=== PATIENT | female | born 1975 | race Caucasian/White ===

== ENCOUNTER 2016-03-27 08:20 | Inpatient (IN) | payer OTHER ==
[2016-03-27] VITALS (27 sets, daily range): BP systolic 125–240; BP diastolic 85–148; PULSE 84–136; TEMP 37.6–39; O2SAT 89–99; BMI 29.8
[~2016-03-27] VITALS: Ht 157.5 cm; Wt 75.1 kg
[~2016-03-27 08:20] MED LIST: AMLO-110 PO; LISI-725 PO; OXYC1TAB3 PO
[2016-03-27] MEDS ORDERED: SODIUM CHLORIDE 0.9% 1000ML 1,000 ML IV STA ×2 (08:40→09:48)
[2016-03-27] MEDS ORDERED: ONDANSETRON INJ 2 MG/ML 2 ML VIAL IV STA (08:40)
[2016-03-27] MEDS ORDERED: PANTOprazole INJ 40 MG in SYRINGE 0 ML IV ONE (08:45)
[2016-03-27] MEDS ORDERED: DEXAMETHASONE SOD INJ 10 MG/ML VIAL IV ONE (08:45)
--- NOTE | 2016-03-27 08:46 | EMERGENCY ROOM VISIT NOTE ---
History Report prepared by Adam: Scott Tay Under the Supervision of: Dr. Wiliam Mendez D.O. First contact with patient: 08:29 Chief Complaint: RESPIRATORY PROBLEMS Stated Complaint: CANT BREATH VOMITING Nursing Triage Summary: Difficulty breathing and throat pain. Denies CP. States awoke with the symptoms. History of Present Illness The patient is a 40 year old female who presents to the Emergency Room with complaints of persistent respiratory problems that started upon waking this morning. She reports a sore throat and shortness of breath. Per the patient's , the patient is vomiting blood. She is also nauseous. The patient has had abdominal pain for months. The patient says she has not had anything like this before. She has surgery scheduled today for a hernia. She is allergic to penicillin and IV dye. Source of History: patient, spouse/significant other Onset: Upon waking this morning Position: other (global - respiratory problems) Timing: other (persistent) Associated Symptoms: + SOB, + abdominal pain (for months), + nausea, + sorethroat, + vomiting (blood) Note: No other associated symptoms. Review of Systems See HPI for pertinent positives & negatives. A total of 10 systems reviewed and were otherwise negative. Past Medical & Surgical Medical Problems: (1) Acute respiratory failure (2) DKA (diabetic ketoacidoses) (3) GERD (gastroesophageal reflux disease) (4) Hyperglycemia (5) Right lower quadrant abdominal abscess (6) RUQ pain Surgical Problems: (1) H/O tubal ligation (2) History of cholecystectomy (3) Hx of cholecystectomy (4) Tubal ligation status Family History Hypertension Social History Smoking Status: Current Every Day Smoker Alcohol Use: none Drug Use: none Marital Status: Housing Status: lives with family Occupation Status: employed Current/Historical Medications Scheduled Amlodipine (Norvasc), 5 MG PO QAM Dicyclomine Hcl (Dicyclomine Hcl), 10 MG PO TID Insulin Glargine (Lantus), 18 UNITS SC QPM Insulin Glulisine (Apidra), 0-20 UNITS SQ BID Lisinopril (Zestril), 20 MG PO QAM Scheduled PRN Acetaminophen (Tylenol), 650 MG PO Q4 PRN for Pain Fluticasone Propionate (Flovent Hfa), 1 PUFFS INH BID PRN for Shortness of Breath Omeprazole (Prilosec), 20 MG PO DAILY PRN for ACID REFLUX Oxycodone Ir (Roxicodone Ir), 5 MG PO Q6H PRN for Pain Allergies Coded Allergies: Iodinated Diagnostic Agents (Verified Adverse Reaction, Mild, VOMITING, 03/25/16) Morphine (Verified Adverse Reaction, Unknown, does not want it, 03/25/16) Penicillins (Verified Adverse Reaction, Unknown, "does not work", 03/25/16) Physical Exam Vital Signs Date Time Temp Pulse Resp B/P Pulse Ox O2 Delivery O2 Flow Rate FiO2 03/27/16 11:13 160/96 03/27/16 11:08 151/94 03/27/16 11:03 144/84 03/27/16 10:58 139/87 03/27/16 10:53 140/87 03/27/16 10:50 111 16 100 03/27/16 10:48 134/86 03/27/16 10:44 119 158/102 100 Mechanical Ventilator 03/27/16 10:43 158/102 03/27/16 10:42 157/103 03/27/16 10:38 167/104 03/27/16 10:36 100 03/27/16 10:35 103 24 94 Room Air 03/27/16 10:33 161/108 03/27/16 10:31 116 139/88 99 Mechanical Ventilator 03/27/16 10:28 139/88 03/27/16 10:25 119 126/80 99 Mechanical Ventilator 03/27/16 10:23 126/80 03/27/16 10:22 139/79 03/27/16 10:20 135 34 100 03/27/16 10:14 128 141/103 100 Mechanical Ventilator 03/27/16 10:13 141/103 03/27/16 10:08 157/106 03/27/16 10:05 136 145/97 100 Mechanical Ventilator 03/27/16 10:04 145/97 03/27/16 10:00 183/134 03/27/16 09:57 139 164/91 99 Mechanical Ventilator 03/27/16 09:54 164/91 03/27/16 09:51 185/124 03/27/16 09:50 140 98 03/27/16 09:46 99 03/27/16 09:43 172/130 03/27/16 09:31 111 20 166/101 97 Room Air 03/27/16 09:29 166/101 03/27/16 08:59 164/97 03/27/16 08:55 109 20 164/97 97 Room Air 03/27/16 08:50 109 24 97 03/27/16 08:38 113 03/27/16 08:38 99 Room Air 03/27/16 08:35 180/114 03/27/16 08:22 37.3 112 24 179/107 95 Room Air Physical Exam GENERAL: Patient is awake, alert, somewhat anxious appearing and uncomfortable. EYES: The conjunctivae are clear. The pupils are round and reactive. EARS, NOSE, MOUTH AND THROAT: The nose is without any evidence of any deformity. Mucous membranes are moist tongue is midline NECK: There is anterior tenderness to palpation but no masses noted. No stridor appreciated. RESPIRATORY: Normal respiratory effort is noted there is no evidence of wheezing rhonchi or rales CARDIOVASCULAR: Heart sounds were tachycardic but regular. No definite murmur appreciated. GASTROINTESTINAL: The abdomen is mildly distended but diffusely tender. No specific guarding or rigidity appreciated. MUSCULOSKELETAL/EXTREMITIES: There is no evidence of gross deformity full range of motion is noted in the hips and shoulders SKIN: There is no obvious evidence of any rash. There are no petechiae, pallor or cyanosis noted. NEUROLOGIC: Patient is awake alert and oriented x3. Medical Decision & Procedures ER Provider Diagnostic Interpretation: X ray results and stated below per my interpretation and radiology interpretation. Other radiology results per my review and radiologist interpretation: SOFT TISSUE NECK CT WITHOUT CONTRAST HISTORY: Difficulty breathing. sore throat TECHNIQUE: Multiaxial CT images of the neck were performed without the use of intravenous contrast. COMPARISON STUDY: None. FINDINGS: The visualized brain parenchyma and orbits are unremarkable. The parotid and submandibular glands are symmetric. There is a bilobed 8 x 5 mm nodule within the right upper lobe on image 409. Left lung is clear. The trachea is midline and is patent. Small retention cysts within the right maxillary sinus. The mastoid air cells are clear. No fractures within the visualized osseous structures. Questionable hypodense area within the right thyroid lobe is likely artifactual. Shotty cervical and submandibular lymph nodes. Evaluation for a neck mass or abscess is limited due to the lack of intravenous contrast. Prevertebral soft tissues and the epiglottis are normal in thickness. Soft tissue thickening/edema within the supraglottic soft tissues and pyriform sinuses. This results in severe narrowing of the supraglottic airway. IMPRESSION: 1. Thickening/edema within the supraglottic soft tissues and pyriform sinuses resulting in severe narrowing of the supraglottic airway. This could be due to an infectious process or possibly angioedema. 2. Evaluation for neck mass or abscess is limited due to lack of intravenous contrast. However, no definite neck mass or abscess identified. 3. Shotty cervical/submandibular lymphadenopathy which may be reactive. 4. An 8 x 5 mm bilobed nodule within the right upper lobe. This could represent a bronchial lymph node. However, [address] follow up is recommended to ensure stability. 5. These findings were discussed with Dr. Mendez at 9:27 AM on 03/27/2016. Electronically signed by: Sunny Saez M.D. 03/27/2016 9:30 AM CHEST ONE VIEW PORTABLE CLINICAL HISTORY: ABDOMINAL PAIN/GI nausea COMPARISON STUDY: 01/11/2016 FINDINGS: The bones soft tissues and hemidiaphragms are normal. The cardiomediastinal silhouette is normal. The lungs are clear. The pulmonary vasculature is normal. IMPRESSION: Negative chest. Electronically signed by: Stefan Harris M.D. 03/27/2016 9:10 AM Laboratory Results 03/27/16 08:50 Red Blood Count 4.38, Mean Corpuscular Volume 89.5, Mean Corpuscular Hemoglobin 31.3, Mean Corpuscular Hemoglobin Concent 34.9, Mean Platelet Volume 9.4, Neutrophils (%) (Auto) 74.8, Lymphocytes (%) (Auto) 16.8, Monocytes (%) (Auto) 7.6, Eosinophils (%) (Auto) 0.3, Basophils (%) (Auto) 0.1, Neutrophils # (Auto) 8.43, Lymphocytes # (Auto) 1.89, Monocytes # (Auto) 0.86, Eosinophils # (Auto) 0.03, Basophils # (Auto) 0.01 03/27/16 08:50 Test 03/27/16 08:50 03/27/16 10:35 03/27/16 10:59 White Blood Count 11.27 K/uL (4.8-10.8) Red Blood Count 4.38 M/uL (4.2-5.4) Hemoglobin 13.7 g/dL (12.0-16.0) Hematocrit 39.2 % (37-47) Mean Corpuscular Volume 89.5 fL (80-100) Mean Corpuscular Hemoglobin 31.3 pg (25-34) Mean Corpuscular Hemoglobin Concent 34.9 g/dl (32-36) Platelet Count 259 K/uL (130-400) Mean Platelet Volume 9.4 fL (7.4-10.4) Neutrophils (%) (Auto) 74.8 % Lymphocytes (%) (Auto) 16.8 % Monocytes (%) (Auto) 7.6 % Eosinophils (%) (Auto) 0.3 % Basophils (%) (Auto) 0.1 % Neutrophils # (Auto) 8.43 K/uL (1.4-6.5) Lymphocytes # (Auto) 1.89 K/uL (1.2-3.4) Monocytes # (Auto) 0.86 K/uL (0.11-0.59) Eosinophils # (Auto) 0.03 K/uL (0-0.5) Basophils # (Auto) 0.01 K/uL (0-0.2) RDW Standard Deviation 50.9 fL (36.4-46.3) RDW Coefficient of Variation 15.6 % (11.5-14.5) Immature Granulocyte % (Auto) 0.4 % Immature Granulocyte # (Auto) 0.05 K/uL (0.00-0.02) Prothrombin Time 11.1 SECONDS (9.0-12.0) Prothromb Time International Ratio 1.0 (0.9-1.1) Activated Partial Thromboplast Time 28.7 SECONDS (21.0-31.0) Partial Thromboplastin Ratio 1.1 Anion Gap 14.0 mmol/L (3-11) Est Creatinine Clear Calc Drug Dose 105.6 ml/min Estimated GFR () 127.2 Estimated GFR (Non- 109.7 BUN/Creatinine Ratio 12.1 (10-20) Calcium Level 9.2 mg/dl (8.5-10.1) Total Bilirubin 0.2 mg/dl (0.2-1) Direct Bilirubin < 0.1 mg/dl (0-0.2) Aspartate Amino Transf (AST/SGOT) 169 U/L (15-37) Alanine Aminotransferase (ALT/SGPT) 162 U/L (12-78) Alkaline Phosphatase 188 U/L (45-117) Total Creatine Kinase 47 U/L (26-192) Creatine Kinase MB < 0.5 ng/ml (0.5-3.6) Creatine Kinase MB Ratio (0-3.0) Troponin I < 0.015 ng/ml (0-0.045) Total Protein 7.7 gm/dl (6.4-8.2) Albumin 3.7 gm/dl (3.4-5.0) Lipase 136 U/L (73-393) Human Chorionic Gonadotropin, Qual NEG (NEG) Urine Color YELLOW Urine Appearance CLEAR (CLEAR) Urine pH 6.0 (4.5-7.5) Urine Specific [place] 1.013 (1.000-1.030) Urine Protein 2+ (NEG) Urine Glucose (UA) 2+ (NEG) Urine Ketones NEG (NEG) Urine Occult Blood 3+ (NEG) Urine Nitrite NEG (NEG) Urine Bilirubin NEG (NEG) Urine Urobilinogen NEG (NEG) Urine Leukocyte Esterase NEG (NEG) Urine WBC (Auto) 1-5 /hpf (0-5) Urine RBC (Auto) >30 /hpf (0-4) Urine Hyaline Casts (Auto) 5-10 /lpf (0-5) Urine Epithelial Cells (Auto) >30 /lpf (0-5) Urine Bacteria (Auto) NEG (NEG) Urine Renal Epithelial Cells /lpf (0-5) Bedside Glucose 330 mg/dl (70-90) Laboratory results per my review. Medications Administered Medications (Trade) Dose Ordered Sig/Jimbo Route Start Time Stop Time Status Last Admin Dose Admin Dexamethasone Sodium Phosphate 10 mg 10 mg NOW ONCE IV 03/27/16 08:45 03/27/16 08:46 DC 03/27/16 08:56 10 MG Sodium Chloride (Nss 1000ml) 1,000 ml @ 999 mls/hr Q1H1M STAT IV 03/27/16 08:40 03/27/16 09:40 DC 03/27/16 08:55 999 MLS/HR Ondansetron HCl 4 mg 4 mg NOW STAT IV 03/27/16 08:40 03/27/16 08:43 DC 03/27/16 08:56 4 MG Pantoprazole Sodium/Syringe (Protonix Inj/ Syringe) 10 ml @ 5 mls/min NOW ONCE IV 03/27/16 08:45 03/27/16 08:47 DC 03/27/16 09:28 5 MLS/MIN Famotidine (Pepcid 20mg/100 ml) 20 mg ONE STAT IV 03/27/16 09:22 03/27/16 09:24 DC 03/27/16 09:58 20 MG Racepinephrine (Raccemic Epinephrine 2.25% 0.5ML Neb) 0.5 ml NOW STAT INH 03/27/16 09:25 03/27/16 09:26 DC 03/27/16 09:25 0.5 ML Miscellaneous (Rapid Sequence Induction Bag) 1 ea STK-MED ONCE N/A 03/27/16 09:33 03/27/16 09:34 DC 03/27/16 09:33 1 EA Propofol 1 dose 1 dose STK-MED ONCE IV 03/27/16 09:47 03/27/16 09:48 DC 03/27/16 10:10 1 DOSE Sodium Chloride (Nss 1000ml) 1,000 ml @ 250 mls/hr Q4H STAT IV 03/27/16 09:48 03/27/16 12:50 DC 03/27/16 10:04 250 MLS/HR Fentanyl Citrate (Fentanyl Inj) 200 mcg NOW STAT IV 03/27/16 10:35 03/27/16 10:37 DC 03/27/16 10:42 200 MCG Midazolam HCl (Versed Inj) 4 mg NOW STAT IV 03/27/16 10:35 03/27/16 10:37 DC 03/27/16 10:40 4 MG Procedure Endotracheal Intubation Indication Angioedema. The patient was on 100% oxygen via NRB prior to the procedure. Suction, airway equipment, RSI drugs, respiratory equipment, and appropriate personnel were prepared prior to the initiation of the procedure. A time out was taken. Induction was performed with Etomidate 20 mg. After observing the clinical benefit of the medications, the airway was easily visualized utilizing a glottiscope. A 7.5 size ETT tube was placed atraumatically to 23 cm at the lips using standard technique. The cuff inflated without signs of malfunction. There were bilateral breath sounds, positive colormetric change, no gastric sounds, a good capnography waveform, and post procedure pulse oximetry was 99% before and 100% after Post intubation sedation and paralysis was administered using propofol drip. There were no complications. ECG Indication: SOB/dyspnea Rate (beats per minute): 109 Rhythm: sinus tachycardia Findings: no ectopy, other (no acute ST segment abnormalities) Change: no significant change (from March 18 2016) ED Course 0833: The patient was evaluated in room B6. A complete history and physical examination were performed. 0840: Ordered Zofran Inj 4 mg IV, NSS 1000 ml @ 999 mls/hr IV. 0845: Ordered Pantoprazole Sodium 40 mg/Syringe 10 ml @ 5 mls/min IV, Decadron Inj 10 mg IV. 0922 :Ordered Pepcid 20 mg/100 ml 20 mg IV. 0925: Ordered Raccemic Epinephrine 2.25% 0.5ML Neb 0.5 ml INH. 0938: I performed an intubation on the patient. 0941: I discussed the patient with Dr. Demetrice NOBLES ICU. 0948: Ordered NSS 1000 ml @ 250 mls/hr IV, Versed Inj 4 mg IV. 0955: I reevaluated the patient and she is resting comfortably. The patient verbally expressed understanding and agreement of the treatment plan. The patient will be evaluated for further treatment. 0958: I discussed the patient with Dr. Sharmaine NOBLES superintendent sales - he will evaluate the patient for further treatment. 1000: Diprivan IV 100ML VIAL 1 dose IV PRN. Medical Decision Differential diagnosis: Etiologies such as infections, reactive airway disease, pneumonia, pneumothorax , COPD, CHF, cardiac ischemia, pulmonary embolism, musculoskeletal, gastrointestinal, as well as others were entertained. Nursing notes reviewed. Additional history is obtained from the patient's significant other. Patient's previous electronic medical records reviewed. The patient is a 40-year-old female who presented to the emergency department for an evaluation of sore throat and difficulty breathing. The patient states that she had an episode of nausea and vomiting this morning and then started having difficulty breathing. She felt like her "throat was closing". The patient had stridor on initial valuation but this appeared to resolve when the patient was breathing with an open mouth. The patient was sent for CAT scan of the soft tissue of the neck which did reveal significant supraglottic airway edema. The patient currently is taking an DEBORAH inhibitor. The patient was taken to room A1 and was intubated for airway protection. Visually she did have some supraglottic edema but her cords and her epiglottis appeared normal to visual inspection. I discussed the patient's case with the on-call floorhand. I also discussed his case with the on-call [facility] hospitalist group. They've agreed to evaluate the patient in emergency department for further management and disposition. The patient was managed on IV sedation. She was intubated in usual fashion tolerated this quite well. The patient was reevaluated multiple times. Consults Time Called: 939 Consulting Physician: Dr. Demetrice NOBLES ICU Returned Call: [phone] I discussed the patient with Dr. Demetrice NOBLES ICU. Additional Consults: Time Called: 955 Consulted Physician: Dr. Sharmaine NOBLES superintendent sales Returned Call: [phone] Additional Comments: I discussed the patient with Dr. Sharmaine NOBLES superintendent sales - he will evaluate the patient for further treatment. Impression Primary Impression: Angioedema Additional Impressions: Respiratory failure, Metabolic acidosis Critical Care I have personally spent greater than 60 minutes of critical care time in the direct management of this patient. This includes bedside care, interpretation of diagnostic studies, and testing, discussion with consultants, patient, and family members, and other required patient management activities. This 60 minutes is in excess of all separately billable procedures. Scribe Attestation The scribe's documentation has been prepared under my direction and personally reviewed by me in its entirety. I confirm that the note above accurately reflects all work, treatment, procedures, and medical decision making performed by me. Departure Information Dispostion Being Evaluated By Hospitalist Referrals No Doctor, Assigned (PCP) Patient Instructions A Signature Page, My [facility]
--- NOTE | 2016-03-27 09:12 | DIAGNOSTIC IMAGING REPORT ---
CHEST ONE VIEW PORTABLE CLINICAL HISTORY: ABDOMINAL PAIN/GI nausea COMPARISON STUDY: 01/11/2016 FINDINGS: The bones soft tissues and hemidiaphragms are normal. The cardiomediastinal silhouette is normal. The lungs are clear. The pulmonary vasculature is normal. IMPRESSION: Negative chest. Electronically signed by: Stefan Harris M.D. 03/27/2016 9:10 AM
[2016-03-27] MEDS ORDERED: FAMOTIDINE 20MG/102 ML D5W IV STA (09:22)
[2016-03-27] MEDS ORDERED: RACEPINEPHRINE 2.25% NEBU SOLN 0.5 ML VIAL INH STA (09:25)
[2016-03-27 09:29] LABS: BASO % 0.1 %; BASO ABS # 0.01 K/uL (0-0.2); COMPLETE YES; EOS % 0.3 %; HEMATOCRIT 39.2 % (37-47); IG% 0.4 %; LYMPH % 16.8 %; LYMPH ABS # 1.89 K/uL (1.2-3.4); MEAN CELL VOLUME 89.5 fL (80-100); MEAN CORPUSCULAR HEMOGLOBIN 31.3 pg (25-34); MEAN CORPUSCULAR HGB CONC 34.9 g/dl (32-36); MEAN PLATELET VOLUME 9.4 fL (7.4-10.4); MONO % 7.6 %; NEUT % 74.8 %; PLATELET COUNT 259 K/uL (130-400); RED BLOOD COUNT 4.38 M/uL (4.2-5.4); WHITE BLOOD COUNT 11.27 K/uL (4.8-10.8)
--- NOTE | 2016-03-27 09:32 | DIAGNOSTIC IMAGING REPORT ---
SOFT TISSUE NECK CT WITHOUT CONTRAST HISTORY: Difficulty breathing. sore throat TECHNIQUE: Multiaxial CT images of the neck were performed without the use of intravenous contrast. COMPARISON STUDY: None. FINDINGS: The visualized brain parenchyma and orbits are unremarkable. The parotid and submandibular glands are symmetric. There is a bilobed 8 x 5 mm nodule within the right upper lobe on image 409. Left lung is clear. The trachea is midline and is patent. Small retention cysts within the right maxillary sinus. The mastoid air cells are clear. No fractures within the visualized osseous structures. Questionable hypodense area within the right thyroid lobe is likely artifactual. Shotty cervical and submandibular lymph nodes. Evaluation for a neck mass or abscess is limited due to the lack of intravenous contrast. Prevertebral soft tissues and the epiglottis are normal in thickness. Soft tissue thickening/edema within the supraglottic soft tissues and pyriform sinuses. This results in severe narrowing of the supraglottic airway. IMPRESSION: 1. Thickening/edema within the supraglottic soft tissues and pyriform sinuses resulting in severe narrowing of the supraglottic airway. This could be due to an infectious process or possibly angioedema. 2. Evaluation for neck mass or abscess is limited due to lack of intravenous contrast. However, no definite neck mass or abscess identified. 3. Shotty cervical/submandibular lymphadenopathy which may be reactive. 4. An 8 x 5 mm bilobed nodule within the right upper lobe. This could represent a bronchial lymph node. However, [address] follow up is recommended to ensure stability. 5. These findings were discussed with Dr. Mendez at 9:27 AM on 03/27/2016. Electronically signed by: Sunny Saez M.D. 03/27/2016 9:30 AM
[2016-03-27] MEDS ORDERED: RAPID SEQUENCE INDUCTION BAG ONE (09:33)
[2016-03-27 09:40] LABS: PARTIAL THROMBOPLASTIN RATIO 1.1; PROTHROMBIN TIME (PATIENT) 11.1 SECONDS (9.0-12.0)
[2016-03-27] MEDS ORDERED: PROPOFOL IV EMULSION 10 MG/ML 100 ML VIAL IV ONE (09:47)
[2016-03-27] MEDS ORDERED: MIDAZOLAM HCL 1 MG/ML 2ML VIAL IV STA (09:48)
[2016-03-27] MEDS ORDERED: PROPOFOL IV EMULSION 10 MG/ML 100 ML VIAL IV PRN (10:00)
[2016-03-27 10:03] LABS: PREG INTERNAL NEGATIVE QC NEG CLEAR BACKGROUND; PREG INTERNAL POSITIVE QC POS CONTROL LINE
[2016-03-27 10:11] LABS: POTASSIUM 3.6 mmol/L (3.5-5.1)
[2016-03-27 10:19] LABS: ALKALINE PHOSPHATASE 188 U/L (45-117); ALT/SGPT 162 U/L (12-78); BLOOD UREA NITROGEN 8 mg/dl (7-18); BUN/CREATININE RATIO 12.1 (10-20); CALCIUM 9.2 mg/dl (8.5-10.1); CARBON DIOXIDE 19 mmol/L (21-32); CHLORIDE 108 mmol/L (98-107); CREATININE 0.66 mg/dl (0.60-1.20); GLUCOSE 267 mg/dl (70-99); SODIUM 140 mmol/L (136-145)
[2016-03-27 10:22] LABS: AST/SGOT 169 U/L (15-37)
--- NOTE | 2016-03-27 10:33 | Critical Care Consultation ---
Critical Care Consultation Date of Consultation: Mar 27, 2016. Attending Physician: Attending: Dr. Miguel Angel Suresh Reason for Consultation: Intubated s/p Angio Edema History of Present Illness Iman Wild is 40yo Female with a PMHx of IDDM, HTN, GERD, IBS, PID, S/P hysterectomy with L oophorectomy secondary to Cervical CA who presents to the E.D for difficulty breathing and a sore throat that she awoke with. When I arrived, Ms. Wild was sedated and intubated for prophylactic airway protection and was unable to be interviewed. Prior to intubation the pt told E.D staff that she had never experienced anything like this before. stated that about 3 days ago the pt noted hoarseness while yelling at this kids , which has progressively gotten worse. He denies that she felt ill. Today she was nauseous and vomited with tinges of blood in it. She had abd pain times several months and was scheduled for hernia surgery today. It is my understanding that she was oxygenating well bring to being intubated and this was for prophylactic airway protection. She underwent a Neck CT without contrast that demonstrated Thickening/edema within the supraglottic soft tissues and pyriform sinuses resulting in severe narrowing of the supraglottic airway. This could be due to an infectious process or possibly angioedema. Pt is on Lisinopril prior to the hospital setting according to records. Unknown at this time how long she has taken this medication; however, this medication was not listed as a home med as of her most recent inpatient stay for abd pain on 01/10/2016 or most recent ED visit on 03/17/16. Pt received Zofran for nausea and was started on NSS IV. She underwent 1 Raccemic Epinephrine Nebulizer and consented to intubation. She was sedated using Etomidate 20mg and Succinylcholine 150 with use a the glottiscope a 7.5 ET tube was inserted reportedly without trauma to 23cm at the lip. I spoke with respiratory who had just suctioned a significant amount of bloody oral secretions. Intubation sedation was followed by Versed, Fentanyl, and Propofol. I visited the patient again about a half hour after sedation. She was semi alert and could respond to some questions with nodding her head before going back to sleep. She denied fevers, malaise, chest pain, feeling short of breath now. She does have abd pain. Past Medical/Surgical History Medical Problems: DKA (diabetic ketoacidoses) GERD (gastroesophageal reflux disease) Hyperglycemia Right lower quadrant abdominal abscess RUQ pain Cervical CA Irritable Bowel Synd HTN IDDM Pelvic Inflammatory Dz Surgical Problems: H/O tubal ligation Hysterectomy L oophorectomy History of cholecystectomy Ventral Hernia Repair Family History Hypertension Social History Smoking Status: Current Every Day Smoker Alcohol Use: none Drug Use: none Marital Status: Housing Status: lives with family Occupation Status: employed Allergies Coded Allergies: Iodinated Diagnostic Agents (Verified Adverse Reaction, Mild, VOMITING, 03/25/16) Morphine (Verified Adverse Reaction, Unknown, does not want it, 03/25/16) Penicillins (Verified Adverse Reaction, Unknown, "does not work", 03/25/16) Home Medications Scheduled Amlodipine (Norvasc), 5 MG PO QAM Dicyclomine Hcl (Dicyclomine Hcl), 10 MG PO TID Insulin Glargine (Lantus), 18 UNITS SC QPM Insulin Glulisine (Apidra), 0-20 UNITS SQ BID Lisinopril (Zestril), 20 MG PO QAM Scheduled PRN Acetaminophen (Tylenol), 650 MG PO Q4 PRN for Pain Fluticasone Propionate (Flovent Hfa), 1 PUFFS INH BID PRN for Shortness of Breath Omeprazole (Prilosec), 20 MG PO DAILY PRN for ACID REFLUX Oxycodone Ir (Roxicodone Ir), 5 MG PO Q6H PRN for Pain Current Inpatient Medications Current Inpatient Medications Medications (Trade) Dose Ordered Sig/Jimbo Route Start Time Stop Time Status Last Admin Dose Admin Propofol 1 dose 1 dose UD PRN IV 03/27/16 10:00 03/30/16 09:59 Sodium Chloride (Nss 1000ml) 1,000 ml @ 250 mls/hr Q4H STAT IV 03/27/16 09:48 03/27/16 13:47 03/27/16 10:04 250 MLS/HR Review of Systems ROS could not be obtained secondary to pt sedation, condition, and intubation. Physical Exam Date Time Temp Pulse Resp B/P Pulse Ox O2 Delivery O2 Flow Rate FiO2 03/27/16 10:25 119 126/80 99 Mechanical Ventilator 03/27/16 10:14 128 141/103 100 Mechanical Ventilator 03/27/16 10:05 136 145/97 100 Mechanical Ventilator 03/27/16 09:57 139 164/91 99 Mechanical Ventilator 03/27/16 09:46 99 03/27/16 09:31 111 20 166/101 97 Room Air 03/27/16 08:55 109 20 164/97 97 Room Air 03/27/16 08:38 113 03/27/16 08:38 99 Room Air 03/27/16 08:22 37.3 112 24 179/107 95 Room Air General: NAD, intubated in E.D. 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 There is no pneumothorax. There are cholecystectomy clips. Lung volumes are at the lower limits of normal. There is no consolidation. Cardiac size is normal. Mediastinal contours are normal. * IMPRESSION: * 1. Satisfactory positioning of the endotracheal tube. * 2. No acute cardiopulmonary findings HOB up 30 degrees: No: Pt flat in bed undergoing placement of kelsey Chlorhexidine: No Cardiovascular: Reg rate & rhythm; No rubs, murmurs, gallops, or clicks appreciated SBP 126 CV drips: N/A EKG: I have independently reviewed the report as well as the images dated 03/27/16 * Sinus Tachycardia, Otherwise Nl EKG; QTc 441 ECHO: None noted Fluids/Renal: NSS at 250 ml/hr; Currently +1L Kelsey to gravity in place Cr 0.66; BUN 8 GI/Nutrition: Normal active BS, Tympanic to percussion, Soft, NT, ND, without organomegaly NPO Feeding: None Prophylaxis:Hx of GERD will need Endocrine: Last 24 hour glucose: 267- 330 Insulin protocol: Will start; Drip: Will TSH 0.691 on 01/11/16 Hematology: Mild spotting of blood in emesis according to , Significant bloody secretions s/p intubated suctioned by respiratory No overt sign of bleeding H&H 13.7 & 39.2; plt 259 Coags: PT 11.1, aPTT 28.7, INR 1.0 DVT prophylaxis: None Currently Type and screen: Not indicated Skin/MSK: All extremities note to be moved Infectious Disease: Tmax: 37.3 Afebrile WBC 11.27 Lactic Acid: N/A Antimicrobials: None Cultures: Blood: None Urine: None C. difficile toxin:N/A Access: Peripheral IVs in place: Right Hand and Left AC 20g Central Line not indicated Laboratory Results Last 24 Hours Test 03/27/16 08:50 White Blood Count 11.27 K/uL Red Blood Count 4.38 M/uL Hemoglobin 13.7 g/dL Hematocrit 39.2 % Mean Corpuscular Volume 89.5 fL Mean Corpuscular Hemoglobin 31.3 pg Mean Corpuscular Hemoglobin Concent 34.9 g/dl Platelet Count 259 K/uL Mean Platelet Volume 9.4 fL Neutrophils (%) (Auto) 74.8 % Lymphocytes (%) (Auto) 16.8 % Monocytes (%) (Auto) 7.6 % Eosinophils (%) (Auto) 0.3 % Basophils (%) (Auto) 0.1 % Neutrophils # (Auto) 8.43 K/uL Lymphocytes # (Auto) 1.89 K/uL Monocytes # (Auto) 0.86 K/uL Eosinophils # (Auto) 0.03 K/uL Basophils # (Auto) 0.01 K/uL RDW Standard Deviation 50.9 fL RDW Coefficient of Variation 15.6 % Immature Granulocyte % (Auto) 0.4 % Immature Granulocyte # (Auto) 0.05 K/uL Prothrombin Time 11.1 SECONDS Prothromb Time International Ratio 1.0 Activated Partial Thromboplast Time 28.7 SECONDS Partial Thromboplastin Ratio 1.1 Sodium Level 140 mmol/L Potassium Level 3.6 mmol/L Chloride Level 108 mmol/L Carbon Dioxide Level 19 mmol/L Anion Gap 14.0 mmol/L Blood Urea Nitrogen 8 mg/dl Creatinine 0.66 mg/dl Est Creatinine Clear Calc Drug Dose 105.6 ml/min Estimated GFR () 127.2 Estimated GFR (Non- 109.7 BUN/Creatinine Ratio 12.1 Random Glucose 267 mg/dl Calcium Level 9.2 mg/dl Total Bilirubin 0.2 mg/dl Direct Bilirubin < 0.1 mg/dl Aspartate Amino Transf (AST/SGOT) 169 U/L Alanine Aminotransferase (ALT/SGPT) 162 U/L Alkaline Phosphatase 188 U/L Total Creatine Kinase 47 U/L Creatine Kinase MB < 0.5 ng/ml Creatine Kinase MB Ratio Troponin I < 0.015 ng/ml Total Protein 7.7 gm/dl Albumin 3.7 gm/dl Lipase 136 U/L Human Chorionic Gonadotropin, Qual NEG Diagnostic Results CHEST ONE VIEW PORTABLE CLINICAL HISTORY: Post intubation. COMPARISON STUDY: Chest radiograph March 27, 2016 at 9:03 AM FINDINGS: The tip of the endotracheal tube is 3.4 cm above the magali. There is no pneumothorax. There are cholecystectomy clips. Lung volumes are at the lower limits of normal. There is no consolidation. Cardiac size is normal. Mediastinal contours are normal. IMPRESSION: 1. Satisfactory positioning of the endotracheal tube. 2. No acute cardiopulmonary findings. Electronically signed by: Darci oDmínguez M.D. 03/27/2016 10:59 AM ____ SOFT TISSUE NECK CT WITHOUT CONTRAST HISTORY: Difficulty breathing. sore throat TECHNIQUE: Multiaxial CT images of the neck were performed without the use of intravenous contrast. COMPARISON STUDY: None. FINDINGS: The visualized brain parenchyma and orbits are unremarkable. The parotid and submandibular glands are symmetric. There is a bilobed 8 x 5 mm nodule within the right upper lobe on image 409. Left lung is clear. The trachea is midline and is patent. Small retention cysts within the right maxillary sinus. The mastoid air cells are clear. No fractures within the visualized osseous structures. Questionable hypodense area within the right thyroid lobe is likely artifactual. Shotty cervical and submandibular lymph nodes. Evaluation for a neck mass or abscess is limited due to the lack of intravenous contrast. Prevertebral soft tissues and the epiglottis are normal in thickness. Soft tissue thickening/edema within the supraglottic soft tissues and pyriform sinuses. This results in severe narrowing of the supraglottic airway. IMPRESSION: 1. Thickening/edema within the supraglottic soft tissues and pyriform sinuses resulting in severe narrowing of the supraglottic airway. This could be due to an infectious process or possibly angioedema. 2. Evaluation for neck mass or abscess is limited due to lack of intravenous contrast. However, no definite neck mass or abscess identified. 3. Shotty cervical/submandibular lymphadenopathy which may be reactive. 4. An 8 x 5 mm bilobed nodule within the right upper lobe. This could represent a bronchial lymph node. However, [address] follow up is recommended to ensure stability. 5. These findings were discussed with Dr. Mendez at 9:27 AM on 03/27/2016. Electronically signed by: Sunny Saez M.D. 03/27/2016 9:30 AM Assessment & Plan Reason Critically Ill: Patient is an 40-year-old female who is transferred to the ICU for shortness of breath secondary to angio edema. PLAN: ENT: Angio-edema * Intubated for airway protection, will check for air leak when prepared to extubate * Pt received 1 raccemic epi prior to intubation * Viral, Bacterial, vs Medication induced; appears per records that Lisinopril is a new medication. * D/C Lisinopril, improvement would be expected in 48-72 hours with d/c * Decadron 6mg IV q6hrs * Dr. Osman Consulted: will see pt at 1700 tonight * Begin Unasyn 3g q6hrs, Allergy overrode as not true allergy; "It does not work" listed as allergy Neuro: * Continue sedation to Rass of -1 to 0 * Will start Precedex in ICU and wean propofol * Fentanyl for pain Resp: * Prophylactically intubated, was saturating adequately prior to intubation * Turn FIO2 down to 50-60% * Repeat CXR 03/28/16 CV: Hypertension * Currently Normotensive * D/C Lisinopril * Contact provider if SBP > 170 * Neg Cardiac Workup: Neg Trop x 1 Endocrine: IDDM * Hyperglycemic, pt received Decadron 10mg IV in ED * Accu-Checks per protocol * Will start insulin infusion now Fluids/Renal: * Continue NSS * Hx of DM * Follow Serial Labs Electrolytes: * Na 140; K 3.6; Cl 108; HCO3 19 * Follow daily labs ID: * Leukocytosis; likely secondary to acute phase reaction * Procalcitonin with next labs * Afebrile, Follow fever curve GI/Nutrition: * Begin Protonix Prophylaxis * Place OG tube * Currently no need for immediate tube feeds Heme: * H&H stable * No signs of bleeding * Follow serial labs * Order and Place SCDs CCT: 40 Minutes; This time is exclusive of all separately billable procedures. Thank you for involving us in the care of this patient. Please refer to Dr. Miguel Angel Suresh's addendum for further recommendations. I have personally evaluated and examined this patient. I agree with assessment and plan of Madai Alvarado PA-C. Discussed with Radiology and ENT regarding angioedema vs. abscess. Patient has developed fever, seen in ICU by ENT. Intubated in ED reported inflammation. Will sedated heavy tonight to RASS -3, and check for airleak in AM and plan for possible extubation if airway improved.
[2016-03-27] MEDS ORDERED: MIDAZOLAM HCL 5 MG/ML 1 ML VIAL IV STA ×2 (10:35→18:03)
[2016-03-27] MEDS ORDERED: FENTANYL CITRATE INJ 50 MCG/1 ML 2 ML VIAL IV STA (10:35)
[2016-03-27 10:52] LABS: URINE APPEARANCE CLEAR (CLEAR); URINE BILIRUBIN NEG (NEG); URINE COLOR YELLOW; URINE EPITHELIAL CELL AUTO >30 /lpf (0-5); URINE NITRITE NEG (NEG); URINE SPECIFIC GRAVITY 1.013 (1.000-1.030); UROBILINOGEN NEG (NEG)
[2016-03-27 10:55] LABS: MANUAL MICROSCOPIC REQUIRED? NO; REVIEW REQ? YES
--- NOTE | 2016-03-27 11:01 | DIAGNOSTIC IMAGING REPORT ---
CHEST ONE VIEW PORTABLE CLINICAL HISTORY: Post intubation. COMPARISON STUDY: Chest radiograph March 27, 2016 at 9:03 AM FINDINGS: The tip of the endotracheal tube is 3.4 cm above the magali. There is no pneumothorax. There are cholecystectomy clips. Lung volumes are at the lower limits of normal. There is no consolidation. Cardiac size is normal. Mediastinal contours are normal. IMPRESSION: 1. Satisfactory positioning of the endotracheal tube. 2. No acute cardiopulmonary findings. Electronically signed by: Darci Domínguez M.D. 03/27/2016 10:59 AM
[2016-03-27] MEDS ORDERED: DEXAMETHASONE INJ 6 MG in SYRINGE 0 ML IV SCH (12:00)
--- NOTE | 2016-03-27 12:22 | History and Physical ---
History & Physical Date & Time of Service: Mar 27, 2016 at 12:13 Chief Complaint: Cant Breath Vomiting Primary Care Physician: No Doctor, Assigned History of Present Illness Source: patient, spouse, clinic records, hospital records Ms. Wild is a 40 y/o WF with PMHx of IDDM, HTN, GERD, IBS, PID, S/P Hysterectomy with L Oophorectomy 2/2 Cervical CA, S/P Ventral Hernia Repair, S/ P Cholecystectomy with continued Gallstones who reports to the ED for difficulty breathing and one episode of emesis that started this AM. HPI limited and largely obtained from ED note, ED staff, and at bedside as patient is currently intubated. reports that the patient has been complaining of a sore throat and was starting to lose her voice 3 days ago. He contributes this to her yelling and screaming and the [employer] as she did not complain of any other symptoms. He states that after the progressive loss of her voice she did develop a cough that was productive of green sputum. He states she did not complain of fevers but reports she always complains about feeling hot. This AM when she woke up she was continued to complain of a sore throat but developed shortness of breath. Also complains of chronic abdominal pain and was scheduled for a abdominal hernia repair today (03/27/16). Patient was intermittently responsive while intubated with simple yes/no questions. When asked about pain she pointed to her abdomen. reports some sick contacts with "the normal cold". Of note, Lisinopril is listed as a home medication but per last admission it was not utilized. Outpatient records limited as Lisinopril was last marked from January 2015 and it is unknown whether patient currently takes this medication. unable to confirm medication but did tell ED staff she was started on a new medication 6 months ago. He reports he will bring in her medications for med reconcile. In the ED, per ED doctor the patient had mild stridor but when examining her pharynx the stridor appeared to stop. No direct edema of the pharynx noted but on intubation airway edema evident. Intubation was decided for airway protection as she did not experience respiratory failure. She will be admitted to the ICU for further evaluation and care. Past Medical/Surgical History Medical Problems: (1) GERD (gastroesophageal reflux disease) Status: Chronic Surgical Problems: (1) H/O tubal ligation Status: Chronic (2) History of cholecystectomy Status: Resolved (3) Hx of cholecystectomy Status: Chronic (4) Tubal ligation status Status: Resolved Family History Hypertension Social History Smoking Status: Current Every Day Smoker (2 ppd) Alcohol Use: none Drug Use: none Marital Status: Occupational Status: employed Allergies Coded Allergies: Iodinated Diagnostic Agents (Verified Adverse Reaction, Mild, VOMITING, 03/25/16) Morphine (Verified Adverse Reaction, Unknown, does not want it, 03/25/16) Penicillins (Verified Adverse Reaction, Unknown, "does not work", 03/25/16) Home Medications Scheduled Amlodipine (Norvasc), 5 MG PO QAM Dicyclomine Hcl (Dicyclomine Hcl), 10 MG PO TID Insulin Glargine (Lantus), 18 UNITS SC QPM Insulin Glulisine (Apidra), 0-20 UNITS SQ BID Lisinopril (Zestril), 20 MG PO QAM Scheduled PRN Acetaminophen (Tylenol), 650 MG PO Q4 PRN for Pain Fluticasone Propionate (Flovent Hfa), 1 PUFFS INH BID PRN for Shortness of Breath Omeprazole (Prilosec), 20 MG PO DAILY PRN for ACID REFLUX Oxycodone Ir (Roxicodone Ir), 5 MG PO Q6H PRN for Pain Review of Systems ROS limited given patient is intubated and intermittently responsive. When asked about pain she did point to her abdomen. Physical Exam Vital Signs Date Time Temp Pulse Resp B/P Pulse Ox O2 Delivery O2 Flow Rate FiO2 03/27/16 11:55 109 03/27/16 10:44 119 158/102 100 Mechanical Ventilator 03/27/16 10:36 100 03/27/16 10:35 103 24 94 Room Air 03/27/16 10:31 116 139/88 99 Mechanical Ventilator 03/27/16 10:25 119 126/80 99 Mechanical Ventilator 03/27/16 10:14 128 141/103 100 Mechanical Ventilator 03/27/16 10:05 136 145/97 100 Mechanical Ventilator 03/27/16 09:57 139 164/91 99 Mechanical Ventilator 03/27/16 09:46 99 03/27/16 09:31 111 20 166/101 97 Room Air 03/27/16 08:55 109 20 164/97 97 Room Air 03/27/16 08:38 113 03/27/16 08:38 99 Room Air 03/27/16 08:22 37.3 112 24 179/107 95 Room Air General Appearance: WD/WN, no apparent distress, + pertinent finding (intubated ) Head: normocephalic, atraumatic Eyes: PERRL, sclerae normal ENT: + pertinent finding (limit visualization) Neck: supple, no JVD, trachea midline Respiratory/Chest: no respiratory distress, no accessory muscle use, + rhonchi (scattered throughout lung ruiz), + pertinent finding (bright red bloody secretions from suctioning) Cardiovascular: no gallop, no murmur, + tachycardia Abdomen/GI: normal bowel sounds, soft Extremities/Musculoskelatal: no pedal edema Neurologic/Psych: + pertinent finding (intermittently alert) Skin: normal color, warm/dry Diagnostics Laboratory Results Results Past 24 Hours Test 03/27/16 08:50 03/27/16 10:35 03/27/16 10:59 Range/Units White Blood Count 11.27 4.8-10.8 K/uL Red Blood Count 4.38 4.2-5.4 M/uL Hemoglobin 13.7 12.0-16.0 g/dL Hematocrit 39.2 37-47 % Mean Corpuscular Volume 89.5 80-100 fL Mean Corpuscular Hemoglobin 31.3 25-34 pg Mean Corpuscular Hemoglobin Concent 34.9 32-36 g/dl Platelet Count 259 130-400 K/uL Mean Platelet Volume 9.4 7.4-10.4 fL Neutrophils (%) (Auto) 74.8 % Lymphocytes (%) (Auto) 16.8 % Monocytes (%) (Auto) 7.6 % Eosinophils (%) (Auto) 0.3 % Basophils (%) (Auto) 0.1 % Neutrophils # (Auto) 8.43 1.4-6.5 K/uL Lymphocytes # (Auto) 1.89 1.2-3.4 K/uL Monocytes # (Auto) 0.86 0.11-0.59 K/uL Eosinophils # (Auto) 0.03 0-0.5 K/uL Basophils # (Auto) 0.01 0-0.2 K/uL RDW Standard Deviation 50.9 36.4-46.3 fL RDW Coefficient of Variation 15.6 11.5-14.5 % Immature Granulocyte % (Auto) 0.4 % Immature Granulocyte # (Auto) 0.05 0.00-0.02 K/uL Prothrombin Time 11.1 9.0-12.0 SECONDS Prothromb Time International Ratio 1.0 0.9-1.1 Activated Partial Thromboplast Time 28.7 21.0-31.0 SECONDS Partial Thromboplastin Ratio 1.1 Sodium Level 140 136-145 mmol/L Potassium Level 3.6 3.5-5.1 mmol/L Chloride Level 108 98-107 mmol/L Carbon Dioxide Level 19 21-32 mmol/L Anion Gap 14.0 3-11 mmol/L Blood Urea Nitrogen 8 7-18 mg/dl Creatinine 0.66 0.60-1.20 mg/dl Est Creatinine Clear Calc Drug Dose 105.6 ml/min Estimated GFR () 127.2 Estimated GFR (Non- 109.7 BUN/Creatinine Ratio 12.1 10-20 Random Glucose 267 70-99 mg/dl Calcium Level 9.2 8.5-10.1 mg/dl Total Bilirubin 0.2 0.2-1 mg/dl Direct Bilirubin < 0.1 0-0.2 mg/dl Aspartate Amino Transf (AST/SGOT) 169 15-37 U/L Alanine Aminotransferase (ALT/SGPT) 162 12-78 U/L Alkaline Phosphatase 188 45-117 U/L Total Creatine Kinase 47 26-192 U/L Creatine Kinase MB < 0.5 0.5-3.6 ng/ml Creatine Kinase MB Ratio 0-3.0 Troponin I < 0.015 0-0.045 ng/ml Total Protein 7.7 6.4-8.2 gm/dl Albumin 3.7 3.4-5.0 gm/dl Lipase 136 73-393 U/L Human Chorionic Gonadotropin, Qual NEG NEG Urine Color YELLOW Urine Appearance CLEAR CLEAR Urine pH 6.0 4.5-7.5 Urine Specific [place] 1.013 1.000-1.030 Urine Protein 2+ NEG Urine Glucose (UA) 2+ NEG Urine Ketones NEG NEG Urine Occult Blood 3+ NEG Urine Nitrite NEG NEG Urine Bilirubin NEG NEG Urine Urobilinogen NEG NEG Urine Leukocyte Esterase NEG NEG Urine WBC (Auto) 1-5 0-5 /hpf Urine RBC (Auto) >30 0-4 /hpf Urine Hyaline Casts (Auto) 5-10 0-5 /lpf Urine Epithelial Cells (Auto) >30 0-5 /lpf Urine Bacteria (Auto) NEG NEG Urine Renal Epithelial Cells 0-5 /lpf Bedside Glucose 330 70-90 mg/dl Diagnostic Radiology SOFT TISSUE NECK CT WITHOUT CONTRAST HISTORY: Difficulty breathing. sore throat TECHNIQUE: Multiaxial CT images of the neck were performed without the use of intravenous contrast. COMPARISON STUDY: None. FINDINGS: The visualized brain parenchyma and orbits are unremarkable. The parotid and submandibular glands are symmetric. There is a bilobed 8 x 5 mm nodule within the right upper lobe on image 409. Left lung is clear. The trachea is midline and is patent. Small retention cysts within the right maxillary sinus. The mastoid air cells are clear. No fractures within the visualized osseous structures. Questionable hypodense area within the right thyroid lobe is likely artifactual. Shotty cervical and submandibular lymph nodes. Evaluation for a neck mass or abscess is limited due to the lack of intravenous contrast. Prevertebral soft tissues and the epiglottis are normal in thickness. Soft tissue thickening/edema within the supraglottic soft tissues and pyriform sinuses. This results in severe narrowing of the supraglottic airway. IMPRESSION: 1. Thickening/edema within the supraglottic soft tissues and pyriform sinuses resulting in severe narrowing of the supraglottic airway. This could be due to an infectious process or possibly angioedema. 2. Evaluation for neck mass or abscess is limited due to lack of intravenous contrast. However, no definite neck mass or abscess identified. 3. Shotty cervical/submandibular lymphadenopathy which may be reactive. 4. An 8 x 5 mm bilobed nodule within the right upper lobe. This could represent a bronchial lymph node. However, [address] follow up is recommended to ensure stability. CHEST ONE VIEW PORTABLE CLINICAL HISTORY: Post intubation. COMPARISON STUDY: Chest radiograph March 27, 2016 at 9:03 AM FINDINGS: The tip of the endotracheal tube is 3.4 cm above the magali. There is no pneumothorax. There are cholecystectomy clips. Lung volumes are at the lower limits of normal. There is no consolidation. Cardiac size is normal. Mediastinal contours are normal. IMPRESSION: 1. Satisfactory positioning of the endotracheal tube. 2. No acute cardiopulmonary findings. EKG Sinus tachycardia Otherwise normal ECG When compared with ECG of 18-MAR-2016 11:35, No significant change was found Confirmed by CHELSY ALVARADO ([id number]) on 03/27/2016 9:07:28 AM Impression Assessment and Plan Ms. Wild is a 40 y/o WF with PMHx of IDDM, HTN, GERD, IBS, PID, S/P Hysterectomy with L Oophorectomy 2/2 Cervical CA, S/P Ventral Hernia Repair, S/ P Cholecystectomy with continued Gallstones who reports to the ED for difficulty breathing and one episode of emesis that started this AM. In the ED, per ED doctor the patient had mild stridor but when examining her pharynx the stridor appeared to stop. No direct edema of the pharynx noted but on intubation airway edema evident. Intubation was decided for airway protection as she did not experience respiratory failure. She will be admitted to the ICU for further evaluation and care. Acute Respiratory Distress: Intubated 03/27/16: Infectious vs Angioedema - Assessment - patient without oropharynx edema appreciated and no reports per prior to presentation - may be more likely infectious -- Patient with mild leukocytosis, afebrile, reports productive cough of green sputum with sore throat and progressive laryngitis -- to bring patient's home medications and information is conflicting in regards to Lisinopril usage - Propofol has been titrated to 75 mcg and patient still generally alert - will appreciate further sedation/vent support from Intensivists - OGT insertion for stomach decompression - Protonix 40 mg IV daily for GI stress prophylaxis - NSS at 100 mL/hr - Dexamethasone 6 mg IV Q6H - Fentanyl 100 mg Q4H PRN - patient does complain of abdominal pain and does not appear to be narcotic naive T2DM - IDDM: - Assessment - patient noted glucose of 267 with accucheck at 330 - Insulin drip with severe stress protocol in setting of high glucose and steroid administration DVT Prophylaxis: - TEDs/SCDs - Will defer chemical prophylaxis at this time given blood sputum/emesis Code Status: - FULL RESUSCITATION Level of Care ICU Resuscitation Status FULL RESUSCITATION VTE Prophylaxis VTE Risk Assessment Done? Y/N: Yes Risk Level: Moderate Given or contraindicated: T.E.D. Stockings, SCD's Note Attending Admission Note & Attestation: Pt seen/examined, chart reviewed, and care plan d/w ERNESTINA Gordillo. I agree w/ the gaytan components of her admission documentation. 40yo female with T2DM, HTN, h/o cervical cancer, and ongoing tobacco dependence who presented with respiratory distress this AM. This was preceded by 2-3 days of hoarse voice, cough, congestion, and multiple sick contacts. In the ER she was noted to have mild stridor and CT neck showed significant supraglottic edema. She was intubated due to concern of impending respiratory failure and airway protection. During my visit she is on propofol sedation but was motioning with her hand to the ETT and following a limited number of commands. PMH, PSH, allergies, meds, sochx, famhx, ros - reviewed It is unclear if she has actually been taking lisinopril or not ( also not sure) vitals - tachycardic, hypertensive, 100% sats on 100% FiO2, RR low 20s gen - eyes open, following commands HEENT - PERRL; tongue not swollen/enlarged; intubated/ETT neck - no JVD; shotty cervical lymphadenopathy b/l; no significant neck swelling appreciated heart - tachy, s1, s2, no murmur lungs - mild end-exp wheeze only, otherwise good air movement abd - soft, NT, ND, BS+, there is a scar in the middle of the abdomen; I don't feel an obvious hernia ext - no edema skin - no rash labs - CBC - mild leukocytosis BMP with mild elevation in anion gap Cr normal AST, ALT, and Alk phos all elevated CT neck results reviewed cxr - normal EKG - sinus tach A/P: 1. acute respiratory distress leading to acute respiratory failure 2. s/p intubation for impending respiratory failure and airway protection 3. infectious edema of supraglottic region vs angioedema from DEBORAH vs both entities; favor former 4. recent clinical infectious laryngitis 5. uncontrolled T2DM 6. HTN 7. abnormal LFTs admit to ICU defer vent management to critical care team continue IV steroids q6h PPI for GI prophylaxis insulin infusion due to hyperglycemia and NPO status propofol +/- precedex for sedation need to investigate whether she was truly taking DEBORAH agree with liver u/s due to abnormal LFTs; could this be due to infectious cause ? (EBV, etc) updated total time 75 minutes Wilfred Martin MD
[2016-03-27] MEDS ORDERED: MIDAZOLAM HCL 1 MG/ML 2ML VIAL ONE ×2 (12:33→17:03)
[2016-03-27] MEDS ORDERED: MIDAZOLAM HCL 5 MG/ML 1 ML VIAL IV ONE ×2 (12:43→15:21)
[2016-03-27] MEDS ORDERED: NURSING VERBAL MED ORDER ONE ×3 (12:45→15:45)
[2016-03-27] MEDS ORDERED: DexMEDEtomidine HCL INJ 200 MCG in SODIUM CHLORIDE 0.9% 50ML 48 ML IV PRN ×2 (12:45→13:15)
[2016-03-27] MEDS: FENTANYL CITRATE INJ 50 MCG/1 ML 2 ML VIAL IV PRN (12:51)
[2016-03-27] MEDS: PROPOFOL IV EMULSION 10 MG/ML 100 ML VIAL IV PRN ×2 (12:55→19:22)
[2016-03-27] MEDS: SODIUM CHLORIDE 0.9% 1000ML 1,000 ML IV SCH ×2 (12:58→23:19)
[2016-03-27] MEDS ORDERED: GLUCOSE 40% GEL 15 GM TUBE PO PRN (13:15)
[2016-03-27] MEDS ORDERED: GLUCOSE 10 TABS/TUBE PO PRN (13:15)
[2016-03-27] MEDS ORDERED: GLUCAGON FOR INJ 1 MG VIAL SQ PRN (13:15)
[2016-03-27] MEDS ORDERED: DEXTROSE 50% 50 ML SYR IV PRN (13:15)
[2016-03-27] MEDS ORDERED: DKA GOAL RANGE 150-250 mg/dl 1 EA ONE (13:30)
[2016-03-27] MEDS ORDERED: INSULIN HUMAN REGULAR IV BOLUS 2.5 UNIT in SYRINGE 0 ML IV SCH (13:30)
[2016-03-27] MEDS ORDERED: SEVERE STRESS LEVEL ONE (13:30)
[2016-03-27] MEDS ORDERED: INSULIN IV INFUSION PROTOCOL SCH (13:30)
[2016-03-27] MEDS: INSULIN REGULAR 250 UNITS in SODIUM CHLORIDE 0.9% 250ML 250 ML IV SCH (13:52)
[2016-03-27] MEDS: FENTANYL 1250MCG/250ML NSS 250 ML IV PRN (14:06)
--- NOTE | 2016-03-27 14:33 | DIAGNOSTIC IMAGING REPORT ---
KUB CLINICAL HISTORY: ng tube insertion tube position COMPARISON STUDY: 03/11/2015 FINDINGS: Feeding tube and/or nasogastric tube placed at the gastric fundus. Bowel pattern is nonobstructive. IMPRESSION: Feeding tube placed within the gastric fundus. Nonobstructive bowel pattern. Electronically signed by: Stefan Harris M.D. 03/27/2016 2:31 PM Dictated Date/Time: 03/27/2016 2:30 PM
[2016-03-27] MEDS ORDERED: AMPICILLIN/SULBACTAM SOD INJ 3,000 MG in SODIUM CHLORIDE 0.9% 100ML 100 ML IV STA (14:52)
[2016-03-27] MEDS ORDERED: SUCCINYLCHOLINE CHLORIDE 20 MG/ML 10 ML VIAL IV ONE (15:21)
[2016-03-27] MEDS ORDERED: FENTANYL CITRATE INJ 50 MCG/1 ML 2 ML VIAL IV ONE (15:21)
[2016-03-27] MEDS ORDERED: ETOMIDATE 2 MG/ML 20 ML VIAL IV ONE (15:21)
[2016-03-27 15:39] LABS: CKMB/CK RATIO 2.5 (0-3.0)
[2016-03-27] MEDS ORDERED: ACETAMINOPHEN SOLN 500 MG/15.62 ML UDP NG ONE (16:00)
--- NOTE | 2016-03-27 16:24 | DIAGNOSTIC IMAGING REPORT ---
ABDOMINAL ULTRASOUND, RIGHT UPPER QUADRANT HISTORY: Pain. Nausea. elevated LFTs r/o cholecystitis. COMPARISON: 09/30/2015 FINDINGS: Pancreas: The pancreas demonstrates a normal echotexture. Liver: Unremarkable. Gallbladder: Prior cholecystectomy. CBD: 7 mm to 9 mm. This is stable appear to be a postoperative basis Right kidney: No hydronephrosis. IMPRESSION: Negative study status post cholecystectomy. Mild chronic prominence of the biliary duct system Electronically signed by: Stefan Harris M.D. 03/27/2016 4:22 PM Dictated Date/Time: 03/27/2016 4:19 PM
[2016-03-27] MEDS ORDERED: DexMEDEtomidine HCL INJ 1,000 MCG in SODIUM CHLORIDE 0.9% 250ML 240 ML IV PRN (16:30)
[2016-03-27] MEDS ORDERED: MIDAZOLAM HCL 1 MG/ML 2ML VIAL IV PRN (17:15)
[2016-03-27] MEDS ORDERED: ROCURONIUM BROMIDE 10 MG/ML 10 ML VIAL IV ONE (17:15)
[2016-03-27] MEDS: INSULIN ASPART 100 UNITS/ML 3 ML PEN SC SCH ×2 (18:04→21:00)
[2016-03-27] MEDS: DEXAMETHASONE INJ 6 MG in SYRINGE 0 ML IV SCH ×2 (18:44→23:40)
[2016-03-27] MEDS: AMPICILLIN/SULBACTAM SOD INJ 3,000 MG in SODIUM CHLORIDE 0.9% 100ML 100 ML IV SCH (20:22)
--- NOTE | 2016-03-27 20:50 | OPERATIVE REPORT ---
DATE OF OPERATION: 03/27/2016 PREOPERATIVE DIAGNOSIS: Supraglottitis. POSTOPERATIVE DIAGNOSIS: Same. PROCEDURE: Direct laryngoscopy with culture. SURGEON: Dr. Osman. ANESTHESIA: General endotracheal. COMPLICATIONS: None. HISTORY: A 40-year-old lady admitted via the Emergency Room with a sore throat and airway compromise and was intubated in the ER and consultation was requested by Dr. Suresh. DESCRIPTION OF PROCEDURE: The patient was in the ICU intubated in the recumbent position with the head elevated 30 degrees. A Dedo laryngoscope was used. The posterior pharynx was normal. The epiglottis was normal, pink; however, the right arytenoid was still swollen. The vocal cords appeared to be normal with endotracheal tube between the vocal cords. Specifically, there was no sign of abscess noted. Therefore, the laryngoscope was withdrawn after suctioning the pharynx clean and culture was taken of the tip of the epiglottis. The patient tolerated the procedure well and remains in the ICU. I attest to the content of the Intraoperative Record and any orders documented therein. Any exceptio ns are noted below.
[2016-03-27 22:04] LABS: CKMB/CK RATIO 2.1 (0-3.0)
[2016-03-28] VITALS (13 sets, daily range): BP systolic 120–170; BP diastolic 63–99; PULSE 79–108; TEMP 36.6–38; O2SAT 94–98; Ht 157.5 cm; Wt 75.1 kg
--- NOTE | 2016-03-28 00:24 | CONSULTATION REPORT ---
DATE OF CONSULTATION: 03/27/2016 DIAGNOSIS: Early supraglottitis versus angioedema. HISTORY: This 40-year-old lady was admitted early this morning via the Emergency Room with acute onset of sore throat and difficulty breathing. Because of the difficulty breathing, the patient was intubated prophylactically in the Emergency Room. PAST MEDICAL HISTORY: Pertinent for insulin-dependent diabetes, hypertension, GERD, irritable bowel and PID. SURGERIES: Include hysterectomy and left oophorectomy, cholecystectomy, and ventral hernia repair. SOCIAL HISTORY: Positive for smoking greater than a pack per day. ALLERGIES: TO PENICILLIN, MORPHINE AND IODINE. MEDICATIONS: Include insulin, amlodipine and lisinopril. PHYSICAL EXAMINATION: GENERAL: The patient is intubated and obtunded and sedated. VITAL SIGNS: She did have mild temperature elevation to 38.8, the pulse ox is 98%, intubated on 50/50 on ventilator. HEENT: Head normocephalic. Eyes sedated. Ears, canals have some cerumen. Nasal passages, septal deviation to the left with much mucus on the right side. Oropharynx appears to be normal. Direct laryngoscopy was performed, under a separate note. This showed a sharp epiglottis which is normal but moderate right arytenoid edema. The vocal cords appear to be normal. Specifically, there is no sign of a deep neck abscess. IMPRESSION: Early supraglottitis versus angioedema. RECOMMENDATIONS: Cultures were taken of the epiglottis. I would recommend continuing with IV Unasyn and IV Decadron just in case this is mild angioedema. She will be managed by the ICU staff by Bo Willingham PA-C, and by Dr. Suresh.
[2016-03-28] MEDS: PROPOFOL IV EMULSION 10 MG/ML 100 ML VIAL IV PRN (00:47)
[2016-03-28] MEDS: AMPICILLIN/SULBACTAM SOD INJ 3,000 MG in SODIUM CHLORIDE 0.9% 100ML 100 ML IV SCH ×4 (01:49→19:59)
[2016-03-28] MEDS: FENTANYL 1250MCG/250ML NSS 250 ML IV PRN (03:32)
[2016-03-28 05:43] LABS: BASO % 0.1 %; BASO ABS # 0.01 K/uL (0-0.2); COMPLETE YES; HEMATOCRIT 34.8 % (37-47); IG% 0.4 %; LYMPH % 9.5 %; LYMPH ABS # 1.27 K/uL (1.2-3.4); MEAN CELL VOLUME 90.2 fL (80-100); MEAN CORPUSCULAR HEMOGLOBIN 31.6 pg (25-34); MEAN CORPUSCULAR HGB CONC 35.1 g/dl (32-36); MEAN PLATELET VOLUME 9.7 fL (7.4-10.4); MONO % 7.9 %; NEUT % 82.1 %; PLATELET COUNT 247 K/uL (130-400); RED BLOOD COUNT 3.86 M/uL (4.2-5.4); WHITE BLOOD COUNT 13.37 K/uL (4.8-10.8)
[2016-03-28] MEDS: DEXAMETHASONE INJ 6 MG in SYRINGE 0 ML IV SCH ×3 (05:54→18:36)
[2016-03-28 06:13] LABS: BUN/CREATININE RATIO 8.2 (10-20); CALCIUM 9.3 mg/dl (8.5-10.1); CREATININE 0.64 mg/dl (0.60-1.20); MAGNESIUM 1.7 mg/dl (1.8-2.4); POTASSIUM 3.2 mmol/L (3.5-5.1)
[2016-03-28] MEDS ORDERED: POTASSIUM PHOS 3 MMOL/1 ML INFUSION IV STA ×3 (06:42→14:37)
[2016-03-28 06:51] LABS: ESTIMATED AVERAGE GLUCOSE 183 mg/dl; HA1C FLAG Normal (Normal)
[2016-03-28] MEDS ORDERED: POTASSIUM PHOSPHATE INJ 30 MMOL in SODIUM CHLORIDE 0.9% 500ML 500 ML IV ONE (07:00)
[2016-03-28] MEDS ORDERED: FUROSEMIDE 40 MG/4 ML VIAL ONE (07:20)
[2016-03-28] MEDS ORDERED: FUROSEMIDE INJ 20 MG in SYRINGE 0 ML IV ONE (07:30)
[2016-03-28] MEDS: SODIUM CHLORIDE 0.9% 1000ML 1,000 ML IV SCH ×2 (07:44→20:00)
[2016-03-28] MEDS: INSULIN ASPART 100 UNITS/ML 3 ML PEN SC SCH ×4 (07:45→23:39)
[2016-03-28] MEDS: FENTANYL CITRATE INJ 50 MCG/1 ML 2 ML VIAL IV PRN (07:51)
[2016-03-28] MEDS ORDERED: NURSING VERBAL MED ORDER ONE ×2 (08:30→13:30)
[2016-03-28] MEDS ORDERED: ENOXAPARIN 40 MG/0.4 ML SYR SQ SCH (09:00)
[2016-03-28] MEDS: AMLODIPINE BESYLATE 5 MG TAB PO SCH (09:15)
[2016-03-28 09:23] LABS: CKMB/CK RATIO 1.3 (0-3.0)
[2016-03-28] MEDS: MAGNESIUM SULFATE 1GM / D5W 1 GM in PREMIXED IN D5W 100 ML IV SCH ×2 (10:36→11:47)
[2016-03-28] MEDS: PANTOprazole INJ 40 MG in SYRINGE 0 ML IV SCH (10:36)
[2016-03-28] MEDS ORDERED: MIDAZOLAM HCL 5 MG/ML 1 ML VIAL IV ONE (10:43)
[2016-03-28] MEDS: INSULIN REGULAR 250 UNITS in SODIUM CHLORIDE 0.9% 250ML 250 ML IV SCH (12:24)
--- NOTE | 2016-03-28 12:57 | Progress Note ---
Subjective Date of Service: Mar 28, 2016. (Tia Gordillo PA-C) Subjective Pt evaluation today including: conversation w/ patient, conversation w/ family , physical exam, chart review, lab review, review of inpatient medication list Patient seen and evaluated. She was successfully extubated 03/28/16 Patient remains extremely hoarse but is maintaining her airway and denies difficulty breathing. Only complains of dry mouth and postnasal drip. Has had low grade fever but currently afebrile. Confirmed home medication of Lisinopril. (Tia Gordillo PA-C) Problem List Medical Problems: (1) Abdominal pain Status: Acute (2) Abdominal pain Status: Acute (3) Angioedema Status: Acute (4) Back strain Status: Acute (5) Central abdominal pain Status: Acute (6) Central abdominal pain Status: Acute (7) Encounter for medication refill Status: Acute (8) Generalized abdominal pain Status: Acute (9) Low back pain Status: Acute (10) Metabolic acidosis Status: Acute (11) Metabolic acidosis Status: Acute (12) Metabolic acidosis Status: Acute (13) Otitis externa Status: Acute (14) Respiratory failure Status: Acute (15) Right flank pain Status: Acute (16) Right sided abdominal pain Status: Acute (17) UTI (urinary tract infection) Status: Acute (18) Viral URI with cough Status: Acute (Tia Gordillo PA-C) Review of Systems Constitutional: No chills, No fever ENT: + nasal symptoms, + problem reported (hoarse voice) Respiratory: + cough, No shortness of breath Cardiac: No chest pain Abdomen: + pain (chronic from hernia), No constipation, No diarrhea, No nausea , No vomiting Musculoskeletal: No muscle pain, No swelling Endo: No fatigue Skin: No rash (Tia Gordillo, LINDAC) Medications Current Inpatient Medications Medications (Trade) Dose Ordered Sig/Jimbo Route Start Time Stop Time Status Last Admin Dose Admin Pantoprazole Sodium 40 mg/ Syringe 10 ml @ 5 mls/min DAILY@11 IV 03/28/16 11:00 04/27/16 10:59 03/28/16 10:36 5 MLS/MIN Sodium Chloride 1,000 ml @ 100 mls/hr Q10H IV 03/27/16 12:00 04/26/16 11:59 03/28/16 07:44 100 MLS/HR Insulin Human Regular/Sodium Chloride (novoLIN-R/Nss 250ml) 252.5 ml @ 0 mls/hr DAILY@1130 IV 03/27/16 13:30 04/26/16 13:29 03/28/16 12:24 6.6 MLS/HR Insulin Aspart (novoLOG ASPART) SLIDING SCALE PCHS SC 03/27/16 17:15 04/26/16 17:14 Glucose (Glucose 40% Gel) UD PRN PO 03/27/16 13:15 04/26/16 13:14 Glucose (Glucose Chew Tab) 1 tabs UD PRN PO 03/27/16 13:15 04/26/16 13:14 Dextrose (Dextrose 50% 50ML Syringe) 50 ml UD PRN IV 03/27/16 13:15 04/26/16 13:14 Glucagon 1 mg 1 mg UD PRN SQ 03/27/16 13:15 04/26/16 13:14 Ampicillin Sodium/ Sulbactam Sodium 3000 mg/Sodium Chloride 108 ml @ 216 mls/hr Q6H IV 03/27/16 20:00 04/06/16 19:59 03/28/16 07:44 216 MLS/HR Dexamethasone Sodium Phosphate/ Syringe (Decadron Inj/ Syringe) 1.5 ml @ 1 mls/min Q6@0000,0600,1200,1800 IV 03/27/16 18:00 04/26/16 17:59 03/28/16 11:50 1 MLS/MIN Amlodipine Besylate (Norvasc Tab) 10 mg QAM PO 03/28/16 09:00 04/27/16 08:59 03/28/16 09:15 10 MG Oxycodone HCl (Roxicodone Immediate Rel Tab) `1-2 tabs for pain 1 tab ... Q6 PRN PO 03/28/16 08:30 04/11/16 08:29 (Tia Gordillo PA-C) Objective Vital Signs Date Time Temp Pulse Resp B/P Pulse Ox O2 Delivery O2 Flow Rate FiO2 03/28/16 10:00 36.7 86 18 164/99 97 Humidified Oxygen 40 Mask 03/28/16 08:00 Humidified Oxygen 40 Mask 03/28/16 08:00 30 03/28/16 08:00 37.7 90 18 120/90 95 Humidified Oxygen 40 Mask 03/28/16 07:02 30 03/28/16 06:00 37.8 79 18 126/78 94 CPAP 30 Mechanical Ventilator 03/28/16 05:00 83 20 147/94 95 CPAP 30 Mechanical Ventilator 03/28/16 04:57 30 03/28/16 04:00 30 03/28/16 04:00 38.0 82 17 149/92 96 Mechanical Ventilator 30 03/28/16 04:00 Mechanical Ventilator 30 03/28/16 02:10 30 03/28/16 02:00 38.0 85 20 159/96 96 Mechanical Ventilator 30 03/28/16 00:00 37.8 85 20 165/99 98 35 03/28/16 00:00 Mechanical Ventilator 35 03/28/16 00:00 35 03/27/16 23:46 40 03/27/16 23:00 84 148/99 03/27/16 22:00 37.6 85 20 155/100 99 40 03/27/16 20:55 40 03/27/16 20:00 37.7 85 22 155/101 96 50 03/27/16 19:43 50 03/27/16 19:43 Mechanical Ventilator 50 03/27/16 18:45 37.7 03/27/16 18:44 89 18 136/85 96 03/27/16 18:15 94 22 125/106 93 03/27/16 18:13 38.7 03/27/16 18:00 96 18 152/105 89 03/27/16 17:46 114 16 231/114 89 03/27/16 17:41 97 16 221/137 93 03/27/16 17:38 30 03/27/16 17:38 110 16 221/137 92 03/27/16 17:34 121 16 240/142 96 03/27/16 17:32 128 18 227/148 96 03/27/16 17:30 95 22 177/120 98 03/27/16 17:00 90 25 155/116 98 03/27/16 16:30 93 23 152/116 98 03/27/16 16:00 91 22 172/107 97 03/27/16 16:00 39.0 03/27/16 16:00 30 03/27/16 16:00 Mechanical Ventilator 30 03/27/16 15:00 92 25 179/119 97 03/27/16 14:30 94 23 166/98 98 03/27/16 14:19 38.8 03/27/16 14:10 50 03/27/16 14:00 Mechanical Ventilator 50 03/27/16 14:00 97 25 143/92 98 03/27/16 14:00 50 03/27/16 13:29 104 22 150/98 97 03/27/16 13:17 109 20 167/108 97 03/27/16 12:50 130 19 140/121 95 (Tia Gordillo, PA-C) Physical Exam General Appearance: WD/WN, no apparent distress Eyes: sclerae normal ENT: hearing grossly normal Neck: supple, no JVD, trachea midline Respiratory/Chest: no respiratory distress, no accessory muscle use, + rhonchi (scattered; improved from previous exams) Cardiovascular: regular rate, rhythm, no gallop, no murmur Abdomen: normal bowel sounds, soft Extremities: no pedal edema, no calf tenderness Neurologic/Psychiatric: alert, oriented x 3 Skin: normal color (Tia Gordillo, PA-C) Laboratory Results Last 24 Hours Test 03/27/16 12:57 03/27/16 14:52 03/27/16 15:00 03/27/16 15:52 Bedside Glucose 360 mg/dl 370 mg/dl 358 mg/dl Total Creatine Kinase 88 U/L Creatine Kinase MB 2.2 ng/ml Creatine Kinase MB Ratio 2.5 Troponin I 0.067 ng/ml Procalcitonin 0.34 ng/mL Test 03/27/16 16:55 03/27/16 17:53 03/27/16 20:13 03/27/16 21:23 Bedside Glucose 343 mg/dl 319 mg/dl 349 mg/dl 302 mg/dl Test 03/27/16 21:30 03/27/16 22:42 03/27/16 23:42 03/28/16 00:49 Total Creatine Kinase 76 U/L Creatine Kinase MB 1.6 ng/ml Creatine Kinase MB Ratio 2.1 Troponin I 0.095 ng/ml Bedside Glucose 339 mg/dl 320 mg/dl 331 mg/dl Test 03/28/16 01:45 03/28/16 02:49 03/28/16 05:26 03/28/16 06:28 Bedside Glucose 289 mg/dl 258 mg/dl 229 mg/dl White Blood Count 13.37 K/uL Red Blood Count 3.86 M/uL Hemoglobin 12.2 g/dL Hematocrit 34.8 % Mean Corpuscular Volume 90.2 fL Mean Corpuscular Hemoglobin 31.6 pg Mean Corpuscular Hemoglobin Concent 35.1 g/dl Platelet Count 247 K/uL Mean Platelet Volume 9.7 fL Neutrophils (%) (Auto) 82.1 % Lymphocytes (%) (Auto) 9.5 % Monocytes (%) (Auto) 7.9 % Eosinophils (%) (Auto) 0.0 % Basophils (%) (Auto) 0.1 % Neutrophils # (Auto) 10.99 K/uL Lymphocytes # (Auto) 1.27 K/uL Monocytes # (Auto) 1.05 K/uL Eosinophils # (Auto) 0.00 K/uL Basophils # (Auto) 0.01 K/uL RDW Standard Deviation 50.8 fL RDW Coefficient of Variation 15.6 % Immature Granulocyte % (Auto) 0.4 % Immature Granulocyte # (Auto) 0.05 K/uL Sodium Level 143 mmol/L Potassium Level 3.2 mmol/L Chloride Level 108 mmol/L Carbon Dioxide Level 25 mmol/L Anion Gap 10.0 mmol/L Blood Urea Nitrogen 5 mg/dl Creatinine 0.64 mg/dl Est Creatinine Clear Calc Drug Dose 109.2 ml/min Estimated GFR () 128.5 Estimated GFR (Non- 110.8 BUN/Creatinine Ratio 8.2 Random Glucose 255 mg/dl Estimated Average Glucose 183 mg/dl Hemoglobin A1c 8.0 % Calcium Level 9.3 mg/dl Phosphorus Level 1.0 mg/dl Magnesium Level 1.7 mg/dl Test 03/28/16 07:41 03/28/16 08:10 03/28/16 09:40 Bedside Glucose 231 mg/dl Total Creatine Kinase 70 U/L Creatine Kinase MB 0.9 ng/ml Creatine Kinase MB Ratio 1.3 Troponin I 0.045 ng/ml (Tia Gordillo, PANilsonC) Assessment and Plan Ms. Wild is a 40 y/o WF with PMHx of IDDM, HTN, GERD, IBS, PID, S/P Hysterectomy with L Oophorectomy 2/2 Cervical CA, S/P Ventral Hernia Repair, S/ P Cholecystectomy with continued Gallstones who reports to the ED for difficulty breathing and one episode of emesis that started this AM. In the ED, per ED doctor the patient had mild stridor but when examining her pharynx the stridor appeared to stop. No direct edema of the pharynx noted but on intubation airway edema evident. Intubation was decided for airway protection as she did not experience respiratory failure. She will be admitted to the ICU for further evaluation and care. Acute Respiratory Distress: Intubated 03/27/16 and Extubated 03/28/16: Infectious vs Angioedema - Assessment - patient has had low grade fever but is afebrile currently; continues to complain of URI symptoms - Will continue to monitor in ICU and would be suitable for transfer if patient can maintain airway - Has been started on home oral meds - may benefit from MEDICAL CLERK eval prior to implementing diet - NGT in place - Protonix 40 mg IV daily with po conversion when diet resumed - NSS at 100 mL/hr - Unasyn 3 g Q6H - Dexamethasone 6 mg IV taper per data processor recommendation T2DM - IDDM: - Appreciate pharmacy assistance in titration to wean insulin gtt - Titration off started - Lantus 18 units x 1 given with Lantus SSI implemented - SSI 140-180 with correction factor 30 and carb ratio 10 HTN: - Norvasc 10 mg daily - Consideration for additional medication as patient with poorly controlled BPs as outpatient? DVT Prophylaxis: - TEDs/SCDs - Lovenox 40 mg SC daily Code Status: - FULL RESUSCITATION Disposition: - Will monitor for airway maintenance and transfer out of ICU - Plan for D/C home one oral intake adequate and medically suitable (Tia Gordillo, PANilsonC) Attending Attestation: Pt seen/examined, chart reviewed, and care plan d/w ERNESTINA Gordillo. I agree w/ the gaytan components of her documentation. During my visit the patient had recently been extubated. She could speak albeit with hoarse voice. She had no stridor or distress. Her main complaint is that of her chronic abd pain which has been attributed to two ventral hernias. VSS, tachy at times, Tm about 39 FSBS improved gen - no distress, awake, alert, oriented x 3 mouth - tongue normal, MMM, no lesions, no swelling of oral mucosa/pharynx/ tongue voice - hoarse neck - no swelling heart - tachy, s1, s2 lungs - CTA b/l; no adventitious sounds abd - soft, NT, ND, BS+, no HSM ext - no edema labs - low phos at 1 mag 1.7 CBC, BMP acceptable throat cx pending flu test negative A/P: 1. acute resp distress with concern of impending resp failure, s/p intubation ; now successfully extubated 03/28 2. laryngitis with associated supraglottic edema; no true epiglottis; angioedema from DEBORAH is possible but less likely; suspect infectious etiology for this issue 3. hypophosphatemia 4. hypomagnesemia 5. hypokalemia 6. chronic abd pain 7. uncontrolled T2DM cont NPO status cont unasyn for possible bacterial cause of upper airway infection follow throat cx appreciate pharmacy assistance with glycemic control; agree with transition to SC insulin taper steroids replace phos, mag, K oxycodone prn for chronic abd pain swallow eval in AM agree with transfer from ICU to tele floor Severo MARTIN MD (Wilfred Martin MD)
[2016-03-28] MEDS ORDERED: OXYCODONE HCL IR 5 MG TAB (IMMEDIATE RELEASE) PO STA ×2 (13:24→17:57)
[2016-03-28] MEDS ORDERED: INSULIN GLARGINE SOLOSTAR 100 UNITS/ML 3 ML PEN SC ONE ×2 (13:30→13:45)
[2016-03-28] MEDS ORDERED: INSULIN GLARGINE PER SC ONE (13:30)
[2016-03-28] MEDS: OXYCODONE HCL IR 5 MG TAB (IMMEDIATE RELEASE) PO PRN ×3 (13:42→21:57)
[2016-03-28] MEDS ORDERED: COUGH DROP (SUGAR FREE) LOZ 24 LOZ/1 BOX PO PRN (13:45)
--- NOTE | 2016-03-28 13:47 | Critical Care Progress Note ---
Critical Care Progress Note Date of Service Mar 28, 2016. Attending Dr. Suresh Subjective Doing well Oriented to person place and time No acute events overnight Recently intubated and feeling better. Continues to have low grade abdominal pain which is long-standing and unchanged. Objective Physical Exam: General: Comfortable, no apparent distress Eyes: PERRL, normal EOM bilaterally ENT: Mucous membranes moist, pharynx clear, TM clear Neck: No JVD, no lymphadenopathy, no thyromegaly, mild neck tenderness to palpation Lungs: Clear to auscultation bilaterally, no wheezing, no crackles Heart: S1 and S2 with no added sounds or murmurs Abdomen: Soft, non-tender, non-distended, normal bowel sounds in all 4 quadrants Extremities: No pitting edema, no asymmetric swelling, no calf pain or tenderness Neuro: AO x 3, responds to commands appropriately, normal mood and affect Assessment & Plan Pleasant 74 year old female who presents with concern for acute upper airway obstruction and subsequently intubated for airway protection. Initial concern was for angioedema vs infectious upper airway inflammation. She is improved today and did well following extubation. Our plan for her today is as follows. Neurological - Alert and Oriented x 3 - Propofol, Dexmedetomidine, Fentanyl Drips discontinued Cardiology - BP controlled 140-160s systolic Previously on Lisinopril; with concerns for airway edema; will STOP Start Amlodipine 10 mg - HR stable in the 80s Elevated Troponin - No chest pain - No acute changes on EKG - Troponins peaked at 0.09 then subsequently fell to 0.045 this morning; stop checks - Unlikely ACS Respiratory Concerns for Angioedema and impending airway with subsequent intubation - Patient intubated for < 24 hours - Patient met criteria extubation; cuff leak measured to ensure no upper airway inflammation - Patient extubated successfully this morning - Appreciate ENT recommendations - Decadron Taper - Flu negative Gastrointestinal NG tube in place; will keep in place 24 hours Continue medication administrating through NG tube Keep NPO today GI Prophylaxis: Protonix 40 mg IV Patient takes Omeprazole PO at home Once NG tube is out, patient should be immediately converted to PO Pantoprazole Genitourinary/Renal - Garcia Catheter in place; good urine output - Electrolytes Na 143; K 3.2; Cl 108; Bicarb 25; BUN 5; Cr 0.6 Phos 1 --> KPhos 30 mmol --> repeat Phos 1 hour after infusion K 3.2 --> KPhos 30 mmol ----> repeat check 1 hour after infusion Endocrine - BSGs 300 yesterday - Patient on insulin drip Continue insulin drip; drop goal to 140-180 to keep infusion going Administer Lantus 18 units now additional Lantus coverage (dose based on beddtime BSG) Consider additional coverage due to concurrent steroid use Pharmacy recommendations appreciated Hematological - H&H stable DVT prophylaxis - Lovenox 40 mg AM Infectious Disease - Tmax 39 yesterday; T38 this morning, all temperature were oral --> remeasured rectal temperature this morning and it was 37.7 - WBC 13, slightly increased from 11 - Continue Unasyn - Throat cultures pending Code Status - Level I Code Disposition - Suitable for transfer today Resident Physician Supervision Note: Dr. Vuong was resident physician during care of patient. I separately evaluated patient and did history and exam. I discussed the case with the resident and generally agree with the findings and plan. Patient with air leak in the morning after taking down balloon, following commands, tidal volume greater than 10 ML's per kilo, RSBI less than 105, strong cough, needs extubation criteria next minute successfully. Remain stable for greater than 8 hours after extubation, no evidence of stridor, stable for downgraded to telemetry. Documented By: Miguel Angel Suresh DO Data Medications: Current Inpatient Medications Medications (Trade) Dose Ordered Sig/Jimbo Route Start Time Stop Time Status Last Admin Dose Admin Pantoprazole Sodium 40 mg/ Syringe 10 ml @ 5 mls/min DAILY@11 IV 03/28/16 11:00 04/27/16 10:59 03/28/16 10:36 5 MLS/MIN Sodium Chloride 1,000 ml @ 100 mls/hr Q10H IV 03/27/16 12:00 04/26/16 11:59 03/28/16 07:44 100 MLS/HR Insulin Human Regular/Sodium Chloride (novoLIN-R/Nss 250ml) 252.5 ml @ 0 mls/hr DAILY@1130 IV 03/27/16 13:30 04/26/16 13:29 03/28/16 12:24 6.6 MLS/HR Insulin Aspart (novoLOG ASPART) SLIDING SCALE PCHS SC 03/27/16 17:15 04/26/16 17:14 Glucose (Glucose 40% Gel) UD PRN PO 03/27/16 13:15 04/26/16 13:14 Glucose (Glucose Chew Tab) 1 tabs UD PRN PO 03/27/16 13:15 04/26/16 13:14 Dextrose (Dextrose 50% 50ML Syringe) 50 ml UD PRN IV 03/27/16 13:15 04/26/16 13:14 Glucagon 1 mg 1 mg UD PRN SQ 03/27/16 13:15 04/26/16 13:14 Ampicillin Sodium/ Sulbactam Sodium 3000 mg/Sodium Chloride 108 ml @ 216 mls/hr Q6H IV 03/27/16 20:00 04/06/16 19:59 03/28/16 07:44 216 MLS/HR Dexamethasone Sodium Phosphate/ Syringe (Decadron Inj/ Syringe) 1.5 ml @ 1 mls/min Q6@0000,0600,1200,1800 IV 03/27/16 18:00 03/28/16 23:59 03/28/16 11:50 1 MLS/MIN Amlodipine Besylate (Norvasc Tab) 10 mg QAM PO 03/28/16 09:00 04/27/16 08:59 03/28/16 09:15 10 MG Oxycodone HCl `1-2 tabs for pain 1 tab ... Q6 PRN PO 03/28/16 08:30 04/11/16 08:29 Dexamethasone Sodium Phosphate 6 mg/Syringe 1.5 ml @ 1 mls/min Q8H IV 03/29/16 06:00 03/29/16 23:59 Dexamethasone Sodium Phosphate 6 mg/Syringe 1.5 ml @ 1 mls/min Q12H IV 03/30/16 10:00 03/30/16 23:59 Dexamethasone Sodium Phosphate/ Syringe (Decadron Inj/ Syringe) 1.5 ml @ 1 mls/min Q24H IV 03/31/16 10:00 03/31/16 10:02 Insulin Glargine (Lantus Solostar Pen) 36 unit NOW ONCE SC 03/28/16 13:30 03/28/16 13:31 Oxycodone HCl (Roxicodone Immediate Rel Tab) 5 mg NOW STAT PO 03/28/16 13:24 03/28/16 13:25 UNV Insulin Glargine 36 unit 36 unit BID SC 03/28/16 21:00 04/27/16 20:59 Insulin Glargine/ Syringe (Lantus Per Unit/ Syringe) 0.18 ml @ 0 mls/min ONE ONCE SC 03/28/16 13:30 03/28/16 13:31 UNV I & O: 24-Hour Column 03/28/16 08:00 Intake Total 2991 ml Output Total 2925 ml Balance 66 ml Vital Signs: Date Time Temp Pulse Resp B/P Pulse Ox O2 Delivery O2 Flow Rate FiO2 03/28/16 10:00 36.7 86 18 164/99 97 Humidified Oxygen 40 Mask 03/28/16 08:00 Humidified Oxygen 40 Mask 03/28/16 08:00 30 03/28/16 08:00 37.7 90 18 120/90 95 Humidified Oxygen 40 Mask 03/28/16 07:02 30 03/28/16 06:00 37.8 79 18 126/78 94 CPAP 30 Mechanical Ventilator 03/28/16 05:00 83 20 147/94 95 CPAP 30 Mechanical Ventilator 03/28/16 04:57 30 03/28/16 04:00 30 03/28/16 04:00 38.0 82 17 149/92 96 Mechanical Ventilator 30 03/28/16 04:00 Mechanical Ventilator 30 03/28/16 02:10 30 03/28/16 02:00 38.0 85 20 159/96 96 Mechanical Ventilator 30 03/28/16 00:00 37.8 85 20 165/99 98 35 03/28/16 00:00 Mechanical Ventilator 35 03/28/16 00:00 35 03/27/16 23:46 40 03/27/16 23:00 84 148/99 03/27/16 22:00 37.6 85 20 155/100 99 40 03/27/16 20:55 40 03/27/16 20:00 37.7 85 22 155/101 96 50 03/27/16 19:43 50 03/27/16 19:43 Mechanical Ventilator 50 03/27/16 18:45 37.7 03/27/16 18:44 89 18 136/85 96 03/27/16 18:15 94 22 125/106 93 03/27/16 18:13 38.7 03/27/16 18:00 96 18 152/105 89 03/27/16 17:46 114 16 231/114 89 1/5/17 17:41 97 16 221/137 93 03/27/16 17:38 30 03/27/16 17:38 110 16 221/137 92 03/27/16 17:34 121 16 240/142 96 03/27/16 17:32 128 18 227/148 96 03/27/16 17:30 95 22 177/120 98 03/27/16 17:00 90 25 155/116 98 03/27/16 16:30 93 23 152/116 98 03/27/16 16:00 91 22 172/107 97 03/27/16 16:00 39.0 03/27/16 16:00 30 03/27/16 16:00 Mechanical Ventilator 30 03/27/16 15:00 92 25 179/119 97 03/27/16 14:30 94 23 166/98 98 03/27/16 14:19 38.8 03/27/16 14:10 50 03/27/16 14:00 Mechanical Ventilator 50 03/27/16 14:00 97 25 143/92 98 03/27/16 14:00 50 03/27/16 13:29 104 22 150/98 97 Laboratory Results: Last 24 Hours Test 03/27/16 14:52 03/27/16 15:00 03/27/16 15:52 03/27/16 16:55 Bedside Glucose 370 mg/dl 358 mg/dl 343 mg/dl Total Creatine Kinase 88 U/L Creatine Kinase MB 2.2 ng/ml Creatine Kinase MB Ratio 2.5 Troponin I 0.067 ng/ml Procalcitonin 0.34 ng/mL Test 03/27/16 17:53 03/27/16 20:13 03/27/16 21:23 03/27/16 21:30 Bedside Glucose 319 mg/dl 349 mg/dl 302 mg/dl Total Creatine Kinase 76 U/L Creatine Kinase MB 1.6 ng/ml Creatine Kinase MB Ratio 2.1 Troponin I 0.095 ng/ml Test 03/27/16 22:42 03/27/16 23:42 03/28/16 00:49 03/28/16 01:45 Bedside Glucose 339 mg/dl 320 mg/dl 331 mg/dl 289 mg/dl Test 03/28/16 02:49 03/28/16 05:26 03/28/16 06:28 03/28/16 07:41 Bedside Glucose 258 mg/dl 229 mg/dl 231 mg/dl White Blood Count 13.37 K/uL Red Blood Count 3.86 M/uL Hemoglobin 12.2 g/dL Hematocrit 34.8 % Mean Corpuscular Volume 90.2 fL Mean Corpuscular Hemoglobin 31.6 pg Mean Corpuscular Hemoglobin Concent 35.1 g/dl Platelet Count 247 K/uL Mean Platelet Volume 9.7 fL Neutrophils (%) (Auto) 82.1 % Lymphocytes (%) (Auto) 9.5 % Monocytes (%) (Auto) 7.9 % Eosinophils (%) (Auto) 0.0 % Basophils (%) (Auto) 0.1 % Neutrophils # (Auto) 10.99 K/uL Lymphocytes # (Auto) 1.27 K/uL Monocytes # (Auto) 1.05 K/uL Eosinophils # (Auto) 0.00 K/uL Basophils # (Auto) 0.01 K/uL RDW Standard Deviation 50.8 fL RDW Coefficient of Variation 15.6 % Immature Granulocyte % (Auto) 0.4 % Immature Granulocyte # (Auto) 0.05 K/uL Sodium Level 143 mmol/L Potassium Level 3.2 mmol/L Chloride Level 108 mmol/L Carbon Dioxide Level 25 mmol/L Anion Gap 10.0 mmol/L Blood Urea Nitrogen 5 mg/dl Creatinine 0.64 mg/dl Est Creatinine Clear Calc Drug Dose 109.2 ml/min Estimated GFR () 128.5 Estimated GFR (Non- 110.8 BUN/Creatinine Ratio 8.2 Random Glucose 255 mg/dl Estimated Average Glucose 183 mg/dl Hemoglobin A1c 8.0 % Calcium Level 9.3 mg/dl Phosphorus Level 1.0 mg/dl Magnesium Level 1.7 mg/dl Test 03/28/16 08:10 03/28/16 09:40 03/28/16 13:14 03/28/16 13:24 Total Creatine Kinase 70 U/L Creatine Kinase MB 0.9 ng/ml Creatine Kinase MB Ratio 1.3 Troponin I 0.045 ng/ml
--- NOTE | 2016-03-28 13:54 | Pharmacy Progress Note ---
Glycemic Control Intl Consult Date of Service Mar 28, 2016. Scope Glycemic Pharmacist consulted by Dr Suresh on 03/28/16 for glycemic control and to write orders per [facility] inpatient glycemic control protocol Objective Weight (Kilograms): 74.300 Accuchecks BSG (last 24hrs): Test 03/27/16 14:52 03/27/16 15:52 03/27/16 16:55 03/27/16 17:53 Bedside Glucose 370 mg/dl (70-90) 358 mg/dl (70-90) 343 mg/dl (70-90) 319 mg/dl (70-90) Test 03/27/16 20:13 03/27/16 21:23 03/27/16 22:42 03/27/16 23:42 Bedside Glucose 349 mg/dl (70-90) 302 mg/dl (70-90) 339 mg/dl (70-90) 320 mg/dl (70-90) Test 03/28/16 00:49 03/28/16 01:45 03/28/16 02:49 03/28/16 05:26 Bedside Glucose 331 mg/dl (70-90) 289 mg/dl (70-90) 258 mg/dl (70-90) Random Glucose 255 mg/dl (70-99) Test 03/28/16 06:28 03/28/16 07:41 Bedside Glucose 229 mg/dl (70-90) 231 mg/dl (70-90) Laboratory Data (last 24hrs) Test 03/28/16 05:26 03/28/16 13:24 Anion Gap 10.0 mmol/L BUN/Creatinine Ratio 8.2 Blood Urea Nitrogen 5 mg/dl Creatinine 0.64 mg/dl Hemoglobin A1c 8.0 % Potassium Level 3.2 mmol/L Sodium Level 143 mmol/L White Blood Count 13.37 K/uL Red Blood Count 3.86 M/uL Hemoglobin 12.2 g/dL Hematocrit 34.8 % Mean Corpuscular Volume 90.2 fL Mean Corpuscular Hemoglobin 31.6 pg Mean Corpuscular Hemoglobin Concent 35.1 g/dl Platelet Count 247 K/uL Mean Platelet Volume 9.7 fL Neutrophils (%) (Auto) 82.1 % Lymphocytes (%) (Auto) 9.5 % Monocytes (%) (Auto) 7.9 % Eosinophils (%) (Auto) 0.0 % Basophils (%) (Auto) 0.1 % Neutrophils # (Auto) 10.99 K/uL Lymphocytes # (Auto) 1.27 K/uL Monocytes # (Auto) 1.05 K/uL Eosinophils # (Auto) 0.00 K/uL Basophils # (Auto) 0.01 K/uL HbA1c Test 03/28/16 05:26 Hemoglobin A1c 8.0 % (4.5-5.6) H Recent Pertinent Medications Outpatient Anti-diabetic Regimen: * Lantus 18 units HS * Apidra 0-20 units SC BID (per scale) -unable to verify with patient * A1c = 7.8% % 03/28/16 The patient is currently receiving: * IV Insulin drip per severe stress protocol * Goal range 150-250 mg/dL Risk Factors for Insulin Resistance: * Steroids: Dexamethasone 10 mg IV X 1 continued by 6 mg IV every 6 hours * Infection: Unasyn IV * IVF: NS * Diet: NPO, possibly advance * Mechanical Ventilation: YES, but extubation today Assessment & Plan ASSESSMENT: * 80 yo F admitted with angioedema, intubated and initiated on high dose IV steroids * Due to increased stressors listed above, patient experiencing hyperglycemia * Insulin drip started last night on admission, with drip rates currently ~6 units/hr * She has corrected nicely and BSGs now ~144 mg/dL--> ready to titrate off insulin drip * Drip rates much higher than home regimen so I will go with a weight-based approach * ADA & AACE recommend a goal blood sugar range 140-180 mg/dl for the majority of critically ill & non-critically ill patients. However, more stringent targets may be selected in individual cases. PLAN FOR INPATIENT GLYCEMIC CONTROL: * Continue Insulin drip until drip turns itself off, or 6 hours after Lantus dose given (whichever happens first) * Goal Range 140 - 180 mg/dl * Basal insulin with LANTUS 18 units X 1 * Continue LANTUS per sliding scale BID as patients insulin requirements truly unknown * IF BSG >180: 18 units * IF BSG 120-179: 10 units * IF BSG <120: HOLD BASAL INSULIN * Correctional Insulin with NOVOLOG per scale ACHS + 00,04 checks * Goal Range: Low 140 mg/dL - High 180 mg/dL * Correction Factor: 30 mg/dL/unit * Nutritional / Prandial insulin per carb ratio of 1 unit per 10 grams CHO consumed * Please note that the plan above was derived based on current level of insulin resistance and hospital stress. These recommendations are appropriate for inpatient admission only. Plan of care upon discharge will need to be reassessed to avoid potential outpatient hypo/hyperglycemia. Thank you.
[2016-03-28] MEDS ORDERED: POTASSIUM CHLR 20 MEQ / WTR 10 MEQ in PREMIXED WATER 100 ML IV SCH (15:00)
[2016-03-28] MEDS ORDERED: POTASSIUM PHOSPHATE INJ 21 MMOL in SODIUM CHLORIDE 0.9% 500ML 500 ML IV ONE (15:00)
[2016-03-28] MEDS: POTASSIUM CHLR 10 MEQ / WTR 10 MEQ in PREMIXED WATER 100 ML IV SCH ×2 (15:12→16:01)
[2016-03-28] MEDS ORDERED: HYDROmorphone INJ 0.5 MG/0.5 ML SYR IV STA (17:57)
[2016-03-28 19:53] LABS: POTASSIUM 3.3 mmol/L (3.5-5.1)
[2016-03-28 20:32] LABS: PHOSPHORUS 3.7 mg/dl (2.5-4.9)
[2016-03-28] MEDS ORDERED: INSULIN GLARGINE SOLOSTAR 100 UNITS/ML 3 ML PEN SC SCH ×2 (21:00)
[2016-03-28] MEDS: CHLORASEPTIC 1.4% SOLN 180 ML BTL MT PRN (22:14)
[2016-03-29] VITALS (9 sets, daily range): BP systolic 154–205; BP diastolic 88–128; PULSE 80–94; TEMP 36.5–36.8; O2SAT 94–97
[2016-03-29] MEDS: DEXAMETHASONE INJ 6 MG in SYRINGE 0 ML IV SCH ×3 (01:51→17:22)
[2016-03-29] MEDS: AMPICILLIN/SULBACTAM SOD INJ 3,000 MG in SODIUM CHLORIDE 0.9% 100ML 100 ML IV SCH ×3 (01:52→16:24)
[2016-03-29] MEDS: CHLORASEPTIC 1.4% SOLN 180 ML BTL MT PRN (03:22)
[2016-03-29] MEDS: INSULIN ASPART 100 UNITS/ML 3 ML PEN SC SCH ×5 (03:26→22:18)
[2016-03-29] MEDS ORDERED: LABETALOL HCL IV 5 MG/ML 20ML IV STA (04:20)
[2016-03-29] MEDS: OXYCODONE HCL IR 5 MG TAB (IMMEDIATE RELEASE) PO PRN ×3 (04:28→20:22)
[2016-03-29] MEDS ORDERED: DEXAMETHASONE INJ 6 MG in SYRINGE 0 ML IV SCH (06:00)
[2016-03-29] MEDS ORDERED: NURSING VERBAL MED ORDER ONE ×2 (07:15→12:00)
[2016-03-29 07:24] LABS: COMPLETE YES; HEMATOCRIT 32.3 % (37-47); IG% 0.3 %; LYMPH % 9.8 %; LYMPH ABS # 0.95 K/uL (1.2-3.4); MEAN CELL VOLUME 89.2 fL (80-100); MEAN CORPUSCULAR HEMOGLOBIN 30.4 pg (25-34); MEAN CORPUSCULAR HGB CONC 34.1 g/dl (32-36); MEAN PLATELET VOLUME 9.6 fL (7.4-10.4); MONO % 5.5 %; NEUT % 84.4 %; PLATELET COUNT 225 K/uL (130-400); RED BLOOD COUNT 3.62 M/uL (4.2-5.4); WHITE BLOOD COUNT 9.68 K/uL (4.8-10.8)
[2016-03-29] MEDS ORDERED: METOPROLOL TARTRATE 25 MG TAB PO SCH (07:30)
[2016-03-29] MEDS ORDERED: PHARMACY GLYCEMIC MGMT CONSULT PRN (07:45)
[2016-03-29 07:56] LABS: BUN/CREATININE RATIO 13.2 (10-20); CALCIUM 8.5 mg/dl (8.5-10.1); CREATININE 0.65 mg/dl (0.60-1.20); MAGNESIUM 1.9 mg/dl (1.8-2.4); POTASSIUM 3.3 mmol/L (3.5-5.1)
[2016-03-29] MEDS ORDERED: INSULIN GLARGINE SOLOSTAR 100 UNITS/ML 3 ML PEN SC SCH (08:00)
[2016-03-29 08:10] LABS: BETA-HYDROXYBUTYRATE 4.52 mg/dL (0.2-2.81)
[2016-03-29] MEDS: AMLODIPINE BESYLATE 5 MG TAB PO SCH (08:32)
[2016-03-29] MEDS: SODIUM CHLORIDE 0.9% 1000ML 1,000 ML IV SCH ×2 (08:34→16:24)
[2016-03-29] MEDS: POTASSIUM CHLORIDE 20 MEQ/15 ML UDC NG SCH ×3 (10:08→20:01)
[2016-03-29] MEDS: PANTOprazole INJ 40 MG in SYRINGE 0 ML IV SCH (10:57)
--- NOTE | 2016-03-29 11:04 | Pharmacy Progress Note ---
Glycemic Control: Progress Nt Date of Service Mar 29, 2016. Scope Glycemic Pharmacist consulted for glycemic control and to write orders per [facility] inpatient glycemic control protocol. Objective Accuchecks BSG (last 24hrs): Test 03/28/16 23:35 03/29/16 03:21 03/29/16 07:05 03/29/16 07:15 Bedside Glucose 232 mg/dl (70-90) 242 mg/dl (70-90) 334 mg/dl (70-90) Random Glucose 339 mg/dl (70-99) Laboratory Data (last 24hrs) Test 03/28/16 13:14 03/28/16 19:20 03/29/16 07:05 Potassium Level 2.9 mmol/L 3.3 mmol/L 3.3 mmol/L Anion Gap 13.0 mmol/L BUN/Creatinine Ratio 13.2 Blood Urea Nitrogen 9 mg/dl Creatinine 0.65 mg/dl Sodium Level 142 mmol/L White Blood Count 9.68 K/uL Red Blood Count 3.62 M/uL Hemoglobin 11.0 g/dL Hematocrit 32.3 % Mean Corpuscular Volume 89.2 fL Mean Corpuscular Hemoglobin 30.4 pg Mean Corpuscular Hemoglobin Concent 34.1 g/dl Platelet Count 225 K/uL Mean Platelet Volume 9.6 fL Neutrophils (%) (Auto) 84.4 % Lymphocytes (%) (Auto) 9.8 % Monocytes (%) (Auto) 5.5 % Eosinophils (%) (Auto) 0.0 % Basophils (%) (Auto) 0.0 % Neutrophils # (Auto) 8.17 K/uL Lymphocytes # (Auto) 0.95 K/uL Monocytes # (Auto) 0.53 K/uL Eosinophils # (Auto) 0.00 K/uL Basophils # (Auto) 0.00 K/uL HbA1c: Test 03/28/16 05:26 Hemoglobin A1c 8.0 % (4.5-5.6) H Recent Pertinent Medications Outpatient Anti-diabetic Regimen: * Lantus 18 units SQ PM * Apidra 0-20 units SQ BID based on outpatient scale The patient is currently receiving: * Basal insulin: Lantus 18 units every 12 hours * Correctional Insulin: Novolog Correction per scale ACHS Goal Range: Low 140 mg/dL - High 180 mg/dL Correction Factor: 30 mg/dL/unit * Prandial insulin: Per carb ratio of 1 unit per 10 grams CHO consumed Risk Factors for Insulin Resistance: * Steroids * Infection * Stress Assessment & Plan ASSESSMENT: * 40yo diabetic female with sub-adequate outpatient control per recent A1c of 8% . Goal A1c is less than 7% based on age and co-morbidities. * Pt with severe hyperglycemia secondary to stress and high dose RTC IV DXM. Pt initiated on IV insulin infusion on admission and transitioned to SQ basal bolus insulin regimen yesterday. * Pt has received 41units of SQ insulin + IV insulin infusion yesterday, Pt s NPO so most of regimen is basal insulin (36 units) as prandial insulin not needed. * BSGs ranging 229-334mg/dl over the past 24hrs * DXM dosing will be tapered daily and insulin regimen will need empirically decreased with each step down in steroid dosing- will empirically decrease PM dose of Lantus which will be covering hyperglycemia for the following day. DXM decreasing from Q6hrs to Q8hrs today --> should see some improvement in hyperglycemia but will treat severe hyperglycemia this AM and re-evaluate based on BSG trends. * ADA & AACE recommend a goal blood sugar range 140-180 mg/dl for the majority of critically ill & non-critically ill patients. However, more stringent targets may be selected in individual cases. Will use more stringent target of 120-140mg/dl based on age. PLAN FOR INPATIENT GLYCEMIC CONTROL: * INCREASE Basal insulin with LANTUS 30 units SQ daily in AM. Will empirically decrease PM dosing of Lantus as the PM dose will be covering the following day when DXM is decreased further. Dosing will be based on HS BSG * If HS BSG 120mg/dl or below --> Do not give Lantus * If HS BSG 121-180mg/dl --> Give Lantus 10 units * If HS BSG 181mg/dl or above --> Give Lantus 15 units * TIGHTEN Correctional Insulin with NOVOLOG per scale ACHS or Q6hrs while NPO. Additional checks + coverage at 0000 & 0400 * Goal Range: Low 120 mg/dL - High 140 mg/dL * Correction Factor: 20 mg/dL/unit * Nutritional / Prandial insulin per carb ratio of 1 unit per 7 grams CHO consumed * Please note that the plan above was derived based on current level of insulin resistance and hospital stress. These recommendations are appropriate for inpatient admission only. Plan of care upon discharge will need to be reassessed to avoid potential outpatient hypo/hyperglycemia. Thank you.
--- NOTE | 2016-03-29 12:21 | Progress Note ---
Subjective Date of Service: Mar 29, 2016. (Tia Gordillo PA-C) Subjective Pt evaluation today including: conversation w/ patient, conversation w/ family , physical exam, chart review, lab review, review of inpatient medication list Patient seen and evaluated. Hypertensive overnight with Labetalol administered. Patient reports difficulty as outpatient for blood pressure control Voice is markedly improved and less hoarse. She denies any complaints at this time. She is ambulating and currently sitting in waiting room with family. Plans to try clear liquids and if tolerated with have NGT removed (Tia Gordillo PA-C) Problem List Medical Problems: (1) Abdominal pain Status: Acute (2) Abdominal pain Status: Acute (3) Angioedema Status: Acute (4) Back strain Status: Acute (5) Central abdominal pain Status: Acute (6) Central abdominal pain Status: Acute (7) Encounter for medication refill Status: Acute (8) Generalized abdominal pain Status: Acute (9) Low back pain Status: Acute (10) Metabolic acidosis Status: Acute (11) Metabolic acidosis Status: Acute (12) Metabolic acidosis Status: Acute (13) Otitis externa Status: Acute (14) Respiratory failure Status: Acute (15) Right flank pain Status: Acute (16) Right sided abdominal pain Status: Acute (17) UTI (urinary tract infection) Status: Acute (18) Viral URI with cough Status: Acute (Tia Gordillo PA-C) Review of Systems Constitutional: No chills, No fever Respiratory: + cough, No dyspnea on exertion, No shortness of breath Cardiac: No chest pain Abdomen: + pain (chronic), No constipation, No diarrhea, No nausea, No vomiting Female : No dysuria Neurologic: No vertigo Endo: No fatigue Skin: No rash (Tia Gordillo PA-C) Medications Current Inpatient Medications Medications (Trade) Dose Ordered Sig/Jimbo Route Start Time Stop Time Status Last Admin Dose Admin Pantoprazole Sodium 40 mg/ Syringe 10 ml @ 5 mls/min DAILY@11 IV 03/28/16 11:00 04/27/16 10:59 03/29/16 10:57 5 MLS/MIN Sodium Chloride (Nss 1000ml) 1,000 ml @ 100 mls/hr Q10H IV 03/27/16 12:00 04/26/16 11:59 03/29/16 08:34 100 MLS/HR Glucose (Glucose 40% Gel) UD PRN PO 03/27/16 13:15 04/26/16 13:14 Glucose (Glucose Chew Tab) 1 tabs UD PRN PO 03/27/16 13:15 04/26/16 13:14 Dextrose (Dextrose 50% 50ML Syringe) 50 ml UD PRN IV 03/27/16 13:15 04/26/16 13:14 Glucagon 1 mg 1 mg UD PRN SQ 03/27/16 13:15 04/26/16 13:14 Ampicillin Sodium/ Sulbactam Sodium/ Sodium Chloride (Unasyn Inj/Nss 100ml) 108 ml @ 216 mls/hr Q6H IV 03/27/16 20:00 04/06/16 19:59 03/29/16 08:30 216 MLS/HR Amlodipine Besylate (Norvasc Tab) 10 mg QAM PO 03/28/16 09:00 04/27/16 08:59 03/29/16 08:32 10 MG Oxycodone HCl (Roxicodone Immediate Rel Tab) `1-2 tabs for pain 1 tab ... Q6 PRN PO 03/28/16 08:30 04/11/16 08:29 03/29/16 10:58 10 MG Menthol (Nice Carmine) 1 carmine PRN PRN PO 03/28/16 13:45 04/27/16 13:44 Insulin Aspart SLIDING SCALE 0000,0400 SC 03/29/16 00:00 04/28/16 00:00 03/29/16 03:26 3 UNITS Dexamethasone Sodium Phosphate 6 mg/Syringe 1.5 ml @ 1 mls/min Q8H IV 03/29/16 02:00 03/29/16 23:59 03/29/16 10:57 1 MLS/MIN Dexamethasone Sodium Phosphate 6 mg/Syringe 1.5 ml @ 1 mls/min Q12H IV 03/30/16 06:00 03/30/16 23:59 Dexamethasone Sodium Phosphate/ Syringe (Decadron Inj/ Syringe) 1.5 ml @ 1 mls/min Q24H IV 03/31/16 06:00 03/31/16 08:00 Phenol (Chloraseptic 1.4% [place]) 1-2 sprays every th... Q3H PRN MT 03/28/16 20:15 04/27/16 20:14 03/29/16 03:22 2 SPRAYS Metoprolol Tartrate (Lopressor Tab) 25 mg BID PO 03/29/16 07:30 04/28/16 07:29 03/29/16 08:57 25 MG Miscellaneous Information (Consult Glycemic Management Pharmacy) 1 ea UD PRN N/A 03/29/16 07:45 04/28/16 07:44 Potassium Chloride (Constance Ciel Elix) 20 meq TID NG 03/29/16 09:00 04/28/16 08:59 03/29/16 10:08 20 MEQ Insulin Aspart (novoLOG ASPART) SLIDING SCALE ACHS SC 03/29/16 16:15 04/28/16 16:14 (Tia Gordillo PA-C) Objective Vital Signs Date Time Temp Pulse Resp B/P Pulse Ox O2 Delivery O2 Flow Rate FiO2 03/29/16 11:43 36.5 80 18 171/104 96 Room Air 03/29/16 08:00 95 Room Air 03/29/16 07:31 36.7 85 18 154/88 95 Room Air 03/29/16 04:00 Room Air 03/29/16 03:31 36.8 94 20 205/128 96 Room Air 185/120 190/116 03/29/16 00:01 94 Room Air 03/28/16 23:29 36.6 95 20 164/81 94 Room Air 03/28/16 20:00 36.8 102 20 170/93 94 Room Air 03/28/16 20:00 Room Air 03/28/16 18:00 36.7 103 18 135/92 95 Room Air 03/28/16 16:00 Room Air 03/28/16 16:00 36.7 108 18 156/98 96 Room Air 03/28/16 14:00 36.7 106 18 168/99 97 Room Air (Tia Gordillo PA-C) Physical Exam General Appearance: WD/WN, no apparent distress Eyes: sclerae normal ENT: hearing grossly normal Neck: supple, no JVD, trachea midline Respiratory/Chest: no respiratory distress, no accessory muscle use Cardiovascular: regular rate, rhythm, no gallop, no murmur Abdomen: normal bowel sounds, non tender, soft Extremities: no calf tenderness Neurologic/Psychiatric: alert, oriented x 3 Skin: normal color, warm/dry (Tia Gordillo, CALEB) Laboratory Results Last 24 Hours Test 03/28/16 13:14 03/28/16 14:45 03/28/16 19:20 03/28/16 23:35 Potassium Level 2.9 mmol/L 3.3 mmol/L Phosphorus Level 1.8 mg/dl 3.7 mg/dl Influenza Type A Antigen Neg for Influ A Influenza Type B Antigen Neg for Influ B Bedside Glucose 232 mg/dl Test 03/29/16 03:21 03/29/16 07:05 03/29/16 07:15 03/29/16 11:36 Bedside Glucose 242 mg/dl 334 mg/dl 292 mg/dl White Blood Count 9.68 K/uL Red Blood Count 3.62 M/uL Hemoglobin 11.0 g/dL Hematocrit 32.3 % Mean Corpuscular Volume 89.2 fL Mean Corpuscular Hemoglobin 30.4 pg Mean Corpuscular Hemoglobin Concent 34.1 g/dl Platelet Count 225 K/uL Mean Platelet Volume 9.6 fL Neutrophils (%) (Auto) 84.4 % Lymphocytes (%) (Auto) 9.8 % Monocytes (%) (Auto) 5.5 % Eosinophils (%) (Auto) 0.0 % Basophils (%) (Auto) 0.0 % Neutrophils # (Auto) 8.17 K/uL Lymphocytes # (Auto) 0.95 K/uL Monocytes # (Auto) 0.53 K/uL Eosinophils # (Auto) 0.00 K/uL Basophils # (Auto) 0.00 K/uL RDW Standard Deviation 52.2 fL RDW Coefficient of Variation 16.0 % Immature Granulocyte % (Auto) 0.3 % Immature Granulocyte # (Auto) 0.03 K/uL Sodium Level 142 mmol/L Potassium Level 3.3 mmol/L Chloride Level 107 mmol/L Carbon Dioxide Level 22 mmol/L Anion Gap 13.0 mmol/L Blood Urea Nitrogen 9 mg/dl Creatinine 0.65 mg/dl Est Creatinine Clear Calc Drug Dose 107.9 ml/min Estimated GFR () 127.8 Estimated GFR (Non- 110.3 BUN/Creatinine Ratio 13.2 Random Glucose 339 mg/dl Calcium Level 8.5 mg/dl Magnesium Level 1.9 mg/dl Total Bilirubin 0.4 mg/dl Direct Bilirubin 0.1 mg/dl Aspartate Amino Transf (AST/SGOT) 14 U/L Alanine Aminotransferase (ALT/SGPT) 56 U/L Alkaline Phosphatase 108 U/L Total Protein 6.3 gm/dl Albumin 2.9 gm/dl Beta-Hydroxybutyric Acid 4.52 mg/dL (Tia Gordillo PA-C) Assessment and Plan Ms. Wild is a 40 y/o WF with PMHx of IDDM, HTN, GERD, IBS, PID, S/P Hysterectomy with L Oophorectomy 2/2 Cervical CA, S/P Ventral Hernia Repair, S/ P Cholecystectomy with continued Gallstones who reports to the ED for difficulty breathing and one episode of emesis that started this AM. In the ED, per ED doctor the patient had mild stridor but when examining her pharynx the stridor appeared to stop. No direct edema of the pharynx noted but on intubation airway edema evident. Intubation was decided for airway protection as she did not experience respiratory failure. She will be admitted to the ICU for further evaluation and care. Acute Respiratory Distress: Intubated 03/27/16 and Extubated 03/28/16: Infectious vs Angioedema - Assessment - has remained afebrile x 24 hrs - NGT in place - will attempt clear liquids and if tolerated remove NGT - Protonix 40 mg IV daily - plan to convert to po if diet tolerated - NSS at 100 mL/hr - will D/C when tolerating po intake - Unasyn 3 g Q6H - Dexamethasone 6 mg IV taper T2DM - IDDM: - Appreciate pharmacy assistance in titration to wean insulin gtt and implement adjustments -- Lantus 30 units SC daily in AM -- Lantus sliding scale in PM -- SSI 120-140; correction factor 20; carb ratio 7 HTN: - Norvasc 10 mg daily - Metoprolol 25 mg BID DVT Prophylaxis: - TEDs/SCDs - Lovenox 40 mg SC daily Code Status: - FULL RESUSCITATION Disposition: - Will assess po intake and if tolerated and continued improvement possible D/C home tomorrow (Tia Gordillo PA-C) Attending Attestation: Pt seen/examined, chart reviewed, and care plan d/w ERNESTINA Gordillo. I agree w/ the gaytan components of her documentation. I saw the patient twice today - first was prior to NG tube discontinuation; 2nd was after. Prior to NG tube discontinuation she was anxious to start eating. Reported hoarseness and sore throat MUCH improved. Tele with runs of sinus tach. During my 2nd visit she was quite upset about various items (see separate note). Denied any stridor, sob, pittman. VSS although BPs labile and high, o2 sats nl, some tachycardia gen - looks better mouth - MMM tongue - no swelling throat - ulceration left posterior throat but no vesicles or exudate voice - hoarse, but better neck - shotty LAD b/l heart - RRR, s1, s2 lungs - mild end-exp wheeze, no rales abd - soft, NT, BS+, small midline hernia that is reducible ext - no edema labs - LFTs have normalized K 3.3 throat cx negative A/P: 1. s/p intubation and subsequent extubation in the setting of acute resp distress 2. laryngitis 3. concern of angioedema but doubtful 4. hypokalemia 5. labile HTN 6. chronic pain syndrome due to ventral hernia?? 7. agitation d/c IV PPI d/c IV unasyn, change to PO augmentin if she passes PO challenge start w/ ice chips, then sips of water; if she does well then d/c NG tube and start clear liquid diet advance diet as tolerated tonight/tomorrow increase metoprolol to 25mg q6h; etiology of lability? patient reports this is a problem as outpatient replace K etiology of abnormal LFTs?? due to viral process? suspect viral process was main etiology of her laryngitis/acute respiratory distress doubt DEBORAH inhibitor induced angioedema but to be on safe side lisinopril added to allergy list hopefully home tomorrow?? discussed case w/ ENT, Dr. Osman son/ updated total time today between 2 visits 40 minutes Severo MARTIN MD (Wilfred Martin MD)
--- NOTE | 2016-03-29 13:55 | Progress Note ---
Progress Note 03/29/16 9832 Called by the patient's nurse that she was wanting to leave AMA. I came to the floor and the patient was off her monitor and had asked for her PICC line to be discontinued. There were multiple family members in the room including her and son. The patient was upset about multiple things including not being able to leave the floor to go to the gift shop, feeling "stressed," and getting "mixed messages" about the visitor policy for the floor. She states that a staff member told her last night on night-shift that she could have as many visitors as she wanted but the day-time staff has told her there is a limitation (3). She was angry that she heard two different answers. She stated to me "you said I could leave the floor." I told her in response that I had misunderstood her question on my AM rounds and that I had intended to tell her it was ok to walk around the the telemetry unit (but not leave the floor). I encouraged her to NOT leave AMA given that she was just on the vent yesterday , she just had her NG tube pulled, her BP/HR/fingerstick blood sugars were high , etc. In the end I apologized for any miscommunication over the various items she was upset about. She was agreeable to staying and agreeable to IV placement. I discussed the situation with the clinical [employer]ffer[employer] construction supervisor as well as the patient's personal nurse. If there continues to be issues we can involve service excellence as well. Wilfred Martin MD
[2016-03-29] MEDS: METOPROLOL TARTRATE 25 MG TAB PO SCH ×2 (14:37→20:01)
--- NOTE | 2016-03-29 14:55 | ENT PROGRESS NOTE ---
DATE: 03/29/2016 DATE: 03/29/2016. The patient is extubated and wants to leave against medical advice. She appears to be doing well. I had a conversation with Dr. Ordaz who will further management of this patient.
[2016-03-29] MEDS ORDERED: HydrALAZINE HCL 20 MG/ML VIAL IV. PRN (16:15)
[2016-03-29] MEDS: AMOXICILLIN/CLAVULANATE SUSP 400 MG/5 ML PO SCH (20:21)
[2016-03-29] MEDS: INSULIN GLARGINE SOLOSTAR 100 UNITS/ML 3 ML PEN SC SCH (22:19)
[2016-03-30] VITALS (8 sets, daily range): BP systolic 158–186; BP diastolic 75–125; PULSE 65–81; TEMP 36.5–36.9; O2SAT 94–97
[2016-03-30] MEDS: METOPROLOL TARTRATE 25 MG TAB PO SCH (01:02)
[2016-03-30] MEDS: INSULIN ASPART 100 UNITS/ML 3 ML PEN SC SCH ×5 (04:00→17:42)
[2016-03-30] MEDS: OXYCODONE HCL IR 5 MG TAB (IMMEDIATE RELEASE) PO PRN ×3 (04:48→17:38)
[2016-03-30] MEDS ORDERED: DEXAMETHASONE INJ 6 MG in SYRINGE 0 ML IV SCH ×2 (06:00→10:00)
[2016-03-30 07:05] LABS: BUN/CREATININE RATIO 15.9 (10-20); CREATININE 0.59 mg/dl (0.60-1.20); MAGNESIUM 2.1 mg/dl (1.8-2.4); POTASSIUM 3.4 mmol/L (3.5-5.1)
--- NOTE | 2016-03-30 07:57 | Pharmacy Progress Note ---
Glycemic Control: Progress Nt Date of Service Mar 30, 2016. Scope Glycemic Pharmacist consulted by Dr Suresh on 03/28/16 for glycemic control and to write orders per [facility] inpatient glycemic control protocol. Objective Accuchecks BSG (last 24hrs): Test 03/29/16 11:36 03/29/16 16:20 03/29/16 20:18 03/29/16 23:55 Bedside Glucose 292 mg/dl (70-90) 358 mg/dl (70-90) 355 mg/dl (70-90) 367 mg/dl (70-90) Test 03/30/16 03:56 03/30/16 05:50 03/30/16 07:03 Bedside Glucose 279 mg/dl (70-90) 359 mg/dl (70-90) Random Glucose 277 mg/dl (70-99) Laboratory Data (last 24hrs) Test 03/30/16 05:50 Anion Gap 10.0 mmol/L BUN/Creatinine Ratio 15.9 Blood Urea Nitrogen 9 mg/dl Creatinine 0.59 mg/dl Potassium Level 3.4 mmol/L Sodium Level 140 mmol/L HbA1c: Test 03/28/16 05:26 Hemoglobin A1c 8.0 % (4.5-5.6) H Recent Pertinent Medications Outpatient Anti-diabetic Regimen: * Lantus 18 units SQ PM * Apidra 0-20 units SQ BID based on outpatient scale The patient is currently receiving: * Basal insulin: Lantus 30 units QAM & Lantus in the evening per scale based on BSG. This scale based PM dosing is due to steroid taper daily. * Correctional Insulin: Novolog Correction per scale ACHS Goal Range: Low 120 mg/dL - High 140 mg/dL Correction Factor: 70 mg/dL/unit * Prandial insulin: Per carb ratio of 1 unit per 7 grams CHO consumed Risk Factors for Insulin Resistance: * Steroids * Infection * Stress Assessment & Plan ASSESSMENT: * 40yo diabetic female with sub-adequate outpatient control per recent A1c of 8% . Goal A1c is less than 7% based on age and co-morbidities. * Pt with severe hyperglycemia secondary to stress and high dose RTC IV DXM. Pt initiated on IV insulin infusion on admission and transitioned to SQ basal bolus insulin regimen. Regimen has been titrated daily based on BSGs and DXM dosing. * Pt has been receiving ~ 100 units of insulin per day with sub-adequate control. Current insulin dosing is significantly more than outpatient dosing and much higher than severe stress weight based dosing. * BSGs ranging 242-367mg/dl over the past 24hrs * DXM dosing will be tapered daily and insulin regimen will need empirically decreased with each step down in steroid dosing- will empirically decrease PM dose of Lantus which will be covering hyperglycemia for the following day. DXM decreasing from Q8hrs to Q12hrs today --> should see some improvement in hyperglycemia but will treat severe hyperglycemia this AM and re-evaluate based on BSG trends. * ADA & AACE recommend a goal blood sugar range 140-180 mg/dl for the majority of critically ill & non-critically ill patients. However, more stringent targets may be selected in individual cases. Will use more stringent target of 120-140mg/dl based on age. PLAN FOR INPATIENT GLYCEMIC CONTROL: * INCREASE Basal insulin with LANTUS 40 units SQ daily in AM. Will empirically decrease PM dosing of Lantus as the PM dose will be covering the following day when DXM is decreased further. Dosing will be based on HS BSG * If HS BSG 120mg/dl or below --> Do not give Lantus * If HS BSG 121-180mg/dl --> Give Lantus 15 units * If HS BSG 181mg/dl or above --> Give Lantus 20 units * TIGHTEN Correctional Insulin with NOVOLOG per scale ACHS or Q6hrs while NPO. Additional checks + coverage at 0000 & 0400 * Goal Range: Low 120 mg/dL - High 140 mg/dL * Correction Factor: 15 mg/dL/unit * Nutritional / Prandial insulin per carb ratio of 1 unit per 5 grams CHO consumed * Please note that the plan above was derived based on current level of insulin resistance and hospital stress. These recommendations are appropriate for inpatient admission only. Plan of care upon discharge will need to be reassessed to avoid potential outpatient hypo/hyperglycemia. Thank you.
[2016-03-30] MEDS ORDERED: INSULIN GLARGINE SOLOSTAR 100 UNITS/ML 3 ML PEN SC SCH (08:30)
[2016-03-30] MEDS: INSULIN GLARGINE SOLOSTAR 100 UNITS/ML 3 ML PEN SC SCH (08:36)
[2016-03-30] MEDS: AMLODIPINE BESYLATE 5 MG TAB PO SCH (08:38)
[2016-03-30] MEDS: METOPROLOL TARTRATE 50 MG TAB PO SCH ×2 (08:39→14:23)
[2016-03-30] MEDS: POTASSIUM CHLORIDE 20 MEQ TABCR PO SCH ×2 (08:40→14:24)
[2016-03-30] MEDS: AMOXICILLIN/CLAVULANATE SUSP 400 MG/5 ML PO SCH ×2 (08:40→16:45)
[2016-03-30] MEDS ORDERED: PANTOprazole SOD 40 MG TAB PO SCH (09:00)
[2016-03-30] MEDS ORDERED: SPIRONOLACTONE 25 MG TAB PO ONE (13:45)
[2016-03-30] MEDS: IPRATROPIUM BROMIDE/ALBUTEROL respimat INH INH SCH ×2 (14:00→17:40)
[2016-03-30] MEDS ORDERED: LORAZEPAM 0.5 MG TAB ONE (14:20)
[2016-03-30] MEDS ORDERED: OXYC1TAB3 PO (17:48)
[2016-03-30] MEDS ORDERED: SPIR25TA PO (17:48)
[2016-03-30] MEDS ORDERED: AMOX875T PO (17:48)
[2016-03-30] MEDS ORDERED: METO50TA17 PO (17:48)
[2016-03-30] MEDS ORDERED: AMLO-114 PO (17:48)
[2016-03-30] MEDS ORDERED: DXM/4 PO (17:48)
[2016-03-30] MEDS ORDERED: IPRA1AER2 INH (17:48)
--- NOTE | 2016-03-30 17:57 | Discharge Instructions ---
Discharge Instructions Admission Reason for Admission: Acute Respiratory Distress due to Swollen Throat Discharge Discharge Diagnosis / Problem: Severe Laryngitis with throat swelling leading to intubation and ventilator Discharge Goals Goal(s): Improve disease control, Learn about illness, Diagnostic testing, Therapeutic intervention Activity Recommendations Activity Limitations: as noted below Lifting Limitations: gradually increase as tolerated Exercise/Sports Limitations: gradually increase as tolerated Shower/Bathe: no limitations Driving or Machine Use: please do not drive while taking oxycocone pain medication . Instructions / Follow-Up Instructions / Follow-Up From Dr. Martin - 1. For your throat infection, which was likely caused by a virus (but we cannot rule out that it was due to a bacterial infection) - * augmentin (amoxicillin) for 6 days; start this TOMORROW on 03/31/16 * ONE more dose of steroid (decadron) on 03/31/16 ONLY 2. For your cough/wheezing - * combivent inhaler every 6 hours as needed * qnnk-dip-vbfoyet mucinex is also helpful 3. For your high blood pressure - * take amlodipine 10mg once daily; new prescription provided * take spironolactone 25mg once daily every morning; new prescription provided * take metoprolol 50mg twice daily; new prescription provided STOP YOUR LISINOPRIL 4. For pain - * can take oxycodone 5mg tablets, 1-2 every 6 hours as needed for pain * note that oxycodone can make you constipated * do NOT drink alcohol while using pain pills and DO NOT DRIVE while taking them as well 5. Please contact Dr. Vazquez THIS WEEK to reschedule your surgery date for the future. 6. Our social work msw will contact you to see if we can secure a new family doctor for you in [place] as you will need follow-up THIS WEEK. 7. Return to [facility] if - * you have fever over 100.5 degrees * you have difficulty with breathing or swallowing * your blood sugars continue to remain high (250 or higher consistently) * your blood pressures are high consistently (more than 160-170 on the top, more than 100 on the bottom) Current Hospital Diet Patient's current hospital diet: Diabetes Type 2 Diet Discharge Diet Recommended Diet: Diabetes Type 2 Diet Procedures Procedures Performed: CAT scan of the neck showing severe swelling of the throat Laryngoscopy by Dr. Osman (ENT) showing swelling of the throat Intubation and ventilator for 24 hours PICC line in your right arm Pending Studies Studies pending at discharge: no Laboratory Results Hemoglobin A1c Test 03/28/16 05:26 Range/Units Estimated Average Glucose 183 mg/dl Hemoglobin A1c 8.0 H 4.5-5.6 % Medical Emergencies . Who to Call and When: Medical Emergencies: If at any time you feel your situation is an emergency, please call 911 immediately. . Non-Emergent Contact Non-Emergency issues call your: Primary Care Provider Call Non-Emergent contact if: temperature is above 100.5, your pain is not controlled, your pain is worsening, your pain is unusual for you, your pain is concerning you, you have any medication questions . . "Provider Documentation" section prepared by Wilfred Martin. VTE Core Measure Inpt VTE Proph given/why not?: Dennis Mccracken, SCD's [place] Drug Monitoring Program Search Results: patient reviewed within database, no issues identified Drug Monitoring Findings: last prescription filled was 03/18/16 (#15 tabs of oxycodone only)
--- NOTE | 2016-03-31 05:55 | Discharge Summary ---
Discharge Summary Admission Date: Mar 27, 2016 at 11:40 Discharge Date: Mar 30, 2016 Discharge Disposition: Home Principal Diagnosis: acute respiratory failure 2nd supraglottic edema - infectious vs angioedema Problems/Secondary Diagnoses: 1. laryngitis 2. T2DM, uncontrolled 3. long-standing poorly controlled HTN 4. tobacco dependence 5. hypophosphatemia - resolved 6. hypomagnesemia - resolved 7. hypokalemia - resolved 8. periumbilical hernia causing chronic abdominal pain 9. GERD 10. IBS 11. h/o cervical cancer 12. h/o gallstones s/p cholecystectomy 13. abnormal LFTs - resolved. etiology was uncertain 14. RUL pulmonary nodule - repeat CT needed in 3 months Procedures: 1. CT soft tissues of the neck - CONCLUSIONS: 1. Thickening/edema within the supraglottic soft tissues and pyriform sinuses resulting in severe narrowing of the supraglottic airway. This could be due to an infectious process or possibly angioedema. 2. Evaluation for neck mass or abscess is limited due to lack of intravenous contrast. However, no definite neck mass or abscess identified. 3. Shotty cervical/submandibular lymphadenopathy which may be reactive. 4. An 8 x 5 mm bilobed nodule within the right upper lobe. This could represent a bronchial lymph node. However, [address] follow up is recommended to ensure stability. 2. intubation with mechanical ventilation 3. PICC line - right arm 4. RUQ abdominal u/s showing normal liver and post-cholecystectomy state 5. laryngoscopy - Dr. Lucille Osman FINDINGS: The posterior pharynx was normal. The epiglottis was normal and pink; however, the right arytenoid was still swollen. The vocal cords appeared to be normal with endotracheal tube between the vocal cords. Specifically, there was no sign of abscess noted. Consultations: 1. critical care - Miguel Angel Suresh DO 2. ENT - Lucille Osman MD Medication Reconciliation New Medications: Amoxicillin & Pot Clavulanate (Augmentin 875-125 mg) 1 Tab Tab 875 MG PO BID for 6 Days, #12 TAB 0 Refills start 03/31/16 Dexamethasone (Decadron) 4 Mg Tab 4 MG PO once on 03/31/16 for 1 Day, #1 TAB 0 Refills Spironolactone (Aldactone) 25 Mg Tab 1 TAB PO QAM, #30 TAB 1 Refill Ipratropium-Albuterol (Combivent Respimat) 1 Aer Aer 1 PUFFS INH QID PRN for cough or wheeze, #1 0 Refills Metoprolol Tartrate (Metoprolol Tartrate) 50 Mg Tab 50 MG PO BID, #60 TAB 1 Refill Changed Medications: Amlodipine (Norvasc) 10 Mg Tab 10 MG PO DAILY, #30 TAB 1 Refill (Changed from: Amlodipine (Norvasc) 5 Mg Tab 5 Mg PO QAM) Oxycodone Ir (Roxicodone Ir) 5 Mg Tab 1-2 TAB PO Q6H PRN for Pain, #30 TAB 0 Refills (Changed from: 5 MG; Refills: ) Continued Medications: Acetaminophen (Tylenol) 325 Mg Tab 650 MG PO Q4 PRN for Pain Dicyclomine Hcl (Dicyclomine Hcl) 10 Mg Cap 10 MG PO TID, 11 Refills Fluticasone Propionate (Flovent Hfa) 120 Puffs/56034 Mcg Aero 1 PUFFS INH BID PRN for Shortness of Breath, 3 Refills Insulin Glargine (Lantus) Vial 18 UNITS SC QPM, VIAL Insulin Glulisine (Apidra) 100 Unit/Ml Inj 0-20 UNITS SQ BID sliding scale Omeprazole (Prilosec) 20 Mg Capcr 20 MG PO DAILY PRN for ACID REFLUX Discontinued Medications: Lisinopril (Zestril) 20 Mg Tab 20 MG PO QAM, TAB Referrals At Discharge Follow up Referrals: Surgery Referral - Please Call For Appointment with Scott Vazquez D.O. Discharge Exam Physical Exam: General Appearance: no apparent distress ENT: + muffled/hoarse voice (minimal hoarse voice), + pertinent finding ( scant posterior pharyngeal erythema; traumatic ulceration left posterior pharyngeal wall - improving ) Neck: + adenopathy present (shotty cervical nodes) Respiratory/Chest: + wheezing (scant end-exp ) Cardiovascular: regular rate, rhythm, no gallop, no murmur, normal peripheral pulses Abdomen / GI: normal bowel sounds, non tender, soft, no organomegaly, + hernia (small periumbilical hernia) Extremities: no pedal edema Neurologic/Psychiatric: alert, oriented x 3 Skin: no rash Hospital Course HISTORY OF PRESENT ILLNESS: Ms. Wild is a 40 y/o WF with PMHx of T2DM, HTN, GERD, IBS, PID, S/P Hysterectomy with L Oophorectomy secondary to Cervical CA, S/P Ventral Hernia Repair, and S/P Cholecystectomy who presented to the ED with difficulty breathing and one episode of emesis that started on the morning of admission. HPI was limited and largely obtained from ED note, ED staff, and at bedside as patient was intubated during the admission assessment. reported that the patient had been complaining of a sore throat and was starting to lose her voice 3 days prior to admission. He stated that after the progressive loss of her voice she did develop a cough that was productive of green sputum. He stated she did not complain of fevers but reported that she always complains about feeling hot. On the AM of admission when she woke up she continued to complain of a sore throat but developed shortness of breath. At baseline she has chronic abdominal pain and incidentally was scheduled for a abdominal hernia repair today at [facility]. reported some sick contacts with children who had the common cold. The patient had been taking lisinopril for HTN for about 2 years prior to this incident. She had never had any trouble with this medication. In the ED, per the ED attending, the patient had very mild stridor but when examining her pharynx the stridor appeared to stop. She never had tongue swelling. Intubation was ultimately performed due to concern for impending respiratory failure. She was subsequently admitted to the ICU for further management. HOSPITAL COURSE: After admission to the ICU the patient was started on IV steroids and antibiotics. She remained febrile for the majority of hospital day #1. Dr. Lucille Osman was consulted from ENT who performed laryngoscopy which showed no evidence of epiglottitis or abscess. A culture from the glottis was taken which ultimately was negative. Electrolyte abnormalities were corrected, IV insulin was used for glycemic control, and her ventilatory support was weaned. She was successfully extubated on hospital day #2 without incident to room air. The patient had evidence of clinical laryngitis for the remainder of her stay but this improved with use of steroids. Abnormal LFTs that were seen at time of admission resolved. The exact etiology of this was unknown. She was restarted on a diet and this was advanced to regular/diabetic diet prior to discharge; she tolerated such without dysphagia. The most problematic issue during her stay was that of labile HTN. She reported difficulties with BP control for years and recalls that most outpatient BP readings are nearly always high. Her amlodipine was increased to 10mg daily, and metoprolol along with spironolactone were were also added. She made gradual, mild improvement in her BPs prior to discharge. At discharge the following were recommended: 1. augmentin 875mg BID x 6 days to complete a 10-day course in total (in the event the upper airway/pharynx process was bacterial in origin) 2. one additional day of oral decadron 3. amlodipine, aldactone, and metoprolol for HTN 4. smoking cessation 5. follow-up with Dr. Scott Vazquez for her periumbilical hernia 6. chest CT in 3 months to evaluate the RUL pulmonary nodule - this will need to be arranged In summary, it was difficult to say what the exact etiology of her supraglottic edema/laryngitis was but an infectious cause was most probable in light of her lymphadenopathy on exam, fevers, and prodromal symptoms in the 3 days leading up to this admission. Statistically most cases of laryngitis are typically viral in etiology. Angioedema from DEBORAH inhibitor use was also possible but much less likely given the clinical course. [id number], as a safeguard, we recommended discontinuation of the lisinopril and this medication was added to the patient's allergy list at [facility]. The patient's PCP is located in [place], [place], and attempts will be made to secure her a new PCP locally in [place]. She will need follow-up with her new PCP within 1-2 weeks. Total Time Spent: Greater than 30 minutes This includes examination of the patient, discharge planning, medication reconciliation, and communication with other providers. Discharge Instructions Please refer to the electronic Patient Visit Report (Discharge Instructions) for additional information. Follow-Up 1. NEW primary care provider to be arranged and will need follow-up within 1-2 weeks 2. follow-up with Dr. Scott Vazquez, [facility] general surgery, to reschedule periumbilical hernia surgery Additional Copies To Scott Vazquez D.O.; Lucille Osman M.D.
[2016-03-31] MEDS ORDERED: DEXAMETHASONE INJ 6 MG in SYRINGE 0 ML IV SCH ×2 (06:00→10:00)
[2016-04-06] MEDS ORDERED: ACET-1311 PO (08:42)
[2016-04-06] MEDS ORDERED: PRLSR20 PO (08:42)
[2016-04-06] MEDS ORDERED: FLVHFA110 INH (11:48)
[2016-05-07] MEDS ORDERED: OXYC1TAB3 PO (16:57)
[2016-05-07] MEDS ORDERED: APDI SQ (16:57)
[2016-05-07] MEDS ORDERED: INSDGI SC (16:57)
[2016-05-15] MEDS ORDERED: OXYC1TAB3 PO (07:15)
[2016-05-24] MEDS ORDERED: ZCR20 PO (13:28)
[2016-12-26] MEDS ORDERED: IPRA1AER2 INH (12:55)
[2016-12-26] MEDS ORDERED: OXYC1TAB3 PO (12:55)
[2016-12-26] MEDS ORDERED: MISCCAP80 PO (12:56)
== END 2016-03-30 18:45 | disposition home or self-care (01) | DRG 208 ==
LOC: ENRESERVTM → ENRESERVDT → CANRESERV → C.EDB 08:22 → C.MSICU 11:17 → UNDOADMIN 11:17 → C.MSICU 11:40 → C.2T 03-28 21:07
PROVIDERS: ADMIT Internal Medicine; ATTEND Internal Medicine
PROC: 0CJS8ZZ Inspection of Larynx, Via Natural or Artificial Opening Endoscopic (ICD-10-PCS; principal; 2016-03-27)
PROC: 5A1935Z Respiratory Ventilation, Less than 24 Consecutive Hours (ICD-10-PCS; 2016-03-27)
PROC: 0BH17EZ Insertion of Endotracheal Airway into Trachea, Via Natural or Artificial Opening (ICD-10-PCS; 2016-03-27)
PROC: 02HV33Z Insertion of Infusion Device into Superior Vena Cava, Percutaneous Approach (ICD-10-PCS; 2016-03-27)
PROC: 0CJS8ZZ Inspection of Larynx, Via Natural or Artificial Opening Endoscopic (ICD-10-PCS; 2016-03-30)
DX: J96.00 Acute respiratory failure, unspecified whether with hypoxia or hypercapnia (principal); E87.2 Acidosis; J04.30 Supraglottitis, unspecified, without obstruction; I10 Essential (primary) hypertension; K21.9 Gastro-esophageal reflux disease without esophagitis; F17.210 Nicotine dependence, cigarettes, uncomplicated; E87.6 Hypokalemia; G89.4 Chronic pain syndrome; E83.42 Hypomagnesemia; Z85.41 Personal history of malignant neoplasm of cervix uteri; Z79.4 Long term (current) use of insulin; E11.65 Type 2 diabetes mellitus with hyperglycemia; K42.9 Umbilical hernia without obstruction or gangrene; K58.9 Irritable bowel syndrome, unspecified; T78.3XXA Angioneurotic edema, initial encounter; T88.9XXA Complication of surgical and medical care, unspecified, initial encounter; T46.4X5A Adverse effect of angiotensin-converting-enzyme inhibitors, initial encounter; T38.0X5A Adverse effect of glucocorticoids and synthetic analogues, initial encounter; Z88.0 Allergy status to penicillin; E11.9 Type 2 diabetes mellitus without complications; J45.909 Unspecified asthma, uncomplicated; R00.0 Tachycardia, unspecified; K13.79 Other lesions of oral mucosa; R73.9 Hyperglycemia, unspecified; Y92.009 Unspecified place in unspecified non-institutional (private) residence as the place of occurrence of the external cause

== ENCOUNTER 2016-04-06 17:51 | Inpatient (IN) | payer OTHER ==
[~2016-04-06] VITALS: Ht 152.4 cm; Wt 6.0 kg
[~2016-04-06 17:51] MED LIST changes: +ACET-1311 PO; -AMLO-110 PO; +AMLO-114 PO; +AMOX875T PO; +DXM/4 PO; +FLVHFA110 INH; +IPRA1AER2 INH; -LISI-725 PO; +METO50TA17 PO; +PRLSR20 PO; +SPIR25TA PO
[2016-04-06] MEDS ORDERED: INSDGI SC (17:53)
[2016-04-06] MEDS ORDERED: INSUINJ5 SQ (17:53)
[2016-04-06] MEDS ORDERED: AMLO-114 PO (18:13)
[2016-04-06] MEDS ORDERED: METO50TA16 PO (18:13)
[2016-04-06] MEDS ORDERED: IPRA1AER2 INH (18:13)
[2016-04-06] MEDS ORDERED: SPIR25TA PO (18:13)
[2016-04-06] MEDS ORDERED: SODIUM CHLORIDE 0.9% 500ML 500 ML IV STA (18:18)
[2016-04-06] MEDS ORDERED: DiphenhydrAMINE HCL 50 MG/ML VIAL IV STA (18:18)
[2016-04-06] MEDS ORDERED: SODIUM CHLORIDE 0.9% 1000ML 1,000 ML IV STA (18:18)
[2016-04-06] MEDS ORDERED: RACEPINEPHRINE 2.25% NEBU SOLN 0.5 ML VIAL INH STA (18:25)
[2016-04-06] MEDS ORDERED: DEXAMETHASONE SOD INJ 10 MG/ML VIAL IV ONE (18:30)
--- NOTE | 2016-04-06 18:39 | DIAGNOSTIC IMAGING REPORT ---
SINGLE VIEW CHEST CLINICAL HISTORY: Cough and dyspnea. FINDINGS: An AP, portable, upright chest radiograph is compared to study dated 03/27/2016. The endotracheal tube has been removed. The cardiomediastinal silhouette is unremarkable. The lungs and pleural spaces are clear. No pneumothorax is seen. The bony thorax is grossly intact. IMPRESSION: 1. No acute cardiopulmonary abnormality. 2. The endotracheal tube has been removed from 03/27/2016. Electronically signed by: Bo Peralta M.D. 04/06/2016 6:37 PM Dictated Date/Time: 04/06/2016 6:37 PM
[2016-04-06 18:41] LABS: MEAN CELL VOLUME 90.3 fL (80-100); MEAN CORPUSCULAR HEMOGLOBIN 32.1 pg (25-34); MEAN CORPUSCULAR HGB CONC 35.5 g/dl (32-36); MEAN PLATELET VOLUME 10.1 fL (7.4-10.4); PLATELET COUNT 283 K/uL (130-400); RED BLOOD COUNT 4.43 M/uL (4.2-5.4); WHITE BLOOD COUNT 8.53 K/uL (4.8-10.8)
--- NOTE | 2016-04-06 18:43 | EMERGENCY ROOM VISIT NOTE ---
History Report prepared by Adam: Onur Kraus Under the Supervision of: Dr. Daisy Bernardo M.D. First contact with patient: 18:10 Chief Complaint: SORETHROAT Stated Complaint: SORE THROAT, COUGH, ABDOMINAL PAIN History of Present Illness The patient is a 40 year old female who presents to the Emergency Room with complaints of a persistent cough that began one week prior to arrival. The patient was in the ICU last week for her symptoms where she was diagnosed with "acute respiratory failure 2nd supraglottic edema - infectious vs angioedema." Since being discharged from the ICU the patient's cough and breathing difficulties have persisted. She states that her cough is agitating the hernia she has in her abdomen. She was scheduled to have her hernia repaired, but the surgery has been postponed due to her current illness. The patient claims that her symptoms worsen at night when she feels like her throat is closing. This feeling worsens her cough and increases her hernia pain. She is also struggling to swallow medications. The patient made a separate complaint about a rash/hive on her genitalia. She states that is became "really broken out today" and is currently "burning and hurting" to the touch. 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 Review of Systems See HPI for pertinent positives & negatives. A total of 10 systems reviewed and were otherwise negative. Past Medical & Surgical Medical Problems: (1) Abdominal wall hernia (2) Acute respiratory failure (3) DKA (diabetic ketoacidoses) (4) Dysphagia (5) GERD (gastroesophageal reflux disease) (6) Hyperglycemia (7) Right lower quadrant abdominal abscess (8) RUQ pain (9) Shortness of breath Surgical Problems: (1) H/O tubal ligation (2) History of cholecystectomy (3) Hx of cholecystectomy (4) Tubal ligation status Family History Hypertension Social History Smoking Status: Current Every Day Smoker Alcohol Use: none Drug Use: none Marital Status: Housing Status: lives with family Occupation Status: employed Current/Historical Medications Scheduled Amoxicillin & Pot Clavulanate (Augmentin 875-125 mg), 1 TAB PO BID Clotrimazole (Clotrimazole), 1 APPLN PV DAILY Dicyclomine Hcl (Dicyclomine Hcl), 10 MG PO TID Methylprednisolone (Medrol Dosepak), 1 PKT PO UD Nystatin (Nystop), 1 APPLN EXT QID Scheduled PRN Acetaminophen (Tylenol), 650 MG PO Q4H PRN for Pain Fluticasone Propionate (Flovent Hfa), 1 PUFF INH BID PRN for Shortness of Breath Ipratropium-Albuterol (Combivent Respimat), 1 PUFF INH QID PRN for Cough or Wheeze Omeprazole (Prilosec), 20 MG PO DAILY PRN for Acid Reflux Oxycodone Immediate Rel Tab (Roxicodone Ir), 5 MG PO Q6H PRN for Pain Allergies Coded Allergies: Lisinopril (Verified Allergy, Severe, ANAPHYLAXIS, 03/27/16) ANGIOEDEMA Iodinated Diagnostic Agents (Verified Adverse Reaction, Mild, VOMITING, 03/25/16) Physical Exam Vital Signs Date Time Temp Pulse Resp B/P Pulse Ox O2 Delivery O2 Flow Rate FiO2 04/06/16 22:12 Room Air 04/06/16 21:01 108 20 176/134 94 Room Air 04/06/16 19:08 88 04/06/16 18:47 90 18 96 Room Air 04/06/16 17:57 96 Room Air 04/06/16 17:53 36.8 113 17 146/99 96 Room Air Physical Exam Vital signs reviewed. HEENT: No scleral icterus, PERRLA, neck supple. Atraumatic. Cardiovascular: Regular rate and rhythm, no extra sounds. Pulmonary: Expiratory stridor on exam. Wheezing throughout bilateral lung ruiz. Abdomen: Obese abdomen, Soft, nontender, nondistended, positive bowel sounds. Musculoskeletal: Atraumatic, no peripheral edema. Neurologic: Patient awake alert and oriented x 3, full strength in all 4 extremities. Cranial nerves 2 through 12 grossly intact. Skin: Warm, dry, no rash Pelvic: There is folliculitis to inguinal folds with satellite lesions. Minimal vaginal secretions. Cervix was not visualized on exam. Medical Decision & Procedures ER Provider Diagnostic Interpretation: X-ray results as stated below per my interpretation and radiologist interpretation. Other radiology results as stated below per my review and radiologist interpretation: SINGLE VIEW CHEST CLINICAL HISTORY: Cough and dyspnea. FINDINGS: An AP, portable, upright chest radiograph is compared to study dated 03/27/2016. The endotracheal tube has been removed. The cardiomediastinal silhouette is unremarkable. The lungs and pleural spaces are clear. No pneumothorax is seen. The bony thorax is grossly intact. IMPRESSION: 1. No acute cardiopulmonary abnormality. 2. The endotracheal tube has been removed from 03/27/2016. Electronically signed by: Bo Peralta M.D. 04/06/2016 6:37 PM Dictated Date/Time: 04/06/2016 6:[address] SCAN OF THE NECK WITH IV CONTRAST CLINICAL HISTORY: Supraglottic edema. Recent intubation. Cough. COMPARISON STUDY: CT of the neck dated 03/27/2016. TECHNIQUE: Following the IV administration of 116 cc of Optiray 320, CT scan of the soft tissues of the neck was performed from the skull base to the upper chest. Images are reviewed in the axial, sagittal, and coronal planes. IV contrast was administered without complication. CT DOSE: 425.11 mGy.cm FINDINGS: Pharynx: There is thickening and edema again seen within the supraglottic soft tissues and pyriform sinuses. This causes severe narrowing of the subglottic airway and there is nonspecific patchy abnormal enhancement in this region. The degree of edema is slightly lesser than on the 03/27/2016 examination. The nasopharynx and oropharynx are normal in appearance. The proximal airway is widely patent. The parapharyngeal fat is well maintained. The prevertebral/retropharyngeal soft tissues are within normal limits. The epiglottis is normal in appearance. Lymphadenopathy: There are shotty cervical lymph nodes. These are pathologically enlarged by size criteria Thyroid: Normal in size and attenuation. Salivary glands: The parotid and submandibular glands are within normal limits. Brain parenchyma: The visualized brain parenchyma at the skull base is normal in appearance. Vascular structures: The internal carotid arteries and the jugular veins are patent bilaterally. There is soft plaque identified in the left carotid bulb. Skeletal structures: Imaged portions of the calvarium at the skull base are within normal limits. The cervical spine appears intact. Orbits: The bony orbits are intact as visualized. The imaged orbital contents are normal in appearance. Sinuses and mastoids: There is mild mucosal thickening in the right maxillary antrum. The remaining visualized paranasal sinuses are clear. The mastoid air cells are well pneumatized. Lung apices: Emphysematous change is identified at the lung apices. The imaged upper lobe lung parenchyma appears clear. IMPRESSION: 1. Again seen is marked thickening and edema with nonspecific patchy abnormal enhancement within the supraglottic soft tissues and pyriform sinuses. This causes severe narrowing of the pharyngeal airway at this level. The degree of inflammation is only slightly less than on the 03/27/2016 examination. Differential considerations remain an infectious/inflammatory process or possibly angioedema. Underlying mass lesion would be impossible to exclude but is considered less likely. ENT assessment is recommended. 2. There is no organized fluid collection to suggest abscess. 3. Emphysema. Findings were discussed with Dr. Bernardo in the emergency department at the time of interpretation. Electronically signed by: Bo Peralta M.D. 04/06/2016 8:18 PM Dictated Date/Time: 04/06/2016 8:02 PM Laboratory Results Test 04/06/16 18:30 04/06/16 18:48 04/06/16 22:06 Neutrophils % (Manual) 55.9 % Lymphocytes % (Manual) 36.9 % Monocytes % (Manual) 5.4 % Eosinophils % (Manual) 0.9 % Myelocytes % 0.9 % Neutrophils # (Manual) 4.77 K/uL (1.4-6.5) Total Absolute Neutrophils 4.77 K/uL (1.4-6.5) Lymphocytes # (Manual) 3.15 K/uL (1.2-3.4) Total Absolute Lymphocytes 3.15 K/uL (1.2-3.4) Monocytes # (Manual) 0.46 K/uL (0.11-0.59) Eosinophils # (Manual) 0.08 K/uL (0-0.5) Myelocytes # 0.08 K/uL (0-0) Hyposegmented Neutrophils 1+ Urine Color YELLOW Urine Appearance CLEAR (CLEAR) Urine pH 5.5 (4.5-7.5) Urine Specific [place] > 1.045 (1.000-1.030) Urine Protein TRACE (NEG) Urine Glucose (UA) 3+ (NEG) Urine Ketones NEG (NEG) Urine Occult Blood NEG (NEG) Urine Nitrite NEG (NEG) Urine Bilirubin NEG (NEG) Urine Urobilinogen NEG (NEG) Urine Leukocyte Esterase NEG (NEG) Urine WBC (Auto) 1-5 /hpf (0-5) Urine RBC (Auto) 0-4 /hpf (0-4) Urine Hyaline Casts (Auto) 1-5 /lpf (0-5) Urine Epithelial Cells (Auto) >30 /lpf (0-5) Urine Bacteria (Auto) NEG (NEG) Date/Time Source Procedure Growth Status 04/06/16 20:49 Vaginal Swab Trichomonas Preparation - Final Complete Laboratory results per my review. Medications Administered Medications (Trade) Dose Ordered Sig/Jimbo Route Start Time Stop Time Status Last Admin Dose Admin Diphenhydramine HCl 50 mg 50 mg NOW STAT IV 04/06/16 18:18 04/06/16 18:24 DC 04/06/16 18:42 50 MG Sodium Chloride 500 ml @ 999 mls/hr Q31M STAT IV 04/06/16 18:18 04/06/16 18:48 DC 04/06/16 18:18 999 MLS/HR Sodium Chloride (Nss 1000ml) 1,000 ml @ 125 mls/hr Q8H STAT IV 04/06/16 18:18 04/06/16 23:42 DC 04/06/16 18:18 125 MLS/HR Dexamethasone Sodium Phosphate (Decadron Inj) 10 mg NOW ONCE IV 04/06/16 18:30 04/06/16 18:31 DC 04/06/16 18:43 10 MG Racepinephrine (Raccemic Epinephrine 2.25% 0.5ML Neb) 0.5 ml NOW STAT INH 04/06/16 18:25 04/06/16 18:26 DC 04/06/16 18:45 0.5 ML Insulin Human Regular (novoLIN-R U-100 PER UNIT) 10 units NOW STAT SC 04/06/16 19:44 04/06/16 19:45 DC 04/06/16 20:26 10 UNITS Lorazepam (Ativan Inj) 1 mg NOW STAT IV 04/06/16 20:43 04/06/16 20:45 DC 04/06/16 20:59 1 MG ED Course 1816: Past medical records reviewed. The patient was evaluated in room A4. A complete history and physical examination was performed. 1817: Ordered Sodium Chloride 1000 mL @ 125 mL/hr IV, Sodium Chloride 500 mL @ 999 mL/hr IV, Benadryl 50 mg IV. 1825: Racepinephrine 0.5 mL INH. 1830: Dexamethasone 10 mg IV. 1944: Ordered Regular Human Insulin novoLIN-R 10 unites SC. 2016: I discussed the case with Dr. Manuel STEEL, he will come to scope the patient. He requests I order Anesthesia. 2024: I performed a pelvic exam on the patient at this time. See physical exam for pertinent findings. 2048: I discussed the case with Anesthesia at this time. They will come to the patient's room for stand-by as we await Dr. Jackson's arrival. 2056: Dr. Jackson is scoping the patient at this time. He states there is nothing to do at this point aside from treat with steroids. 2058: I discussed the case with Dr. Trevor NOBLES Hospitalist, he will evaluate the patient for further treatment. Medical Decision Differential diagnosis: Etiologies such as infections, reactive airway disease, epiglottitis, angioedema , retropharyngeal abscess, pneumonia, pneumothorax, COPD, CHF, cardiac ischemia , pulmonary embolism, musculoskeletal, gastrointestinal, as well as others were entertained. This pt was evaluated and appeared to be in no distress. IV access was obtained and lab work was drawn. Pt was placed on the steam drier tender. Pt was given an epi neb and dexamethasone 10 mg IV. Lab work reveals an elevated glucose of 404. CXR reveals no acute abnl. CT neck was obtained and is as above. ENT c/s with Dr Jackson was obtained. He evaluated the pt in the ED. She is found to have mild right arytenoid edema. He believes the airway is patent. Pt was feeling improved. She was given 10 U SQ regular insulin. She was d/w the hospitalist service for further management. Consults Time Called: 2019 Consulting Physician: Dr. Manuel STEEL Returned Call: 2024 I discussed the case with Dr. Manuel STEEL, he will come to scope the patient. He requests I order Anesthesia. Additional Consults: Time Called: 2057 Consulted Physician: Dr. Tervor NOBLES Hospitalist Returned Call: 2058 Additional Comments: I discussed the case with Dr. Trevor NOBLES Hospitalist, he will evaluate the patient for further treatment. Impression Primary Impression: Supraglottic edema Additional Impressions: Yeast dermatitis of penis Hyperglycemia Scribe Attestation The scribe's documentation has been prepared under my direction and personally reviewed by me in its entirety. I confirm that the note above accurately reflects all work, treatment, procedures, and medical decision making performed by me. Departure Information Prescriptions Oxycodone Immediate Rel Tab (ROXICODONE IR) 5 Mg Tab 5 MG PO Q6H Y for Pain, #8 TAB Prov: Lucille Mccurdy MD 04/08/16 Amoxicillin & Pot Clavulanate (Augmentin 875-125 mg) 1 Tab Tab 1 TAB PO BID for 7 Days, #14 TAB Prov: Lucille Mccurdy MD 04/08/16 Methylprednisolone (MEDROL DOSEPAK) 4 Mg [place] 1 PKT PO UD for 6 Days, #1 PKT Prov: Lucille Mccurdy MD 04/08/16 Nystatin (Nystop) 45 Appln/15 Gm Powd 1 APPLN EXT QID for 7 Days, #1 EA 0 Refills Prov: Lucille Mccurdy MD 04/08/16 Clotrimazole (Clotrimazole) 7 Appln/45 Gm Cr 1 APPLN PV DAILY for 7 Days, #1 EA 0 Refills Prov: Lucille Mccurdy MD 04/08/16 Referrals Donita Domínguez M.D. (PCP) Patient Instructions My [facility] Problem Qualifiers
[2016-04-06] MEDS ORDERED: DICY10CA12 PO (18:44)
[2016-04-06 18:47] VITALS: PULSE 90; O2SAT 96
[2016-04-06 19:00] LABS: MANUAL MICROSCOPIC REQUIRED? NO; REVIEW REQ? NO; URINE APPEARANCE CLEAR (CLEAR); URINE BILIRUBIN NEG (NEG); URINE COLOR YELLOW; URINE EPITHELIAL CELL AUTO >30 /lpf (0-5); URINE NITRITE NEG (NEG); URINE PH 5.5 (4.5-7.5); URINE SPECIFIC GRAVITY > 1.045 (1.000-1.030); UROBILINOGEN NEG (NEG); ZZUR CULT IF INDIC CLEAN CATCH NO
[2016-04-06] MEDS ORDERED: OPTIRAY 320 IV PRN (19:00)
[2016-04-06 19:03] LABS: COMPLETE YES; EOSINOPHIL % 0.9 %; HYPOSEGMENTED POLYS 1+; LYMPH ABS # 3.15 K/uL (1.2-3.4); LYMPHOCYTE % 36.9 %; MYELOCYTE % 0.9 %; NEUTROPHILS % 55.9 %
[2016-04-06 19:15] LABS: ALKALINE PHOSPHATASE 132 U/L (45-117); ALT/SGPT 37 U/L (12-78); AST/SGOT 15 U/L (15-37); BLOOD UREA NITROGEN 12 mg/dl (7-18); BUN/CREATININE RATIO 15.8 (10-20); CARBON DIOXIDE 20 mmol/L (21-32); CHLORIDE 102 mmol/L (98-107); CREATININE 0.76 mg/dl (0.60-1.20); GLUCOSE 404 mg/dl (70-99); POTASSIUM 3.8 mmol/L (3.5-5.1); SODIUM 135 mmol/L (136-145)
[2016-04-06 19:29] LABS: BETA-HYDROXYBUTYRATE 1.12 mg/dL (0.2-2.81)
[2016-04-06] MEDS ORDERED: NovoLIN-R INSULIN PER UNIT CHARGE SC STA (19:44)
--- NOTE | 2016-04-06 20:20 | DIAGNOSTIC IMAGING REPORT ---
CT SCAN OF THE NECK WITH IV CONTRAST CLINICAL HISTORY: Supraglottic edema. Recent intubation. Cough. COMPARISON STUDY: CT of the neck dated 03/27/2016. TECHNIQUE: Following the IV administration of 116 cc of Optiray 320, CT scan of the soft tissues of the neck was performed from the skull base to the upper chest. Images are reviewed in the axial, sagittal, and coronal planes. IV contrast was administered without complication. CT DOSE: 425.11 mGy.cm FINDINGS: Pharynx: There is thickening and edema again seen within the supraglottic soft tissues and pyriform sinuses. This causes severe narrowing of the subglottic airway and there is nonspecific patchy abnormal enhancement in this region. The degree of edema is slightly lesser than on the 03/27/2016 examination. The nasopharynx and oropharynx are normal in appearance. The proximal airway is widely patent. The parapharyngeal fat is well maintained. The prevertebral/retropharyngeal soft tissues are within normal limits. The epiglottis is normal in appearance. Lymphadenopathy: There are shotty cervical lymph nodes. These are pathologically enlarged by size criteria Thyroid: Normal in size and attenuation. Salivary glands: The parotid and submandibular glands are within normal limits. Brain parenchyma: The visualized brain parenchyma at the skull base is normal in appearance. Vascular structures: The internal carotid arteries and the jugular veins are patent bilaterally. There is soft plaque identified in the left carotid bulb. Skeletal structures: Imaged portions of the calvarium at the skull base are within normal limits. The cervical spine appears intact. Orbits: The bony orbits are intact as visualized. The imaged orbital contents are normal in appearance. Sinuses and mastoids: There is mild mucosal thickening in the right maxillary antrum. The remaining visualized paranasal sinuses are clear. The mastoid air cells are well pneumatized. Lung apices: Emphysematous change is identified at the lung apices. The imaged upper lobe lung parenchyma appears clear. IMPRESSION: 1. Again seen is marked thickening and edema with nonspecific patchy abnormal enhancement within the supraglottic soft tissues and pyriform sinuses. This causes severe narrowing of the pharyngeal airway at this level. The degree of inflammation is only slightly less than on the 03/27/2016 examination. Differential considerations remain an infectious/inflammatory process or possibly angioedema. Underlying mass lesion would be impossible to exclude but is considered less likely. ENT assessment is recommended. 2. There is no organized fluid collection to suggest abscess. 3. Emphysema. Findings were discussed with Dr. Bernardo in the emergency department at the time of interpretation. Electronically signed by: Bo Peralta M.D. 04/06/2016 8:18 PM Dictated Date/Time: 04/06/2016 8:02 PM
[2016-04-06] MEDS ORDERED: LORAZEPAM 2 MG/ML 1 ML VIAL IV STA (20:43)
--- NOTE | 2016-04-06 21:16 | Medical Consult ---
Consultation Date of Consultation: Apr 06, 2016. Attending Physician: History of Present Illness 40 yo female who presents to the ED with a sore throat. She was admitted last week to the ICU for suspected angioedema vs supraglottitis. She was intubated at that time (in the ED). Dr. Osman was following the patient during this admission. She was apparently discharged last week on a course of Augmentin. Patient reports that she was not discharged on any steroids. She states that she completed the course of Augmentin and felt like her symptoms were not completely resolved. She states she feels markedly better now then she did last week when she presented to the ED requiring intubation. She denies any shortness of breath. Admits to sore throat but denies any difficulty breathing currently. Also admits to some hoarseness but states this has been present since her last admission. Reportedly was on lisinopril which was stopped last admission. She currently is afebrile. White count is normal. She does smoke. Past Medical/Surgical History Medical Problems: (1) Abdominal pain Status: Acute (2) Abdominal pain Status: Acute (3) Angioedema Status: Acute (4) Back strain Status: Acute (5) Central abdominal pain Status: Acute (6) Central abdominal pain Status: Acute (7) Encounter for medication refill Status: Acute (8) Generalized abdominal pain Status: Acute (9) Low back pain Status: Acute (10) Metabolic acidosis Status: Acute (11) Metabolic acidosis Status: Acute (12) Metabolic acidosis Status: Acute (13) Otitis externa Status: Acute (14) Respiratory failure Status: Acute (15) Right flank pain Status: Acute (16) Right sided abdominal pain Status: Acute (17) UTI (urinary tract infection) Status: Acute (18) Viral URI with cough Status: Acute Family History Hypertension Social History Smoking Status: Current Every Day Smoker Drug Use: none Marital Status: Housing Status: lives with family Occupation Status: employed Allergies Coded Allergies: Lisinopril (Verified Allergy, Severe, ANAPHYLAXIS, 03/27/16) ANGIOEDEMA Iodinated Diagnostic Agents (Verified Adverse Reaction, Mild, VOMITING, 03/25/16) Morphine (Verified Adverse Reaction, Unknown, does not want it, 03/25/16) Penicillins (Verified Adverse Reaction, Unknown, "does not work", 03/25/16) Current Inpatient Medications Current Inpatient Medications Medications (Trade) Dose Ordered Sig/Jimbo Route Start Time Stop Time Status Last Admin Dose Admin Sodium Chloride (Nss 1000ml) 1,000 ml @ 125 mls/hr Q8H STAT IV 04/06/16 18:18 04/07/16 02:17 04/06/16 18:18 125 MLS/HR Ioversol (Optiray 320) 125 ml UD PRN IV 04/06/16 19:00 04/10/16 18:59 Review of Systems Constitutional: No chills, No fatigue, No fever, No problem reported, No sweats , No weakness, No weight loss Eyes: No diplopia, No discharge, No eye pain, No problem reported, No redness, No worsening of vision ENT: + problem reported (see HPI) Respiratory: + cough Cardiovascular: No PND, No chest pain, No claudication, No edema, No orthopnea , No palpitations, No problem reported Musculoskeletal: No calf pain, No joint pain, No muscle pain, No problem reported, No swelling Neurologic: No balance problems, No memory loss, No numbness/tingling, No paralysis, No problem reported, No vertigo, No weakness Physical Exam Date Time Temp Pulse Resp B/P Pulse Ox O2 Delivery O2 Flow Rate FiO2 04/06/16 21:01 108 20 176/134 94 Room Air 04/06/16 19:08 88 04/06/16 18:47 90 18 96 Room Air 04/06/16 17:57 96 Room Air 04/06/16 17:53 36.8 113 17 146/99 96 Room Air Procedure: Fiberoptic laryngoscopy was performed. Nasopharynx normal. Epiglottis is crisp. Has some mild right sided arytenoid edema that is non obstructing. Left arytenoid normal. Post cricoid space with some mild edema. Glottic airway widely patent. True cords mildly erythematous. Vocal cord mobility is normal. No paresis or paralysis. Vocal cords without masses or lesions. Patient tolerated procedure well. General Appearance: WD/WN, no apparent distress, + pertinent finding (No stridor, no stertor. No noisy breathing. ) Head: normocephalic, atraumatic Eyes: normal inspection, EOMI ENT: pharynx normal Neck: supple, no adenopathy Respiratory/Chest: no respiratory distress, no accessory muscle use Skin: normal color Lymphatic: no adenopathy Laboratory Results Last 24 Hours Test 04/06/16 18:30 04/06/16 18:48 04/06/16 20:49 White Blood Count 8.53 K/uL Red Blood Count 4.43 M/uL Hemoglobin 14.2 g/dL Hematocrit 40.0 % Mean Corpuscular Volume 90.3 fL Mean Corpuscular Hemoglobin 32.1 pg Mean Corpuscular Hemoglobin Concent 35.5 g/dl Platelet Count 283 K/uL Mean Platelet Volume 10.1 fL RDW Standard Deviation 49.1 fL RDW Coefficient of Variation 15.0 % Neutrophils % (Manual) 55.9 % Lymphocytes % (Manual) 36.9 % Monocytes % (Manual) 5.4 % Eosinophils % (Manual) 0.9 % Myelocytes % 0.9 % Neutrophils # (Manual) 4.77 K/uL Total Absolute Neutrophils 4.77 K/uL Lymphocytes # (Manual) 3.15 K/uL Total Absolute Lymphocytes 3.15 K/uL Monocytes # (Manual) 0.46 K/uL Eosinophils # (Manual) 0.08 K/uL Myelocytes # 0.08 K/uL Hyposegmented Neutrophils 1+ Sodium Level 135 mmol/L Potassium Level 3.8 mmol/L Chloride Level 102 mmol/L Carbon Dioxide Level 20 mmol/L Anion Gap 13.0 mmol/L Blood Urea Nitrogen 12 mg/dl Creatinine 0.76 mg/dl Est Creatinine Clear Calc Drug Dose 89.9 ml/min Estimated GFR () 112.9 Estimated GFR (Non- 97.4 BUN/Creatinine Ratio 15.8 Random Glucose 404 mg/dl Calcium Level 9.0 mg/dl Total Bilirubin 0.3 mg/dl Direct Bilirubin < 0.1 mg/dl Aspartate Amino Transf (AST/SGOT) 15 U/L Alanine Aminotransferase (ALT/SGPT) 37 U/L Alkaline Phosphatase 132 U/L Total Protein 7.7 gm/dl Albumin 3.9 gm/dl Beta-Hydroxybutyric Acid 1.12 mg/dL Urine Color YELLOW Urine Appearance CLEAR Urine pH 5.5 Urine Specific [place] > 1.045 Urine Protein TRACE Urine Glucose (UA) 3+ Urine Ketones NEG Urine Occult Blood NEG Urine Nitrite NEG Urine Bilirubin NEG Urine Urobilinogen NEG Urine Leukocyte Esterase NEG Urine WBC (Auto) 1-5 /hpf Urine RBC (Auto) 0-4 /hpf Urine Hyaline Casts (Auto) 1-5 /lpf Urine Epithelial Cells (Auto) >30 /lpf Urine Bacteria (Auto) NEG Assessment & Plan 40 yo female with questionable angioedema (DEBORAH-I) related vs supraglottitis, less suspicious of infectious process as she has no fever and white count is normal. - her airway is widely patent currently - she has minimal to mild right arytenoid edema. - recommend decadron (8mg q6-8hrs) - recommend unasyn (as patient is improved on Augmentin) - recommend allergy/immunology consult/evaluation to rule out other causes of angioedema - needs to stop smoking
[2016-04-06 22:12] VITALS: BMI 28.6
[2016-04-06] MEDS ORDERED: INSULIN GLARGINE SOLOSTAR 100 UNITS/ML 3 ML PEN SC STA (22:23)
[2016-04-06] MEDS ORDERED: GLUCAGON FOR INJ 1 MG VIAL SQ PRN (22:30)
[2016-04-06] MEDS ORDERED: DiphenhydrAMINE HCL 50 MG/ML VIAL IV PRN (22:30)
[2016-04-06] MEDS ORDERED: BISACODYL 10 MG SUPP PR PRN (22:30)
[2016-04-06] MEDS ORDERED: ZOLPIDEM TARTRATE 5 MG TAB PO PRN (22:30)
[2016-04-06] MEDS ORDERED: FLUTICASONE HFA 110MCG INHALER INH PRN (22:30)
[2016-04-06] MEDS ORDERED: ONDANSETRON INJ 2 MG/ML 2 ML VIAL IV PRN ×2 (22:30)
[2016-04-06] MEDS ORDERED: ACETAMINOPHEN 325 MG TAB PO PRN ×3 (22:30)
[2016-04-06] MEDS ORDERED: PROMETHAZINE HCL INJ 12.5 MG in SODIUM CHLORIDE 0.9% 50ML 50 ML IV PRN (22:30)
[2016-04-06] MEDS ORDERED: GLUCOSE 40% GEL 15 GM TUBE PO PRN (22:30)
[2016-04-06] MEDS ORDERED: LORAZEPAM 2 MG/ML 1 ML VIAL IV PRN ×2 (22:30)
[2016-04-06] MEDS ORDERED: MAGNESIUM HYDROXIDE SUSP 30 ML UDC PO PRN (22:30)
[2016-04-06] MEDS ORDERED: DEXTROSE 50% 50 ML SYR IV PRN (22:30)
[2016-04-06] MEDS ORDERED: ALUMINUM/MAGNESIUM/SIMETH (MAALOX MAX) 30 ML UDC PO PRN (22:30)
[2016-04-06] MEDS ORDERED: GLUCOSE 10 TABS/TUBE PO PRN (22:30)
[2016-04-06] MEDS: OXYCODONE HCL IR 5 MG TAB (IMMEDIATE RELEASE) PO PRN (22:40)
[2016-04-06 23:30] VITALS: BP 147/92; PULSE 116; TEMP 36.8; O2SAT 95
[2016-04-07] VITALS (8 sets, daily range): BP systolic 123–147; BP diastolic 84–93; PULSE 84–101; TEMP 36.5–36.7; O2SAT 91–95
[2016-04-07] MEDS ORDERED: LEVOFLOXACIN / D5W 500 MG in PREMIXED IN D5W 100 ML IV SCH
[2016-04-07] MEDS: FAMOTIDINE IV INJ 20 MG in DEXTROSE 5% 100ML 100 ML IV SCH ×3 (00:07→23:15)
[2016-04-07] MEDS: NSS + 20MEQ KCL 1000ML 1,000 ML IV SCH ×2 (00:07→09:21)
[2016-04-07] MEDS: DEXAMETHASONE INJ 4 MG in SYRINGE 0 ML IV SCH ×5 (00:07→23:15)
[2016-04-07] MEDS: ZOLPIDEM TARTRATE 5 MG TAB PO PRN ×2 (00:21→22:30)
--- NOTE | 2016-04-07 04:19 | History and Physical ---
History & Physical Date & Time of Service: Apr 07, 2016 at 04:02 Chief Complaint: Dysphagia, Shortness Of Breath, Supraglottic Edema Primary Care Physician: Victoriano Goins M.D. History of Present Illness Source: patient The patient is a 40-year-old female who presents emergency department with a persistent cough, associated with shortness of breath, that began about one week prior to arrival. She was most recently in hospital from March 27 through March 30, where she was in the ICU after being electively intubated for airway protection due to supraglottic edema. She reports that since discharge, she initially had some improvement in symptoms, but then her cough and shortness of breath have returned and persisted. She had reports that her cough is aggravating her abdominal hernia, for which she had been scheduled to undergo surgical repair, but had to be postponed due to this current illness. She reports her symptoms worsen at night, and gets a sense that her throat is closing. She's had difficulty swallowing medications. She does continue to smoke on a daily basis. Past Medical/Surgical History Medical Problems: (1) GERD (gastroesophageal reflux disease) Status: Chronic Surgical Problems: (1) H/O tubal ligation Status: Chronic (2) History of cholecystectomy Status: Resolved (3) Hx of cholecystectomy Status: Chronic (4) Tubal ligation status Status: Resolved Family History Hypertension Social History Smoking Status: Current Every Day Smoker Smokeless Tobacco Use: No Alcohol Use: none Drug Use: none Marital Status: Housing status: lives with family Occupational Status: employed Multi-Drug Resistant Organisms History of MDRO: No Allergies Coded Allergies: Lisinopril (Verified Allergy, Severe, ANAPHYLAXIS, 03/27/16) ANGIOEDEMA Iodinated Diagnostic Agents (Verified Adverse Reaction, Mild, VOMITING, 03/25/16) Morphine (Verified Adverse Reaction, Unknown, does not want it, 03/25/16) Penicillins (Verified Adverse Reaction, Unknown, "does not work", 03/25/16) Home Medications Scheduled Amlodipine (Norvasc), 10 MG PO DAILY Dicyclomine Hcl (Dicyclomine Hcl), 10 MG PO TID Insulin Glargine (Lantus), 18 UNITS SC QPM Insulin Glulisine (Apidra), 0-20 UNITS SQ BID Metoprolol Tartrate (Lopressor) (Lopressor), 50 MG PO BID Spironolactone (Aldactone), 25 MG PO QAM Scheduled PRN Acetaminophen (Tylenol), 650 MG PO Q4H PRN for Pain Fluticasone Propionate (Flovent Hfa), 1 PUFF INH BID PRN for Shortness of Breath Ipratropium-Albuterol (Combivent Respimat), 1 PUFF INH QID PRN for Cough or Wheeze Omeprazole (Prilosec), 20 MG PO DAILY PRN for Acid Reflux Oxycodone Ir (Roxicodone Ir), 1-2 TAB PO Q6H PRN for Pain Review of Systems The patient denies lower extremity swelling, vision change, hearing change, fevers, chills, sweats, weight change, nausea, vomiting, blood in urine or stool, dysuria, urinary frequency or urgency, lightheadedness, dizziness, headache, memory loss, rash, abnormal bruising or bleeding, imbalance, focal weakness, numbness or tingling in arms or legs, arthralgias or myalgias, back or neck pain, night sweats. The review of systems is otherwise negative other than for that already noted above, and at least 10 systems have been reviewed. Physical Exam Vital Signs Date Time Temp Pulse Resp B/P Pulse Ox O2 Delivery O2 Flow Rate FiO2 04/06/16 23:30 36.8 116 20 147/92 95 Room Air 04/06/16 22:55 111 20 185/115 95 Room Air 04/06/16 22:12 Room Air 04/06/16 21:01 108 20 176/134 94 Room Air 04/06/16 19:08 88 04/06/16 18:47 90 18 96 Room Air 04/06/16 17:57 96 Room Air 04/06/16 17:53 36.8 113 17 146/99 96 Room Air The patient is awake, alert and oriented 3, looks fatigued, lying in bed and in no acute distress. HEENT--PERRL, EOMI, mucous membranes moist, and oropharynx with mild thrush on tongue. Neck--supple, no JVD or bruits, thyroid normal, trachea midline, no adenopathy. Heart--normal S1 and S2, no extra beats, no murmurs, rubs or gallops. Lungs--scattered wheezes bilaterally no respiratory distress, no accessory muscle use. Abdomen--normal bowel sounds and soft, nontender and nondistended, no hernias or masses, no organomegaly. Extremities--no cyanosis, clubbing or edema. There are good distal pulses b/l. Dermatologic--normal skin turgor, normal color, warm and dry, no abnormal lymph nodes, no rash. Neurologic--cranial nerves II through XII grossly intact, motor and sensory examination normal. Rheumatologic--normal range of motion, nontender, muscles and joints. Psychiatric--normal affect. Diagnostics Laboratory Results Results Past 24 Hours Test 04/06/16 18:30 04/06/16 18:48 04/06/16 20:49 04/06/16 22:06 Range/Units White Blood Count 8.53 4.8-10.8 K/uL Red Blood Count 4.43 4.2-5.4 M/uL Hemoglobin 14.2 12.0-16.0 g/dL Hematocrit 40.0 37-47 % Mean Corpuscular Volume 90.3 80-100 fL Mean Corpuscular Hemoglobin 32.1 25-34 pg Mean Corpuscular Hemoglobin Concent 35.5 32-36 g/dl Platelet Count 283 130-400 K/uL Mean Platelet Volume 10.1 7.4-10.4 fL RDW Standard Deviation 49.1 36.4-46.3 fL RDW Coefficient of Variation 15.0 11.5-14.5 % Neutrophils % (Manual) 55.9 % Lymphocytes % (Manual) 36.9 % Monocytes % (Manual) 5.4 % Eosinophils % (Manual) 0.9 % Myelocytes % 0.9 % Neutrophils # (Manual) 4.77 1.4-6.5 K/uL Total Absolute Neutrophils 4.77 1.4-6.5 K/uL Lymphocytes # (Manual) 3.15 1.2-3.4 K/uL Total Absolute Lymphocytes 3.15 1.2-3.4 K/uL Monocytes # (Manual) 0.46 0.11-0.59 K/uL Eosinophils # (Manual) 0.08 0-0.5 K/uL Myelocytes # 0.08 0-0 K/uL Hyposegmented Neutrophils 1+ Sodium Level 135 136-145 mmol/L Potassium Level 3.8 3.5-5.1 mmol/L Chloride Level 102 98-107 mmol/L Carbon Dioxide Level 20 21-32 mmol/L Anion Gap 13.0 3-11 mmol/L Blood Urea Nitrogen 12 7-18 mg/dl Creatinine 0.76 0.60-1.20 mg/dl Est Creatinine Clear Calc Drug Dose 89.9 ml/min Estimated GFR () 112.9 Estimated GFR (Non- 97.4 BUN/Creatinine Ratio 15.8 10-20 Random Glucose 404 70-99 mg/dl Calcium Level 9.0 8.5-10.1 mg/dl Total Bilirubin 0.3 0.2-1 mg/dl Direct Bilirubin < 0.1 0-0.2 mg/dl Aspartate Amino Transf (AST/SGOT) 15 15-37 U/L Alanine Aminotransferase (ALT/SGPT) 37 12-78 U/L Alkaline Phosphatase 132 45-117 U/L Total Protein 7.7 6.4-8.2 gm/dl Albumin 3.9 3.4-5.0 gm/dl Beta-Hydroxybutyric Acid 1.12 0.2-2.81 mg/dL Urine Color YELLOW Urine Appearance CLEAR CLEAR Urine pH 5.5 4.5-7.5 Urine Specific [place] > 1.045 1.000-1.030 Urine Protein TRACE NEG Urine Glucose (UA) 3+ NEG Urine Ketones NEG NEG Urine Occult Blood NEG NEG Urine Nitrite NEG NEG Urine Bilirubin NEG NEG Urine Urobilinogen NEG NEG Urine Leukocyte Esterase NEG NEG Urine WBC (Auto) 1-5 0-5 /hpf Urine RBC (Auto) 0-4 0-4 /hpf Urine Hyaline Casts (Auto) 1-5 0-5 /lpf Urine Epithelial Cells (Auto) >30 0-5 /lpf Urine Bacteria (Auto) NEG NEG Microbiology Results 04/06/16 Trichomonas Preparation - Final, Complete 04/06/16 Gram Stain, Received Pending 04/06/16 Genital Culture, Received Pending Diagnostic Radiology Patient Name: RUFINO BEARD Unit Number: [id number] Dictated: 04/06/162001 Transcribed: 04/06/162001 EV Printed Date/Time: [~ rep prt dt]/[~ rep prt tm] [~ rep ct labl] - [~ rep ct ivnm] [facility] [place] [address] Dictated: 04/06/162001 Transcribed: 04/06/162001 EV Printed Date/Time: [~ rep prt dt]/[~ rep prt tm] [~ rep ct labl] - [~ rep ct ivnm] [~ rep ct add3]] CT SCAN OF THE NECK WITH IV CONTRAST CLINICAL HISTORY: Supraglottic edema. Recent intubation. Cough. COMPARISON STUDY: CT of the neck dated 03/27/2016. TECHNIQUE: Following the IV administration of 116 cc of Optiray 320, CT scan of the soft tissues of the neck was performed from the skull base to the upper chest. Images are reviewed in the axial, sagittal, and coronal planes. IV contrast was administered without complication. CT DOSE: 425.11 mGy.cm FINDINGS: Pharynx: There is thickening and edema again seen within the supraglottic soft tissues and pyriform sinuses. This causes severe narrowing of the subglottic airway and there is nonspecific patchy abnormal enhancement in this region. The degree of edema is slightly lesser than on the 03/27/2016 examination. The nasopharynx and oropharynx are normal in appearance. The proximal airway is widely patent. The parapharyngeal fat is well maintained. The prevertebral/retropharyngeal soft tissues are within normal limits. The epiglottis is normal in appearance. Lymphadenopathy: There are shotty cervical lymph nodes. These are pathologically enlarged by size criteria Thyroid: Normal in size and attenuation. Salivary glands: The parotid and submandibular glands are within normal limits. Brain parenchyma: The visualized brain parenchyma at the skull base is normal in appearance. Vascular structures: The internal carotid arteries and the jugular veins are patent bilaterally. There is soft plaque identified in the left carotid bulb. Skeletal structures: Imaged portions of the calvarium at the skull base are within normal limits. The cervical spine appears intact. Orbits: The bony orbits are intact as visualized. The imaged orbital contents are normal in appearance. Sinuses and mastoids: There is mild mucosal thickening in the right maxillary antrum. The remaining visualized paranasal sinuses are clear. The mastoid air cells are well pneumatized. Lung apices: Emphysematous change is identified at the lung apices. The imaged upper lobe lung parenchyma appears clear. IMPRESSION: 1. Again seen is marked thickening and edema with nonspecific patchy abnormal enhancement within the supraglottic soft tissues and pyriform sinuses. This causes severe narrowing of the pharyngeal airway at this level. The degree of inflammation is only slightly less than on the 03/27/2016 examination. Differential considerations remain an infectious/inflammatory process or possibly angioedema. Underlying mass lesion would be impossible to exclude but is considered less likely. ENT assessment is recommended. 2. There is no organized fluid collection to suggest abscess. 3. Emphysema. Findings were discussed with Dr. Bernardo in the emergency department at the time of interpretation. Electronically signed by: Bo Peralta M.D. 04/06/2016 8:18 PM Dictated Date/Time: 04/06/2016 8:02 PM The status of this report is Signed. Draft = Not yet reviewed or approved by Radiologist. Signed = Reviewed and approved by Radiologist. <AttendingPhy></AttendingPhy> <FamilyPhy>Victoriano Goins M.D.</FamilyPhy> < PrimaryPhy>Victoriano Goins M.D.</PrimaryPhy> <UnitNumber>[id number]</UnitNumber > <VisitNumber>[id number]</VisitNumber> <PatientName>RUFINO BEARD</PatientName > <DateOfBirth>1975</DateOfBirth> <Location>[facility]</Location> <ServiceDate> 04/06/16</ServiceDate> <MNE>ESINDI</MNE> <OrderingPhy>Daisy Bernardo M.D. </OrderingPhy> <OrderingPhyMNE>f rep ord dr maher</OrderingPhyMNE> < DictatingPhyMNE>f rep dict dr maher</DictatingPhyMNE> <CCListMNE>f rep ct gunnar</ CCListMNE> <AdmittingPhyMNE>f pt admit dr maher</AdmittingPhyMNE> <AttendingPhyMNE >f pt attend dr maher</AttendingPhyMNE> <ConsultingPhyMNE>f pt consult dr maher</ConsultingPhyMNE> <FamilyPhyMNE>f pt fam dr maher</FamilyPhyMNE> <OtherPhyMNE>f pt other dr maher</OtherPhyMNE> < PrimaryPhyMNE>f pt prim care dr maher</PrimaryPhyMNE> <ReferringPhyMNE>f pt referring dr maher</ReferringPhyMNE> Patient Name: RUFINO BEARD Unit Number: [id number] Dictated: 04/06/161836 Transcribed: 04/06/161836 EV Printed Date/Time: [~ rep prt dt]/[~ rep prt tm] [~ rep ct labl] - [~ rep ct ivnm] [facility] Radiology Department [place] [id number] Dictated: 04/06/161836 Transcribed: 04/06/161836 EV Printed Date/Time: [~ rep prt dt]/[~ rep prt tm] [~ rep ct labl] - [~ rep ct ivnm] [~ rep ct add3]] SINGLE VIEW CHEST CLINICAL HISTORY: Cough and dyspnea. FINDINGS: An AP, portable, upright chest radiograph is compared to study dated 03/27/2016. The endotracheal tube has been removed. The cardiomediastinal silhouette is unremarkable. The lungs and pleural spaces are clear. No pneumothorax is seen. The bony thorax is grossly intact. IMPRESSION: 1. No acute cardiopulmonary abnormality. 2. The endotracheal tube has been removed from 03/27/2016. Electronically signed by: Bo Peralta M.D. 04/06/2016 6:37 PM Dictated Date/Time: 04/06/2016 6:37 PM The status of this report is Signed. Draft = Not yet reviewed or approved by Radiologist. Signed = Reviewed and approved by Radiologist. <AttendingPhy></AttendingPhy> <FamilyPhy>Victoriano Goins M.D.</FamilyPhy> < PrimaryPhy>Victoriano Goins M.D.</PrimaryPhy> <UnitNumber>[id number]</UnitNumber > <VisitNumber>[id number]</VisitNumber> <PatientName>RUFINO BEARD</PatientName > <DateOfBirth>1975</DateOfBirth> <Location>[facility]</Location> <ServiceDate> 04/06/16</ServiceDate> <MNE>ESINDI</MNE> <OrderingPhy>Daisy Bernardo M.D. </OrderingPhy> <OrderingPhyMNE>f rep ord dr maher</OrderingPhyMNE> < DictatingPhyMNE>f rep dict dr maher</DictatingPhyMNE> <CCListMNE>f rep ct gunnar</ CCListMNE> <AdmittingPhyMNE>f pt admit dr maher</AdmittingPhyMNE> <AttendingPhyMNE >f pt attend dr maher</AttendingPhyMNE> <ConsultingPhyMNE>f pt consult dr maher</ConsultingPhyMNE> <FamilyPhyMNE>f pt fam dr maher</FamilyPhyMNE> <OtherPhyMNE>f pt other dr maher</OtherPhyMNE> < PrimaryPhyMNE>f pt prim care dr maher</PrimaryPhyMNE> <ReferringPhyMNE>f pt referring dr maher</ReferringPhyMNE> Impression Assessment and Plan Supraglottic edema--the patient had been admitted from March 27 through March 30 with elective intubation into the ICU. During that admission, she had been seen by ENT, underwent laryngoscopy with my intubated, with resultant normal cultures. She was discharged to home on steroids and antibiotics, and has continued to smoke. She returns emergency department today with similar symptoms, was seen by ENT in the emergency department and had laryngoscopy performed at bedside, and it was determined by Dr. Jackson that the patient could be admitted to the medical service and be managed medically on steroids and antibiotics. She is being admitted to the telemetry unit, on Decadron 4 mg IV every 6 hours, after having received Decadron 10 mg IV in the emergency department, and levofloxacin 500 mg IV every 24 hours. At last admission, she had her lisinopril discontinued, and this admission will discontinue spironolactone, and would suggest discontinuing amlodipine along with metoprolol tartrate, and instead instituting Cardizem CD. I have sent RAST testing for zone 3 allergens and basic profile, and asked her significant other to assess their old house for possible black mold. Diabetes mellitus--since her blood sugar has been elevated on admission today, due to oral prednisone as an outpatient. We'll increase her Lantus insulin from 18 units subcutaneous every afternoon to 30 units subcutaneous every afternoon, and place on Accu-Cheks before meals and at bedtime with NovoLog coverage. Abdominal hernia with abdominal discomfort--we will work on controlling cough minimize agitation of abdominal contents. And will have her usual dosing of oxycodone IR 5-10 mg by mouth daily 6 hours when necessary for pain available. Asthma/tobacco use disorder--we'll continue Flovent HFA and Combivent rest from at, and have available Xopenex with Atrovent nebulizers to use every 2 hours when necessary. Level of Care Telemetry Advanced Directives Existing Advance Directive: No Existing Living Will: No Existing Power of Addiction Psychiatrist: Yes Resuscitation Status FULL RESUSCITATION VTE Prophylaxis VTE Risk Assessment Done? Y/N: Yes Risk Level: Low Given or contraindicated: SCD's Social Service Consult None Apply
[2016-04-07] MEDS: OXYCODONE HCL IR 5 MG TAB (IMMEDIATE RELEASE) PO PRN ×4 (04:41→20:50)
[2016-04-07 07:02] LABS: BASO % 0.1 %; BASO ABS # 0.01 K/uL (0-0.2); COMPLETE YES; HEMATOCRIT 40.2 % (37-47); IG% 0.6 %; LYMPH % 9.3 %; LYMPH ABS # 1.61 K/uL (1.2-3.4); MEAN CELL VOLUME 91.2 fL (80-100); MEAN CORPUSCULAR HEMOGLOBIN 31.3 pg (25-34); MEAN CORPUSCULAR HGB CONC 34.3 g/dl (32-36); MEAN PLATELET VOLUME 10.2 fL (7.4-10.4); MONO % 1.5 %; NEUT % 88.5 %; PLATELET COUNT 324 K/uL (130-400); RED BLOOD COUNT 4.41 M/uL (4.2-5.4); WHITE BLOOD COUNT 17.34 K/uL (4.8-10.8)
[2016-04-07 07:12] LABS: INR 1.1 (0.9-1.1); PROTHROMBIN TIME (PATIENT) 11.3 SECONDS (9.0-12.0)
[2016-04-07 07:44] LABS: ALKALINE PHOSPHATASE 132 U/L (45-117); ALT/SGPT 33 U/L (12-78); AST/SGOT 15 U/L (15-37); BLOOD UREA NITROGEN 16 mg/dl (7-18); BUN/CREATININE RATIO 21.4 (10-20); CALCIUM 9.5 mg/dl (8.5-10.1); CARBON DIOXIDE 20 mmol/L (21-32); CHLORIDE 100 mmol/L (98-107); CREATININE 0.76 mg/dl (0.60-1.20); GLUCOSE 418 mg/dl (70-99); MAGNESIUM 1.9 mg/dl (1.8-2.4); POTASSIUM 4.1 mmol/L (3.5-5.1); SODIUM 133 mmol/L (136-145)
[2016-04-07 08:32] LABS: BETA-HYDROXYBUTYRATE 13.48 mg/dL (0.2-2.81)
[2016-04-07] MEDS ORDERED: DILTIAZEM HCL 120 MG CAPCR PO SCH (09:00)
[2016-04-07] MEDS: INSULIN ASPART 100 UNITS/ML 3 ML PEN SC SCH ×4 (09:19→20:49)
[2016-04-07] MEDS: DOCUSATE SODIUM 100 MG CAP PO SCH ×2 (09:20→20:46)
[2016-04-07] MEDS: DICYCLOMINE HCL 10 MG CAP PO SCH ×3 (09:21→20:46)
[2016-04-07] MEDS ORDERED: INSULIN GLARGINE SOLOSTAR 100 UNITS/ML 3 ML PEN SC ONE (12:00)
[2016-04-07] MEDS ORDERED: CLOTRIMAZOLE VAG CR 45 GM TUBE PV ONE (12:10)
--- NOTE | 2016-04-07 12:37 | Ears,Nose,Throat Progress Note ---
Progress Note Date of Service Apr 07, 2016. Subjective Pt evaluation today including: conversation w/ patient, physical exam, chart review, lab review Did well overnight. States she feels much better today. Denies any difficulty breathing. Objective Vital Signs Date Time Temp Pulse Resp B/P Pulse Ox O2 Delivery O2 Flow Rate FiO2 04/07/16 11:44 36.6 86 19 146/93 95 Room Air 04/07/16 08:00 91 Room Air 04/07/16 07:06 36.7 92 20 147/92 91 Room Air 04/07/16 04:25 Room Air 04/07/16 04:04 36.7 84 18 137/91 95 Room Air 04/06/16 23:30 36.8 116 20 147/92 95 Room Air 04/06/16 22:55 111 20 185/115 95 Room Air 04/06/16 22:12 Room Air 04/06/16 21:01 108 20 176/134 94 Room Air 04/06/16 19:08 88 04/06/16 18:47 90 18 96 Room Air 04/06/16 17:57 96 Room Air 04/06/16 17:53 36.8 113 17 146/99 96 Room Air Physical Exam General Appearance: WD/WN, no apparent distress Eyes: EOMI ENT: normal ENT inspection, pharynx normal Neck: supple, no JVD Respiratory/Chest: no respiratory distress, no accessory muscle use Notes: Procedure Fiberoptic laryngoscopy revealed improvement in the right arytenoid edema. On the posterior aspect of the right arytenoid there is a small mucocele noted. It is non obstructing and small. The glottic airway is widely patent. Cord erythema is mild. Laboratory Results Last 24 Hours Test 04/06/16 18:30 04/06/16 18:48 04/06/16 20:49 04/06/16 22:06 White Blood Count 8.53 K/uL Red Blood Count 4.43 M/uL Hemoglobin 14.2 g/dL Hematocrit 40.0 % Mean Corpuscular Volume 90.3 fL Mean Corpuscular Hemoglobin 32.1 pg Mean Corpuscular Hemoglobin Concent 35.5 g/dl Platelet Count 283 K/uL Mean Platelet Volume 10.1 fL RDW Standard Deviation 49.1 fL RDW Coefficient of Variation 15.0 % Neutrophils % (Manual) 55.9 % Lymphocytes % (Manual) 36.9 % Monocytes % (Manual) 5.4 % Eosinophils % (Manual) 0.9 % Myelocytes % 0.9 % Neutrophils # (Manual) 4.77 K/uL Total Absolute Neutrophils 4.77 K/uL Lymphocytes # (Manual) 3.15 K/uL Total Absolute Lymphocytes 3.15 K/uL Monocytes # (Manual) 0.46 K/uL Eosinophils # (Manual) 0.08 K/uL Myelocytes # 0.08 K/uL Hyposegmented Neutrophils 1+ Sodium Level 135 mmol/L Potassium Level 3.8 mmol/L Chloride Level 102 mmol/L Carbon Dioxide Level 20 mmol/L Anion Gap 13.0 mmol/L Blood Urea Nitrogen 12 mg/dl Creatinine 0.76 mg/dl Est Creatinine Clear Calc Drug Dose 89.9 ml/min Estimated GFR () 112.9 Estimated GFR (Non- 97.4 BUN/Creatinine Ratio 15.8 Random Glucose 404 mg/dl Calcium Level 9.0 mg/dl Total Bilirubin 0.3 mg/dl Direct Bilirubin < 0.1 mg/dl Aspartate Amino Transf (AST/SGOT) 15 U/L Alanine Aminotransferase (ALT/SGPT) 37 U/L Alkaline Phosphatase 132 U/L Total Protein 7.7 gm/dl Albumin 3.9 gm/dl Beta-Hydroxybutyric Acid 1.12 mg/dL Urine Color YELLOW Urine Appearance CLEAR Urine pH 5.5 Urine Specific [place] > 1.045 Urine Protein TRACE Urine Glucose (UA) 3+ Urine Ketones NEG Urine Occult Blood NEG Urine Nitrite NEG Urine Bilirubin NEG Urine Urobilinogen NEG Urine Leukocyte Esterase NEG Urine WBC (Auto) 1-5 /hpf Urine RBC (Auto) 0-4 /hpf Urine Hyaline Casts (Auto) 1-5 /lpf Urine Epithelial Cells (Auto) >30 /lpf Urine Bacteria (Auto) NEG Test 04/07/16 06:25 04/07/16 07:04 04/07/16 10:30 White Blood Count 17.34 K/uL Red Blood Count 4.41 M/uL Hemoglobin 13.8 g/dL Hematocrit 40.2 % Mean Corpuscular Volume 91.2 fL Mean Corpuscular Hemoglobin 31.3 pg Mean Corpuscular Hemoglobin Concent 34.3 g/dl Platelet Count 324 K/uL Mean Platelet Volume 10.2 fL Neutrophils (%) (Auto) 88.5 % Lymphocytes (%) (Auto) 9.3 % Monocytes (%) (Auto) 1.5 % Eosinophils (%) (Auto) 0.0 % Basophils (%) (Auto) 0.1 % Neutrophils # (Auto) 15.35 K/uL Lymphocytes # (Auto) 1.61 K/uL Monocytes # (Auto) 0.26 K/uL Eosinophils # (Auto) 0.00 K/uL Basophils # (Auto) 0.01 K/uL RDW Standard Deviation 49.8 fL RDW Coefficient of Variation 14.9 % Immature Granulocyte % (Auto) 0.6 % Immature Granulocyte # (Auto) 0.11 K/uL Prothrombin Time 11.3 SECONDS Prothromb Time International Ratio 1.1 Activated Partial Thromboplast Time 27.1 SECONDS Partial Thromboplastin Ratio 1.0 Sodium Level 133 mmol/L Potassium Level 4.1 mmol/L Chloride Level 100 mmol/L Carbon Dioxide Level 20 mmol/L Anion Gap 13.0 mmol/L Blood Urea Nitrogen 16 mg/dl Creatinine 0.76 mg/dl Est Creatinine Clear Calc Drug Dose 90.6 ml/min Estimated GFR () 112.9 Estimated GFR (Non- 97.4 BUN/Creatinine Ratio 21.4 Random Glucose 418 mg/dl Calcium Level 9.5 mg/dl Magnesium Level 1.9 mg/dl Total Bilirubin 0.3 mg/dl Direct Bilirubin < 0.1 mg/dl Aspartate Amino Transf (AST/SGOT) 15 U/L Alanine Aminotransferase (ALT/SGPT) 33 U/L Alkaline Phosphatase 132 U/L Total Protein 7.6 gm/dl Albumin 3.7 gm/dl Beta-Hydroxybutyric Acid 13.48 mg/dL Bedside Glucose 438 mg/dl 415 mg/dl Assessment and Plan 40 yo female with questionable angioedema (DEBORAH-I) related vs supraglottitis. - has had about 12 hrs of IV steroid and antibiotic management at this point. 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 - discussed that would recommend recheck of this in the office and possible consideration of DL and marsupilization as an outpatient. - would consider another 24 hrs of IV steroids - when patient is discharged home, would recommend she be discharged on PO steroid taper and antibiotics
[2016-04-07] MEDS ORDERED: NURSING VERBAL MED ORDER ONE (13:30)
[2016-04-07] MEDS ORDERED: DILTIAZEM SR 60 MG CAP PO ONE (15:15)
[2016-04-07] MEDS: NYSTATIN POWDER 15GM BTL EXT SCH ×3 (15:43→20:46)
[2016-04-07] MEDS: AMPICILLIN/SULBACTAM SOD INJ 3,000 MG in SODIUM CHLORIDE 0.9% 100ML 100 ML IV SCH ×2 (15:46→20:46)
[2016-04-07] MEDS ORDERED: OXYCODONE HCL IR 5 MG TAB (IMMEDIATE RELEASE) PO PRN (18:00)
--- NOTE | 2016-04-07 19:33 | Family Medicine Progress Note ---
Progress Note Date of Service Apr 07, 2016. Subjective Pt evaluation today including: conversation w/ patient, physical exam, chart review, lab review Pain: complains of abdominal pain due to hernia and requests percocet 10 mg q4h PO Intake: good Voiding: no voiding problems 40 y/o F with a recent ICU admission last week with intubation for angioedema vs supraglottitis here with c/o hoarseness, sore throat. She was seen by ENT yesterday and had a fibreoptic laryngoscopy which revealed right sided arytenoid erythema and was started on Decadron and Unasyn. has been doing better, but c/o abdominal pain sec to hernia and requests for 10 mg Percocet. - c/o rash which started during last admission in the groin area near the thigh creases and the introitus but denies any abnormal vaginal discharge, itching though she has some burning on urination Constitutional: No chills, No fever Eyes: No worsening of vision ENT: No hearing loss Respiratory: + cough, No shortness of breath Cardiovascular: No chest pain Abdomen: + pain, No constipation, No nausea, No vomiting Musculoskeletal: No joint pain Female : + dysuria Neurologic: No memory loss, No paralysis Psychiatric: No depression symptoms Skin: + rash (groin ) Medications Current Inpatient Medications Medications (Trade) Dose Ordered Sig/Jimbo Route Start Time Stop Time Status Last Admin Dose Admin Ioversol (Optiray 320) 125 ml UD PRN IV 04/06/16 19:00 04/10/16 18:59 Acetaminophen (Tylenol Tab) 650 mg Q4H PRN PO 04/06/16 22:30 05/06/16 22:29 Dicyclomine HCl (Bentyl Cap) 10 mg TID PO 04/07/16 09:00 05/07/16 08:59 04/07/16 12:52 10 MG Fluticasone Propionate (Flovent Hfa 110MCG Inhaler) 120 puffs BID PRN INH 04/06/16 22:30 05/06/16 22:29 Insulin Glargine 30 unit 30 unit QPM SC 04/07/16 21:00 05/07/16 20:59 Famotidine 20 mg/ Dextrose 102 ml @ 200 mls/hr Q12H IV 04/07/16 00:00 05/07/16 00:00 04/07/16 12:00 200 MLS/HR Dexamethasone Sodium Phosphate/ Syringe (Decadron Inj/ Syringe) 1 ml @ 1 mls/min Q6H IV 04/07/16 00:00 05/07/16 00:00 04/07/16 15:47 1 MLS/MIN Ondansetron HCl (Zofran Inj) 4 mg Q6H PRN IV 04/06/16 22:30 05/06/16 22:29 Lorazepam (Ativan Inj) 0.5 mg Q4H PRN IV 04/06/16 22:30 05/06/16 22:29 Lorazepam (Ativan Inj) 1 mg Q4H PRN IV 04/06/16 22:30 05/06/16 22:29 04/07/16 13:30 1 MG Magnesium Hydroxide (Milk Of Magnesia Susp) 30 ml Q6H PRN PO 04/06/16 22:30 05/06/16 22:29 Bisacodyl (Dulcolax Supp) 10 mg DAILY PRN NH 04/06/16 22:30 05/06/16 22:29 Diphenhydramine HCl (Benadryl Inj) 25 mg Q4H PRN IV 04/06/16 22:30 05/06/16 22:29 Al Hydrox/Mg Hydrox/ Simethicone 15 ml 15 ml Q4H PRN PO 04/06/16 22:30 05/06/16 22:29 Promethazine HCl/ Sodium Chloride (Phenergan Inj/ Nss 50ml) 50.5 ml @ 202 mls/hr Q4H PRN IV 04/06/16 22:30 05/06/16 22:29 Zolpidem Tartrate (Ambien Tab) 5 mg HSZ PRN PO 04/06/16 22:30 05/06/16 22:29 04/07/16 00:21 5 MG Docusate Sodium (coLACE CAP) 100 mg BID PO 04/07/16 09:00 05/07/16 08:59 04/07/16 09:20 100 MG Insulin Aspart (novoLOG ASPART) SLIDING SCALE If C... ACHS SC 04/07/16 07:00 05/07/16 06:59 04/07/16 16:15 25 UNITS Glucose (Glucose 40% Gel) UD PRN PO 04/06/16 22:30 05/06/16 22:29 Glucose (Glucose Chew Tab) 1 tabs UD PRN PO 04/06/16 22:30 05/06/16 22:29 Dextrose (Dextrose 50% 50ML Syringe) 50 ml UD PRN IV 04/06/16 22:30 05/06/16 22:29 Glucagon 1 mg 1 mg UD PRN SQ 04/06/16 22:30 05/06/16 22:29 Ampicillin Sodium/ Sulbactam Sodium/ Sodium Chloride (Unasyn Inj/Nss 100ml) 108 ml @ 200 mls/hr Q6H IV 04/07/16 13:00 04/17/16 12:59 04/07/16 15:46 200 MLS/HR Clotrimazole (Clotrimazole Vag Crm) 1 appln DAILY PV 04/08/16 09:00 04/15/16 08:59 Nystatin (Mycostatin Powder) 1 appln QID EXT 04/07/16 13:00 05/07/16 12:59 04/07/16 15:47 1 APPLN Oxycodone HCl (Roxicodone Immediate Rel Tab) 10 mg Q6 PRN PO 04/07/16 13:30 04/21/16 13:29 04/07/16 13:31 10 MG Diltiazem HCl (Cardizem Cd Cap) 180 mg BID PO 04/07/16 21:00 05/07/16 20:59 Objective Vital Signs Date Time Temp Pulse Resp B/P Pulse Ox O2 Delivery O2 Flow Rate FiO2 04/07/16 15:53 36.5 101 18 128/85 95 04/07/16 12:00 93 Room Air 04/07/16 11:44 36.6 86 19 146/93 95 Room Air 04/07/16 08:00 91 Room Air 04/07/16 07:06 36.7 92 20 147/92 91 Room Air 04/07/16 04:25 Room Air 04/07/16 04:04 36.7 84 18 137/91 95 Room Air 04/06/16 23:30 36.8 116 20 147/92 95 Room Air 04/06/16 22:55 111 20 185/115 95 Room Air 04/06/16 22:12 Room Air 04/06/16 21:01 108 20 176/134 94 Room Air Physical Exam General Appearance: WD/WN, no apparent distress Eyes: normal inspection ENT: normal ENT inspection, hearing grossly normal, + pharyngeal erythema Neck: supple Respiratory/Chest: chest non-tender, no respiratory distress, + wheezing (alanna on left side) Cardiovascular: + tachycardia Abdomen: normal bowel sounds, non tender, soft Extremities: no pedal edema, no calf tenderness Neurologic/Psychiatric: alert, normal mood/affect, oriented x 3 Skin: + rash (macular rash along thigh creases and erythema of vaginal introitus. ) Laboratory Results 04/07/16 06:25 Red Blood Count 4.41, Mean Corpuscular Volume 91.2, Mean Corpuscular Hemoglobin 31.3, Mean Corpuscular Hemoglobin Concent 34.3, Mean Platelet Volume 10.2, Neutrophils (%) (Auto) 88.5, Lymphocytes (%) (Auto) 9.3, Monocytes (%) (Auto) 1.5, Eosinophils (%) (Auto) 0.0, Basophils (%) (Auto) 0.1, Neutrophils # (Auto) 15.35, Lymphocytes # (Auto) 1.61, Monocytes # (Auto) 0.26, Eosinophils # (Auto) 0.00, Basophils # (Auto) 0.01 04/07/16 06:25 Test 04/06/16 20:49 04/06/16 22:06 04/07/16 06:25 04/07/16 10:30 White Blood Count 17.34 K/uL (4.8-10.8) Red Blood Count 4.41 M/uL (4.2-5.4) Hemoglobin 13.8 g/dL (12.0-16.0) Hematocrit 40.2 % (37-47) Mean Corpuscular Volume 91.2 fL (80-100) Mean Corpuscular Hemoglobin 31.3 pg (25-34) Mean Corpuscular Hemoglobin Concent 34.3 g/dl (32-36) Platelet Count 324 K/uL (130-400) Mean Platelet Volume 10.2 fL (7.4-10.4) Neutrophils (%) (Auto) 88.5 % Lymphocytes (%) (Auto) 9.3 % Monocytes (%) (Auto) 1.5 % Eosinophils (%) (Auto) 0.0 % Basophils (%) (Auto) 0.1 % Neutrophils # (Auto) 15.35 K/uL (1.4-6.5) Lymphocytes # (Auto) 1.61 K/uL (1.2-3.4) Monocytes # (Auto) 0.26 K/uL (0.11-0.59) Eosinophils # (Auto) 0.00 K/uL (0-0.5) Basophils # (Auto) 0.01 K/uL (0-0.2) RDW Standard Deviation 49.8 fL (36.4-46.3) RDW Coefficient of Variation 14.9 % (11.5-14.5) Immature Granulocyte % (Auto) 0.6 % Immature Granulocyte # (Auto) 0.11 K/uL (0.00-0.02) Prothrombin Time 11.3 SECONDS (9.0-12.0) Prothromb Time International Ratio 1.1 (0.9-1.1) Activated Partial Thromboplast Time 27.1 SECONDS (21.0-31.0) Partial Thromboplastin Ratio 1.0 Anion Gap 13.0 mmol/L (3-11) Est Creatinine Clear Calc Drug Dose 90.6 ml/min Estimated GFR () 112.9 Estimated GFR (Non- 97.4 BUN/Creatinine Ratio 21.4 (10-20) Calcium Level 9.5 mg/dl (8.5-10.1) Magnesium Level 1.9 mg/dl (1.8-2.4) Total Bilirubin 0.3 mg/dl (0.2-1) Direct Bilirubin < 0.1 mg/dl (0-0.2) Aspartate Amino Transf (AST/SGOT) 15 U/L (15-37) Alanine Aminotransferase (ALT/SGPT) 33 U/L (12-78) Alkaline Phosphatase 132 U/L (45-117) Total Protein 7.6 gm/dl (6.4-8.2) Albumin 3.7 gm/dl (3.4-5.0) Beta-Hydroxybutyric Acid 13.48 mg/dL (0.2-2.81) Bedside Glucose 415 mg/dl (70-90) Date/Time Source Procedure Growth Status 04/06/16 20:49 Vaginal Swab Trichomonas Preparation - Final Complete Assessment and Plan 40 y/o F with a recent ICU admission last week with intubation for angioedema vs supraglottitis here with c/o hoarseness, sore throat. Angioedema vs supraglottitis: - Fiberoptic laryngoscopy per ENT on admission: Nasopharynx normal. Epiglottis is crisp. Has some mild right sided arytenoid edema that is non obstructing. Left arytenoid normal. Post cricoid space with some mild edema. Glottic airway widely patent. True cords mildly erythematous. Vocal cord mobility is normal. No paresis or paralysis. Vocal cords without masses or lesions. mucocele- to be managed as OP - Decadron 4 mg IV q6h with plans for oral steroid taper in 24 hours - Unasyn - appreciate ENT input - [facility] immunology sent HTN - lisinopril held at last admission for potential angioedema. Metoprolol, spironolactone , amlodipine also held - Cardizem 180 mg BID Tachycardia: sec to steroids or rebound from stopping metoprolol - Cardizem 180 mg BID( metoprolol has been on hold with concerns of allergy) Hyperglycemia: - likely sec to steroids - NovoLog sliding scale with goal range of 100-150, correction factor 20, carb ratio:1: 4, Lantus 30 units at bedtime - accu checks at mealtime and bedtime Rash in groin area: - likely keri - sec to steroid use and high blood sugars - Clotrimazole vaginal cream and topical nystatin - Gonorrhoea and trichomonas pending Asthma/tobacco use: - smokes 1/2 pack per day - Xopenex with Atrovent q2h PRN flovent and combivent - smoking cessation counselling Abdominal hernia: - Roxicet 10 mg q6h - Scheduled for surgery by Dr. Vazquez Dvt prophylaxis: SCD Full code Disposition; Monitor in tele Discharge planning: home Reviewed: Pt Seen/Exam by RUDI Sen Notes, Labs, RAD History Resident Physician Supervision Note: I was present with Dr. Mccurdy during the history and exam. I discussed the case with the resident and agree with the findings and plan as documented in the note. Any exceptions or clarifications are listed here: Pt feeling better today, still some hoarse voice. No trouble breathing, is eating reg diet and some mild sore throat. Had some sinus tach today and we increased her diltiazem to 180 bid. Glucose was elevated but increased insulin dose and starting to improve. Vitals reviewed, tele with sinus tach HEENT: mild erythema posterior OP, no neck tenderness CV: mild tachycardia, no m/g/r nl S1S2 Pulm: CTAB except mild upper airway inspiratory wheeze Abd: +BS, soft, +TTP ventral hernia supraumbilical but is easily reducible Ext: no edema A/P: 40 yo female with supraglottitis vs angioedema. Improving. Continue with IV steroids, abx switched to Unasyn. Increased insulin dose for today, continue SSI, and increased diltiazem dose for sinus tach which is likely induced by IV steroids. Proph: SCDs Documented By: Maryan Esparza
[2016-04-07] MEDS: DILTIAZEM HCL 180 MG CAPCR PO SCH (20:47)
[2016-04-07] MEDS ORDERED: INSULIN GLARGINE SOLOSTAR 100 UNITS/ML 3 ML PEN SC SCH (21:00)
[2016-04-08] VITALS: BP 125/79; PULSE 95; TEMP 36.6; O2SAT 95
[2016-04-08] MEDS: AMPICILLIN/SULBACTAM SOD INJ 3,000 MG in SODIUM CHLORIDE 0.9% 100ML 100 ML IV SCH ×3 (00:56→13:17)
[2016-04-08 04:00] VITALS: BP 120/66; PULSE 78; TEMP 36.7; O2SAT 95
[2016-04-08] MEDS: OXYCODONE HCL IR 5 MG TAB (IMMEDIATE RELEASE) PO PRN ×3 (04:13→14:58)
[2016-04-08] MEDS: DEXAMETHASONE INJ 4 MG in SYRINGE 0 ML IV SCH ×2 (05:58→12:27)
[2016-04-08 07:21] VITALS: BP 141/97; PULSE 84; TEMP 36.5; O2SAT 94
[2016-04-08 07:34] LABS: BASO % 0.1 %; BASO ABS # 0.01 K/uL (0-0.2); COMPLETE YES; HEMATOCRIT 38.7 % (37-47); IG% 0.4 %; LYMPH % 14.3 %; LYMPH ABS # 2.06 K/uL (1.2-3.4); MEAN CELL VOLUME 90.8 fL (80-100); MEAN CORPUSCULAR HEMOGLOBIN 31.5 pg (25-34); MEAN CORPUSCULAR HGB CONC 34.6 g/dl (32-36); MEAN PLATELET VOLUME 10.4 fL (7.4-10.4); MONO % 3.3 %; NEUT % 81.9 %; PLATELET COUNT 343 K/uL (130-400); RED BLOOD COUNT 4.26 M/uL (4.2-5.4); WHITE BLOOD COUNT 14.42 K/uL (4.8-10.8)
[2016-04-08 07:48] LABS: ESTIMATED AVERAGE GLUCOSE 203 mg/dl; HA1C FLAG Normal (Normal)
[2016-04-08] MEDS: INSULIN ASPART 100 UNITS/ML 3 ML PEN SC SCH ×2 (08:00→12:00)
[2016-04-08] MEDS: DICYCLOMINE HCL 10 MG CAP PO SCH ×2 (08:15→14:59)
[2016-04-08] MEDS: DILTIAZEM HCL 180 MG CAPCR PO SCH (08:16)
[2016-04-08] MEDS: DOCUSATE SODIUM 100 MG CAP PO SCH (08:17)
[2016-04-08 08:20] LABS: ALKALINE PHOSPHATASE 120 U/L (45-117); ALT/SGPT 25 U/L (12-78); AST/SGOT 9 U/L (15-37); BLOOD UREA NITROGEN 14 mg/dl (7-18); BUN/CREATININE RATIO 22.1 (10-20); CALCIUM 9.8 mg/dl (8.5-10.1); CARBON DIOXIDE 18 mmol/L (21-32); CHLORIDE 100 mmol/L (98-107); CREATININE 0.62 mg/dl (0.60-1.20); GLUCOSE 360 mg/dl (70-99); MAGNESIUM 2.1 mg/dl (1.8-2.4); SODIUM 133 mmol/L (136-145)
[2016-04-08] MEDS ORDERED: CLOTRIMAZOLE VAG CR 45 GM TUBE PV SCH (09:00)
[2016-04-08] MEDS: NYSTATIN POWDER 15GM BTL EXT SCH ×2 (09:20→13:18)
[2016-04-08 09:27] VITALS: BMI 29.6
[2016-04-08 11:29] VITALS: BP 151/94; PULSE 84; TEMP 36.7; O2SAT 93
[2016-04-08] MEDS ORDERED: PHARMACY GLYCEMIC MGMT CONSULT PRN (11:56)
[2016-04-08] MEDS: FAMOTIDINE IV INJ 20 MG in DEXTROSE 5% 100ML 100 ML IV SCH (12:27)
[2016-04-08 12:51] VITALS: BMI 29.6
[2016-04-08] MEDS ORDERED: INSULIN GLARGINE SOLOSTAR 100 UNITS/ML 3 ML PEN SC SCH (13:00)
[2016-04-08] MEDS ORDERED: INSULIN HUMAN REGULAR PER UNIT 7 UNITS in SYRINGE 6.93 ML IV SCH (13:15)
--- NOTE | 2016-04-08 13:41 | Pharmacy Progress Note ---
Glycemic Control Intl Consult Date of Service Apr 08, 2016. Scope Glycemic Pharmacist consulted by Dr. Esparza on 04/08/16 for glycemic control and to write orders per [facility] inpatient glycemic control protocol Objective Weight (Kilograms): 73.300 Accuchecks BSG (last 24hrs): Test 04/07/16 16:11 04/07/16 20:45 04/08/16 06:35 04/08/16 06:43 Bedside Glucose 370 mg/dl (70-90) 516 mg/dl (70-90) 378 mg/dl (70-90) Random Glucose 360 mg/dl (70-99) Test 04/08/16 11:11 Bedside Glucose 382 mg/dl (70-90) Laboratory Data (last 24hrs) Test 04/08/16 06:35 Anion Gap 15.0 mmol/L BUN/Creatinine Ratio 22.1 Blood Urea Nitrogen 14 mg/dl Creatinine 0.62 mg/dl Hemoglobin A1c 8.7 % Potassium Level 4.0 mmol/L Sodium Level 133 mmol/L White Blood Count 14.42 K/uL Red Blood Count 4.26 M/uL Hemoglobin 13.4 g/dL Hematocrit 38.7 % Mean Corpuscular Volume 90.8 fL Mean Corpuscular Hemoglobin 31.5 pg Mean Corpuscular Hemoglobin Concent 34.6 g/dl Platelet Count 343 K/uL Mean Platelet Volume 10.4 fL Neutrophils (%) (Auto) 81.9 % Lymphocytes (%) (Auto) 14.3 % Monocytes (%) (Auto) 3.3 % Eosinophils (%) (Auto) 0.0 % Basophils (%) (Auto) 0.1 % Neutrophils # (Auto) 11.81 K/uL Lymphocytes # (Auto) 2.06 K/uL Monocytes # (Auto) 0.48 K/uL Eosinophils # (Auto) 0.00 K/uL Basophils # (Auto) 0.01 K/uL HbA1c Test 04/08/16 06:35 Hemoglobin A1c 8.7 % (4.5-5.6) H Recent Pertinent Medications Outpatient Anti-diabetic Regimen: * Lantus 18 units HS, Apidra 1:15 CR and 1:20 CF for BSG > 140 mg/dl (15-17 units of Apidra AC; eats ~45 carbs with meals) * A1c = 8.7 % 04/08/16 The patient is currently receiving: * Basal insulin: Lantus 30 units qHS * Correctional Insulin: Novolog Correction per scale ACHS Goal Range: Low 100 mg/dL - High 150 mg/dL Correction Factor: 20 mg/dL/unit * Prandial insulin: Per carb ratio of 1 unit per 4 grams CHO consumed Risk Factors for Insulin Resistance: * Steroids: DM 4mg IV [id number] * Infection: On unasyn IV (?supraglottitis) * Diet: AHA/DM2 * Mechanical Ventilation: s/p intubation first week of Mar 2016 (previous admission), now with sore throat/hoarseness Assessment & Plan ASSESSMENT: * ADA & AACE recommend a goal blood sugar range 140-180 mg/dl for the majority of critically ill & non-critically ill patients. However, more stringent targets may be selected in individual cases. * 40 yo female admitted for dysphagia, sob, angioedema vs supraglottitis. Pt known to pharmacy glycemic service from admission earlier this month. * Latest A1c indicates suboptimal control of BSGs as an outpatient. * She is currently receiving Decadron IV ATC leading to steroid induced hyperglycemia. * Based upon the TDD of insulin yesterday will increase Lantus dose to provide a better 50/50 distribution of basal vs prandial needs. * Also, tighten Novolog parameters in an effort to attain better glycemic control. * Add an IV bolus x 1 for BSG> 300 mg/dl * Schedule Novolog overnight check to aid in resolving hyperglycemia. PLAN FOR INPATIENT GLYCEMIC CONTROL: * Increase - Lantus 30units BID; give 1/2 for BSG below 110 mg/dl * Give IV regular 7 units now * Novolog ACHS + 02 * Tighten - correction factor to 15 mg/dl/unit * Continue - carb ratio to 1 unit per 4 grams CHO consumed * Set goal range to Low 110 mg/dL - High 150 mg/dL Recommendation for outpatient glycemic control: * Pt to be discharged on Medrol dosepak tapered over 6 days. Pt to follow regimen below while on steroids. Once pt has completed course of steroids she is to resume prior to admission regimen of insulin. Lantus: * Recommend pt resume Lantus qPM dosing upon discharge. If discharged today (), recommend Lantus 30 units x 2 days then begin to taper by 2 units downward daily. Example -- 04/08: 30 units PM, 04/09: 30 units PM, 04/10: 28 units PM, 04/11: 26 units PM, 04/12: 24 units PM, etc until pt reaches usual home dose of 18 units qPM. Apidra: * Apidra -- pt to use carb ratio of 1:10 and CF of 1:15 for BSG above 140 mg/dl * Apidra ACHS BSG sliding scale. Pt to use carb ratio to determine carb coverage then use sliding scale to determine additional correction for elevated BSG: * 140-170: 2 units * 170-200: 4 units * 200-230: 6 units * 230-260: 8 units * 260-290: 10 units * 290-320: 12 units * 320-350: 14 units * 350-380: 16 units * 380-410: 18 units * 410-440: 20 units * 440-470: 22 units * 470-500: 24 units * Please note that the plan above was derived based on current level of insulin resistance and hospital stress. These recommendations are appropriate for inpatient admission only. Plan of care upon discharge will need to be reassessed to avoid potential outpatient hypo/hyperglycemia. Thank you.
[2016-04-08 14:04] VITALS: BP 141/97; PULSE 84; TEMP 36.5; O2SAT 94
--- NOTE | 2016-04-08 14:06 | Discharge Instructions ---
Discharge Instructions Admission Reason for Admission: Dysphagia, Shortness Of Breath, Supraglottic Edema Discharge Discharge Diagnosis / Problem: Supraglottitis vs angioedema Discharge Goals Goal(s): Decrease discomfort, Improve function, Learn about illness Activity Recommendations Activity Limitations: resume your previous activity . Instructions / Follow-Up Instructions / Follow-Up You were admitted with difficulty breathing and sore throat : Sore throat/suparglottitis: - use Medrol dose pack as instructed - Use Augmentin for 7 days - Please follow up with Dr. Jackson on 04/22 - Try to avoid smoking - avoid using your home BP medications, use Cardizem 180 mg twice daily instead Blood sugar management: recommend Lantus 30 units x 2 days then begin to taper by 2 units downward daily. Example -- 04/08: 30 units PM, 04/09: 30 units PM, 04/10: 28 units PM, 04/11 : 26 units PM, 04/12: 24 units PM, etc until pt reaches usual home dose of 18 units qPM. * Apidra AC take: 150-200: 20units; 200-250: 22units; 250-300: 24units; 300-350 : 26 units; 350-400: 28units; 400-450: 30units; 450-500: 32units * Apidra HS take:150-200: 1units; 200-250: 2units; 250-300: 4units; 300-350: 6 units; 350-400: 8units; 400-450: 10units; 450-500: 12 units * Call physician if BSG > 550 mg/dl Allergy testing: [facility] immunology testing pending - avoid home BP meds - Please follow up with Dr. Sosa as scheduled Elevated BP: Use Cardizem 180 mg twice daily DO NOT use your home BP medications Rash in groin area: - Use clotrimazole vaginal cream and nystatin topical cream - Follow up with PCP Abdominal hernia: Follow up with Dr. Vazquez from General surgery as scheduled Return to ER if you experience worsening sore throat and difficulty breathing - follow up with Dr. Sosa - Follow up with your PCP in 1 week - follow up with ENT on 04/22 Current Hospital Diet Patient's current hospital diet: Diabetes Type 2 Diet, AHA Diet (Heart Healthy) Discharge Diet Recommended Diet: Diabetes Type 2 Diet Pending Studies Studies pending at discharge: yes List of pending studies: [facility] testing Laboratory Results Hemoglobin A1c Test 04/08/16 06:35 Range/Units Estimated Average Glucose 203 mg/dl Hemoglobin A1c 8.7 H 4.5-5.6 % Medical Emergencies . Who to Call and When: Medical Emergencies: If at any time you feel your situation is an emergency, please call 911 immediately. . Non-Emergent Contact Non-Emergency issues call your: Primary Care Provider Call Non-Emergent contact if: temperature is above 101, your pain is not controlled, your pain is worsening . . "Provider Documentation" section prepared by Lucille Mccurdy. VTE Core Measure Inpt VTE Proph given/why not?: SCD's
[2016-04-08] MEDS ORDERED: OXYC1TAB3 PO (14:13)
[2016-04-08] MEDS ORDERED: [UNRECOGNIZED DRUG - CODE] PV (14:13)
[2016-04-08] MEDS ORDERED: NYSP EXT (14:13)
[2016-04-08] MEDS ORDERED: AMOX875T PO (14:13)
[2016-04-08] MEDS ORDERED: METH4PAK PO (14:13)
[2016-04-09] MEDS ORDERED: INSULIN ASPART 100 UNITS/ML 3 ML PEN SC SCH (02:00)
[2016-04-11 16:00] VITALS: Ht 152.4 cm; Wt 6.0 kg
--- NOTE | 2016-04-12 14:28 | Discharge Summary ---
Discharge Summary Admission Date: Apr 06, 2016 at 22:13 Discharge Date: Apr 08, 2016 Discharge Disposition: Home Principal Diagnosis: Angioedema vs supraglottitis Consultations: -ENT (Lucille Mccurdy MD) Medication Reconciliation New Medications: Amoxicillin & Pot Clavulanate (Augmentin 875-125 mg) 1 Tab Tab 1 TAB PO BID for 7 Days, #14 TAB Methylprednisolone (Medrol Dosepak) 4 Mg Haris 1 PKT PO UD for 6 Days, #1 PKT Oxycodone Immediate Rel Tab (Roxicodone Ir) 5 Mg Tab 5 MG PO Q6H PRN for Pain, #8 TAB Clotrimazole (Clotrimazole) 7 Appln/45 Gm Cr 1 APPLN PV DAILY for 7 Days, #1 EA 0 Refills Nystatin (Nystop) 45 Appln/15 Gm Powd 1 APPLN EXT QID for 7 Days, #1 EA 0 Refills Continued Medications: Acetaminophen (Tylenol) 325 Mg Tab 650 MG PO Q4H PRN for Pain Dicyclomine Hcl (Dicyclomine Hcl) 10 Mg Cap 10 MG PO TID Fluticasone Propionate (Flovent Hfa) 120 Puffs/13890 Mcg Aero 1 PUFF INH BID PRN for Shortness of Breath Ipratropium-Albuterol (Combivent Respimat) 1 Aer Aer 1 PUFF INH QID PRN for Cough or Wheeze, INH Omeprazole (Prilosec) 20 Mg Capcr 20 MG PO DAILY PRN for Acid Reflux Discontinued Medications: Amlodipine (Norvasc) 10 Mg Tab 10 MG PO DAILY, TAB Insulin Glargine (Lantus) Vial 18 UNITS SC QPM, VIAL Insulin Glulisine (Apidra) 100 Unit/Ml Inj 0-20 UNITS SQ BID COVERAGE DIRECTED BY SLIDING SCALE Metoprolol Tartrate (Lopressor) (Lopressor) 50 Mg Tab 50 MG PO BID, TAB Oxycodone Ir (Roxicodone Ir) 5 Mg Tab 1-2 TAB PO Q6H PRN for Pain, #30 TAB 0 Refills Spironolactone (Aldactone) 25 Mg Tab 25 MG PO QAM, TAB Discharge Exam feeling lot better. Decreased hoarseness Review of Systems: Constitutional: No chills, No fever Eyes: No worsening of vision ENT: No hearing loss Respiratory: No cough, No sputum Cardiovascular: No chest pain Abdomen: No nausea, No pain Genitourinary - Female: No dysuria, No urinary frequency Physical Exam: General Appearance: WD/WN, no apparent distress Eyes: normal inspection ENT: normal ENT inspection, hearing grossly normal Neck: supple, no adenopathy Respiratory/Chest: chest non-tender, lungs clear, normal breath sounds Cardiovascular: regular rate, rhythm, no edema Abdomen / GI: normal bowel sounds, non tender, soft Extremities: normal inspection, no calf tenderness Neurologic/Psychiatric: alert, normal mood/affect Skin: normal color (Lucille Mccurdy MD) Hospital Course The patient is a 40-year-old female who presents emergency department with a persistent cough, associated with shortness of breath, that began about one week prior to arrival. She was most recently in hospital from March 27 through March 30, where she was in the ICU after being electively intubated for airway protection due to supraglottic edema. She reports that since discharge, she initially had some improvement in symptoms, but then her cough and shortness of breath have returned and persisted. She had reports that her cough is aggravating her abdominal hernia, for which she had been scheduled to undergo surgical repair, but had to be postponed due to this current illness. She reports her symptoms worsen at night, and gets a sense that her throat is closing. She's had difficulty swallowing medications. She does continue to smoke on a daily basis. Angioedema vs supraglottitis: - Fiberoptic laryngoscopy per ENT on admission: Nasopharynx normal. Epiglottis is crisp. Has some mild right sided arytenoid edema that is non obstructing. Left arytenoid normal. Post cricoid space with some mild edema. Glottic airway widely patent. True cords mildly erythematous. Vocal cord mobility is normal. No paresis or paralysis. Vocal cords without masses or lesions. mucocele- to be managed as OP - Decadron 4 mg IV q6h, discharged with oral steroid taper - received Unasyn, Discharged Augmentin X10 days - ENT follow up on 04/22 - [facility] immunology sent - Follow up with Immunology- Referral made to Dr. Sosa HTN - lisinopril held at last admission for potential angioedema. Metoprolol, spironolactone , amlodipine also held with concerns of any allergic angioedema - Cardizem 180 mg BID Tachycardia: sec to steroids or rebound from stopping metoprolol - Cardizem 180 mg BID( metoprolol has been on hold with concerns of allergy) Hyperglycemia: - likely sec to steroids - Pharmacy recommendations: recommend Lantus 30 units x 2 days then begin to taper by 2 units downward daily. Example -- 04/08: 30 units PM, 04/09: 30 units PM, 04/10: 28 units PM, 04/11 : 26 units PM, 04/12: 24 units PM, etc until pt reaches usual home dose of 18 units qPM. * Apidra AC take: 150-200: 20units; 200-250: 22units; 250-300: 24units; 300-350 : 26 units; 350-400: 28units; 400-450: 30units; 450-500: 32units * Apidra HS take:150-200: 1units; 200-250: 2units; 250-300: 4units; 300-350: 6 units; 350-400: 8units; 400-450: 10units; 450-500: 12 units * Call physician if BSG > 550 mg/dl Rash in groin area: - likely keri - sec to steroid use and high blood sugars - Clotrimazole vaginal cream and topical nystatin Asthma/tobacco use: - smokes 1/2 pack per day - Xopenex with Atrovent q2h PRN flovent and combivent - smoking cessation counselling Abdominal hernia: - Roxicet 10 mg q6h - Scheduled for surgery by Dr. Vazquez, Follow up as scheduled Total Time Spent: Greater than 30 minutes This includes examination of the patient, discharge planning, medication reconciliation, and communication with other providers. (Lucille Mccurdy MD) Discharge Instructions Please refer to the electronic Patient Visit Report (Discharge Instructions) for additional information. (Lucille Mccurdy MD) Follow-Up - follow up with Dr. Sosa - Follow up with your PCP in 1 week - follow up with ENT on 04/22 (Lucille Mccurdy MD) Reviewed: Pt Seen/Exam by Me, HO Notes (Maryan Esparza MD) History Resident Physician Supervision Note: I interviewed and examined the patient. Discussed with Dr. Mccurdy and agree with findings and plan as documented in the note. Any exceptions or clarifications are listed here: Pt feeling much better day of discharge, throat less sore, no trouble breathing or swallowing. Glucose high but improving with increased insulin. Vitals reviewed NAD Airway widely patent, no erythema in pharynx RRR no mgr CTAB no wcr Ext no edema, no calf tenderness A/P: Supraglottitis secondary to viral vs bacterial infection or perhaps allergic reaction. Steroid taper and insulin taper Finish out empiric Augmentin F/u with ENT and Patient Services Specialist Documented By: Maryan Esparza (Maryan Esparza MD)
[2016-04-15 12:18] LABS: ALTERNARIA CLASS 0; ALTERNARIA IGE <0.10 KU/L; ASPERG FUMIG CLASS 0; ASPERG FUMIG IGE <0.10 KU/L; BAHIA GRASS ASM CLASS 0; BAHIA GRASS IGE <0.10 KU/L; BERMUDA GRASS CLASS 0; BERMUDA GRASS IGE <0.10 KU/L; BIRCH CLASS 0; BLACK LOCUST CLASS 0; BLACK LOCUST IGE <0.35 kU/L (<0.35); CASHEW CLASS 0; CASHEW IGE <0.10 KU/L; CAT DANDER CLASS 0; CLADOSPORIUM HER CLASS 0; CLADOSPORIUM HER IGE <0.10 KU/L; COCKROACH CLASS 0; CODFISH CLASS 0; D. FARINAE CLASS 0; D. FARINAE IGE <0.10 KU/L; D. PTERONYSSINUS CLASS 0; D. PTERONYSSINUS IGE <0.10 KU/L; DOG DANDER CLASS 0; EGG WHITE CLASS 0; EGG WHITE IGE <0.10 KU/L; ELM CLASS 0; ENGLISH PLAN CLASS 0/1; ENGLISH PLAN IGE 0.11 KU/L; HAZELNUT CLASS 0; JOHNSON CLASS 0; JOHNSON IGE <0.10 KU/L; JUNE (KENTUCKY BLUE) CLASS 0; JUNE IGE <0.10 KU/L; MAPLE (BOX ELDER) IGE <0.10 KU/L; MAPLE CLASS 0; MOUNTAIN CEDAR ASM CLASS 0; MOUNTAIN CEDAR IGE <0.10 KU/L; MUCOR CLASS 0; MUCOR IGE <0.10 KU/L; NETTLE CLASS 0; NETTLE IGE <0.10 KU/L; PEANUT IGE <0.10 KU/L; PENIC NOTATUM CLASS 0; PENIC NOTATUM IGE <0.10 KU/L; RAST ALMOND CLASS 0; RAST ALMOND IGE <0.10 KU/L; RAST HAZELNUT IGE <0.10 KU/L; ROUGH PIGWEED CLASS 0; ROUGH PIGWEED IGE <0.10 KU/L; SALMON CLASS 0; SALMON IGE <0.10 KU/L; SCALLOP CLASS 0; SCALLOP IGE <0.10 KU/L; SESAME CLASS 0/1; SESAME IGE 0.11 KU/L; SHORT RAGWEED CLASS 0; SHORT RAGWEED IGE <0.10 KU/L; SHRIMP CLASS 0; SOY CLASS 0; SOY IGE <0.10 KU/L; STEMPHY BOTRY CLASS 0; STEMPHY BOTRY IGE <0.10 KU/L; TUNA CLASS 0; TUNA IGE <0.10 KU/L; WALNUT CLASS 0; WHEAT CLASS 0; WHEAT IGE <0.10 KU/L; WHITE HICKORY ASM CLASS 0; WHITE HICKORY IGE <0.10 kU/L (<0.35); WHITE MULBERRY CLASS 0; WHITE MULBERRY IGE <0.10 KU/L
[2016-05-07] MEDS ORDERED: APDI SQ (16:57)
[2016-05-07] MEDS ORDERED: INSDGI SC (16:57)
[2016-05-07] MEDS ORDERED: OXYC1TAB3 PO (16:57)
[2016-05-15] MEDS ORDERED: OXYC1TAB3 PO (07:15)
[2016-05-24] MEDS ORDERED: ZCR20 PO (13:28)
== END 2016-04-08 15:44 | disposition home or self-care (01) | DRG 153 ==
LOC: ENRESERVTM → ENRESERVDT → C.EDB 17:53 → C.2T 22:13
PROVIDERS: ADMIT Hospitalist; ATTEND Family Medicine
PROC: 0CJS8ZZ Inspection of Larynx, Via Natural or Artificial Opening Endoscopic (ICD-10-PCS; principal; 2016-04-06)
DX: J04.30 Supraglottitis, unspecified, without obstruction (principal); T78.3XXA Angioneurotic edema, initial encounter; T46.4X5A Adverse effect of angiotensin-converting-enzyme inhibitors, initial encounter; F17.210 Nicotine dependence, cigarettes, uncomplicated; T38.0X5A Adverse effect of glucocorticoids and synthetic analogues, initial encounter; K21.9 Gastro-esophageal reflux disease without esophagitis; Z88.0 Allergy status to penicillin; E11.9 Type 2 diabetes mellitus without complications; J45.909 Unspecified asthma, uncomplicated; R00.0 Tachycardia, unspecified; K13.79 Other lesions of oral mucosa; I10 Essential (primary) hypertension; Z79.4 Long term (current) use of insulin; R73.9 Hyperglycemia, unspecified; Y92.009 Unspecified place in unspecified non-institutional (private) residence as the place of occurrence of the external cause

== ENCOUNTER 2016-05-15 05:03 | Day surgery (SDC) | payer OTHER ==
[2016-03-25 14:33] VITALS: BMI 28.0
[2016-05-07 16:58] VITALS: BMI 27.0
[~2016-05-15] VITALS: Ht 160 cm; Wt 70.5 kg
[~2016-05-15 05:03] MED LIST changes: -AMLO-114 PO; -AMOX875T PO; +APDI SQ; +CEFAZOLIN 2000 MG/60 ML D5W IV SCH; +DICY10CA12 PO; -DXM/4 PO; +HEPARIN SOD 5000 UNIT/0.5 ML CARP SC SCH; +INSDGI SC; +LACTATED RINGER'S 1000ML 1,000 ML IV SCH; -METO50TA17 PO; -SPIR25TA PO
[2016-05-15 05:37] VITALS: BP 162/98; PULSE 96; TEMP 36.4; O2SAT 98; Ht 160 cm; Wt 70.5 kg
[2016-05-15] MEDS ORDERED: LACTATED RINGER'S 1000ML 1,000 ML IV SCH ×2 (06:00)
[2016-05-15] MEDS ORDERED: CEFAZOLIN 2000 MG/60 ML D5W IV SCH (06:00)
[2016-05-15] MEDS ORDERED: HEPARIN SOD 5000 UNIT/0.5 ML CARP SC SCH (06:00)
[2016-05-15] MEDS ORDERED: FENTANYL CITRATE INJ 50 MCG/1 ML 2 ML VIAL ONE (06:31)
[2016-05-15] MEDS ORDERED: MIDAZOLAM HCL 1 MG/ML 2ML VIAL ONE (06:31)
[2016-05-15] MEDS ORDERED: CEFAZOLIN SOD 1 GM VIAL ONE (06:36)
[2016-05-15] MEDS ORDERED: BUPIVACAINE/EPINEPHRINE 0.5% MPF 1:200,000 30 ML VIAL ONE (06:36)
--- NOTE | 2016-05-15 07:09 | Discharge Instructions ---
Discharge Instructions Admission Reason for Admission: Epigastric Hernia, Abdominal Pain Discharge Discharge Diagnosis / Problem: Epigastric Hernia, Abdominal Pain Discharge Goals Goal(s): Decrease discomfort, Improve function Activity Recommendations Activity Limitations: as noted below Lifting Limitations: no more than 5 pounds Exercise/Sports Limitations: until after follow-up appointment May Resume Sexual Activity: after follow-up appointment Shower/Bathe: tomorrow . Instructions / Follow-Up Instructions / Follow-Up Please follow-up with Dr. Vazquez in the office in 1-2 weeks. Current Hospital Diet Patient's current hospital diet: Discharge Diet Recommended Diet: Regular Diet Pending Studies Studies pending at discharge: no Laboratory Results Hemoglobin A1c Test 04/08/16 06:35 Range/Units Estimated Average Glucose 203 mg/dl Hemoglobin A1c 8.7 H 4.5-5.6 % Medical Emergencies . Who to Call and When: Medical Emergencies: If at any time you feel your situation is an emergency, please call 911 immediately. . Non-Emergent Contact Non-Emergency issues call your: Primary Care Provider, Surgeon Call Non-Emergent contact if: temperature is above 101, your pain is not controlled, wound has increased drainage, wound has increased redness . "Provider Documentation" section prepared by Radha Ahuja. VTE Core Measure Inpt VTE Proph given/why not?: Unfractionated heparin SQ, SCD's
[2016-05-15] MEDS ORDERED: ATROPINE SULFATE 0.1 MG/ML 5ML SYR IV PRN (07:15)
[2016-05-15] MEDS ORDERED: ONDANSETRON INJ 2 MG/ML 2 ML VIAL IV PRN ×2 (07:15→08:30)
[2016-05-15] MEDS ORDERED: EpHEDrine SULFATE INJ 50 MG/ML AMP IV PRN (07:15)
[2016-05-15] MEDS ORDERED: PHENYLEPHRINE 100MCG/ML 5ML SYR IV PRN (07:15)
[2016-05-15] MEDS ORDERED: OXYC1TAB3 PO (07:15)
[2016-05-15] MEDS ORDERED: LIDOCAINE HCL 2% 2 ML VIAL (20MG/ML) ONE (07:43)
[2016-05-15] MEDS ORDERED: NEOSTIGMINE METHYLSULFATE 5 MG/5 ML SYR ONE (07:43)
[2016-05-15] MEDS ORDERED: ONDANSETRON INJ 2 MG/ML 2 ML VIAL ONE (07:43)
[2016-05-15] MEDS ORDERED: DEXAMETHASONE SOD INJ 4 MG/ML VIAL ONE (07:43)
[2016-05-15] MEDS ORDERED: LARYING-O-JET KIT (LTA) EXT ONE ×2 (07:43)
[2016-05-15] MEDS ORDERED: PROPOFOL IV EMULSION 10 MG/ML 20 ML VIAL IV ONE (07:43)
[2016-05-15] MEDS ORDERED: ROCURONIUM BROMIDE 10 MG/ML 5 ML VIAL ONE (07:43)
[2016-05-15] MEDS ORDERED: GLYCOPYRROLATE INJ 0.2 MG/ML VIAL ONE ×3 (07:43→08:13)
[2016-05-15] MEDS ORDERED: HYDROmorphone INJ 2 MG/ML SYR/VIAL ONE (07:45)
[2016-05-15] MEDS ORDERED: ALBUTEROL HFA INHALER 8.5 GM INH ONE (08:00)
[2016-05-15] MEDS ORDERED: SODIUM CHLORIDE 0.9% 1000ML 1,000 ML IV SCH (08:20)
[2016-05-15] MEDS ORDERED: KETOROLAC TROMETHAMINE 30 MG/ML VIAL IV. PRN (08:30)
[2016-05-15] MEDS ORDERED: IBUPROFEN 600 MG TAB PO PRN (08:30)
[2016-05-15] MEDS ORDERED: HYDROCODONE/ACETAMOPHEN 5/325MG TAB PO PRN ×2 (08:30)
--- NOTE | 2016-05-15 08:32 | [facility] Operative Report ---
Operative Report Operative Date May 15, 2016. Pre-Operative Diagnosis Abdominal wall hernia Post-Operative Diagnosis abdominal adhesions and ventral hernia Procedure(s) Performed laparoscopic enterolysis /repair of ventral hernia with mesh Surgeon Dr. Scott Vazquez Adult Literacy Teacher Surgeon(s) Radha Aguiar PA-C Estimated Blood Loss 10 mL Findings colonic adhesions to anterior abdominal wall... small ventral hernia Specimens No pathology specimens per surgeon Disposition Recovery Room / PACU I attest to the content of the Intraoperative Record and any orders documented therein. Any exceptions are noted below.
[2016-05-15] MEDS ORDERED: ALBUT/IPRATROP 3MG/0.5MG NEB 3 ML VIAL INH STA (08:42)
--- NOTE | 2016-05-15 08:52 | OPERATIVE REPORT ---
DATE OF OPERATION: 05/15/2016 PREOPERATIVE DIAGNOSIS: Abdominal pain and ventral hernia. POSTOPERATIVE DIAGNOSIS: Intra-abdominal adhesions and ventral hernia. PROCEDURE: Laparoscopy with enterolysis, repair of ventral hernia with mesh. SURGEON: Dr. Vazquez. MENTAL HEALTH CLINICIAN: Radha Ahuja PA-C. ESTIMATED BLOOD LOSS: Approximately 10 mL. COMPLICATIONS: No immediate. ANESTHESIA: General. The patient tolerated the procedure well. OPERATION AND FINDINGS: OPERATIVE NOTE: After informed consent was obtained, the patient was taken to the operating suite and placed in supine position. After successful intubation, the abdomen was sterilely prepped and draped in usual fashion. A lower abdominal midline incision was made with an 11 blade scalpel and carried down through the soft tissue using electrocautery. The anterior rectus fascia was opened using electrocautery and two #0 Vicryl stay sutures were placed. Peritoneum was elevated with hemostats and incised under direct vision using a Metzenbaum scissor. A finger sweep was performed. A 12 mm Reid trocar was placed and the abdomen was insufflated to 18 mmHg. Laparoscope was inserted and the abdomen was examined 360 degrees. There were adhesions to the anterior abdominal wall. We were able to place a right mid abdominal 5 mm trocar and a subxiphoid 5 mm trocar. We began by using the Harmonic scalpel to take down the adhesions to the anterior abdominal wall. These did involve colon. We were able to use some blunt dissection and between that and the harmonic we were able to take down all of the abdominal wall adhesions. Once we did this because of fat covering the area I was unable to clearly identify her prior hernia repair. However, there was an obvious probably 2 cm fascial defect in the area of the patient's pain. We used a piece of silicone coated mesh to repair this. We made a small incision over the area of the hernia and placed a fascial closure device through this. We then used a 10 cm mesh, rolled it up and placed it in the abdomen and then unrolled it. It had a suture in the middle of it and we were able to pull this up pulling the mesh up to the anterior abdominal wall with the antiadhesive barrier facing the bowel. We were then able to use a ProTack device to go around the periphery every several centimeters and place tacks. We were eventually able to completely secure the mesh tension free. Once this was done, we looked around the abdomen and saw no other abnormalities or etiology of the patient's pain. We removed all the trocars and desufflated the abdomen. The fascia of the camera port was closed using 0 Vicryl in a [id number] fashion. All the other wounds were irrigated and closed using 4-0 Monocryl. Marcaine was injected around them for postoperative analgesia and skin glue used as a dressing. The patient was awakened, extubated, and transferred to recovery in stable condition. I attest to the content of the Intraoperative Record and any orders documented therein. Any exceptio ns are noted below.
[2016-05-15] MEDS ORDERED: EpINEphrine INJ 1MG/ML AMP 1 MG/ML AMP ONE (08:54)
[2016-05-15] MEDS: HYDROmorphone INJ 2 MG/ML SYR/VIAL IV PRN ×8 (09:05→09:40)
[2016-05-15 09:07] VITALS: PULSE 91; O2SAT 91
[2016-05-15] MEDS ORDERED: NovoLIN-R INSULIN PER UNIT CHARGE ONE (09:14)
--- NOTE | 2016-05-15 10:44 | Anesthesiology Progress Note ---
Anesthesia Post Op Note Date & Time May 15, 2016 at 10:38 Vital Signs Pain Intensity: 4 Vital Signs Past 12 Hours Date Time Temp Pulse Resp B/P Pulse Ox O2 Delivery O2 Flow Rate FiO2 05/15/16 10:06 94 14 05/15/16 10:06 89 14 93 05/15/16 10:04 117/90 05/15/16 10:01 104 16 05/15/16 10:01 107 16 92 05/15/16 09:59 130/80 05/15/16 09:56 104 16 92 05/15/16 09:56 106 16 05/15/16 09:54 131/99 05/15/16 09:51 117 16 90 05/15/16 09:51 114 16 05/15/16 09:49 140/89 05/15/16 09:46 119 22 89 05/15/16 09:46 119 22 05/15/16 09:44 141/88 05/15/16 09:41 105 16 05/15/16 09:41 107 16 92 05/15/16 09:39 114/85 05/15/16 09:36 99 16 05/15/16 09:36 98 16 92 05/15/16 09:35 100 16 05/15/16 09:35 99 16 92 05/15/16 09:34 130/94 05/15/16 09:30 103 16 92 05/15/16 09:30 102 16 05/15/16 09:29 121/86 05/15/16 09:25 107 17 05/15/16 09:25 107 17 93 05/15/16 09:24 137/95 05/15/16 09:20 101 16 05/15/16 09:20 104 16 93 05/15/16 09:19 129/94 05/15/16 09:15 97 16 05/15/16 09:15 97 16 96 05/15/16 09:14 131/97 05/15/16 09:10 101 17 05/15/16 09:10 99 17 96 05/15/16 09:09 135/94 05/15/16 09:07 91 95 91 Diffusion Mask 10.0 05/15/16 09:05 95 16 05/15/16 09:05 95 16 96 05/15/16 09:04 130/103 05/15/16 09:03 103 19 96 05/15/16 09:03 102 19 05/15/16 08:59 143/92 05/15/16 08:58 96 16 94 05/15/16 08:58 95 16 05/15/16 08:54 135/108 05/15/16 08:53 95 18 05/15/16 08:53 94 18 93 05/15/16 08:52 132/99 05/15/16 08:49 135/111 05/15/16 08:48 99 22 05/15/16 08:48 99 22 92 05/15/16 08:43 36.9 96 18 150/106 92 Mask 10 05/15/16 08:43 95 18 05/15/16 08:43 94 18 150/106 90 05/15/16 05:37 36.4 96 20 162/98 98 Room Air Notes Mental Status: alert / awake / arousable, participated in evaluation Pt Amnestic to Procedure: Yes Nausea / Vomiting: adequately controlled Pain: adequately controlled Airway Patency, RR, SpO2: stable & adequate BP & HR: stable & adequate Hydration State: stable & adequate Anesthetic Complications: no major complications apparent The patient emerged from anesthesia in bronchospasm, sp02 86 -88%. She had diffuse expiratory wheezing. A stat duoneb treatment was ordered in the PACU and her sats came up to the mid 90s on 2L. She had a fine petichial rash distal to the blood pressure cuff but nowhere else on her upper body. The BP cuff was switched to the other side.
[2016-05-15 10:55] VITALS: BP 132/75; TEMP 36.9; O2SAT 96
[2016-05-15 11:35] VITALS: BP 162/85; PULSE 99; TEMP 36.9; O2SAT 96
[2016-05-15 12:05] VITALS: BP 169/100; PULSE 101; TEMP 36.9; O2SAT 96
[2016-05-15 12:35] VITALS: BP 173/99; PULSE 95; TEMP 36.9; O2SAT 96
[2016-05-24] MEDS ORDERED: ZCR20 PO (13:28)
== END 2016-05-15 12:45 | disposition home or self-care (01) ==
LOC: C.ACU 05:03
PROVIDERS: ATTEND Surgery
DX: K43.9 Ventral hernia without obstruction or gangrene (principal); K66.0 Peritoneal adhesions (postprocedural) (postinfection); K21.9 Gastro-esophageal reflux disease without esophagitis; J96.00 Acute respiratory failure, unspecified whether with hypoxia or hypercapnia; F41.9 Anxiety disorder, unspecified; M19.90 Unspecified osteoarthritis, unspecified site; E11.9 Type 2 diabetes mellitus without complications; I10 Essential (primary) hypertension

== ENCOUNTER 2016-05-20 16:13 | Inpatient (IN) | payer OTHER ==
[~2016-05-20] VITALS: Ht 157.5 cm; Wt 70.0 kg
[~2016-05-20 16:13] MED LIST changes: -CEFAZOLIN 2000 MG/60 ML D5W IV SCH; -HEPARIN SOD 5000 UNIT/0.5 ML CARP SC SCH; -LACTATED RINGER'S 1000ML 1,000 ML IV SCH
[2016-05-20] MEDS ORDERED: SODIUM CHLORIDE 0.9% 1000ML 1,000 ML IV STA ×2 (17:12)
[2016-05-20] MEDS ORDERED: ONDANSETRON 8 MG/54 ML D5W IV STA (17:15)
[2016-05-20] MEDS: HYDROmorphone INJ 1 MG/ML SYR IV PRN ×3 (18:03→23:20)
[2016-05-20 18:28] LABS: BASO % 0.1 %; BASO ABS # 0.02 K/uL (0-0.2); COMPLETE YES; EOS % 0.6 %; HEMATOCRIT 47.5 % (37-47); IG% 0.4 %; LYMPH % 13.2 %; LYMPH ABS # 2.87 K/uL (1.2-3.4); MEAN CELL VOLUME 90.8 fL (80-100); MEAN CORPUSCULAR HEMOGLOBIN 31.4 pg (25-34); MEAN CORPUSCULAR HGB CONC 34.5 g/dl (32-36); MEAN PLATELET VOLUME 9.6 fL (7.4-10.4); MONO % 6.9 %; NEUT % 78.8 %; PLATELET COUNT 357 K/uL (130-400); RED BLOOD COUNT 5.23 M/uL (4.2-5.4)
[2016-05-20 18:30] LABS: URINE APPEARANCE CLOUDY (CLEAR); URINE BILIRUBIN NEG (NEG); URINE COLOR YELLOW; URINE EPITHELIAL CELL AUTO >30 /lpf (0-5); URINE NITRITE NEG (NEG); URINE SPECIFIC GRAVITY 1.042 (1.000-1.030); UROBILINOGEN NEG (NEG)
[2016-05-20 18:31] LABS: MANUAL MICROSCOPIC REQUIRED? NO; REVIEW REQ? YES
[2016-05-20 18:42] LABS: ZZUR CULT IF INDIC CLEAN CATCH YES
--- NOTE | 2016-05-20 18:44 | DIAGNOSTIC IMAGING REPORT ---
CT SCAN OF THE ABDOMEN AND PELVIS WITHOUT CONTRAST CLINICAL HISTORY: Right lower quadrant abdominal pain and vomiting. Recent hernia repair. COMPARISON STUDY: 03/17/2016 TECHNIQUE: CT scan of the abdomen and pelvis was performed from the lung bases to the proximal femurs. Images are reviewed in the axial, sagittal, and coronal planes. IV contrast was not administered for this examination. CT DOSE: 660.76 mGy.cm FINDINGS: Lower chest: There are minor dependent atelectatic changes. Liver: The unenhanced liver is normal in size, contour, and attenuation. There is no intrahepatic biliary ductal dilatation. Gallbladder: Surgically absent Spleen: Normal in size and attenuation. Pancreas: There is minor nonspecific edema adjacent the pancreatic head and duodenum. A mild duodenitis or pancreatitis cannot be excluded. Correlate with appropriate biochemical markers. Adrenal glands: Unremarkable. Kidneys: The unenhanced kidneys are normal in size without hydronephrosis. There is no contour deforming renal mass lesion. No renal calculi are identified. Bowel: There are no transition zones indicate bowel obstruction. Again evident is a fat-containing umbilical hernia with mild infiltration of the hernia sac. Since the prior study, the patient has undergone ventral mesh repair. The appendix is not visualized with certainty on this study performed without intravenous or oral contrast. There are no pericecal inflammatory changes there is no evidence of acute diverticulitis Peritoneum: There is no intraperitoneal free air or abdominal ascites. Vasculature: The abdominal aorta is normal in course and caliber. Adenopathy: None. Pelvic viscera: The uterus appears surgically absent Skeletal structures: No destructive osseous lesions are seen. IMPRESSION: 1. No renal, ureteral, or bladder calculi identified 2. No evidence of bowel obstruction. No evidence of free air 3. Interval placement of a ventral hernia mesh. There is slight increase in the infiltration of the fat within the complex periumbilical hernia 4. Minor edema adjacent the pancreatic head and duodenum. A mild duodenitis or pancreatitis cannot be excluded. Please correlate with appropriate biochemical markers 5. Nonvisualization of the appendix, but no evidence of acute appendicitis. Electronically signed by: Jesse Somers M.D. 05/20/2016 6:42 PM Dictated Date/Time: 05/20/2016 6:36 PM
[2016-05-20 18:49] LABS: ALT/SGPT 39 U/L (12-78); AST/SGOT 18 U/L (15-37); BLOOD UREA NITROGEN 11 mg/dl (7-18); BUN/CREATININE RATIO 12.7 (10-20); CALCIUM 10.8 mg/dl (8.5-10.1); CARBON DIOXIDE 11 mmol/L (21-32); CHLORIDE 107 mmol/L (98-107); CREATININE 0.83 mg/dl (0.60-1.20); GLUCOSE 240 mg/dl (70-99); SODIUM 134 mmol/L (136-145)
[2016-05-20 18:51] LABS: ALKALINE PHOSPHATASE 221 U/L (45-117)
[2016-05-20 19:25] LABS: PREG INTERNAL NEGATIVE QC NEG CLEAR BACKGROUND; PREG INTERNAL POSITIVE QC POS CONTROL LINE
[2016-05-20] MEDS ORDERED: POLYETHYLENE (MIRALAX) 17 GM PACK PO PRN (19:45)
[2016-05-20] MEDS ORDERED: ZOLPIDEM TARTRATE 5 MG TAB PO PRN (19:45)
[2016-05-20] MEDS ORDERED: MAGNESIUM HYDROXIDE SUSP 30 ML UDC PO PRN (19:45)
[2016-05-20] MEDS ORDERED: ALUMINUM/MAGNESIUM/SIMETH (MAALOX MAX) 30 ML UDC PO PRN (19:45)
[2016-05-20] MEDS ORDERED: PROMETHAZINE HCL INJ 25 MG in SODIUM CHLORIDE 0.9% 50ML 50 ML IV STA (19:50)
[2016-05-20] MEDS ORDERED: FLUTICASONE HFA 110MCG INHALER INH PRN (20:00)
[2016-05-20] MEDS ORDERED: PANTOprazole SOD 40 MG TAB PO PRN (20:00)
[2016-05-20] MEDS ORDERED: IPRATROPIUM BROMIDE/ALBUTEROL respimat INH INH PRN (20:00)
--- NOTE | 2016-05-20 20:07 | History and Physical ---
History & Physical Date & Time of Service: May 20, 2016 at 19:55 Chief Complaint: Vomiting, A Lot Of Pain- S/P Surgery On Primary Care Physician: Victoriano Goins M.D. History of Present Illness Source: patient 41 y/o F w/Hx IDDM, HTN, tobacco abuse - recent hernia repair 5 days prior and recent admission for angioedema related to lisinopril use. Pt presents with abdominal pain which started 3 days prior. It is described as right/central, persistent and severe. She is nauseous but denies vomiting. She has not had fevers/rigors or diarrhea. Past Medical/Surgical History Medical Problems: (1) Diabetes Status: Chronic (2) DKA (diabetic ketoacidoses) Status: Resolved (3) GERD (gastroesophageal reflux disease) Status: Chronic (4) Supraglottic edema Status: Resolved Surgical Problems: (1) H/O tubal ligation Status: Chronic (2) History of cholecystectomy Status: Resolved (3) Hx of cholecystectomy Status: Chronic (4) Tubal ligation status Status: Resolved Family History Hypertension Social History Smoking Status: Current Every Day Smoker Drug Use: none Marital Status: Housing status: lives with family Occupational Status: employed Multi-Drug Resistant Organisms History of MDRO: No Allergies Coded Allergies: Lisinopril (Verified Allergy, Severe, ANAPHYLAXIS, 05/20/16) ANGIOEDEMA Morphine (Verified Allergy, Mild, VOMIT/ITCHY, 05/20/16) Iodinated Diagnostic Agents (Verified Adverse Reaction, Mild, VOMITING, ) Home Medications Scheduled Dicyclomine Hcl (Dicyclomine Hcl), 10 MG PO TID Insulin Glargine (Lantus), 20 SC QAM Insulin Glulisine (Apidra Solostar), 1 DOSE SQ UD Scheduled PRN Acetaminophen (Tylenol), 650 MG PO Q4H PRN for Pain Fluticasone Propionate (Flovent Hfa), 1 PUFF INH BID PRN for Shortness of Breath Ipratropium-Albuterol (Combivent Respimat), 1 PUFF INH QID PRN for Cough or Wheeze Omeprazole (Prilosec), 20 MG PO DAILY PRN for Acid Reflux Oxycodone Ir (Roxicodone Ir), 10 MG PO Q6H PRN for Pain Review of Systems Constitutional: No fever, No sweats Eyes: No eye pain, No worsening of vision ENT: No hearing loss, No nasal symptoms, No unusual epistaxis Respiratory: No cough, No sputum, No wheezing Cardiovascular: No PND, No chest pain, No orthopnea Abdomen: + nausea, + pain, No constipation, No diarrhea Musculoskeletal: No joint pain, No muscle pain Genitourinary - Female: No dysuria, No urinary frequency, No urinary urgency Neurologic: No memory loss, No paralysis, No weakness Psychiatric: No anhedonism, No depression symptoms Endocrine: No excessive thirst, No fatigue Hematologic / Lymphatic: No abnormal bleeding/bruising, No clotting problems Integumentary: No itch, No rash Allergic / Immunologic: No environmental allergies Physical Exam Vital Signs Date Time Temp Pulse Resp B/P Pulse Ox O2 Delivery O2 Flow Rate FiO2 05/20/16 19:11 111 16 115/90 96 Room Air 05/20/16 18:07 118 05/20/16 16:18 36.3 124 22 130/78 97 Room Air General Appearance: WD/WN, no apparent distress Head: normocephalic, atraumatic Eyes: normal inspection, PERRL, EOMI ENT: normal ENT inspection, hearing grossly normal, TMs normal, pharynx normal Neck: supple, no adenopathy, thyroid normal, no JVD Respiratory/Chest: chest non-tender, lungs clear, normal breath sounds, no respiratory distress, no accessory muscle use Cardiovascular: regular rate, rhythm, no edema, no gallop Abdomen/GI: normal bowel sounds, soft, + tenderness, + pertinent finding ( Evidence of laparospcopic surgery - 4 well-healing areas of entry into the abd - no induration or exudates) Back: normal inspection, no CVA tenderness Extremities/Musculoskelatal: normal inspection, no calf tenderness, normal capillary refill 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, no motor/sensory deficits, alert, normal mood/affect, normal reflexes, oriented x 3 Skin: normal color, warm/dry, no rash Diagnostics Laboratory Results Results Past 24 Hours Test 05/20/16 18:10 05/20/16 18:59 05/20/16 19:54 Range/Units White Blood Count 21.70 4.8-10.8 K/uL Red Blood Count 5.23 4.2-5.4 M/uL Hemoglobin 16.4 12.0-16.0 g/dL Hematocrit 47.5 37-47 % Mean Corpuscular Volume 90.8 80-100 fL Mean Corpuscular Hemoglobin 31.4 25-34 pg Mean Corpuscular Hemoglobin Concent 34.5 32-36 g/dl Platelet Count 357 130-400 K/uL Mean Platelet Volume 9.6 7.4-10.4 fL Neutrophils (%) (Auto) 78.8 % Lymphocytes (%) (Auto) 13.2 % Monocytes (%) (Auto) 6.9 % Eosinophils (%) (Auto) 0.6 % Basophils (%) (Auto) 0.1 % Neutrophils # (Auto) 17.11 1.4-6.5 K/uL Lymphocytes # (Auto) 2.87 1.2-3.4 K/uL Monocytes # (Auto) 1.49 0.11-0.59 K/uL Eosinophils # (Auto) 0.12 0-0.5 K/uL Basophils # (Auto) 0.02 0-0.2 K/uL RDW Standard Deviation 50.2 36.4-46.3 fL RDW Coefficient of Variation 15.1 11.5-14.5 % Immature Granulocyte % (Auto) 0.4 % Immature Granulocyte # (Auto) 0.09 0.00-0.02 K/uL Urine Color YELLOW Urine Appearance CLOUDY CLEAR Urine pH 5.0 4.5-7.5 Urine Specific Orient 1.042 1.000-1.030 Urine Protein 2+ NEG Urine Glucose (UA) NEG NEG Urine Ketones NEG NEG Urine Occult Blood NEG NEG Urine Nitrite NEG NEG Urine Bilirubin NEG NEG Urine Urobilinogen NEG NEG Urine Leukocyte Esterase NEG NEG Urine WBC (Auto) 1-5 0-5 /hpf Urine RBC (Auto) 0-4 0-4 /hpf Urine Hyaline Casts (Auto) >30 0-5 /lpf Urine Epithelial Cells (Auto) >30 0-5 /lpf Urine Bacteria (Auto) 1+ NEG Urine Renal Epithelial Cells 0-5 /lpf Urine Pathogenic Casts 10-20 GRANULAR CASTS 0 /lpf Sodium Level 134 136-145 mmol/L Potassium Level 4.0 3.5-5.1 mmol/L Chloride Level 107 98-107 mmol/L Carbon Dioxide Level 11 21-32 mmol/L Anion Gap 16.0 3-11 mmol/L Blood Urea Nitrogen 11 7-18 mg/dl Creatinine 0.83 0.60-1.20 mg/dl Est Creatinine Clear Calc Drug Dose 80.9 ml/min Estimated GFR () 100.8 Estimated GFR (Non- 87.0 BUN/Creatinine Ratio 12.7 10-20 Random Glucose 240 70-99 mg/dl Calcium Level 10.8 8.5-10.1 mg/dl Total Bilirubin 0.5 0.2-1 mg/dl Direct Bilirubin < 0.1 0-0.2 mg/dl Aspartate Amino Transf (AST/SGOT) 18 15-37 U/L Alanine Aminotransferase (ALT/SGPT) 39 12-78 U/L Alkaline Phosphatase 221 45-117 U/L Total Protein 8.9 6.4-8.2 gm/dl Albumin 4.2 3.4-5.0 gm/dl Lipase 5822 73-393 U/L Human Chorionic Gonadotropin, Qual NEG NEG Microbiology Results 05/20/16 Urine Culture, Received Pending Diagnostic Radiology IMPRESSION: 1. No renal, ureteral, or bladder calculi identified 2. No evidence of bowel obstruction. No evidence of free air 3. Interval placement of a ventral hernia mesh. There is slight increase in the infiltration of the fat within the complex periumbilical hernia 4. Minor edema adjacent to the pancreatic head and duodenum. A mild duodenitis or pancreatitis cannot be excluded. Please correlate with appropriate biochemical markers 5. Nonvisualization of the appendix, but no evidence of acute appendicitis. Impression Assessment and Plan 41 y/o F w/Hx IDDM, HTN, tobacco abuse - recent hernia repair 5 days prior and recent admission for angioedema related to lisinopril use. Pt presents with abdominal pain which started 3 days prior. It is described as right/central, persistent and severe. She is nauseous but denies vomiting. She has not had fevers/rigors or diarrhea. She had phoned her primary MD 3 days ago and was prescribed Zofran and Oxycodone which have not lead to significant improvement. 1) Pancreatitis - Pt will be kept NPO and provided with aggressive IV hydration. There may be a component of post-op pain to her current complaint however it appears to have set in 2 days following surgery and initial lipase is markedly elevated. We will check a triglyceride level as she is diabetic. Dilaudid provided for pain control in addition to antiemetics as needed. Surgical wounds show no evidence of dehiscence or infection. 2) DM - Pt has hyperglycemia and an anion gap - she does have a history of DKA. A VBG is pending to determine if there is a degree of DKA - pending results she has been placed on aggressive IVF and a sliding scale with AM Lantus per her home dose. 3) Pt advised on smoking cessation several times Full code - Heparin prophylaxis Total time for this admit including review of recent records, labs, med rec, imaging - discussion with ER MD and pt - 37 min Level of Care Med/Surg Resuscitation Status FULL RESUSCITATION VTE Prophylaxis VTE Risk Assessment Done? Y/N: Yes Risk Level: Low Given or contraindicated: Unfractionated heparin SQ
[2016-05-20] MEDS ORDERED: INSULIN ASPART 100 UNITS/ML 3 ML PEN SC SCH (21:00)
[2016-05-20 21:03] LABS: VEN BLD GAS O2 SATURATION 76.4 %; VEN BLOOD GAS BASE EXCESS -14.1 mmol/L
--- NOTE | 2016-05-20 21:14 | EMERGENCY ROOM VISIT NOTE ---
History Report prepared by Adam: Anna Hoffman Under the Supervision of: Dr. Bart De Oliveira M.D. First contact with patient: 17:12 Chief Complaint: VOMITING Stated Complaint: VOMITING, A LOT OF PAIN- S/P SURGERY ON THURSDAY Nursing Triage Summary: pt reports abd surgery on Thursday, Hernia repair, mesh placed. Pt reports worsening pain to right side, +n/v x 3days. Unable to keep medicine down History of Present Illness The patient is a 41 year old female who presents to the Emergency Room with complaints of persistent right sided abdominal pain that began . She currently rates her discomfort as an 8/10 in severity. The patient notes that on she had a hernia repair done. She states that she has been taking 5 mg oxycodone and Zofran for her symptoms. The patient additionally associates nausea and vomiting with her symptoms today. She additionally notes a surgical history of a previous hernia repair and a cholecystectomy. The patient states that she consulted her surgeon regarding her symptoms. Pt denies LOC, headache, fevers, chills, diaphoresis, visual changes, neck pain, chest pain, breathing difficulties, back pain, melena, hematochezia, urinary symptoms, numbness, weakness, lymphadenopathy, rash, or other complaints. Source of History: patient Onset: Position: abdomen (right sided) Symptom Intensity: 8/10 Timing: other (persistent) Associated Symptoms: + nausea, + vomiting Review of Systems See HPI for pertinent positives and negatives. A total of ten systems were reviewed and were otherwise negative. Past Medical & Surgical Medical Problems: (1) Abdominal wall hernia (2) Acute respiratory failure (3) Diabetes (4) DKA (diabetic ketoacidoses) (5) Dysphagia (6) GERD (gastroesophageal reflux disease) (7) Hyperglycemia (8) Pancreatitis, acute (9) Right lower quadrant abdominal abscess (10) RUQ pain (11) Shortness of breath (12) Supraglottic edema (13) Yeast dermatitis of penis Surgical Problems: (1) H/O tubal ligation (2) History of cholecystectomy (3) Hx of cholecystectomy (4) Tubal ligation status Family History Hypertension Social History Smoking Status: Current Every Day Smoker Alcohol Use: none Drug Use: none Marital Status: Housing Status: lives with family Occupation Status: employed Current/Historical Medications Scheduled Dicyclomine Hcl (Dicyclomine Hcl), 10 MG PO TID Insulin Glargine (Lantus), 20 SC QAM Insulin Glulisine (Apidra Solostar), 1 DOSE SQ UD Scheduled PRN Acetaminophen (Tylenol), 650 MG PO Q4H PRN for Pain Fluticasone Propionate (Flovent Hfa), 1 PUFF INH BID PRN for Shortness of Breath Ipratropium-Albuterol (Combivent Respimat), 1 PUFF INH QID PRN for Cough or Wheeze Omeprazole (Prilosec), 20 MG PO DAILY PRN for Acid Reflux Oxycodone Ir (Roxicodone Ir), 10 MG PO Q6H PRN for Pain Allergies Coded Allergies: Lisinopril (Verified Allergy, Severe, ANAPHYLAXIS, 05/20/16) ANGIOEDEMA Morphine (Verified Allergy, Mild, VOMIT/ITCHY, 05/20/16) Iodinated Diagnostic Agents (Verified Adverse Reaction, Mild, VOMITING, ) Physical Exam Vital Signs Date Time Temp Pulse Resp B/P Pulse Ox O2 Delivery O2 Flow Rate FiO2 05/20/16 20:11 113 20 157/106 99 Room Air 05/20/16 19:11 111 16 115/90 96 Room Air 05/20/16 18:07 118 05/20/16 16:18 36.3 124 22 130/78 97 Room Air Physical Exam GENERAL: Awake, alert, uncomfortable. HENT: Normocephalic, atraumatic. Oropharynx unremarkable. EYES: Normal conjunctiva. Sclera non-icteric. NECK: Supple. No nuchal rigidity. FROM. No JVD. RESPIRATORY: Clear to auscultation. CARDIAC: Tachycardic rate, normal rhythm. Extremities warm and well perfused. Pulses equal. ABDOMEN: Right lower abdominal tenderness. Incisions are clean dry and intact. Soft, non-distended. No rebound or guarding. No masses. RECTAL: Deferred. MUSCULOSKELETAL: Chest examination reveals no tenderness. The back is symmetrical on inspection without obvious abnormality. There is no CVA tenderness to palpation. No joint edema. LOWER EXTREMITIES: Calves are equal size bilaterally and non-tender. No edema. No discoloration. NEURO: Normal sensorium. No sensory or motor deficits noted. SKIN: No rash or jaundice noted. Medical Decision & Procedures ER Provider Diagnostic Interpretation: CT: Radiology results as stated below per my review and radiologist interpretation CT SCAN OF THE ABDOMEN AND PELVIS WITHOUT CONTRAST CLINICAL HISTORY: Right lower quadrant abdominal pain and vomiting. Recent hernia repair. COMPARISON STUDY: 03/17/2016 TECHNIQUE: CT scan of the abdomen and pelvis was performed from the lung bases to the proximal femurs. Images are reviewed in the axial, sagittal, and coronal planes. IV contrast was not administered for this examination. CT DOSE: 660.76 mGy.cm FINDINGS: Lower chest: There are minor dependent atelectatic changes. Liver: The unenhanced liver is normal in size, contour, and attenuation. There is no intrahepatic biliary ductal dilatation. Gallbladder: Surgically absent Spleen: Normal in size and attenuation. Pancreas: There is minor nonspecific edema adjacent the pancreatic head and duodenum. A mild duodenitis or pancreatitis cannot be excluded. Correlate with appropriate biochemical markers. Adrenal glands: Unremarkable. Kidneys: The unenhanced kidneys are normal in size without hydronephrosis. There is no contour deforming renal mass lesion. No renal calculi are identified. Bowel: There are no transition zones indicate bowel obstruction. Again evident is a fat-containing umbilical hernia with mild infiltration of the hernia sac. Since the prior study, the patient has undergone ventral mesh repair. The appendix is not visualized with certainty on this study performed without intravenous or oral contrast. There are no pericecal inflammatory changes there is no evidence of acute diverticulitis Peritoneum: There is no intraperitoneal free air or abdominal ascites. Vasculature: The abdominal aorta is normal in course and caliber. Adenopathy: None. Pelvic viscera: The uterus appears surgically absent Skeletal structures: No destructive osseous lesions are seen. IMPRESSION: 1. No renal, ureteral, or bladder calculi identified 2. No evidence of bowel obstruction. No evidence of free air 3. Interval placement of a ventral hernia mesh. There is slight increase in the infiltration of the fat within the complex periumbilical hernia 4. Minor edema adjacent the pancreatic head and duodenum. A mild duodenitis or pancreatitis cannot be excluded. Please correlate with appropriate biochemical markers 5. Nonvisualization of the appendix, but no evidence of acute appendicitis. Electronically signed by: Jesse Somers M.D. 05/20/2016 6:42 PM Dictated Date/Time: 05/20/2016 6:36 PM Laboratory Results 05/20/16 18:10 Red Blood Count 5.23, Mean Corpuscular Volume 90.8, Mean Corpuscular Hemoglobin 31.4, Mean Corpuscular Hemoglobin Concent 34.5, Mean Platelet Volume 9.6, Neutrophils (%) (Auto) 78.8, Lymphocytes (%) (Auto) 13.2, Monocytes (%) (Auto) 6.9, Eosinophils (%) (Auto) 0.6, Basophils (%) (Auto) 0.1, Neutrophils # (Auto) 17.11, Lymphocytes # (Auto) 2.87, Monocytes # (Auto) 1.49, Eosinophils # (Auto) 0.12, Basophils # (Auto) 0.02 05/20/16 18:10 Test 05/20/16 18:10 05/20/16 18:59 05/20/16 20:42 White Blood Count 21.70 K/uL (4.8-10.8) Red Blood Count 5.23 M/uL (4.2-5.4) Hemoglobin 16.4 g/dL (12.0-16.0) Hematocrit 47.5 % (37-47) Mean Corpuscular Volume 90.8 fL (80-100) Mean Corpuscular Hemoglobin 31.4 pg (25-34) Mean Corpuscular Hemoglobin Concent 34.5 g/dl (32-36) Platelet Count 357 K/uL (130-400) Mean Platelet Volume 9.6 fL (7.4-10.4) Neutrophils (%) (Auto) 78.8 % Lymphocytes (%) (Auto) 13.2 % Monocytes (%) (Auto) 6.9 % Eosinophils (%) (Auto) 0.6 % Basophils (%) (Auto) 0.1 % Neutrophils # (Auto) 17.11 K/uL (1.4-6.5) Lymphocytes # (Auto) 2.87 K/uL (1.2-3.4) Monocytes # (Auto) 1.49 K/uL (0.11-0.59) Eosinophils # (Auto) 0.12 K/uL (0-0.5) Basophils # (Auto) 0.02 K/uL (0-0.2) RDW Standard Deviation 50.2 fL (36.4-46.3) RDW Coefficient of Variation 15.1 % (11.5-14.5) Immature Granulocyte % (Auto) 0.4 % Immature Granulocyte # (Auto) 0.09 K/uL (0.00-0.02) Urine Color YELLOW Urine Appearance CLOUDY (CLEAR) Urine pH 5.0 (4.5-7.5) Urine Specific [place] 1.042 (1.000-1.030) Urine Protein 2+ (NEG) Urine Glucose (UA) NEG (NEG) Urine Ketones NEG (NEG) Urine Occult Blood NEG (NEG) Urine Nitrite NEG (NEG) Urine Bilirubin NEG (NEG) Urine Urobilinogen NEG (NEG) Urine Leukocyte Esterase NEG (NEG) Urine WBC (Auto) 1-5 /hpf (0-5) Urine RBC (Auto) 0-4 /hpf (0-4) Urine Hyaline Casts (Auto) >30 /lpf (0-5) Urine Epithelial Cells (Auto) >30 /lpf (0-5) Urine Bacteria (Auto) 1+ (NEG) Urine Renal Epithelial Cells /lpf (0-5) Urine Pathogenic Casts 10-20 GRANULAR CASTS /lpf (0) Anion Gap 16.0 mmol/L (3-11) Est Creatinine Clear Calc Drug Dose 80.9 ml/min Estimated GFR () 100.8 Estimated GFR (Non- 87.0 BUN/Creatinine Ratio 12.7 (10-20) Calcium Level 10.8 mg/dl (8.5-10.1) Total Bilirubin 0.5 mg/dl (0.2-1) Direct Bilirubin < 0.1 mg/dl (0-0.2) Aspartate Amino Transf (AST/SGOT) 18 U/L (15-37) Alanine Aminotransferase (ALT/SGPT) 39 U/L (12-78) Alkaline Phosphatase 221 U/L (45-117) Total Protein 8.9 gm/dl (6.4-8.2) Albumin 4.2 gm/dl (3.4-5.0) Triglycerides Level 872 mg/dl (0-150) Lipase 5822 U/L (73-393) Human Chorionic Gonadotropin, Qual NEG (NEG) Laboratory results reviewed by me Medications Administered Medications (Trade) Dose Ordered Sig/Jimbo Route Start Time Stop Time Status Last Admin Dose Admin Sodium Chloride (Nss 1000ml) 1,000 ml @ 999 mls/hr Q1H1M STAT IV 05/20/16 17:12 05/20/16 18:12 DC 05/20/16 18:03 999 MLS/HR Ondansetron HCl (Zofran 8mg Iv) 8 mg NOW STAT IV 05/20/16 17:15 05/20/16 17:18 DC 05/20/16 18:03 8 MG Hydromorphone HCl 1 mg 1 mg Q15M PRN IV 05/20/16 17:15 06/03/16 17:14 05/20/16 20:09 1 MG Promethazine HCl/ Sodium Chloride (Phenergan Inj/ Nss 50ml) 51 ml @ 204 mls/hr NOW STAT IV 05/20/16 19:50 05/20/16 20:04 DC 05/20/16 20:08 204 MLS/HR ED Course 1711: Ordered Sodium Chloride 1000 ml @ 200 mls/hr IV, Sodium Chloride 1000 ml @ 999 mls/hr IV. 1713: The patient was evaluated in room A2. A complete history and physical exam was performed. 1714: Ordered Dilaudid Inj 1 mg IV, Zofran 8 mg IV. 0: I reevaluated the patient and she is resting. I discussed the exam findings with her and I discussed the treatment plan. She verbalized complete understanding and agreement. She is going to be evaluated for further treatment. 1941: I discussed the patients case with Dr. Echeverria [facility]. He is going to evaluate the patient for further treatment. Medical Decision Triage Nursing notes reviewed. The patient's presentation and history were concerning for nausea and abdominal pain. Etiologies such as postoperative pain, appendicitis, diverticulitis, obstruction, inflammatory bowel disease, renal colic, PUD, biliary pathology, pancreatitis, mesenteric ischemia, aortic pathology, infections, genitourinary, UTI, perforated viscus, as well as others were entertained. The patient was evaluated. She was uncomfortable. She was treated with normal saline, Zofran, and Dilaudid. She was feeling better with this. Imaging was obtained. Physical changes noted. Concerns for pancreatitis are noted. Patient had a significant leukocytosis on CBC. Lipase was markedly elevated as well. It appears the patient pancreatitis. Urinalysis did not show any significant abnormalities. Chemistry panel is otherwise unremarkable. The patient has more nausea and was given IV Phenergan. A consultation was made with internal medicine. The patient was evaluated in the Emergency Room for further treatment. The chart was completed utilizing [employer] Speech voice recognition software. Grammatical errors, random word insertions, pronoun errors, and incomplete sentences are an occasional consequence of this system due to software limitations, ambient noise, and hardware issues. Any formal questions or concerns about the content, text, or information contained within the body of this dictation should be directly addressed to the physician for clarification. Consults Time Called: 1922 Consulting Physician: MALLORIE Escobar Returned Call: 1941 I discussed the patients case with MALLORIE Escobar. He is going to evaluate the patient for further treatment. Impression Primary Impression: Pancreatitis Additional Impression: Nausea & vomiting Scribe Attestation The scribe's documentation has been prepared under my direction and personally reviewed by me in its entirety. I confirm that the note above accurately reflects all work, treatment, procedures, and medical decision making performed by me. Departure Information Dispostion Being Evaluated By Hospitalist Referrals Victoriano Goins M.D. (PCP) Problem Qualifiers
[2016-05-20 22:50] VITALS: BP 139/90; PULSE 100; TEMP 36.8; O2SAT 100
[2016-05-20] MEDS ORDERED: GLUCOSE 10 TABS/TUBE PO PRN (23:00)
[2016-05-20] MEDS ORDERED: GLUCOSE 40% GEL 15 GM TUBE PO PRN (23:00)
[2016-05-20] MEDS ORDERED: DEXTROSE 50% 50 ML SYR IV PRN (23:00)
[2016-05-20] MEDS ORDERED: GLUCAGON FOR INJ 1 MG VIAL SQ PRN (23:00)
[2016-05-20] MEDS: SODIUM CHLORIDE 0.9% 1000ML 1,000 ML IV SCH (23:16)
[2016-05-20] MEDS: ONDANSETRON INJ 2 MG/ML 2 ML VIAL IV PRN (23:20)
[2016-05-20 23:58] VITALS: BP 139/90; PULSE 100; TEMP 36.8; O2SAT 99; Ht 157.5 cm; Wt 70.0 kg
[2016-05-21] VITALS (12 sets, daily range): BP systolic 107–154; BP diastolic 69–96; PULSE 99–116; TEMP 36.6–37.2; O2SAT 95–98
[2016-05-21] MEDS: HYDROmorphone INJ 1 MG/ML SYR IV PRN ×7 (02:30→22:19)
[2016-05-21 03:18] LABS: HEMATOCRIT 39.5 % (37-47); MEAN CELL VOLUME 92.9 fL (80-100); MEAN CORPUSCULAR HGB CONC 34.4 g/dl (32-36); MEAN PLATELET VOLUME 9.5 fL (7.4-10.4); PLATELET COUNT 285 K/uL (130-400); RED BLOOD COUNT 4.25 M/uL (4.2-5.4)
[2016-05-21 03:21] LABS: VEN BLD GAS O2 SATURATION 90.2 %; VEN BLOOD GAS BASE EXCESS -13.3 mmol/L; VENOUS BLOOD GAS PCO2 22 mmHg (38.0-50.0); VENOUS BLOOD GAS PO2 62 mmHg
[2016-05-21 03:42] LABS: BETA-HYDROXYBUTYRATE 3.62 mg/dL (0.2-2.81); BUN/CREATININE RATIO 16.2 (10-20); CALCIUM 9.5 mg/dl (8.5-10.1); CREATININE 0.5 mg/dl (0.60-1.20); MAGNESIUM 1.5 mg/dl (1.8-2.4); PHOSPHORUS 2.3 mg/dl (2.5-4.9); POTASSIUM 3.8 mmol/L (3.5-5.1)
[2016-05-21] MEDS ORDERED: D5W AND 1/2NSS + 20MEQ KCL 1,000 ML IV SCH (05:30)
[2016-05-21] MEDS ORDERED: INSULIN IV INFUSION PROTOCOL SCH (05:40)
[2016-05-21] MEDS ORDERED: MODERATE STRESS LEVEL STA (05:41)
[2016-05-21] MEDS: ONDANSETRON INJ 2 MG/ML 2 ML VIAL IV PRN ×3 (05:42→22:18)
[2016-05-21] MEDS ORDERED: DKA GOAL RANGE 150-250 mg/dl 1 EA STA (05:43)
[2016-05-21] MEDS: SODIUM CHLORIDE 0.9% 1000ML 1,000 ML IV SCH (05:47)
[2016-05-21] MEDS: HEPARIN SOD 5000 UNIT/0.5 ML CARP SQ SCH ×3 (05:49→22:10)
[2016-05-21] MEDS ORDERED: INSULIN PROTOCOL GOAL RANGE STA (05:59)
[2016-05-21] MEDS ORDERED: INSULIN HUMAN REGULAR IV BOLUS 2 UNIT in SYRINGE 0 ML IV SCH (07:30)
[2016-05-21] MEDS: ACETAMINOPHEN 325 MG TAB PO PRN (07:57)
[2016-05-21] MEDS ORDERED: INSULIN GLARGINE SOLOSTAR 100 UNITS/ML 3 ML PEN SC SCH (08:00)
[2016-05-21] MEDS: INSULIN REGULAR 250 UNITS in SODIUM CHLORIDE 0.9% 250ML 250 ML IV SCH ×5 (08:16→11:56)
[2016-05-21] MEDS: INSULIN ASPART 100 UNITS/ML 3 ML PEN SC SCH ×4 (09:00→21:00)
[2016-05-21] MEDS ORDERED: INSULIN ASPART 100 UNITS/ML 3 ML PEN SC SCH ×2 (09:00)
[2016-05-21] MEDS ORDERED: MAGNESIUM SULFATE 1GM / D5W 1 GM in PREMIXED IN D5W 100 ML IV ONE (09:00)
[2016-05-21] MEDS: D5W AND 1/2NSS + 20MEQ KCL 1,000 ML IV SCH ×3 (09:38→22:31)
--- NOTE | 2016-05-21 09:49 | Progress Note ---
Subjective Date of Service: May 21, 2016. (Tia Gordillo PA-C) Subjective Pt evaluation today including: conversation w/ patient, physical exam, chart review, lab review, review of studies, review of inpatient medication list Patient seen and evaluated. Admitted overnight due to abdominal pain which imaging reveals mild pancreatitis with elevated lipase. Continues to complain of periumbilical abdominal pain with radiation to RLQ with evidence of rebound tenderness. Patient reports she still has her appendix and CT unable to visualize but no other evidence of appendicitis. No acute abdomen. Anion gap continues at 15. Repeat labs drawn. BSG improved to 136. (Tia Gordillo PA-C) Problem List Medical Problems: (1) Abdominal pain Status: Acute (2) Abdominal pain Status: Acute (3) Angioedema Status: Acute (4) Back strain Status: Acute (5) Central abdominal pain Status: Acute (6) Central abdominal pain Status: Acute (7) Encounter for medication refill Status: Acute (8) Generalized abdominal pain Status: Acute (9) Low back pain Status: Acute (10) Metabolic acidosis Status: Acute (11) Metabolic acidosis Status: Acute (12) Metabolic acidosis Status: Acute (13) Nausea & vomiting Status: Acute (14) Otitis externa Status: Acute (15) Pancreatitis Status: Acute (16) Respiratory failure Status: Acute (17) Right flank pain Status: Acute (18) Right sided abdominal pain Status: Acute (19) Supraglottic edema Status: Acute (20) UTI (urinary tract infection) Status: Acute (21) Viral URI with cough Status: Acute (Tia Gordillo PA-C) Review of Systems Constitutional: No chills, No fever Respiratory: + cough, No shortness of breath Cardiac: No chest pain Abdomen: + nausea, + pain (periumbilical and RLQ), No vomiting Female : No dysuria Endo: No fatigue Skin: No rash (Tia Gordillo PA-C) Medications Current Inpatient Medications Medications (Trade) Dose Ordered Sig/Jimbo Route Start Time Stop Time Status Last Admin Dose Admin Hydromorphone HCl (Dilaudid Inj) 1 mg Q3H PRN IV 05/20/16 19:45 06/03/16 19:44 05/21/16 11:28 1 MG Heparin Sodium (Porcine) (Heparin Sq 5000 Unit/0.5ml) 5,000 unit Q8H SQ 05/21/16 06:00 06/20/16 05:59 05/21/16 05:49 5,000 UNIT Acetaminophen (Tylenol Tab) 650 mg Q4H PRN PO 05/20/16 19:45 06/19/16 19:44 05/21/16 07:57 650 MG Al Hydrox/Mg Hydrox/Simethicone (Maalox Max Susp) 15 ml Q4H PRN PO 05/20/16 19:45 06/19/16 19:44 Magnesium Hydroxide (Milk Of Magnesia Susp) 30 ml Q6H PRN PO 05/20/16 19:45 06/19/16 19:44 Polyethylene (Miralax Powder Packet) 17 gm DAILY PRN PO 05/20/16 19:45 06/19/16 19:44 Zolpidem Tartrate (Ambien Tab) 5 mg HSZ PRN PO 05/20/16 19:45 06/19/16 19:44 Ondansetron HCl (Zofran Inj) 4 mg Q6H PRN IV 05/20/16 19:45 06/19/16 19:44 05/21/16 05:42 4 MG Fluticasone Propionate (Flovent Hfa 110MCG Inhaler) 1 puffs BID PRN INH 05/20/16 20:00 06/19/16 19:59 Albuterol/ Ipratropium (Combivent Respimat Inh) 2 puffs QID PRN INH 05/20/16 20:00 06/19/16 19:59 Pantoprazole Sodium (Protonix Tab) 40 mg DAILY PRN PO 05/20/16 20:00 06/19/16 19:59 Glucose (Glucose 40% Gel) 15-30 GRAMS 15 GRAMS... UD PRN PO 05/20/16 23:00 06/19/16 22:59 Glucose (Glucose Chew Tab) 4-8 Tablets 4 Tabl... UD PRN PO 05/20/16 23:00 06/19/16 22:59 Dextrose (Dextrose 50% 50ML Syringe) 25-50ML OF 50% DW IV FOR... UD PRN IV 05/20/16 23:00 06/19/16 22:59 Glucagon 1 mg 1 mg UD PRN SQ 05/20/16 23:00 06/19/16 22:59 Insulin Human Regular/Sodium Chloride (novoLIN-R/Nss 250ml) 252.5 ml @ 0 mls/hr DAILY@1130 IV 05/21/16 07:30 06/20/16 07:29 05/21/16 11:05 1.3 MLS/HR Insulin Aspart (novoLOG ASPART) SLIDING SCALE PCHS SC 05/21/16 09:00 06/20/16 08:59 Miscellaneous Information 1 ea 1 ea Q2H N/A 05/21/16 07:30 06/20/16 07:29 Potassium Chloride/Dextrose/ Sod Cl (D5W And 1/2nss + 20meq KCl) 1,000 ml @ 150 mls/hr Q6H40M IV 05/21/16 09:00 06/20/16 08:59 05/21/16 09:38 150 MLS/HR (Tia Gordillo PA-C) Objective Vital Signs Date Time Temp Pulse Resp B/P Pulse Ox O2 Delivery O2 Flow Rate FiO2 05/21/16 07:30 37.2 116 22 110/79 96 Room Air 05/21/16 00:30 Room Air 05/20/16 23:58 36.8 100 16 139/90 99 Room Air 05/20/16 22:50 36.8 100 16 139/90 100 Room Air 05/20/16 22:19 111 18 134/94 98 Room Air 05/20/16 21:16 111 20 133/99 97 Room Air 05/20/16 20:11 113 20 157/106 99 Room Air 05/20/16 19:11 111 16 115/90 96 Room Air 05/20/16 18:07 118 05/20/16 16:18 36.3 124 22 130/78 97 Room Air (Tia Gordillo PA-C) Physical Exam General Appearance: WD/WN, no apparent distress Eyes: sclerae normal ENT: hearing grossly normal Neck: supple, no JVD, trachea midline Respiratory/Chest: lungs clear, normal breath sounds, no respiratory distress, no accessory muscle use Cardiovascular: no gallop, no murmur, + tachycardia Abdomen: normal bowel sounds, soft, + rebound (radiation to RLQ with rebound of LLQ), + tenderness, + pertinent finding (well approximated surgical incisions open to air without erythema or edema) Extremities: non-tender, no pedal edema Neurologic/Psychiatric: alert, oriented x 3 Skin: normal color, warm/dry (Tia Gordillo, CALEB) Laboratory Results Last 24 Hours Test 05/20/16 18:10 05/20/16 18:59 05/20/16 20:42 05/21/16 00:23 White Blood Count 21.70 K/uL Red Blood Count 5.23 M/uL Hemoglobin 16.4 g/dL Hematocrit 47.5 % Mean Corpuscular Volume 90.8 fL Mean Corpuscular Hemoglobin 31.4 pg Mean Corpuscular Hemoglobin Concent 34.5 g/dl Platelet Count 357 K/uL Mean Platelet Volume 9.6 fL Neutrophils (%) (Auto) 78.8 % Lymphocytes (%) (Auto) 13.2 % Monocytes (%) (Auto) 6.9 % Eosinophils (%) (Auto) 0.6 % Basophils (%) (Auto) 0.1 % Neutrophils # (Auto) 17.11 K/uL Lymphocytes # (Auto) 2.87 K/uL Monocytes # (Auto) 1.49 K/uL Eosinophils # (Auto) 0.12 K/uL Basophils # (Auto) 0.02 K/uL RDW Standard Deviation 50.2 fL RDW Coefficient of Variation 15.1 % Immature Granulocyte % (Auto) 0.4 % Immature Granulocyte # (Auto) 0.09 K/uL Urine Color YELLOW Urine Appearance CLOUDY Urine pH 5.0 Urine Specific [place] 1.042 Urine Protein 2+ Urine Glucose (UA) NEG Urine Ketones NEG Urine Occult Blood NEG Urine Nitrite NEG Urine Bilirubin NEG Urine Urobilinogen NEG Urine Leukocyte Esterase NEG Urine WBC (Auto) 1-5 /hpf Urine RBC (Auto) 0-4 /hpf Urine Hyaline Casts (Auto) >30 /lpf Urine Epithelial Cells (Auto) >30 /lpf Urine Bacteria (Auto) 1+ Urine Renal Epithelial Cells /lpf Urine Pathogenic Casts 10-20 GRANULAR CASTS /lpf Sodium Level 134 mmol/L Potassium Level 4.0 mmol/L Chloride Level 107 mmol/L Carbon Dioxide Level 11 mmol/L Anion Gap 16.0 mmol/L Blood Urea Nitrogen 11 mg/dl Creatinine 0.83 mg/dl Est Creatinine Clear Calc Drug Dose 80.9 ml/min Estimated GFR () 100.8 Estimated GFR (Non- 87.0 BUN/Creatinine Ratio 12.7 Random Glucose 240 mg/dl Calcium Level 10.8 mg/dl Total Bilirubin 0.5 mg/dl Direct Bilirubin < 0.1 mg/dl Aspartate Amino Transf (AST/SGOT) 18 U/L Alanine Aminotransferase (ALT/SGPT) 39 U/L Alkaline Phosphatase 221 U/L Total Protein 8.9 gm/dl Albumin 4.2 gm/dl Triglycerides Level 872 mg/dl Lipase 5822 U/L Human Chorionic Gonadotropin, Qual NEG Venous Blood pH 7.26 Venous Blood Partial Pressure CO2 25 mmHg Venous Blood Partial Pressure O2 44 mmHg Venous Blood HCO3 11 mmol/L Venous Blood Oxygen Saturation 76.4 % Venous Blood Base Excess -14.1 mmol/L Lactic Acid Level 0.7 mmol/L Bedside Glucose 203 mg/dl Test 05/21/16 03:06 05/21/16 06:02 05/21/16 08:17 White Blood Count 14.70 K/uL Red Blood Count 4.25 M/uL Hemoglobin 13.6 g/dL Hematocrit 39.5 % Mean Corpuscular Volume 92.9 fL Mean Corpuscular Hemoglobin 32.0 pg Mean Corpuscular Hemoglobin Concent 34.4 g/dl RDW Standard Deviation 52.3 fL RDW Coefficient of Variation 15.4 % Platelet Count 285 K/uL Mean Platelet Volume 9.5 fL Venous Blood pH 7.31 Venous Blood Partial Pressure CO2 22 mmHg Venous Blood Partial Pressure O2 62 mmHg Venous Blood HCO3 11 mmol/L Venous Blood Oxygen Saturation 90.2 % Venous Blood Base Excess -13.3 mmol/L Sodium Level 140 mmol/L Potassium Level 3.8 mmol/L Chloride Level 114 mmol/L Carbon Dioxide Level 11 mmol/L Anion Gap 15.0 mmol/L Blood Urea Nitrogen 8 mg/dl Creatinine 0.50 mg/dl Est Creatinine Clear Calc Drug Dose 134.4 ml/min Estimated GFR () 138.4 Estimated GFR (Non- 119.4 BUN/Creatinine Ratio 16.2 Random Glucose 207 mg/dl Calcium Level 9.5 mg/dl Phosphorus Level 2.3 mg/dl Magnesium Level 1.5 mg/dl Lipase 5923 U/L Beta-Hydroxybutyric Acid 3.62 mg/dL Bedside Glucose 197 mg/dl 200 mg/dl (Tia Gordillo, PANilsonC) Assessment and Plan 41 y/o F w/Hx T2DM IDDM, HTN, tobacco abuse - recent hernia repair 5 days prior and recent admission for angioedema related to lisinopril use. Pt presents with abdominal pain which started 3 days prior. It is described as right/ central, persistent and severe. She is nauseous but denies vomiting. She has not had fevers/rigors or diarrhea. She had phoned her primary MD 3 days ago and was prescribed Zofran and Oxycodone which have not lead to significant improvement. Anion Gap Acidosis with Hyperglycemia: - Anion gap beginning to close but will transfer to ICU until closure in setting of pancreatitis - Insulin gtt with D5 1/2 NSS + 20 mEq KCl now that glucose < 250 - Q1H BSG checks with BMP Q4H x 2 more readings - Plan for initiation of Lantus prior to D/C of insulin gtt and further management pending BSG results Acute Pancreatitis: - CT - image and report reviewed - minor edema of pancreatic head and duodenum - mild duodenitis vs pancreatitis -- Due to no IV contrast appendix is not visualized but other signs of acute appendicitis not appreciated -- Will monitor as pain may be more related to recent surgical intervention but pain is periumbilical and radiates to RLQ and did have increased pain with rebound with palpation of LLQ but no acute abdomen...will continue to monitor - Trend lipase as numbers currently increasing - patient remains NPO - Triglycerides 872 will trend after resolution of pancreatitis - Dilaudid Hypomagnesemia: - Replete with Mag Sulf 1 g x 1 dose - Trend electrolytes H/O HTN: Recent D/C Lisinopril 2/2 Angioedema: - BP remain stable - continue to monitor DVT Prophylaxis: - Heparin 5000 units SC Q8H Code Status: FULL RESUSCITATION Disposition: - ICU until gap resolved (Tia Gordillo PA-C) ATTENDING ATTESTATION I have seen and examined patient this am. I have discussed plan of care in detail with CALEB and agree with plan as stated above. Patient admitted overnight for pancreatitis and DKA Vitals-reviewed GEN- NAD CVS-RRR RESP-+ rhonchi and wheezes ABD-CTA EXT- no edema Labs-reviewed DKA Pancreatitis - transfer to ICU/Insulin drip - switch IVF to D5NSS with KCL (Tia Oates MD)
[2016-05-21 10:38] LABS: BUN/CREATININE RATIO 15.8 (10-20); CALCIUM 9.4 mg/dl (8.5-10.1); CREATININE 0.48 mg/dl (0.60-1.20); POTASSIUM 3.6 mmol/L (3.5-5.1)
[2016-05-21 10:49] LABS: PHOSPHORUS 1.6 mg/dl (2.5-4.9)
[2016-05-21] MEDS ORDERED: INSULIN GLARGINE SOLOSTAR 100 UNITS/ML 3 ML PEN SC ONE (11:30)
[2016-05-21] MEDS ORDERED: INSULIN PROTOCOL GOAL RANGE ONE (11:30)
[2016-05-21] MEDS ORDERED: SODIUM CHLORIDE 0.9% 500ML 500 ML IV ONE (12:00)
[2016-05-21] MEDS ORDERED: PHARMACY GLYCEMIC MGMT CONSULT SCH (12:14)
[2016-05-21] MEDS ORDERED: HYDROmorphone INJ 1 MG/ML SYR ONE ×2 (12:47→14:27)
--- NOTE | 2016-05-21 12:53 | Pharmacy Progress Note ---
Glycemic Control Intl Consult Date of Service May 21, 2016. Scope Glycemic Pharmacist consulted by Dr Nayak on 05/21/16 for glycemic control and to write orders per [facility] inpatient glycemic control protocol Objective Weight (Kilograms): 70.000 Accuchecks BSG (last 24hrs): Test 05/20/16 18:10 05/21/16 00:23 05/21/16 03:06 05/21/16 06:02 Random Glucose 240 mg/dl (70-99) 207 mg/dl (70-99) Bedside Glucose 203 mg/dl (70-90) 197 mg/dl (70-90) Test 05/21/16 08:17 05/21/16 09:31 05/21/16 09:47 05/21/16 10:28 Bedside Glucose 200 mg/dl (70-90) 136 mg/dl (70-90) 177 mg/dl (70-90) Random Glucose 133 mg/dl (70-99) Laboratory Data (last 24hrs) Test 05/20/16 18:10 05/21/16 03:06 05/21/16 09:47 Anion Gap 16.0 mmol/L 15.0 mmol/L 12.0 mmol/L BUN/Creatinine Ratio 12.7 16.2 15.8 Blood Urea Nitrogen 11 mg/dl 8 mg/dl 8 mg/dl Creatinine 0.83 mg/dl 0.50 mg/dl 0.48 mg/dl Potassium Level 4.0 mmol/L 3.8 mmol/L 3.6 mmol/L Sodium Level 134 mmol/L 140 mmol/L 140 mmol/L White Blood Count 21.70 K/uL 14.70 K/uL Red Blood Count 5.23 M/uL Hemoglobin 16.4 g/dL Hematocrit 47.5 % Mean Corpuscular Volume 90.8 fL Mean Corpuscular Hemoglobin 31.4 pg Mean Corpuscular Hemoglobin Concent 34.5 g/dl Platelet Count 357 K/uL Mean Platelet Volume 9.6 fL Neutrophils (%) (Auto) 78.8 % Lymphocytes (%) (Auto) 13.2 % Monocytes (%) (Auto) 6.9 % Eosinophils (%) (Auto) 0.6 % Basophils (%) (Auto) 0.1 % Neutrophils # (Auto) 17.11 K/uL Lymphocytes # (Auto) 2.87 K/uL Monocytes # (Auto) 1.49 K/uL Eosinophils # (Auto) 0.12 K/uL Basophils # (Auto) 0.02 K/uL HbA1c 8.7% 04/08/16 Recent Pertinent Medications Outpatient Anti-diabetic Regimen: * Lantus 20 units Q AM * Apidra SQ w/ meals per sliding scale; reported to use CR of 1 unit per 10 gm CHOs when on steroids, CR 1 unit per 15gm CHOs when not on steroid * A1c = 8.7 % 04/08/16 The patient is currently receiving: * IV insulin infusion; goal range 120-160mg/dL Risk Factors for Insulin Resistance: * IVF: D5 03/24 NS + 20mEq KCl @ 150cc/hr * Diet: was NPO this AM, however now a Full Liquid T2DM diet has been ordered Assessment & Plan ASSESSMENT: 05/21/16 * 41 yo female admitted w/ NV abdominal pain 05/20 - found to have acute pancreatitis; Lipase 5822, TG 872 * She presented with AG acidosis (AG 16, Bicarb 11) and hyperglycemia although not profound (initial Glu 240) * She has been placed on IV insulin infusion per protocol and acidosis has been improving, AG down to 12 and Bicarb up to 13 on last set of labs; last vpH 7.31 * Dextrose containing IVF's were started to allow for continued administration of IV insulin in order to resolve ketoacidosis * Given last set of labs and trend she will likely be able to transition off the insulin drip later this evening. * Will give a STAT dose of Lantus now - but continue the insulin drip as Bicarb is still lower than desired to transition; usual criteria for transition to SQ = AG < 12, Bicarb 15 or greater, vpH > 7.3 and Glu < 300. She is very close to meeting this criteria. Will continue the insulin drip for now and I suspect that we will be able to d/c the insulin drip this evening if Bicarb and AG criteria met. PLAN FOR INPATIENT GLYCEMIC CONTROL: * Lantus 14 units SQ x 1 now - giving a lower dose than home dose due to ongoing abdominal pain, NV on admission and uncertain PO intake * Continue the insulin drip until further orders given; would like bicarb 15 or greater and AG less than 12 before drip is d/c'd * Insulin drip should overlap with 1st Lantus dose for minimum 2-6 hours. * Once the insulin drip is D/C'd begin: * Lantus 14 units AM + 6 units PM * Novolog SQ ACHS and at 0200 initially * Goal range 120-160mg/dL * Correction factor 30mg/dL/unit * Carb ratio 1 unit per 12gm CHO consumed * Please note that the plan above was derived based on current level of insulin resistance and hospital stress. These recommendations are appropriate for inpatient admission only. Plan of care upon discharge will need to be reassessed to avoid potential outpatient hypo/hyperglycemia. Thank you.
[2016-05-21 14:58] LABS: BUN/CREATININE RATIO 14.6 (10-20); CALCIUM 8.4 mg/dl (8.5-10.1); CREATININE 0.41 mg/dl (0.60-1.20); POTASSIUM 3.5 mmol/L (3.5-5.1)
--- NOTE | 2016-05-21 15:25 | Critical Care Consultation ---
Critical Care Consultation Date of Consultation: May 21, 2016. Attending Physician: Shiva Echeverria MD Reason for Consultation: insulin History of Present Illness This is a 41 yo f with a h/o DMII, HTN and tobacco abuse that has been transferred to the ICU for ongoing monitoring for DKA. The patient was admitted on May 20 for pancreatitis and DKA. She had epigastric/ RLQ pain 3 days prior to admission. The pain was a sharp 10/10 pain and accompanied by diaphoresis and N&V. She recently had a hernia repair 5 days ROW BOSS and called her surgeon for guidance. It was recommended to come to the ED. After evaluation she was found to have pancreatitis and placed on an insulin drip for DKA. She has been NPO since admission and transitioning off of the insulin drip but because of intensity of care/ concern for worsening she was transferred to the ICU. She has had her pain controlled with Dilaudid to a 4/10 and nausea controlled with zofran. She feels like she can eat at this time. Past Medical/Surgical History DMII HTN Tobacco abuse s/p Hernia repair Family History Hypertension CAD Social History Smoking Status: Current Every Day Smoker Smokeless Tobacco Use: No Alcohol Use: none Drug Use: none Marital Status: Housing Status: lives with family Occupation Status: employed Allergies Coded Allergies: Lisinopril (Verified Allergy, Severe, ANAPHYLAXIS, 05/20/16) ANGIOEDEMA Morphine (Verified Allergy, Mild, VOMIT/ITCHY, 05/20/16) Iodinated Diagnostic Agents (Verified Adverse Reaction, Mild, VOMITING, ) Home Medications Scheduled Dicyclomine Hcl (Dicyclomine Hcl), 10 MG PO TID Insulin Glargine (Lantus), 20 SC QAM Insulin Glulisine (Apidra Solostar), 1 DOSE SQ UD Scheduled PRN Acetaminophen (Tylenol), 650 MG PO Q4H PRN for Pain Fluticasone Propionate (Flovent Hfa), 1 PUFF INH BID PRN for Shortness of Breath Ipratropium-Albuterol (Combivent Respimat), 1 PUFF INH QID PRN for Cough or Wheeze Omeprazole (Prilosec), 20 MG PO DAILY PRN for Acid Reflux Oxycodone Ir (Roxicodone Ir), 10 MG PO Q6H PRN for Pain Current Inpatient Medications Current Inpatient Medications Medications (Trade) Dose Ordered Sig/Jimbo Route Start Time Stop Time Status Last Admin Dose Admin Heparin Sodium (Porcine) (Heparin Sq 5000 Unit/0.5ml) 5,000 unit Q8H SQ 05/21/16 06:00 06/20/16 05:59 05/21/16 14:41 5,000 UNIT Acetaminophen (Tylenol Tab) 650 mg Q4H PRN PO 05/20/16 19:45 06/19/16 19:44 05/21/16 07:57 650 MG Al Hydrox/Mg Hydrox/Simethicone (Maalox Max Susp) 15 ml Q4H PRN PO 05/20/16 19:45 06/19/16 19:44 Magnesium Hydroxide (Milk Of Magnesia Susp) 30 ml Q6H PRN PO 05/20/16 19:45 06/19/16 19:44 Polyethylene (Miralax Powder Packet) 17 gm DAILY PRN PO 05/20/16 19:45 06/19/16 19:44 Zolpidem Tartrate (Ambien Tab) 5 mg HSZ PRN PO 05/20/16 19:45 06/19/16 19:44 Ondansetron HCl (Zofran Inj) 4 mg Q6H PRN IV 05/20/16 19:45 06/19/16 19:44 05/21/16 05:42 4 MG Fluticasone Propionate (Flovent Hfa 110MCG Inhaler) 1 puffs BID PRN INH 05/20/16 20:00 06/19/16 19:59 Albuterol/ Ipratropium (Combivent Respimat Inh) 2 puffs QID PRN INH 05/20/16 20:00 06/19/16 19:59 Pantoprazole Sodium (Protonix Tab) 40 mg DAILY PRN PO 05/20/16 20:00 06/19/16 19:59 Glucose (Glucose 40% Gel) 15-30 GRAMS 15 GRAMS... UD PRN PO 05/20/16 23:00 06/19/16 22:59 Glucose (Glucose Chew Tab) 4-8 Tablets 4 Tabl... UD PRN PO 05/20/16 23:00 06/19/16 22:59 Dextrose (Dextrose 50% 50ML Syringe) 25-50ML OF 50% DW IV FOR... UD PRN IV 05/20/16 23:00 06/19/16 22:59 Glucagon 1 mg 1 mg UD PRN SQ 05/20/16 23:00 06/19/16 22:59 Insulin Human Regular/Sodium Chloride (novoLIN-R/Nss 250ml) 252.5 ml @ 0 mls/hr DAILY@1130 IV 05/21/16 07:30 06/20/16 07:29 05/21/16 11:56 1.3 MLS/HR Insulin Aspart (novoLOG ASPART) SLIDING SCALE PCHS SC 05/21/16 09:00 06/20/16 08:59 05/21/16 14:25 2 UNITS Miscellaneous Information 1 ea 1 ea Q2H N/A 05/21/16 07:30 06/20/16 07:29 Potassium Chloride/Dextrose/ Sod Cl (D5W And 1/2nss + 20meq KCl) 1,000 ml @ 150 mls/hr Q6H40M IV 05/21/16 09:00 06/20/16 08:59 05/21/16 09:38 150 MLS/HR Miscellaneous Information (Consult Glycemic Management Pharmacy) 1 ea UD N/A 05/21/16 12:14 06/20/16 12:13 Hydromorphone HCl (Dilaudid Inj) 1 mg Q1H PRN IV 05/21/16 15:00 06/04/16 14:59 Review of Systems Constitutional: No fever Eyes: No worsening of vision ENT: No hearing loss Respiratory: No cough, No dyspnea at rest, No dyspnea on exertion, No shortness of breath, No sputum, No wheezing Cardiovascular: No chest pain Abdomen: + nausea, + pain, + vomiting, No constipation, No diarrhea Musculoskeletal: No joint pain, No muscle pain Genitourinary - Female: No dysuria, No hematuria Neurologic: + weakness, No balance problems, No numbness/tingling Endocrine: + fatigue Integumentary: No rash Physical Exam Date Time Temp Pulse Resp B/P Pulse Ox O2 Delivery O2 Flow Rate FiO2 05/21/16 14:00 36.6 102 18 107/73 97 Room Air 05/21/16 14:00 98 Room Air 05/21/16 14:00 Room Air 05/21/16 12:30 37.0 108 16 128/80 98 Room Air 05/21/16 12:07 37.2 116 22 96 05/21/16 12:00 105 16 122/75 98 Room Air 05/21/16 12:00 97 Room Air 05/21/16 11:10 37.0 110 18 122/69 97 Room Air 05/21/16 10:10 Room Air 05/21/16 07:30 37.2 116 22 110/79 96 Room Air 05/21/16 00:30 Room Air 05/20/16 23:58 36.8 100 16 139/90 99 Room Air 05/20/16 22:50 36.8 100 16 139/90 100 Room Air 05/20/16 22:19 111 18 134/94 98 Room Air 05/20/16 21:16 111 20 133/99 97 Room Air 05/20/16 20:11 113 20 157/106 99 Room Air 05/20/16 19:11 111 16 115/90 96 Room Air 05/20/16 18:07 118 05/20/16 16:18 36.3 124 22 130/78 97 Room Air General Appearance: well-appearing, WD/WN, no apparent distress, other ( comfortable laying inbed) Head: normocephalic, atraumatic Eyes: PERRLA, no discharge, sclerae normal ENT: other (inspection of ENT WNL) Neck: normal range of motion, no tenderness, no lymphadenopathy Respiratory: breath sounds normal, clear to auscultation, no respiratory distress Cardiovasular: normal S1S2, no M/G/R, other (Tachycardia) Abdomen: normal bowel sounds, no rebound, guarding, other (tender to palpation in epigastric, RUQ and mid abd) Back: normal inspection Upper Extremities: no edema Lower Extremities: no edema Neuro: alert, oriented x 3 Psychiatric: normal affect Laboratory Results Last 24 Hours Test 05/20/16 18:10 05/20/16 18:59 05/20/16 20:42 05/21/16 00:23 White Blood Count 21.70 K/uL Red Blood Count 5.23 M/uL Hemoglobin 16.4 g/dL Hematocrit 47.5 % Mean Corpuscular Volume 90.8 fL Mean Corpuscular Hemoglobin 31.4 pg Mean Corpuscular Hemoglobin Concent 34.5 g/dl Platelet Count 357 K/uL Mean Platelet Volume 9.6 fL Neutrophils (%) (Auto) 78.8 % Lymphocytes (%) (Auto) 13.2 % Monocytes (%) (Auto) 6.9 % Eosinophils (%) (Auto) 0.6 % Basophils (%) (Auto) 0.1 % Neutrophils # (Auto) 17.11 K/uL Lymphocytes # (Auto) 2.87 K/uL Monocytes # (Auto) 1.49 K/uL Eosinophils # (Auto) 0.12 K/uL Basophils # (Auto) 0.02 K/uL RDW Standard Deviation 50.2 fL RDW Coefficient of Variation 15.1 % Immature Granulocyte % (Auto) 0.4 % Immature Granulocyte # (Auto) 0.09 K/uL Urine Color YELLOW Urine Appearance CLOUDY Urine pH 5.0 Urine Specific Hostetter 1.042 Urine Protein 2+ Urine Glucose (UA) NEG Urine Ketones NEG Urine Occult Blood NEG Urine Nitrite NEG Urine Bilirubin NEG Urine Urobilinogen NEG Urine Leukocyte Esterase NEG Urine WBC (Auto) 1-5 /hpf Urine RBC (Auto) 0-4 /hpf Urine Hyaline Casts (Auto) >30 /lpf Urine Epithelial Cells (Auto) >30 /lpf Urine Bacteria (Auto) 1+ Urine Renal Epithelial Cells /lpf Urine Pathogenic Casts 10-20 GRANULAR CASTS /lpf Sodium Level 134 mmol/L Potassium Level 4.0 mmol/L Chloride Level 107 mmol/L Carbon Dioxide Level 11 mmol/L Anion Gap 16.0 mmol/L Blood Urea Nitrogen 11 mg/dl Creatinine 0.83 mg/dl Est Creatinine Clear Calc Drug Dose 80.9 ml/min Estimated GFR () 100.8 Estimated GFR (Non- 87.0 BUN/Creatinine Ratio 12.7 Random Glucose 240 mg/dl Calcium Level 10.8 mg/dl Total Bilirubin 0.5 mg/dl Direct Bilirubin < 0.1 mg/dl Aspartate Amino Transf (AST/SGOT) 18 U/L Alanine Aminotransferase (ALT/SGPT) 39 U/L Alkaline Phosphatase 221 U/L Total Protein 8.9 gm/dl Albumin 4.2 gm/dl Triglycerides Level 872 mg/dl Lipase 5822 U/L Human Chorionic Gonadotropin, Qual NEG Venous Blood pH 7.26 Venous Blood Partial Pressure CO2 25 mmHg Venous Blood Partial Pressure O2 44 mmHg Venous Blood HCO3 11 mmol/L Venous Blood Oxygen Saturation 76.4 % Venous Blood Base Excess -14.1 mmol/L Lactic Acid Level 0.7 mmol/L Bedside Glucose 203 mg/dl Test 05/21/16 03:06 05/21/16 06:02 05/21/16 08:17 05/21/16 09:31 White Blood Count 14.70 K/uL Red Blood Count 4.25 M/uL Hemoglobin 13.6 g/dL Hematocrit 39.5 % Mean Corpuscular Volume 92.9 fL Mean Corpuscular Hemoglobin 32.0 pg Mean Corpuscular Hemoglobin Concent 34.4 g/dl RDW Standard Deviation 52.3 fL RDW Coefficient of Variation 15.4 % Platelet Count 285 K/uL Mean Platelet Volume 9.5 fL Venous Blood pH 7.31 Venous Blood Partial Pressure CO2 22 mmHg Venous Blood Partial Pressure O2 62 mmHg Venous Blood HCO3 11 mmol/L Venous Blood Oxygen Saturation 90.2 % Venous Blood Base Excess -13.3 mmol/L Sodium Level 140 mmol/L Potassium Level 3.8 mmol/L Chloride Level 114 mmol/L Carbon Dioxide Level 11 mmol/L Anion Gap 15.0 mmol/L Blood Urea Nitrogen 8 mg/dl Creatinine 0.50 mg/dl Est Creatinine Clear Calc Drug Dose 134.4 ml/min Estimated GFR () 138.4 Estimated GFR (Non- 119.4 BUN/Creatinine Ratio 16.2 Random Glucose 207 mg/dl Calcium Level 9.5 mg/dl Phosphorus Level 2.3 mg/dl Magnesium Level 1.5 mg/dl Lipase 5923 U/L Beta-Hydroxybutyric Acid 3.62 mg/dL Bedside Glucose 197 mg/dl 200 mg/dl 136 mg/dl Test 05/21/16 09:47 05/21/16 10:28 05/21/16 14:05 Sodium Level 140 mmol/L 139 mmol/L Potassium Level 3.6 mmol/L 3.5 mmol/L Chloride Level 115 mmol/L 113 mmol/L Carbon Dioxide Level 13 mmol/L 12 mmol/L Anion Gap 12.0 mmol/L 14.0 mmol/L Blood Urea Nitrogen 8 mg/dl 6 mg/dl Creatinine 0.48 mg/dl 0.41 mg/dl Est Creatinine Clear Calc Drug Dose 140.0 ml/min 163.9 ml/min Estimated GFR () 140.2 147.7 Estimated GFR (Non- 121.0 127.4 BUN/Creatinine Ratio 15.8 14.6 Random Glucose 133 mg/dl 189 mg/dl Calcium Level 9.4 mg/dl 8.4 mg/dl Phosphorus Level 1.6 mg/dl Bedside Glucose 177 mg/dl Lipase 2302 U/L Assessment & Plan 1. DKA - mild resulting in AG metabolic acidosis- improving 2. Pancreatitis secondary to hypertriglyceridemia vs choledocholithiasis vs post op- improving 3. Hypophosphatemia 4. HTN 5. DMII 6. s/p Hernia repair NVS - alert and oriented - pain: Dilaudid q1h CVS - Sinus tachy on monitor - NSS bolus x 2 and monitor RVS - no respiratory distress - O2 per nursing protocol FEN - Continue to monitor q 4 h until AG closes/ bicarb improves - recheck of phosphate @ 2000 - consider recheck fasting lipids once resolves because may be the cause of pancreatitis ENDO - glycemic consult - insulin drip until can transition - appreciate input - continue D5W NSS KCL IVF GI - advance diet as tolerated - lipase improving, continue to trend - consider an MRCP to r/o cholelithiasis as had a cholecystectomy in the past RENAL - continue to monitor I&O - repeat BMP HEME - leukocytosis improving DVT: Heparin q 8 Resident Physician Supervision Note: I was present with Dr. Nayak during the history and exam. I discussed the case with the resident and agree with the findings and plan as documented in the note. Any exceptions or clarifications are listed here: Pancreatitis and subsequent physical issues reviewed. Additional IV fluids and modification of pain Rx decided upon. Documented By: Mikel Aguero
[2016-05-21] MEDS ORDERED: SODIUM CHLORIDE 0.9% 1000ML 1,000 ML IV ONE (15:30)
[2016-05-21 20:58] LABS: BLOOD UREA NITROGEN 5 mg/dl (7-18); BUN/CREATININE RATIO 14.7 (10-20); CARBON DIOXIDE 16 mmol/L (21-32); CHLORIDE 112 mmol/L (98-107); CREATININE 0.36 mg/dl (0.60-1.20); GLUCOSE 166 mg/dl (70-99); PHOSPHORUS 1.8 mg/dl (2.5-4.9); POTASSIUM 3.5 mmol/L (3.5-5.1); SODIUM 139 mmol/L (136-145)
[2016-05-21] MEDS ORDERED: POTASSIUM PHOS 3 MMOL/1 ML INFUSION IV STA (21:38)
[2016-05-21] MEDS ORDERED: POTASSIUM PHOSPHATE INJ 21 MMOL in SODIUM CHLORIDE 0.9% 500ML 500 ML IV ONE (22:30)
[2016-05-22] VITALS (12 sets, daily range): BP systolic 113–141; BP diastolic 58–101; PULSE 91–110; TEMP 36.8–37; O2SAT 93–100
[2016-05-22 00:18] LABS: BLOOD UREA NITROGEN 5 mg/dl (7-18); BUN/CREATININE RATIO 14.2 (10-20); CALCIUM 8.8 mg/dl (8.5-10.1); CARBON DIOXIDE 16 mmol/L (21-32); CHLORIDE 114 mmol/L (98-107); CREATININE 0.38 mg/dl (0.60-1.20); GLUCOSE 99 mg/dl (70-99); POTASSIUM 3.5 mmol/L (3.5-5.1); SODIUM 142 mmol/L (136-145)
[2016-05-22] MEDS: HYDROmorphone INJ 1 MG/ML SYR IV PRN ×9 (00:35→22:27)
[2016-05-22 01:45] LABS: ISTAT ALLEN TEST Pass; ISTAT ARTERIAL BLOOD GAS HCO3 13 meq/L (19-24); ISTAT ARTERIAL BLOOD GAS PCO2 27 mmHg (35-46); ISTAT ARTERIAL BLOOD GAS PO2 81 mmHg (80-95); ISTAT ARTERIAL BLOOD GAS pH 7.29 (7.35-7.45); ISTAT CARBON DIOXIDE 14 mEq/l (24-31); ISTAT DELIVERY SYSTEM Room Air; ISTAT SITE R Radial
[2016-05-22] MEDS ORDERED: INSULIN GLARGINE SOLOSTAR 100 UNITS/ML 3 ML PEN SC ONE (02:00)
[2016-05-22 04:25] LABS: BLOOD UREA NITROGEN 4 mg/dl (7-18); BUN/CREATININE RATIO 11.3 (10-20); CALCIUM 8.7 mg/dl (8.5-10.1); CARBON DIOXIDE 14 mmol/L (21-32); CHLORIDE 113 mmol/L (98-107); CREATININE 0.37 mg/dl (0.60-1.20); GLUCOSE 176 mg/dl (70-99); MAGNESIUM 1.5 mg/dl (1.8-2.4); POTASSIUM 3.7 mmol/L (3.5-5.1); SODIUM 141 mmol/L (136-145)
--- NOTE | 2016-05-22 06:24 | Progress Note ---
Progress Note Date of Service May 22, 2016. Progress Note Pt was on Insulin infusion with Glycemic Consult. I was called to the bedside around 0120 for a blood glucose of 109. ABG was repeated 7.291/26.5/81/12.8. Beta-Hydroxybutyric was WNL, though anion gap was widening again. Decision with pharmacy was made to discontinue the insulin infusion and begin sliding scale with Novolog. BSG were switched to AC and HS with one additional at 0330.
[2016-05-22] MEDS: HEPARIN SOD 5000 UNIT/0.5 ML CARP SQ SCH ×3 (06:29→21:15)
[2016-05-22] MEDS: D5W AND 1/2NSS + 20MEQ KCL 1,000 ML IV SCH ×3 (06:29→21:16)
[2016-05-22] MEDS: MAGNESIUM SULFATE 1GM / D5W 1 GM in PREMIXED IN D5W 100 ML IV SCH ×2 (06:42→07:40)
[2016-05-22 06:43] LABS: HEMATOCRIT 31.9 % (37-47); MEAN CELL VOLUME 89.6 fL (80-100); MEAN CORPUSCULAR HEMOGLOBIN 30.6 pg (25-34); MEAN CORPUSCULAR HGB CONC 34.2 g/dl (32-36); MEAN PLATELET VOLUME 8.8 fL (7.4-10.4); PLATELET COUNT 257 K/uL (130-400); RED BLOOD COUNT 3.56 M/uL (4.2-5.4); WHITE BLOOD COUNT 8.26 K/uL (4.8-10.8)
[2016-05-22 06:48] LABS: BASO % 0.2 %; BASO ABS # 0.02 K/uL (0-0.2); COMPLETE YES; EOS % 1.1 %; IG% 0.1 %; LYMPH % 38.4 %; LYMPH ABS # 3.17 K/uL (1.2-3.4); MONO % 7.6 %; NEUT % 52.6 %
--- NOTE | 2016-05-22 07:55 | Critical Care Progress Note ---
Critical Care Progress Note Date of Service May 22, 2016. ICU Day ICU Day Number: 2 Attending Subjective patient's pain is well controlled and had an uneventful night insulin drip has been held tolerating PO well questions and concerns were addressed Objective General: not in acute distress Skin: no rashes noted, no suspicious lesions, no areas of inflammations/ lacerations/ erythema noted, wounds from hernia repair are clean dry and intact CVS: S1/ S2 noted, RRR, no rubs/ murmurs noted, no cyanosis RVS: Clear throughout bilaterally, not in acute respiratory distress, no wheezing/ rales/ crackles noted Neck: inspection WNL, full ROM of neck ABD: BSx4, mild pain/ tenderness on palpation right abd and epigastric region, MSK: inspection of all limbs WNL, motor and sensation intact in all limbs, no swelling/ pain on palpation of joints NVS: alert and oriented x 3 Lymph: No lymphadenopathy palpable Assessment & Plan 1. DKA - mild resulting in AG metabolic acidosis- improving 2. Pancreatitis secondary to hypertriglyceridemia vs choledocholithiasis vs post op- improving 3. Hypophosphatemia 4. HTN 5. DMII 6. s/p Hernia repair 7. Hypomagnesemia NVS - alert and oriented - pain: Dilaudid q1h CVS - Sinus tachy on monitor - improved from yesterday RVS - no respiratory distress - O2 per nursing protocol FEN - Continue to monitor q 4 h until AG closes/ bicarb improves - Phosphate repleted - replete magnesium prn - consider recheck fasting lipids once resolves because may be the cause of pancreatitis ENDO - glycemic consult - insulin drip held - appreciate input - continue D5W KCL IVF - plan is to transition to lantus this am GI - advance diet as tolerated - lipase improving, continue to trend - consider an MRCP to r/o cholelithiasis as had a cholecystectomy in the past - GI consult RENAL - continue to monitor I&O - repeat BMP HEME - leukocytosis improving - hgb improved- most likely contraction DVT: Heparin q 8 Patient is stable for downgrade Data Medications: Current Inpatient Medications Medications (Trade) Dose Ordered Sig/Jimbo Route Start Time Stop Time Status Last Admin Dose Admin Heparin Sodium (Porcine) (Heparin Sq 5000 Unit/0.5ml) 5,000 unit Q8H SQ 05/21/16 06:00 06/20/16 05:59 05/22/16 06:29 5,000 UNIT Acetaminophen (Tylenol Tab) 650 mg Q4H PRN PO 05/20/16 19:45 06/19/16 19:44 05/21/16 07:57 650 MG Al Hydrox/Mg Hydrox/Simethicone (Maalox Max Susp) 15 ml Q4H PRN PO 05/20/16 19:45 06/19/16 19:44 Magnesium Hydroxide (Milk Of Magnesia Susp) 30 ml Q6H PRN PO 05/20/16 19:45 06/19/16 19:44 Polyethylene (Miralax Powder Packet) 17 gm DAILY PRN PO 05/20/16 19:45 06/19/16 19:44 Zolpidem Tartrate (Ambien Tab) 5 mg HSZ PRN PO 05/20/16 19:45 06/19/16 19:44 Ondansetron HCl (Zofran Inj) 4 mg Q6H PRN IV 05/20/16 19:45 06/19/16 19:44 05/21/16 22:18 4 MG Fluticasone Propionate (Flovent Hfa 110MCG Inhaler) 1 puffs BID PRN INH 05/20/16 20:00 06/19/16 19:59 Albuterol/ Ipratropium (Combivent Respimat Inh) 2 puffs QID PRN INH 05/20/16 20:00 06/19/16 19:59 Pantoprazole Sodium (Protonix Tab) 40 mg DAILY PRN PO 05/20/16 20:00 06/19/16 19:59 Glucose (Glucose 40% Gel) 15-30 GRAMS 15 GRAMS... UD PRN PO 05/20/16 23:00 06/19/16 22:59 Glucose (Glucose Chew Tab) 4-8 Tablets 4 Tabl... UD PRN PO 05/20/16 23:00 06/19/16 22:59 Dextrose (Dextrose 50% 50ML Syringe) 25-50ML OF 50% DW IV FOR... UD PRN IV 05/20/16 23:00 06/19/16 22:59 Glucagon (Glucagon Inj) 1 mg UD PRN SQ 05/20/16 23:00 06/19/16 22:59 Miscellaneous Information 1 ea 1 ea Q2H N/A 05/21/16 07:30 06/20/16 07:29 Potassium Chloride/Dextrose/ Sod Cl (D5W And 1/2nss + 20meq KCl) 1,000 ml @ 150 mls/hr Q6H40M IV 05/21/16 09:00 06/20/16 08:59 05/22/16 06:29 150 MLS/HR Miscellaneous Information (Consult Glycemic Management Pharmacy) 1 ea UD N/A 05/21/16 12:14 06/20/16 12:13 Hydromorphone HCl (Dilaudid Inj) 1 mg Q1H PRN IV 05/21/16 15:00 06/04/16 14:59 05/22/16 06:28 1 MG Insulin Aspart SLIDING SCALE ACHS SC 05/22/16 06:45 06/21/16 06:44 Magnesium Sulfate/ Prmx (Magnesium Sulfate/Premixed D5W) 100 ml @ 100 mls/hr Q1H IV 05/22/16 07:00 05/22/16 08:59 05/22/16 07:40 100 MLS/HR Insulin Glargine (Lantus Solostar Pen) 20 unit QAM SC 05/22/16 07:30 06/21/16 07:29 I & O: 24-Hour Column 05/22/16 08:00 Intake Total 5061 ml Output Total 3925 ml Balance 1136 ml Vital Signs: Date Time Temp Pulse Resp B/P Pulse Ox O2 Delivery O2 Flow Rate FiO2 05/22/16 06:00 110 20 113/84 97 Room Air 05/22/16 04:00 37.0 97 16 131/90 97 Room Air 05/22/16 04:00 97 Room Air 05/22/16 01:53 37.0 102 16 120/79 96 Room Air 05/22/16 00:00 37.0 100 15 127/84 96 Room Air 05/21/16 23:58 96 Room Air 05/21/16 22:00 99 14 112/74 95 Room Air 05/21/16 20:00 37.1 103 20 154/88 98 Room Air 05/21/16 19:34 98 Room Air 05/21/16 18:00 36.6 105 18 132/96 98 Room Air 05/21/16 18:00 98 Room Air 05/21/16 18:00 Room Air 05/21/16 16:00 Room Air 05/21/16 16:00 97 Room Air 05/21/16 16:00 37.0 110 15 127/90 98 Room Air 05/21/16 14:00 36.6 102 18 107/73 97 Room Air 05/21/16 14:00 98 Room Air 05/21/16 14:00 Room Air 05/21/16 12:30 37.0 108 16 128/80 98 Room Air 05/21/16 12:07 37.2 116 22 96 05/21/16 12:00 105 16 122/75 98 Room Air 05/21/16 12:00 97 Room Air 05/21/16 11:10 37.0 110 18 122/69 97 Room Air 05/21/16 10:10 Room Air Laboratory Results: Last 24 Hours Test 05/21/16 08:17 05/21/16 09:31 05/21/16 09:47 05/21/16 10:28 Bedside Glucose 200 mg/dl 136 mg/dl 177 mg/dl Sodium Level 140 mmol/L Potassium Level 3.6 mmol/L Chloride Level 115 mmol/L Carbon Dioxide Level 13 mmol/L Anion Gap 12.0 mmol/L Blood Urea Nitrogen 8 mg/dl Creatinine 0.48 mg/dl Est Creatinine Clear Calc Drug Dose 140.0 ml/min Estimated GFR () 140.2 Estimated GFR (Non- 121.0 BUN/Creatinine Ratio 15.8 Random Glucose 133 mg/dl Calcium Level 9.4 mg/dl Phosphorus Level 1.6 mg/dl Test 05/21/16 11:02 05/21/16 11:58 05/21/16 12:54 05/21/16 14:03 Bedside Glucose 175 mg/dl 173 mg/dl 193 mg/dl 199 mg/dl Test 05/21/16 14:05 05/21/16 15:08 05/21/16 16:07 05/21/16 17:05 Sodium Level 139 mmol/L Potassium Level 3.5 mmol/L Chloride Level 113 mmol/L Carbon Dioxide Level 12 mmol/L Anion Gap 14.0 mmol/L Blood Urea Nitrogen 6 mg/dl Creatinine 0.41 mg/dl Est Creatinine Clear Calc Drug Dose 163.9 ml/min Estimated GFR () 147.7 Estimated GFR (Non- 127.4 BUN/Creatinine Ratio 14.6 Random Glucose 189 mg/dl Calcium Level 8.4 mg/dl Lipase 2302 U/L Bedside Glucose 159 mg/dl 131 mg/dl 151 mg/dl Test 05/21/16 18:04 05/21/16 19:01 05/21/16 20:07 05/21/16 20:30 Bedside Glucose 172 mg/dl 144 mg/dl 150 mg/dl Sodium Level 139 mmol/L Potassium Level 3.5 mmol/L Chloride Level 112 mmol/L Carbon Dioxide Level 16 mmol/L Anion Gap 11.0 mmol/L Blood Urea Nitrogen 5 mg/dl Creatinine 0.36 mg/dl Est Creatinine Clear Calc Drug Dose 186.6 ml/min Estimated GFR () > 150.0 Estimated GFR (Non- 133.0 BUN/Creatinine Ratio 14.7 Random Glucose 166 mg/dl Calcium Level 9.0 mg/dl Phosphorus Level 1.8 mg/dl Test 05/21/16 21:08 05/21/16 22:24 05/21/16 23:29 05/21/16 23:48 Bedside Glucose 190 mg/dl 155 mg/dl 106 mg/dl Sodium Level 142 mmol/L Potassium Level 3.5 mmol/L Chloride Level 114 mmol/L Carbon Dioxide Level 16 mmol/L Anion Gap 12.0 mmol/L Blood Urea Nitrogen 5 mg/dl Creatinine 0.38 mg/dl Est Creatinine Clear Calc Drug Dose 176.8 ml/min Estimated GFR () > 150.0 Estimated GFR (Non- 130.7 BUN/Creatinine Ratio 14.2 Random Glucose 99 mg/dl Calcium Level 8.8 mg/dl Beta-Hydroxybutyric Acid 0.94 mg/dL Test 05/21/16 23:49 05/22/16 00:11 05/22/16 01:05 05/22/16 01:31 Bedside Glucose 109 mg/dl 105 mg/dl 128 mg/dl Blood Gas Sample Site R Radial Bedside Blood Gas pH (LAB) 7.29 Bedside Blood Gas pCO2 (LAB) 27 mmHg Bedside Blood Gas pO2 (LAB) 81 mmHg Bedside Blood Gas HCO3 (LAB) 13 meq/L Bedside Blood Gas Total CO2 14 mEq/l Bedside Blood Gas Base Excess (LAB) -14.0 meq/L Bedside Blood Gas O2 Saturation 95.0 % Adolph Test Pass Oxygen Delivery Device Room Air Test 05/22/16 03:45 05/22/16 06:45 White Blood Count 8.26 K/uL Red Blood Count 3.56 M/uL Hemoglobin 10.9 g/dL Hematocrit 31.9 % Mean Corpuscular Volume 89.6 fL Mean Corpuscular Hemoglobin 30.6 pg Mean Corpuscular Hemoglobin Concent 34.2 g/dl Platelet Count 257 K/uL Mean Platelet Volume 8.8 fL Neutrophils (%) (Auto) 52.6 % Lymphocytes (%) (Auto) 38.4 % Monocytes (%) (Auto) 7.6 % Eosinophils (%) (Auto) 1.1 % Basophils (%) (Auto) 0.2 % Neutrophils # (Auto) 4.34 K/uL Lymphocytes # (Auto) 3.17 K/uL Monocytes # (Auto) 0.63 K/uL Eosinophils # (Auto) 0.09 K/uL Basophils # (Auto) 0.02 K/uL RDW Standard Deviation 49.5 fL RDW Coefficient of Variation 15.1 % Immature Granulocyte % (Auto) 0.1 % Immature Granulocyte # (Auto) 0.01 K/uL Nucleated RBC Absolute Count (auto) 0.00 K/uL Nucleated Red Blood Cells % 0.0 % Sodium Level 141 mmol/L Potassium Level 3.7 mmol/L Chloride Level 113 mmol/L Carbon Dioxide Level 14 mmol/L Anion Gap 14.0 mmol/L Blood Urea Nitrogen 4 mg/dl Creatinine 0.37 mg/dl Est Creatinine Clear Calc Drug Dose 181.6 ml/min Estimated GFR () > 150.0 Estimated GFR (Non- 131.8 BUN/Creatinine Ratio 11.3 Random Glucose 176 mg/dl Calcium Level 8.7 mg/dl Phosphorus Level 3.0 mg/dl Magnesium Level 1.5 mg/dl Lipase 839 U/L Bedside Glucose 193 mg/dl
--- NOTE | 2016-05-22 07:56 | Critical Care Progress Note ---
Critical Care Progress Note Date of Service May 22, 2016. Attending Subjective She is feeling clinically better. PO intake slowly advancing. Heart rate coming down. Abdominal pain resolving. No dyspnea. No neuro complaints. Spoke with the team and BSG, Insulin and Lytes replacements in progress. Objective Vitals--B/P stable. No temp. Pulmonary improved. General--looks more comfortable HEENT--no issues observed Pulmonary--exchange is adequate/oxygenation is good Cardio--rate and volume acceptable. GI--functional Neuro--nonfocal Psych--calm and appropriate Assessment & Plan Pancreatitis and Metabolic Acidosis: In the setting of DM/Type 4 Hyperlipidemia /Hx Verna/Recent hernia repair 1. GI--Labs to not suggest cholestatic picture--GI opinion regarding stone or sphincter issue to consider...continue general supportive measures..appears to be moving in the correct direction 2. Pulmonary--mobilize and toilette 3. Cardio--Continue current volume support 4. F/E/N--will need to see the metabolic acidosis corrected before stopping insulin drip and volume replacement measures 5. Endo--good control at this point Critical Care Time: 45 minutes Data Medications: Current Inpatient Medications Medications (Trade) Dose Ordered Sig/Jimbo Route Start Time Stop Time Status Last Admin Dose Admin Heparin Sodium (Porcine) (Heparin Sq 5000 Unit/0.5ml) 5,000 unit Q8H SQ 05/21/16 06:00 06/20/16 05:59 05/22/16 06:29 5,000 UNIT Acetaminophen (Tylenol Tab) 650 mg Q4H PRN PO 05/20/16 19:45 06/19/16 19:44 05/21/16 07:57 650 MG Al Hydrox/Mg Hydrox/Simethicone (Maalox Max Susp) 15 ml Q4H PRN PO 05/20/16 19:45 06/19/16 19:44 Magnesium Hydroxide (Milk Of Magnesia Susp) 30 ml Q6H PRN PO 05/20/16 19:45 06/19/16 19:44 Polyethylene (Miralax Powder Packet) 17 gm DAILY PRN PO 05/20/16 19:45 06/19/16 19:44 Zolpidem Tartrate (Ambien Tab) 5 mg HSZ PRN PO 05/20/16 19:45 06/19/16 19:44 Ondansetron HCl (Zofran Inj) 4 mg Q6H PRN IV 05/20/16 19:45 06/19/16 19:44 05/21/16 22:18 4 MG Fluticasone Propionate (Flovent Hfa 110MCG Inhaler) 1 puffs BID PRN INH 05/20/16 20:00 06/19/16 19:59 Albuterol/ Ipratropium (Combivent Respimat Inh) 2 puffs QID PRN INH 05/20/16 20:00 06/19/16 19:59 Pantoprazole Sodium (Protonix Tab) 40 mg DAILY PRN PO 05/20/16 20:00 06/19/16 19:59 Glucose (Glucose 40% Gel) 15-30 GRAMS 15 GRAMS... UD PRN PO 05/20/16 23:00 06/19/16 22:59 Glucose (Glucose Chew Tab) 4-8 Tablets 4 Tabl... UD PRN PO 05/20/16 23:00 06/19/16 22:59 Dextrose (Dextrose 50% 50ML Syringe) 25-50ML OF 50% DW IV FOR... UD PRN IV 05/20/16 23:00 06/19/16 22:59 Glucagon (Glucagon Inj) 1 mg UD PRN SQ 05/20/16 23:00 06/19/16 22:59 Miscellaneous Information 1 ea 1 ea Q2H N/A 05/21/16 07:30 06/20/16 07:29 Potassium Chloride/Dextrose/ Sod Cl (D5W And 1/2nss + 20meq KCl) 1,000 ml @ 150 mls/hr Q6H40M IV 05/21/16 09:00 06/20/16 08:59 05/22/16 06:29 150 MLS/HR Miscellaneous Information (Consult Glycemic Management Pharmacy) 1 ea UD N/A 05/21/16 12:14 06/20/16 12:13 Hydromorphone HCl (Dilaudid Inj) 1 mg Q1H PRN IV 05/21/16 15:00 06/04/16 14:59 05/22/16 06:28 1 MG Insulin Aspart SLIDING SCALE ACHS SC 05/22/16 06:45 06/21/16 06:44 Magnesium Sulfate/ Prmx (Magnesium Sulfate/Premixed D5W) 100 ml @ 100 mls/hr Q1H IV 05/22/16 07:00 05/22/16 08:59 05/22/16 07:40 100 MLS/HR Insulin Glargine (Lantus Solostar Pen) 20 unit QAM SC 05/22/16 07:30 06/21/16 07:29 I & O: 24-Hour Column 05/22/16 08:00 Intake Total 5061 ml Output Total 3925 ml Balance 1136 ml Vital Signs: Date Time Temp Pulse Resp B/P Pulse Ox O2 Delivery O2 Flow Rate FiO2 05/22/16 06:00 110 20 113/84 97 Room Air 05/22/16 04:00 37.0 97 16 131/90 97 Room Air 05/22/16 04:00 97 Room Air 05/22/16 01:53 37.0 102 16 120/79 96 Room Air 05/22/16 00:00 37.0 100 15 127/84 96 Room Air 05/21/16 23:58 96 Room Air 05/21/16 22:00 99 14 112/74 95 Room Air 05/21/16 20:00 37.1 103 20 154/88 98 Room Air 05/21/16 19:34 98 Room Air 05/21/16 18:00 36.6 105 18 132/96 98 Room Air 05/21/16 18:00 98 Room Air 05/21/16 18:00 Room Air 05/21/16 16:00 Room Air 05/21/16 16:00 97 Room Air 05/21/16 16:00 37.0 110 15 127/90 98 Room Air 05/21/16 14:00 36.6 102 18 107/73 97 Room Air 05/21/16 14:00 98 Room Air 05/21/16 14:00 Room Air 05/21/16 12:30 37.0 108 16 128/80 98 Room Air 05/21/16 12:07 37.2 116 22 96 05/21/16 12:00 105 16 122/75 98 Room Air 05/21/16 12:00 97 Room Air 05/21/16 11:10 37.0 110 18 122/69 97 Room Air 05/21/16 10:10 Room Air Laboratory Results: Last 24 Hours Test 05/21/16 08:17 05/21/16 09:31 05/21/16 09:47 05/21/16 10:28 Bedside Glucose 200 mg/dl 136 mg/dl 177 mg/dl Sodium Level 140 mmol/L Potassium Level 3.6 mmol/L Chloride Level 115 mmol/L Carbon Dioxide Level 13 mmol/L Anion Gap 12.0 mmol/L Blood Urea Nitrogen 8 mg/dl Creatinine 0.48 mg/dl Est Creatinine Clear Calc Drug Dose 140.0 ml/min Estimated GFR () 140.2 Estimated GFR (Non- 121.0 BUN/Creatinine Ratio 15.8 Random Glucose 133 mg/dl Calcium Level 9.4 mg/dl Phosphorus Level 1.6 mg/dl Test 05/21/16 11:02 05/21/16 11:58 05/21/16 12:54 05/21/16 14:03 Bedside Glucose 175 mg/dl 173 mg/dl 193 mg/dl 199 mg/dl Test 05/21/16 14:05 05/21/16 15:08 05/21/16 16:07 05/21/16 17:05 Sodium Level 139 mmol/L Potassium Level 3.5 mmol/L Chloride Level 113 mmol/L Carbon Dioxide Level 12 mmol/L Anion Gap 14.0 mmol/L Blood Urea Nitrogen 6 mg/dl Creatinine 0.41 mg/dl Est Creatinine Clear Calc Drug Dose 163.9 ml/min Estimated GFR () 147.7 Estimated GFR (Non- 127.4 BUN/Creatinine Ratio 14.6 Random Glucose 189 mg/dl Calcium Level 8.4 mg/dl Lipase 2302 U/L Bedside Glucose 159 mg/dl 131 mg/dl 151 mg/dl Test 05/21/16 18:04 05/21/16 19:01 05/21/16 20:07 05/21/16 20:30 Bedside Glucose 172 mg/dl 144 mg/dl 150 mg/dl Sodium Level 139 mmol/L Potassium Level 3.5 mmol/L Chloride Level 112 mmol/L Carbon Dioxide Level 16 mmol/L Anion Gap 11.0 mmol/L Blood Urea Nitrogen 5 mg/dl Creatinine 0.36 mg/dl Est Creatinine Clear Calc Drug Dose 186.6 ml/min Estimated GFR () > 150.0 Estimated GFR (Non- 133.0 BUN/Creatinine Ratio 14.7 Random Glucose 166 mg/dl Calcium Level 9.0 mg/dl Phosphorus Level 1.8 mg/dl Test 05/21/16 21:08 05/21/16 22:24 05/21/16 23:29 05/21/16 23:48 Bedside Glucose 190 mg/dl 155 mg/dl 106 mg/dl Sodium Level 142 mmol/L Potassium Level 3.5 mmol/L Chloride Level 114 mmol/L Carbon Dioxide Level 16 mmol/L Anion Gap 12.0 mmol/L Blood Urea Nitrogen 5 mg/dl Creatinine 0.38 mg/dl Est Creatinine Clear Calc Drug Dose 176.8 ml/min Estimated GFR () > 150.0 Estimated GFR (Non- 130.7 BUN/Creatinine Ratio 14.2 Random Glucose 99 mg/dl Calcium Level 8.8 mg/dl Beta-Hydroxybutyric Acid 0.94 mg/dL Test 05/21/16 23:49 05/22/16 00:11 05/22/16 01:05 05/22/16 01:31 Bedside Glucose 109 mg/dl 105 mg/dl 128 mg/dl Blood Gas Sample Site R Radial Bedside Blood Gas pH (LAB) 7.29 Bedside Blood Gas pCO2 (LAB) 27 mmHg Bedside Blood Gas pO2 (LAB) 81 mmHg Bedside Blood Gas HCO3 (LAB) 13 meq/L Bedside Blood Gas Total CO2 14 mEq/l Bedside Blood Gas Base Excess (LAB) -14.0 meq/L Bedside Blood Gas O2 Saturation 95.0 % Adolph Test Pass Oxygen Delivery Device Room Air Test 05/22/16 03:45 05/22/16 06:45 White Blood Count 8.26 K/uL Red Blood Count 3.56 M/uL Hemoglobin 10.9 g/dL Hematocrit 31.9 % Mean Corpuscular Volume 89.6 fL Mean Corpuscular Hemoglobin 30.6 pg Mean Corpuscular Hemoglobin Concent 34.2 g/dl Platelet Count 257 K/uL Mean Platelet Volume 8.8 fL Neutrophils (%) (Auto) 52.6 % Lymphocytes (%) (Auto) 38.4 % Monocytes (%) (Auto) 7.6 % Eosinophils (%) (Auto) 1.1 % Basophils (%) (Auto) 0.2 % Neutrophils # (Auto) 4.34 K/uL Lymphocytes # (Auto) 3.17 K/uL Monocytes # (Auto) 0.63 K/uL Eosinophils # (Auto) 0.09 K/uL Basophils # (Auto) 0.02 K/uL RDW Standard Deviation 49.5 fL RDW Coefficient of Variation 15.1 % Immature Granulocyte % (Auto) 0.1 % Immature Granulocyte # (Auto) 0.01 K/uL Nucleated RBC Absolute Count (auto) 0.00 K/uL Nucleated Red Blood Cells % 0.0 % Sodium Level 141 mmol/L Potassium Level 3.7 mmol/L Chloride Level 113 mmol/L Carbon Dioxide Level 14 mmol/L Anion Gap 14.0 mmol/L Blood Urea Nitrogen 4 mg/dl Creatinine 0.37 mg/dl Est Creatinine Clear Calc Drug Dose 181.6 ml/min Estimated GFR () > 150.0 Estimated GFR (Non- 131.8 BUN/Creatinine Ratio 11.3 Random Glucose 176 mg/dl Calcium Level 8.7 mg/dl Phosphorus Level 3.0 mg/dl Magnesium Level 1.5 mg/dl Lipase 839 U/L Bedside Glucose 193 mg/dl
[2016-05-22 08:29] LABS: BLOOD UREA NITROGEN 3 mg/dl (7-18); BUN/CREATININE RATIO 8.2 (10-20); CALCIUM 8.7 mg/dl (8.5-10.1); CARBON DIOXIDE 16 mmol/L (21-32); CHLORIDE 111 mmol/L (98-107); CREATININE 0.38 mg/dl (0.60-1.20); GLUCOSE 207 mg/dl (70-99); POTASSIUM 3.6 mmol/L (3.5-5.1); SODIUM 139 mmol/L (136-145)
[2016-05-22] MEDS: INSULIN GLARGINE SOLOSTAR 100 UNITS/ML 3 ML PEN SC SCH (08:44)
[2016-05-22] MEDS: INSULIN ASPART 100 UNITS/ML 3 ML PEN SC SCH ×4 (08:46→21:12)
[2016-05-22] MEDS: ONDANSETRON INJ 2 MG/ML 2 ML VIAL IV PRN (09:26)
[2016-05-22] MEDS ORDERED: IPRATROPIUM BROMIDE/ALBUTEROL respimat INH INH PRN (10:15)
--- NOTE | 2016-05-22 10:26 | Pharmacy Progress Note ---
Glycemic Control: Progress Nt Date of Service May 22, 2016. Scope Glycemic Pharmacist consulted by Dr Nayak on 05/21/16 for glycemic control and to write orders per [facility] inpatient glycemic control protocol. Objective Accuchecks BSG (last 24hrs): Test 05/21/16 10:28 05/21/16 11:02 05/21/16 11:58 05/21/16 12:54 Bedside Glucose 177 mg/dl (70-90) 175 mg/dl (70-90) 173 mg/dl (70-90) 193 mg/dl (70-90) Test 05/21/16 14:03 05/21/16 14:05 05/21/16 15:08 05/21/16 16:07 Bedside Glucose 199 mg/dl (70-90) 159 mg/dl (70-90) 131 mg/dl (70-90) Random Glucose 189 mg/dl (70-99) Test 05/21/16 17:05 05/21/16 18:04 05/21/16 19:01 05/21/16 20:07 Bedside Glucose 151 mg/dl (70-90) 172 mg/dl (70-90) 144 mg/dl (70-90) 150 mg/dl (70-90) Test 05/21/16 20:30 05/21/16 21:08 05/21/16 22:24 05/21/16 23:29 Random Glucose 166 mg/dl (70-99) Bedside Glucose 190 mg/dl (70-90) 155 mg/dl (70-90) 106 mg/dl (70-90) Test 05/21/16 23:48 05/21/16 23:49 05/22/16 00:11 05/22/16 01:05 Random Glucose 99 mg/dl (70-99) Bedside Glucose 109 mg/dl (70-90) 105 mg/dl (70-90) 128 mg/dl (70-90) Test 05/22/16 03:45 05/22/16 06:45 05/22/16 07:50 Random Glucose 176 mg/dl (70-99) 207 mg/dl (70-99) Bedside Glucose 193 mg/dl (70-90) Laboratory Data (last 24hrs) Test 05/21/16 14:05 05/21/16 20:30 05/21/16 23:48 05/22/16 03:45 Anion Gap 14.0 mmol/L 11.0 mmol/L 12.0 mmol/L 14.0 mmol/L BUN/Creatinine Ratio 14.6 14.7 14.2 11.3 Blood Urea Nitrogen 6 mg/dl 5 mg/dl 5 mg/dl 4 mg/dl Creatinine 0.41 mg/dl 0.36 mg/dl 0.38 mg/dl 0.37 mg/dl Potassium Level 3.5 mmol/L 3.5 mmol/L 3.5 mmol/L 3.7 mmol/L Sodium Level 139 mmol/L 139 mmol/L 142 mmol/L 141 mmol/L White Blood Count 8.26 K/uL Red Blood Count 3.56 M/uL Hemoglobin 10.9 g/dL Hematocrit 31.9 % Mean Corpuscular Volume 89.6 fL Mean Corpuscular Hemoglobin 30.6 pg Mean Corpuscular Hemoglobin Concent 34.2 g/dl Platelet Count 257 K/uL Mean Platelet Volume 8.8 fL Neutrophils (%) (Auto) 52.6 % Lymphocytes (%) (Auto) 38.4 % Monocytes (%) (Auto) 7.6 % Eosinophils (%) (Auto) 1.1 % Basophils (%) (Auto) 0.2 % Neutrophils # (Auto) 4.34 K/uL Lymphocytes # (Auto) 3.17 K/uL Monocytes # (Auto) 0.63 K/uL Eosinophils # (Auto) 0.09 K/uL Basophils # (Auto) 0.02 K/uL Test 05/22/16 07:50 Anion Gap 12.0 mmol/L BUN/Creatinine Ratio 8.2 Blood Urea Nitrogen 3 mg/dl Creatinine 0.38 mg/dl Potassium Level 3.6 mmol/L Sodium Level 139 mmol/L HbA1c: 8.7% 04/08/16 Recent Pertinent Medications Outpatient Anti-diabetic Regimen: * Lantus 20 units Q AM * Apidra SQ w/ meals per sliding scale; reported to use CR of 1 unit per 10 gm CHOs when on steroids, CR 1 unit per 15gm CHOs when not on steroid * A1c = 8.7 % 04/08/16 The patient is currently receiving: * IV insulin infusion stopped at 0154 this AM * Lantus 14 units SQ x 1 given yesterday (05/21/16 @ 1135); 6 unit HS dose was held * Novolog SQ per sliding scale ACHS * Goal Range: 120-160mg/dL * Correction Factor: 30mg/dL/unit * Carb Ratio: 1 unit per 12 grams CHO consumed Risk Factors for Insulin Resistance: * IVF: D5 / NS + 20mEq KCl @ 150cc/hr * Diet: diet continues to be advanced; advanced to T2DM diet; only consumed 13gm CHO this AM Assessment & Plan ASSESSMENT: 05/21/16 * 41 yo female admitted w/ NV abdominal pain 05/20 - found to have acute pancreatitis; Lipase 5822, TG 872 * She presented with AG acidosis (AG 16, Bicarb 11) and hyperglycemia although not profound (initial Glu 240) * She has been placed on IV insulin infusion per protocol and acidosis has been improving, AG down to 12 and Bicarb up to 13 on last set of labs; last vpH 7.31 * Dextrose containing IVF's were started to allow for continued administration of IV insulin in order to resolve ketoacidosis * Given last set of labs and trend she will likely be able to transition off the insulin drip later this evening. * Will give a STAT dose of Lantus now - but continue the insulin drip as Bicarb is still lower than desired to transition; usual criteria for transition to SQ = AG < 12, Bicarb 15 or greater, vpH > 7.3 and Glu < 300. She is very close to meeting this criteria. Will continue the insulin drip for now and I suspect that we will be able to d/c the insulin drip this evening if Bicarb and AG criteria met. 05/22/16 * Patient continues to improve clinically, although AG metabolic acidosis continues however this is likely not related to DKA as serum ketones normalized overnight- acidosis continues to improve however. IV hydration continues. * IV insulin infusion was d/c'd at ~0200 this AM. Since discontinuation of drip BSGs have increased to 190's. * Will resume home dose of Lantus at this time. * Novolog CF and CR are reasonable starting points - will follow post-prandial BSGs today and adjust if necessary * Will add 0200 BSG check and coverage tonight to allow for tighter control in a patient recently transitioned off insulin drip PLAN FOR INPATIENT GLYCEMIC CONTROL: * Lantus 20 units SQ Q AM * BSGs ACHS and at 0200 initially * Goal range 120-160mg/dL * Correction factor 30mg/dL/unit * Carb ratio 1 unit per 12gm CHO consumed * Please note that the plan above was derived based on current level of insulin resistance and hospital stress. These recommendations are appropriate for inpatient admission only. Plan of care upon discharge will need to be reassessed to avoid potential outpatient hypo/hyperglycemia. Thank you.
[2016-05-22] MEDS ORDERED: HYDROmorphone INJ 1 MG/ML SYR IV PRN (10:45)
[2016-05-22 12:39] LABS: BUN/CREATININE RATIO 9.4 (10-20); CALCIUM 9.1 mg/dl (8.5-10.1); CREATININE 0.41 mg/dl (0.60-1.20); POTASSIUM 3.8 mmol/L (3.5-5.1)
--- NOTE | 2016-05-22 12:41 | DIAGNOSTIC IMAGING REPORT ---
Right upper quadrant ultrasound (LIVER) ABDOMEN LIMITED CLINICAL HISTORY: Choledocholithiasis pain. Nausea. TECHNIQUE: Ultrasound COMPARISON STUDY: 03/27/2016. FINDINGS: Mild fatty infiltration of liver. Prior cholecystectomy. Common bile duct 8 to 9 mm. This is similar as compared to the prior study. No significant intrahepatic biliary ductal distention. Pancreas is poorly seen, and the right kidney is unremarkable. IMPRESSION: Fatty infiltration of liver. Common bile duct prominence on a a postoperative basis and unchanged. Prior cholecystectomy. Electronically signed by: Stefan Harris M.D. 05/22/2016 12:40 PM Dictated Date/Time: 05/22/2016 12:38 PM
--- NOTE | 2016-05-22 13:57 | Progress Note ---
Subjective Date of Service: May 22, 2016. (Tia Gordillo PA-C) Subjective Pt evaluation today including: conversation w/ patient, physical exam, chart review, lab review, review of studies, review of inpatient medication list Patient seen and evaluated. No acute events overnight. Tolerating diet and reports better control of pain. Clinically improving. Reports cholecystectomy was approx. 5 years ago and denies any alcohol intake. Has had retention stones in the past (Tia Gordillo PA-C) Problem List Medical Problems: (1) Abdominal pain Status: Acute (2) Abdominal pain Status: Acute (3) Angioedema Status: Acute (4) Back strain Status: Acute (5) Central abdominal pain Status: Acute (6) Central abdominal pain Status: Acute (7) Encounter for medication refill Status: Acute (8) Generalized abdominal pain Status: Acute (9) Low back pain Status: Acute (10) Metabolic acidosis Status: Acute (11) Metabolic acidosis Status: Acute (12) Metabolic acidosis Status: Acute (13) Nausea & vomiting Status: Acute (14) Otitis externa Status: Acute (15) Pancreatitis Status: Acute (16) Respiratory failure Status: Acute (17) Right flank pain Status: Acute (18) Right sided abdominal pain Status: Acute (19) Supraglottic edema Status: Acute (20) UTI (urinary tract infection) Status: Acute (21) Viral URI with cough Status: Acute (Tia Gordillo PA-C) Review of Systems Constitutional: No chills, No fever ENT: + nasal symptoms Respiratory: No shortness of breath Cardiac: No chest pain Abdomen: + pain, No constipation, No diarrhea, No nausea, No vomiting Musculoskeletal: No muscle pain, No swelling Female : No dysuria Skin: No rash (Tia Gordillo PA-C) Medications Current Inpatient Medications Medications (Trade) Dose Ordered Sig/Jimbo Route Start Time Stop Time Status Last Admin Dose Admin Heparin Sodium (Porcine) (Heparin Sq 5000 Unit/0.5ml) 5,000 unit Q8H SQ 05/21/16 06:00 06/20/16 05:59 05/22/16 13:03 5,000 UNIT Acetaminophen (Tylenol Tab) 650 mg Q4H PRN PO 05/20/16 19:45 06/19/16 19:44 05/21/16 07:57 650 MG Al Hydrox/Mg Hydrox/Simethicone (Maalox Max Susp) 15 ml Q4H PRN PO 05/20/16 19:45 06/19/16 19:44 Magnesium Hydroxide (Milk Of Magnesia Susp) 30 ml Q6H PRN PO 05/20/16 19:45 06/19/16 19:44 Polyethylene (Miralax Powder Packet) 17 gm DAILY PRN PO 05/20/16 19:45 06/19/16 19:44 Zolpidem Tartrate (Ambien Tab) 5 mg HSZ PRN PO 05/20/16 19:45 06/19/16 19:44 Ondansetron HCl (Zofran Inj) 4 mg Q6H PRN IV 05/20/16 19:45 06/19/16 19:44 05/22/16 09:26 4 MG Fluticasone Propionate (Flovent Hfa 110MCG Inhaler) 1 puffs BID PRN INH 05/20/16 20:00 06/19/16 19:59 Pantoprazole Sodium (Protonix Tab) 40 mg DAILY PRN PO 05/20/16 20:00 06/19/16 19:59 Glucose (Glucose 40% Gel) 15-30 GRAMS 15 GRAMS... UD PRN PO 05/20/16 23:00 06/19/16 22:59 Glucose (Glucose Chew Tab) 4-8 Tablets 4 Tabl... UD PRN PO 05/20/16 23:00 06/19/16 22:59 Dextrose (Dextrose 50% 50ML Syringe) 25-50ML OF 50% DW IV FOR... UD PRN IV 05/20/16 23:00 06/19/16 22:59 Glucagon 1 mg 1 mg UD PRN SQ 05/20/16 23:00 06/19/16 22:59 Potassium Chloride/Dextrose/ Sod Cl (D5W And 1/2nss + 20meq KCl) 1,000 ml @ 150 mls/hr Q6H40M IV 05/21/16 09:00 06/20/16 08:59 05/22/16 06:29 150 MLS/HR Miscellaneous Information (Consult Glycemic Management Pharmacy) 1 ea UD N/A 05/21/16 12:14 06/20/16 12:13 Hydromorphone HCl (Dilaudid Inj) 1 mg Q1H PRN IV 05/21/16 15:00 06/04/16 14:59 05/22/16 11:58 1 MG Insulin Aspart (novoLOG ASPART) SLIDING SCALE ACHS SC 05/22/16 06:45 06/21/16 06:44 05/22/16 12:58 5 UNITS Insulin Glargine (Lantus Solostar Pen) 20 unit QAM SC 05/22/16 07:30 06/21/16 07:29 05/22/16 08:44 20 UNIT Albuterol/ Ipratropium (Combivent Respimat Inh) 1 puffs QID PRN INH 05/22/16 10:15 06/21/16 10:14 Insulin Aspart (novoLOG ASPART) SLIDING SCALE TODAY@0200 ONCE SC 05/23/16 02:00 05/23/16 02:01 (Tia Gordillo, PA-C) Objective Vital Signs Date Time Temp Pulse Resp B/P Pulse Ox O2 Delivery O2 Flow Rate FiO2 05/22/16 12:00 97 Room Air 05/22/16 12:00 37.0 93 16 128/58 97 Room Air 05/22/16 10:00 94 18 96 Room Air 05/22/16 08:00 36.8 105 16 121/94 99 Room Air 05/22/16 08:00 99 Room Air 05/22/16 08:00 Room Air 05/22/16 06:00 110 20 113/84 97 Room Air 05/22/16 04:00 37.0 97 16 131/90 97 Room Air 05/22/16 04:00 97 Room Air 05/22/16 01:53 37.0 102 16 120/79 96 Room Air 05/22/16 00:00 37.0 100 15 127/84 96 Room Air 05/21/16 23:58 96 Room Air 05/21/16 22:00 99 14 112/74 95 Room Air 05/21/16 20:00 37.1 103 20 154/88 98 Room Air 05/21/16 19:34 98 Room Air 05/21/16 18:00 36.6 105 18 132/96 98 Room Air 05/21/16 18:00 98 Room Air 05/21/16 18:00 Room Air 05/21/16 16:00 Room Air 05/21/16 16:00 97 Room Air 05/21/16 16:00 37.0 110 15 127/90 98 Room Air 05/21/16 14:00 36.6 102 18 107/73 97 Room Air 05/21/16 14:00 98 Room Air 05/21/16 14:00 Room Air (Tia Gordillo PA-C) Physical Exam General Appearance: WD/WN, no apparent distress Eyes: sclerae normal ENT: hearing grossly normal Neck: supple, no JVD, trachea midline Respiratory/Chest: lungs clear, normal breath sounds, no respiratory distress, no accessory muscle use Cardiovascular: regular rate, rhythm, no gallop, no murmur Abdomen: normal bowel sounds, soft, + tenderness (periumbilical and RLQ), + pertinent finding (surgical incisions well approximated without erythema or drainage) Extremities: no pedal edema, no calf tenderness Neurologic/Psychiatric: alert, oriented x 3 Skin: normal color, warm/dry (Tia Gordillo, ERNESTINA-C) Laboratory Results Last 24 Hours Test 05/21/16 14:03 05/21/16 14:05 05/21/16 15:08 05/21/16 16:07 Bedside Glucose 199 mg/dl 159 mg/dl 131 mg/dl Sodium Level 139 mmol/L Potassium Level 3.5 mmol/L Chloride Level 113 mmol/L Carbon Dioxide Level 12 mmol/L Anion Gap 14.0 mmol/L Blood Urea Nitrogen 6 mg/dl Creatinine 0.41 mg/dl Est Creatinine Clear Calc Drug Dose 163.9 ml/min Estimated GFR () 147.7 Estimated GFR (Non- 127.4 BUN/Creatinine Ratio 14.6 Random Glucose 189 mg/dl Calcium Level 8.4 mg/dl Lipase 2302 U/L Test 05/21/16 17:05 05/21/16 18:04 05/21/16 19:01 05/21/16 20:07 Bedside Glucose 151 mg/dl 172 mg/dl 144 mg/dl 150 mg/dl Test 05/21/16 20:30 05/21/16 21:08 05/21/16 22:24 05/21/16 23:29 Sodium Level 139 mmol/L Potassium Level 3.5 mmol/L Chloride Level 112 mmol/L Carbon Dioxide Level 16 mmol/L Anion Gap 11.0 mmol/L Blood Urea Nitrogen 5 mg/dl Creatinine 0.36 mg/dl Est Creatinine Clear Calc Drug Dose 186.6 ml/min Estimated GFR () > 150.0 Estimated GFR (Non- 133.0 BUN/Creatinine Ratio 14.7 Random Glucose 166 mg/dl Calcium Level 9.0 mg/dl Phosphorus Level 1.8 mg/dl Bedside Glucose 190 mg/dl 155 mg/dl 106 mg/dl Test 05/21/16 23:48 05/21/16 23:49 05/22/16 00:11 05/22/16 01:05 Sodium Level 142 mmol/L Potassium Level 3.5 mmol/L Chloride Level 114 mmol/L Carbon Dioxide Level 16 mmol/L Anion Gap 12.0 mmol/L Blood Urea Nitrogen 5 mg/dl Creatinine 0.38 mg/dl Est Creatinine Clear Calc Drug Dose 176.8 ml/min Estimated GFR () > 150.0 Estimated GFR (Non- 130.7 BUN/Creatinine Ratio 14.2 Random Glucose 99 mg/dl Calcium Level 8.8 mg/dl Beta-Hydroxybutyric Acid 0.94 mg/dL Bedside Glucose 109 mg/dl 105 mg/dl 128 mg/dl Test 05/22/16 01:31 05/22/16 03:45 05/22/16 06:45 05/22/16 07:50 Blood Gas Sample Site R Radial Bedside Blood Gas pH (LAB) 7.29 Bedside Blood Gas pCO2 (LAB) 27 mmHg Bedside Blood Gas pO2 (LAB) 81 mmHg Bedside Blood Gas HCO3 (LAB) 13 meq/L Bedside Blood Gas Total CO2 14 mEq/l Bedside Blood Gas Base Excess (LAB) -14.0 meq/L Bedside Blood Gas O2 Saturation 95.0 % Adolph Test Pass Oxygen Delivery Device Room Air White Blood Count 8.26 K/uL Red Blood Count 3.56 M/uL Hemoglobin 10.9 g/dL Hematocrit 31.9 % Mean Corpuscular Volume 89.6 fL Mean Corpuscular Hemoglobin 30.6 pg Mean Corpuscular Hemoglobin Concent 34.2 g/dl Platelet Count 257 K/uL Mean Platelet Volume 8.8 fL Neutrophils (%) (Auto) 52.6 % Lymphocytes (%) (Auto) 38.4 % Monocytes (%) (Auto) 7.6 % Eosinophils (%) (Auto) 1.1 % Basophils (%) (Auto) 0.2 % Neutrophils # (Auto) 4.34 K/uL Lymphocytes # (Auto) 3.17 K/uL Monocytes # (Auto) 0.63 K/uL Eosinophils # (Auto) 0.09 K/uL Basophils # (Auto) 0.02 K/uL RDW Standard Deviation 49.5 fL RDW Coefficient of Variation 15.1 % Immature Granulocyte % (Auto) 0.1 % Immature Granulocyte # (Auto) 0.01 K/uL Nucleated RBC Absolute Count (auto) 0.00 K/uL Nucleated Red Blood Cells % 0.0 % Sodium Level 141 mmol/L 139 mmol/L Potassium Level 3.7 mmol/L 3.6 mmol/L Chloride Level 113 mmol/L 111 mmol/L Carbon Dioxide Level 14 mmol/L 16 mmol/L Anion Gap 14.0 mmol/L 12.0 mmol/L Blood Urea Nitrogen 4 mg/dl 3 mg/dl Creatinine 0.37 mg/dl 0.38 mg/dl Est Creatinine Clear Calc Drug Dose 181.6 ml/min 176.8 ml/min Estimated GFR () > 150.0 > 150.0 Estimated GFR (Non- 131.8 130.7 BUN/Creatinine Ratio 11.3 8.2 Random Glucose 176 mg/dl 207 mg/dl Calcium Level 8.7 mg/dl 8.7 mg/dl Phosphorus Level 3.0 mg/dl Magnesium Level 1.5 mg/dl Lipase 839 U/L Bedside Glucose 193 mg/dl Test 05/22/16 09:09 05/22/16 11:00 05/22/16 11:48 Magnesium Level 2.1 mg/dl Bedside Glucose 200 mg/dl Sodium Level 139 mmol/L Potassium Level 3.8 mmol/L Chloride Level 110 mmol/L Carbon Dioxide Level 19 mmol/L Anion Gap 10.0 mmol/L Blood Urea Nitrogen 4 mg/dl Creatinine 0.41 mg/dl Est Creatinine Clear Calc Drug Dose 163.9 ml/min Estimated GFR () 147.7 Estimated GFR (Non- 127.4 BUN/Creatinine Ratio 9.4 Random Glucose 185 mg/dl Calcium Level 9.1 mg/dl (Tia Gordillo, PANilsonC) Assessment and Plan 41 y/o F w/Hx T2DM IDDM, HTN, tobacco abuse - recent hernia repair 5 days prior and recent admission for angioedema related to lisinopril use. Pt presents with abdominal pain which started 3 days prior. It is described as right/ central, persistent and severe. She is nauseous but denies vomiting. She has not had fevers/rigors or diarrhea. She had phoned her primary MD 3 days ago and was prescribed Zofran and Oxycodone which have not lead to significant improvement. Anion Gap Acidosis with Hyperglycemia: IMPROVING - Anion gap fluctuating currently closed - remains in ICU - D5 1/2 NSS + 20 mEq KCl with SSI - Continue monitoring glucose and electrolytes - Intensivists following - appreciated recommendations and interventions Acute Pancreatitis: - RUQ U/S - report reviewed - fatty infiltrate of liver; common bile duct prominence - Trend lipase - improving - Triglycerides 872 will trend after resolution of pancreatitis - Dilaudid 1 mg PRN - Consult GI - appreciated recommendations - choledocholithiasis? Hypomagnesemia: - Replete as necessary and trend H/O HTN: Recent D/C Lisinopril 2/2 Angioedema: - BP remain stable - continue to monitor DVT Prophylaxis: - Heparin 5000 units SC Q8H Code Status: FULL RESUSCITATION Disposition: - ICU until gap resolved (Tia Gordillo PA-C) ATTENDING ATTESTATION I have seen and examined patient this am. I have discussed plan of care in detail with CALEB and agree with plan as stated above. Patient state abdominal pain is improved. Desires to eat Vitals-reviewed GEN- NAD CVS-RRR RESP-CTA ABD-CTA EXT- no edema Labs-reviewed DKA Pancreatitis - insulin drip stopped. Currently on lantus - check RUQ u/s r/o gallstone pancreatitis (Tia Oates MD)
[2016-05-22 16:30] LABS: BUN/CREATININE RATIO 10.5 (10-20); CALCIUM 8.7 mg/dl (8.5-10.1); CREATININE 0.41 mg/dl (0.60-1.20)
[2016-05-22 20:48] LABS: CALCIUM 8.9 mg/dl (8.5-10.1); CREATININE 0.55 mg/dl (0.60-1.20)
[2016-05-22 23:54] LABS: BUN/CREATININE RATIO 13.3 (10-20); CALCIUM 8.9 mg/dl (8.5-10.1); CREATININE 0.48 mg/dl (0.60-1.20); POTASSIUM 3.9 mmol/L (3.5-5.1)
[2016-05-23] VITALS (11 sets, daily range): BP systolic 95–156; BP diastolic 55–100; PULSE 85–101; TEMP 36.6–37; O2SAT 93–98
[2016-05-23] MEDS: HYDROmorphone INJ 1 MG/ML SYR IV PRN ×3 (01:21→06:14)
[2016-05-23] MEDS: D5W AND 1/2NSS + 20MEQ KCL 1,000 ML IV SCH (01:21)
[2016-05-23] MEDS ORDERED: INSULIN ASPART 100 UNITS/ML 3 ML PEN SC ONE (02:00)
[2016-05-23 04:51] LABS: BLOOD UREA NITROGEN 5 mg/dl (7-18); BUN/CREATININE RATIO 13.4 (10-20); CALCIUM 8.6 mg/dl (8.5-10.1); CARBON DIOXIDE 21 mmol/L (21-32); CHLORIDE 110 mmol/L (98-107); CREATININE 0.38 mg/dl (0.60-1.20); GLUCOSE 170 mg/dl (70-99); MAGNESIUM 1.6 mg/dl (1.8-2.4); SODIUM 141 mmol/L (136-145)
[2016-05-23 04:52] LABS: PHOSPHORUS 2.8 mg/dl (2.5-4.9)
[2016-05-23 06:00] LABS: HEMATOCRIT 29.5 % (37-47); MEAN CELL VOLUME 89.4 fL (80-100); MEAN CORPUSCULAR HEMOGLOBIN 30.6 pg (25-34); MEAN CORPUSCULAR HGB CONC 34.2 g/dl (32-36); MEAN PLATELET VOLUME 9.5 fL (7.4-10.4); PLATELET COUNT 275 K/uL (130-400); WHITE BLOOD COUNT 6.75 K/uL (4.8-10.8)
[2016-05-23] MEDS: HEPARIN SOD 5000 UNIT/0.5 ML CARP SQ SCH ×3 (06:15→21:19)
[2016-05-23 06:50] LABS: SMUDGE CELLS PRESENT
[2016-05-23 06:51] LABS: BASO % 0.4 %; BASO ABS # 0.03 K/uL (0-0.2); COMPLETE YES; EOS % 1.6 %; GIANT PLATELETS 1+; HYPERSEGMENTED POLYS 1+; IG% 0.1 %; LYMPH % 47.1 %; LYMPH ABS # 3.18 K/uL (1.2-3.4); MONO % 8.6 %; NEUT % 42.2 %
[2016-05-23] MEDS: INSULIN ASPART 100 UNITS/ML 3 ML PEN SC SCH ×4 (08:18→21:18)
[2016-05-23] MEDS: INSULIN GLARGINE SOLOSTAR 100 UNITS/ML 3 ML PEN SC SCH (08:19)
[2016-05-23] MEDS ORDERED: MAGNESIUM SULFATE 1GM / D5W 1 GM in PREMIXED IN D5W 100 ML IV ONE (08:30)
[2016-05-23] MEDS ORDERED: NURSING VERBAL MED ORDER ONE ×2 (08:30→11:15)
--- NOTE | 2016-05-23 08:35 | GASTROINTESTINAL CONSULTATION ---
DATE OF CONSULTATION: 05/22/2016 This is a brief consult note, full consult note to follow. The patient was asked to be evaluated for acute pancreatitis. The patient developed pancreatitis 2 days post ventral wall hernia repair. No prior history of pancreatitis. No alcohol consumption. No recent addition of medications that could be related. No known history of lipid disorders. The patient's diet has been advanced to regular diet. The patient has abdominal pain in the epigastric region with some radiation to the back. This is unlike prior abdominal pains. LABORATORY STUDIES: On admission showed a lipase of 5822 and as high as 5923. Earlier today, the lipase was down to 839. CT scan suggests inflammation around the duodenum, mild edema adjacent to the pancreatic head and duodenum, mild duodenitis and pancreatitis cannot be excluded. No chronic changes were appreciated in the pancreas. Ultrasound of the liver showed a fatty appearance of the liver with mild common duct prominence that is postoperative (history of prior cholecystectomy). RECOMMENDATION: If diet is to be being advanced, would maintain a low fat diet and advance cautiously. Follow clinical presentation. Etiology of pancreatitis is unclear, possibly related to sludge or less likely a duodenal ulceration posteriorly. Would follow enzymes and consider performing an MRCP to exclude retained sludge or stones in the biliary system. Additionally, if symptoms persist, an upper endoscopy to exclude peptic ulcer disease is prudent. In addition, PPI therapy is recommended. Full dictation to follow. Thank you for allowing me to participate in this patient's care. SUBHASH
[2016-05-23] MEDS: ONDANSETRON INJ 2 MG/ML 2 ML VIAL IV PRN (10:29)
[2016-05-23] MEDS ORDERED: KETAMINE HCL INJ 50 MG/ML 10 ML VIAL IV SCH (10:30)
[2016-05-23] MEDS ORDERED: OXYCODONE HCL IR 5 MG TAB (IMMEDIATE RELEASE) PO ONE (11:15)
--- NOTE | 2016-05-23 11:45 | Pharmacy Progress Note ---
Glycemic Control: Progress Nt Date of Service May 23, 2016. Scope Glycemic Pharmacist consulted by Dr Nayak on 05/21/16 for glycemic control and to write orders per [facility] inpatient glycemic control protocol. Objective Accuchecks BSG (last 24hrs): Test 05/22/16 11:48 05/22/16 15:37 05/22/16 15:59 05/22/16 20:19 Random Glucose 185 mg/dl (70-99) 195 mg/dl (70-99) 165 mg/dl (70-99) Bedside Glucose 197 mg/dl (70-90) Test 05/22/16 21:09 05/22/16 23:25 05/23/16 02:08 05/23/16 04:00 Bedside Glucose 177 mg/dl (70-90) 203 mg/dl (70-90) Random Glucose 191 mg/dl (70-99) 170 mg/dl (70-99) Test 05/23/16 06:25 05/23/16 11:15 Bedside Glucose 194 mg/dl (70-90) 180 mg/dl (70-90) Laboratory Data (last 24hrs) Test 05/22/16 11:48 05/22/16 15:59 05/22/16 20:19 05/22/16 23:25 Anion Gap 10.0 mmol/L 9.0 mmol/L 13.0 mmol/L 12.0 mmol/L BUN/Creatinine Ratio 9.4 10.5 11.0 13.3 Blood Urea Nitrogen 4 mg/dl 4 mg/dl 6 mg/dl 6 mg/dl Creatinine 0.41 mg/dl 0.41 mg/dl 0.55 mg/dl 0.48 mg/dl Potassium Level 3.8 mmol/L 4.0 mmol/L 4.0 mmol/L 3.9 mmol/L Sodium Level 139 mmol/L 139 mmol/L 140 mmol/L 141 mmol/L Test 05/23/16 04:00 Anion Gap 10.0 mmol/L BUN/Creatinine Ratio 13.4 Blood Urea Nitrogen 5 mg/dl Creatinine 0.38 mg/dl Potassium Level 4.0 mmol/L Sodium Level 141 mmol/L White Blood Count 6.75 K/uL Red Blood Count 3.30 M/uL Hemoglobin 10.1 g/dL Hematocrit 29.5 % Mean Corpuscular Volume 89.4 fL Mean Corpuscular Hemoglobin 30.6 pg Mean Corpuscular Hemoglobin Concent 34.2 g/dl Platelet Count 275 K/uL Mean Platelet Volume 9.5 fL Neutrophils (%) (Auto) 42.2 % Lymphocytes (%) (Auto) 47.1 % Monocytes (%) (Auto) 8.6 % Eosinophils (%) (Auto) 1.6 % Basophils (%) (Auto) 0.4 % Neutrophils # (Auto) 2.84 K/uL Lymphocytes # (Auto) 3.18 K/uL Monocytes # (Auto) 0.58 K/uL Eosinophils # (Auto) 0.11 K/uL Basophils # (Auto) 0.03 K/uL HbA1c: 8.7% 04/08/16 Recent Pertinent Medications Outpatient Anti-diabetic Regimen: * Lantus 20 units Q AM * Apidra SQ w/ meals per sliding scale; reported to use CR of 1 unit per 10 gm CHOs when on steroids, CR 1 unit per 15gm CHOs when not on steroid * A1c = 8.7 % 04/08/16 The patient is currently receiving: * Lantus 20 units SQ Q AM * Novolog SQ per sliding scale ACHS and 0200 * Goal Range: 120-160mg/dL * Correction Factor: 30mg/dL/unit * Carb Ratio: 1 unit per 12 grams CHO consumed Risk Factors for Insulin Resistance: * IVF: D5 03/24 NS + 20mEq KCl @ 150cc/hr ---> d/c'd ~0830 this AM * Diet: diet continues to be advanced; currently T2DM / Low Fat diet; appetite has improved Assessment & Plan ASSESSMENT: 05/21/16 * 41 yo female admitted w/ NV abdominal pain 05/20 - found to have acute pancreatitis; Lipase 5822, TG 872 * She presented with AG acidosis (AG 16, Bicarb 11) and hyperglycemia although not profound (initial Glu 240) * She has been placed on IV insulin infusion per protocol and acidosis has been improving, AG down to 12 and Bicarb up to 13 on last set of labs; last vpH 7.31 * Dextrose containing IVF's were started to allow for continued administration of IV insulin in order to resolve ketoacidosis * Given last set of labs and trend she will likely be able to transition off the insulin drip later this evening. * Will give a STAT dose of Lantus now - but continue the insulin drip as Bicarb is still lower than desired to transition; usual criteria for transition to SQ = AG < 12, Bicarb 15 or greater, vpH > 7.3 and Glu < 300. She is very close to meeting this criteria. Will continue the insulin drip for now and I suspect that we will be able to d/c the insulin drip this evening if Bicarb and AG criteria met. 05/22/16 * Patient continues to improve clinically, although AG metabolic acidosis continues however this is likely not related to DKA as serum ketones normalized overnight- acidosis continues to improve however. IV hydration continues. * IV insulin infusion was d/c'd at ~0200 this AM. Since discontinuation of drip BSGs have increased to 190's. * Will resume home dose of Lantus at this time. * Novolog CF and CR are reasonable starting points - will follow post-prandial BSGs today and adjust if necessary * Will add 0200 BSG check and coverage tonight to allow for tighter control in a patient recently transitioned off insulin drip 05/23/16 * Patient continues to improve clinically, however still c/o abd pain frequently * AG acidosis has resolved (AG 10, Bicarb 21 on last PRP) * BSGs have ranged 165-203 over the last 24 hrs, actually only 1 BSG above 200 * Dextrose containing IVF's have been stopped, this will likely lead to improved BSGs today * Plan to continue w/ current insulin orders today and monitor BSGs pattern PLAN FOR INPATIENT GLYCEMIC CONTROL: * Continue Lantus 20 units SQ Q AM * BSGs ACHS only - no overnight check required now that patient appears to be stabilizing on SQ * Continue Goal range 120-160mg/dL * Continue Correction factor 30mg/dL/unit * Continue Carb ratio 1 unit per 12gm CHO consumed * Please note that the plan above was derived based on current level of insulin resistance and hospital stress. These recommendations are appropriate for inpatient admission only. Plan of care upon discharge will need to be reassessed to avoid potential outpatient hypo/hyperglycemia. Thank you.
--- NOTE | 2016-05-23 14:28 | Critical Care Progress Note ---
Critical Care Progress Note Date of Service May 23, 2016. ICU Day ICU Day Number: [address] Suresh Subjective Patient states that she has been tolerating PO well Pain is under "ok" control with her current medication regimen did receive some ketamine for pain control which resulting in nausea- resolved with zofran ambulating review of 10 systems completed and negative aside from above Objective Vitals--B/P stable. No temp. Pulmonary improved. General--looks more comfortable HEENT--no issues observed Pulmonary--exchange is adequate/oxygenation is good Cardio--rate and volume acceptable. GI--functional Neuro--nonfocal Psych--calm and appropriate Assessment & Plan 1. DKA - mild resulting in AG metabolic acidosis- Gap closed 2. Pancreatitis secondary to hypertriglyceridemia vs choledocholithiasis vs post op- improving 3. Hypophosphatemia 4. HTN 5. DMII 6. s/p Hernia repair 7. Hypomagnesemia NVS - alert and oriented - pain: Dilaudid q1h d/c - roxicodone available CVS - Sinus tachy on monitor - resolved - Zocor 20 mg RVS - no respiratory distress - O2 per nursing protocol FEN - Phosphate repleted - replete magnesium prn - consider recheck fasting lipids once resolves because may be the cause of pancreatitis - follow BMP ENDO - glycemic consult - appreciate input - Transitioned well to home regimen GI - advance diet as tolerated - lipase improved - GI consult- appreciate input RENAL - continue to monitor I&O - repeat BMP HEME - leukocytosis improving - follow cbc DVT: Heparin q 8 Patient is stable for downgrade Resident Physician Supervision Note: Dr. Nayak was resident physician during care of patient. I separately evaluated patient and did history and exam. I discussed the case with the resident and generally agree with the findings and plan. Patient doing much better, required 8 mg Dilaudid in the last 24 hours, given 10 mg ketamine. Patient reports that she did not like the way ketamine made her feel and was concern for hypoxia given she's had a previous episode when she was given large amounts of morphine and apparently went apneic. I discussed with the patient that this is unlikely to happen with ketamine and given her history of apnea while being on narcotics I do not want to escalate the IV narcotics any further. Accordingly I have put her back on oxycodone by mouth. She is stable for downgrade from ICU status. Documented By: Miguel Angel Suresh DO Data Medications: Current Inpatient Medications Medications (Trade) Dose Ordered Sig/Jimbo Route Start Time Stop Time Status Last Admin Dose Admin Heparin Sodium (Porcine) (Heparin Sq 5000 Unit/0.5ml) 5,000 unit Q8H SQ 05/21/16 06:00 06/20/16 05:59 05/23/16 06:15 5,000 UNIT Acetaminophen (Tylenol Tab) 650 mg Q4H PRN PO 05/20/16 19:45 06/19/16 19:44 05/21/16 07:57 650 MG Al Hydrox/Mg Hydrox/Simethicone (Maalox Max Susp) 15 ml Q4H PRN PO 05/20/16 19:45 06/19/16 19:44 Magnesium Hydroxide (Milk Of Magnesia Susp) 30 ml Q6H PRN PO 05/20/16 19:45 06/19/16 19:44 Polyethylene (Miralax Powder Packet) 17 gm DAILY PRN PO 05/20/16 19:45 06/19/16 19:44 Zolpidem Tartrate (Ambien Tab) 5 mg HSZ PRN PO 05/20/16 19:45 06/19/16 19:44 Ondansetron HCl (Zofran Inj) 4 mg Q6H PRN IV 05/20/16 19:45 06/19/16 19:44 05/23/16 10:29 4 MG Fluticasone Propionate (Flovent Hfa 110MCG Inhaler) 1 puffs BID PRN INH 05/20/16 20:00 06/19/16 19:59 Pantoprazole Sodium (Protonix Tab) 40 mg DAILY PRN PO 05/20/16 20:00 06/19/16 19:59 Glucose (Glucose 40% Gel) 15-30 GRAMS 15 GRAMS... UD PRN PO 05/20/16 23:00 06/19/16 22:59 Glucose (Glucose Chew Tab) 4-8 Tablets 4 Tabl... UD PRN PO 05/20/16 23:00 06/19/16 22:59 Dextrose (Dextrose 50% 50ML Syringe) 25-50ML OF 50% DW IV FOR... UD PRN IV 05/20/16 23:00 06/19/16 22:59 Glucagon (Glucagon Inj) 1 mg UD PRN SQ 05/20/16 23:00 06/19/16 22:59 Miscellaneous Information (Consult Glycemic Management Pharmacy) 1 ea UD N/A 05/21/16 12:14 06/20/16 12:13 Insulin Aspart (novoLOG ASPART) SLIDING SCALE ACHS SC 05/22/16 06:45 06/21/16 06:44 05/23/16 12:29 3 UNITS Insulin Glargine (Lantus Solostar Pen) 20 unit QAM SC 05/22/16 07:30 06/21/16 07:29 05/23/16 08:19 20 UNIT Albuterol/ Ipratropium (Combivent Respimat Inh) 1 puffs QID PRN INH 05/22/16 10:15 06/21/16 10:14 Simvastatin (Zocor Tab) 20 mg PM PO 05/23/16 21:00 06/22/16 20:59 Ketamine HCl (Ketalar Steri-Vial Inj) 10 mg TODAY@1030 IV 05/23/16 10:30 06/22/16 10:29 Oxycodone HCl (Roxicodone Immediate Rel Tab) 10 mg Q6 PRN PO 05/23/16 11:15 06/06/16 11:14 I & O: 24-Hour Column 05/23/16 07:59 Intake Total 5594 ml Output Total 3100 ml Balance 2494 ml Vital Signs: Date Time Temp Pulse Resp B/P Pulse Ox O2 Delivery O2 Flow Rate FiO2 05/23/16 14:00 36.6 97 17 143/91 96 Room Air 05/23/16 12:00 36.6 94 17 133/99 96 Room Air 05/23/16 12:00 Room Air 05/23/16 10:00 36.6 98 17 148/89 97 Room Air 05/23/16 08:00 Room Air 05/23/16 08:00 36.6 101 17 128/92 98 Room Air 05/23/16 08:00 Room Air 05/23/16 06:00 91 14 124/89 97 Room Air 05/23/16 04:47 127/86 05/23/16 04:00 Room Air 05/23/16 04:00 36.9 101 19 95/55 98 Room Air 05/23/16 02:00 93 20 123/87 93 Room Air 05/23/16 00:00 Room Air 05/23/16 00:00 37.0 92 15 156/93 97 Room Air 05/22/16 22:00 100 13 123/81 96 Room Air 05/22/16 20:00 36.8 91 15 139/101 97 Room Air 05/22/16 20:00 100 Room Air 05/22/16 18:00 103 20 100 Room Air 05/22/16 16:00 36.9 108 21 141/78 97 Room Air 05/22/16 16:00 97 Room Air Laboratory Results: Last 24 Hours Test 05/22/16 15:37 05/22/16 15:59 05/22/16 20:19 05/22/16 21:09 Bedside Glucose 197 mg/dl 177 mg/dl Sodium Level 139 mmol/L 140 mmol/L Potassium Level 4.0 mmol/L 4.0 mmol/L Chloride Level 110 mmol/L 108 mmol/L Carbon Dioxide Level 20 mmol/L 19 mmol/L Anion Gap 9.0 mmol/L 13.0 mmol/L Blood Urea Nitrogen 4 mg/dl 6 mg/dl Creatinine 0.41 mg/dl 0.55 mg/dl Est Creatinine Clear Calc Drug Dose 163.9 ml/min 122.2 ml/min Estimated GFR () 147.7 134.1 Estimated GFR (Non- 127.4 115.7 BUN/Creatinine Ratio 10.5 11.0 Random Glucose 195 mg/dl 165 mg/dl Calcium Level 8.7 mg/dl 8.9 mg/dl Test 05/22/16 23:25 05/23/16 02:08 05/23/16 04:00 05/23/16 06:25 Sodium Level 141 mmol/L 141 mmol/L Potassium Level 3.9 mmol/L 4.0 mmol/L Chloride Level 109 mmol/L 110 mmol/L Carbon Dioxide Level 20 mmol/L 21 mmol/L Anion Gap 12.0 mmol/L 10.0 mmol/L Blood Urea Nitrogen 6 mg/dl 5 mg/dl Creatinine 0.48 mg/dl 0.38 mg/dl Est Creatinine Clear Calc Drug Dose 140.0 ml/min 176.8 ml/min Estimated GFR () 140.2 > 150.0 Estimated GFR (Non- 121.0 130.7 BUN/Creatinine Ratio 13.3 13.4 Random Glucose 191 mg/dl 170 mg/dl Calcium Level 8.9 mg/dl 8.6 mg/dl Bedside Glucose 203 mg/dl 194 mg/dl White Blood Count 6.75 K/uL Red Blood Count 3.30 M/uL Hemoglobin 10.1 g/dL Hematocrit 29.5 % Mean Corpuscular Volume 89.4 fL Mean Corpuscular Hemoglobin 30.6 pg Mean Corpuscular Hemoglobin Concent 34.2 g/dl Platelet Count 275 K/uL Mean Platelet Volume 9.5 fL Neutrophils (%) (Auto) 42.2 % Lymphocytes (%) (Auto) 47.1 % Monocytes (%) (Auto) 8.6 % Eosinophils (%) (Auto) 1.6 % Basophils (%) (Auto) 0.4 % Neutrophils # (Auto) 2.84 K/uL Lymphocytes # (Auto) 3.18 K/uL Monocytes # (Auto) 0.58 K/uL Eosinophils # (Auto) 0.11 K/uL Basophils # (Auto) 0.03 K/uL RDW Standard Deviation 49.7 fL RDW Coefficient of Variation 15.0 % Immature Granulocyte % (Auto) 0.1 % Immature Granulocyte # (Auto) 0.01 K/uL Hypersegmented Polys 1+ Smudge Cells PRESENT Giant Platelets 1+ Phosphorus Level 2.8 mg/dl Magnesium Level 1.6 mg/dl Lipase 690 U/L Test 05/23/16 09:10 05/23/16 11:15 Bedside Glucose 180 mg/dl
--- NOTE | 2016-05-23 14:39 | Gastroenterology Progress Note ---
Progress Note Date of Service: May 23, 2016 Subjective Pt evaluation today including: conversation w/ patient, physical exam, chart review, lab review, review of studies, review of inpatient medication list CC f/U abd pain, pancreatitis HPI Pt states still with abd pain but oral pain meds controlling it. On solid diet. Medications Current Inpatient Medications Medications (Trade) Dose Ordered Sig/Jimbo Route Start Time Stop Time Status Last Admin Dose Admin Heparin Sodium (Porcine) (Heparin Sq 5000 Unit/0.5ml) 5,000 unit Q8H SQ 05/21/16 06:00 06/20/16 05:59 05/23/16 06:15 5,000 UNIT Acetaminophen (Tylenol Tab) 650 mg Q4H PRN PO 05/20/16 19:45 06/19/16 19:44 05/21/16 07:57 650 MG Al Hydrox/Mg Hydrox/Simethicone (Maalox Max Susp) 15 ml Q4H PRN PO 05/20/16 19:45 06/19/16 19:44 Magnesium Hydroxide (Milk Of Magnesia Susp) 30 ml Q6H PRN PO 05/20/16 19:45 06/19/16 19:44 Polyethylene (Miralax Powder Packet) 17 gm DAILY PRN PO 05/20/16 19:45 06/19/16 19:44 Zolpidem Tartrate (Ambien Tab) 5 mg HSZ PRN PO 05/20/16 19:45 06/19/16 19:44 Ondansetron HCl (Zofran Inj) 4 mg Q6H PRN IV 05/20/16 19:45 06/19/16 19:44 05/23/16 10:29 4 MG Fluticasone Propionate (Flovent Hfa 110MCG Inhaler) 1 puffs BID PRN INH 05/20/16 20:00 06/19/16 19:59 Pantoprazole Sodium (Protonix Tab) 40 mg DAILY PRN PO 05/20/16 20:00 06/19/16 19:59 Glucose (Glucose 40% Gel) 15-30 GRAMS 15 GRAMS... UD PRN PO 05/20/16 23:00 06/19/16 22:59 Glucose (Glucose Chew Tab) 4-8 Tablets 4 Tabl... UD PRN PO 05/20/16 23:00 06/19/16 22:59 Dextrose (Dextrose 50% 50ML Syringe) 25-50ML OF 50% DW IV FOR... UD PRN IV 05/20/16 23:00 06/19/16 22:59 Glucagon (Glucagon Inj) 1 mg UD PRN SQ 05/20/16 23:00 06/19/16 22:59 Miscellaneous Information (Consult Glycemic Management Pharmacy) 1 ea UD N/A 05/21/16 12:14 06/20/16 12:13 Insulin Aspart (novoLOG ASPART) SLIDING SCALE ACHS SC 05/22/16 06:45 06/21/16 06:44 05/23/16 12:29 3 UNITS Insulin Glargine (Lantus Solostar Pen) 20 unit QAM SC 05/22/16 07:30 06/21/16 07:29 05/23/16 08:19 20 UNIT Albuterol/ Ipratropium (Combivent Respimat Inh) 1 puffs QID PRN INH 05/22/16 10:15 06/21/16 10:14 Simvastatin (Zocor Tab) 20 mg PM PO 05/23/16 21:00 06/22/16 20:59 Ketamine HCl (Ketalar Steri-Vial Inj) 10 mg TODAY@1030 IV 05/23/16 10:30 06/22/16 10:29 Oxycodone HCl (Roxicodone Immediate Rel Tab) 10 mg Q6 PRN PO 05/23/16 11:15 06/06/16 11:14 Objective Vital Signs Date Time Temp Pulse Resp B/P Pulse Ox O2 Delivery O2 Flow Rate FiO2 05/23/16 14:00 36.6 97 17 143/91 96 Room Air 05/23/16 12:00 36.6 94 17 133/99 96 Room Air 05/23/16 12:00 Room Air 05/23/16 10:00 36.6 98 17 148/89 97 Room Air 05/23/16 08:00 Room Air 05/23/16 08:00 36.6 101 17 128/92 98 Room Air 05/23/16 08:00 Room Air 05/23/16 06:00 91 14 124/89 97 Room Air 05/23/16 04:47 127/86 05/23/16 04:00 Room Air 05/23/16 04:00 36.9 101 19 95/55 98 Room Air 05/23/16 02:00 93 20 123/87 93 Room Air 05/23/16 00:00 Room Air 05/23/16 00:00 37.0 92 15 156/93 97 Room Air 05/22/16 22:00 100 13 123/81 96 Room Air 05/22/16 20:00 36.8 91 15 139/101 97 Room Air 05/22/16 20:00 100 Room Air 05/22/16 18:00 103 20 100 Room Air 05/22/16 16:00 36.9 108 21 141/78 97 Room Air 05/22/16 16:00 97 Room Air Physical Exam General Appearance: WD/WN, no apparent distress Respiratory/Chest: lungs clear, no respiratory distress Abdomen: normal bowel sounds, non tender, soft, no organomegaly Laboratory Results Last 24 Hours Test 05/22/16 15:37 05/22/16 15:59 05/22/16 20:19 05/22/16 21:09 Bedside Glucose 197 mg/dl 177 mg/dl Sodium Level 139 mmol/L 140 mmol/L Potassium Level 4.0 mmol/L 4.0 mmol/L Chloride Level 110 mmol/L 108 mmol/L Carbon Dioxide Level 20 mmol/L 19 mmol/L Anion Gap 9.0 mmol/L 13.0 mmol/L Blood Urea Nitrogen 4 mg/dl 6 mg/dl Creatinine 0.41 mg/dl 0.55 mg/dl Est Creatinine Clear Calc Drug Dose 163.9 ml/min 122.2 ml/min Estimated GFR () 147.7 134.1 Estimated GFR (Non- 127.4 115.7 BUN/Creatinine Ratio 10.5 11.0 Random Glucose 195 mg/dl 165 mg/dl Calcium Level 8.7 mg/dl 8.9 mg/dl Test 05/22/16 23:25 05/23/16 02:08 05/23/16 04:00 05/23/16 06:25 Sodium Level 141 mmol/L 141 mmol/L Potassium Level 3.9 mmol/L 4.0 mmol/L Chloride Level 109 mmol/L 110 mmol/L Carbon Dioxide Level 20 mmol/L 21 mmol/L Anion Gap 12.0 mmol/L 10.0 mmol/L Blood Urea Nitrogen 6 mg/dl 5 mg/dl Creatinine 0.48 mg/dl 0.38 mg/dl Est Creatinine Clear Calc Drug Dose 140.0 ml/min 176.8 ml/min Estimated GFR () 140.2 > 150.0 Estimated GFR (Non- 121.0 130.7 BUN/Creatinine Ratio 13.3 13.4 Random Glucose 191 mg/dl 170 mg/dl Calcium Level 8.9 mg/dl 8.6 mg/dl Bedside Glucose 203 mg/dl 194 mg/dl White Blood Count 6.75 K/uL Red Blood Count 3.30 M/uL Hemoglobin 10.1 g/dL Hematocrit 29.5 % Mean Corpuscular Volume 89.4 fL Mean Corpuscular Hemoglobin 30.6 pg Mean Corpuscular Hemoglobin Concent 34.2 g/dl Platelet Count 275 K/uL Mean Platelet Volume 9.5 fL Neutrophils (%) (Auto) 42.2 % Lymphocytes (%) (Auto) 47.1 % Monocytes (%) (Auto) 8.6 % Eosinophils (%) (Auto) 1.6 % Basophils (%) (Auto) 0.4 % Neutrophils # (Auto) 2.84 K/uL Lymphocytes # (Auto) 3.18 K/uL Monocytes # (Auto) 0.58 K/uL Eosinophils # (Auto) 0.11 K/uL Basophils # (Auto) 0.03 K/uL RDW Standard Deviation 49.7 fL RDW Coefficient of Variation 15.0 % Immature Granulocyte % (Auto) 0.1 % Immature Granulocyte # (Auto) 0.01 K/uL Hypersegmented Polys 1+ Smudge Cells PRESENT Giant Platelets 1+ Phosphorus Level 2.8 mg/dl Magnesium Level 1.6 mg/dl Lipase 690 U/L Test 05/23/16 09:10 05/23/16 11:15 Bedside Glucose 180 mg/dl Assessment and Plan Pancretitis---stable, tolerating solid diet. lipase improving abd pain --from pancreatitsi elevated triglycerides---level 872 on admit could be an explanation for pancreatitisi--repeat in am. Dicussed with hospitalist important to keep this in check elevated alk phos--can be from fatty liver, repeat in am fattty liver--recommend wt control
[2016-05-23] MEDS: ACETAMINOPHEN 325 MG TAB PO PRN (14:48)
--- NOTE | 2016-05-23 14:55 | Progress Note ---
Subjective Date of Service: May 23, 2016. (Tia Gordillo PA-C) Subjective Pt evaluation today including: conversation w/ patient, physical exam, chart review, lab review, review of inpatient medication list Patient seen and evaluated. No acute events overnight. Patient reports fatigue. Does report some improvement in abdominal pain. Tolerating a diet. Currently anion gap is closed. Patient given ketamine for pain control. Reports associated nausea that was resolved with Zofran. Patient is suitable for transfer to [facility]. (Tia Gordillo PA-C) Problem List Medical Problems: (1) Abdominal pain Status: Acute (2) Abdominal pain Status: Acute (3) Angioedema Status: Acute (4) Back strain Status: Acute (5) Central abdominal pain Status: Acute (6) Central abdominal pain Status: Acute (7) Encounter for medication refill Status: Acute (8) Generalized abdominal pain Status: Acute (9) Low back pain Status: Acute (10) Metabolic acidosis Status: Acute (11) Metabolic acidosis Status: Acute (12) Metabolic acidosis Status: Acute (13) Nausea & vomiting Status: Acute (14) Otitis externa Status: Acute (15) Pancreatitis Status: Acute (16) Respiratory failure Status: Acute (17) Right flank pain Status: Acute (18) Right sided abdominal pain Status: Acute (19) Supraglottic edema Status: Acute (20) UTI (urinary tract infection) Status: Acute (21) Viral URI with cough Status: Acute (Tia Gordillo PA-C) Review of Systems Constitutional: + fatigue, No chills, No fever Respiratory: No shortness of breath Cardiac: No chest pain Abdomen: + pain, No constipation, No diarrhea, No nausea, No vomiting Musculoskeletal: No muscle pain, No swelling Female : No dysuria Skin: No rash (Tia Gordillo PA-C) Medications Current Inpatient Medications Medications (Trade) Dose Ordered Sig/Ijmbo Route Start Time Stop Time Status Last Admin Dose Admin Heparin Sodium (Porcine) (Heparin Sq 5000 Unit/0.5ml) 5,000 unit Q8H SQ 05/21/16 06:00 06/20/16 05:59 05/23/16 06:15 5,000 UNIT Acetaminophen (Tylenol Tab) 650 mg Q4H PRN PO 05/20/16 19:45 06/19/16 19:44 05/21/16 07:57 650 MG Al Hydrox/Mg Hydrox/Simethicone (Maalox Max Susp) 15 ml Q4H PRN PO 05/20/16 19:45 06/19/16 19:44 Magnesium Hydroxide (Milk Of Magnesia Susp) 30 ml Q6H PRN PO 05/20/16 19:45 06/19/16 19:44 Polyethylene (Miralax Powder Packet) 17 gm DAILY PRN PO 05/20/16 19:45 06/19/16 19:44 Zolpidem Tartrate (Ambien Tab) 5 mg HSZ PRN PO 05/20/16 19:45 06/19/16 19:44 Ondansetron HCl (Zofran Inj) 4 mg Q6H PRN IV 05/20/16 19:45 06/19/16 19:44 05/23/16 10:29 4 MG Fluticasone Propionate (Flovent Hfa 110MCG Inhaler) 1 puffs BID PRN INH 05/20/16 20:00 06/19/16 19:59 Pantoprazole Sodium (Protonix Tab) 40 mg DAILY PRN PO 05/20/16 20:00 06/19/16 19:59 Glucose (Glucose 40% Gel) 15-30 GRAMS 15 GRAMS... UD PRN PO 05/20/16 23:00 06/19/16 22:59 Glucose (Glucose Chew Tab) 4-8 Tablets 4 Tabl... UD PRN PO 05/20/16 23:00 06/19/16 22:59 Dextrose (Dextrose 50% 50ML Syringe) 25-50ML OF 50% DW IV FOR... UD PRN IV 05/20/16 23:00 06/19/16 22:59 Glucagon (Glucagon Inj) 1 mg UD PRN SQ 05/20/16 23:00 06/19/16 22:59 Miscellaneous Information (Consult Glycemic Management Pharmacy) 1 ea UD N/A 05/21/16 12:14 06/20/16 12:13 Insulin Aspart (novoLOG ASPART) SLIDING SCALE ACHS SC 05/22/16 06:45 06/21/16 06:44 05/23/16 12:29 3 UNITS Insulin Glargine (Lantus Solostar Pen) 20 unit QAM SC 05/22/16 07:30 06/21/16 07:29 05/23/16 08:19 20 UNIT Albuterol/ Ipratropium (Combivent Respimat Inh) 1 puffs QID PRN INH 05/22/16 10:15 06/21/16 10:14 Simvastatin (Zocor Tab) 20 mg PM PO 05/23/16 21:00 06/22/16 20:59 Ketamine HCl (Ketalar Steri-Vial Inj) 10 mg TODAY@1030 IV 05/23/16 10:30 06/22/16 10:29 Oxycodone HCl (Roxicodone Immediate Rel Tab) 10 mg Q6 PRN PO 05/23/16 11:15 06/06/16 11:14 (Tia Gordillo PA-C) Objective Vital Signs Date Time Temp Pulse Resp B/P Pulse Ox O2 Delivery O2 Flow Rate FiO2 05/23/16 14:00 36.6 97 17 143/91 96 Room Air 05/23/16 12:00 36.6 94 17 133/99 96 Room Air 05/23/16 12:00 Room Air 05/23/16 10:00 36.6 98 17 148/89 97 Room Air 05/23/16 08:00 Room Air 05/23/16 08:00 36.6 101 17 128/92 98 Room Air 05/23/16 08:00 Room Air 05/23/16 06:00 91 14 124/89 97 Room Air 05/23/16 04:47 127/86 05/23/16 04:00 Room Air 05/23/16 04:00 36.9 101 19 95/55 98 Room Air 05/23/16 02:00 93 20 123/87 93 Room Air 05/23/16 00:00 Room Air 05/23/16 00:00 37.0 92 15 156/93 97 Room Air 05/22/16 22:00 100 13 123/81 96 Room Air 05/22/16 20:00 36.8 91 15 139/101 97 Room Air 05/22/16 20:00 100 Room Air 05/22/16 18:00 103 20 100 Room Air 05/22/16 16:00 36.9 108 21 141/78 97 Room Air 05/22/16 16:00 97 Room Air (Tia Gordillo PA-C) Physical Exam General Appearance: WD/WN, no apparent distress Eyes: sclerae normal ENT: hearing grossly normal Neck: supple, no JVD, trachea midline Respiratory/Chest: lungs clear, normal breath sounds, no respiratory distress, no accessory muscle use Cardiovascular: regular rate, rhythm, no gallop, no murmur Abdomen: normal bowel sounds, soft, + pertinent finding (surgical incisions well approximated without evidence of erythema or drainage) Extremities: no pedal edema, no calf tenderness Neurologic/Psychiatric: alert, oriented x 3 Skin: normal color, warm/dry (Tia Gordillo PA-C) Laboratory Results Last 24 Hours Test 05/22/16 15:37 05/22/16 15:59 05/22/16 20:19 05/22/16 21:09 Bedside Glucose 197 mg/dl 177 mg/dl Sodium Level 139 mmol/L 140 mmol/L Potassium Level 4.0 mmol/L 4.0 mmol/L Chloride Level 110 mmol/L 108 mmol/L Carbon Dioxide Level 20 mmol/L 19 mmol/L Anion Gap 9.0 mmol/L 13.0 mmol/L Blood Urea Nitrogen 4 mg/dl 6 mg/dl Creatinine 0.41 mg/dl 0.55 mg/dl Est Creatinine Clear Calc Drug Dose 163.9 ml/min 122.2 ml/min Estimated GFR () 147.7 134.1 Estimated GFR (Non- 127.4 115.7 BUN/Creatinine Ratio 10.5 11.0 Random Glucose 195 mg/dl 165 mg/dl Calcium Level 8.7 mg/dl 8.9 mg/dl Test 05/22/16 23:25 05/23/16 02:08 05/23/16 04:00 05/23/16 06:25 Sodium Level 141 mmol/L 141 mmol/L Potassium Level 3.9 mmol/L 4.0 mmol/L Chloride Level 109 mmol/L 110 mmol/L Carbon Dioxide Level 20 mmol/L 21 mmol/L Anion Gap 12.0 mmol/L 10.0 mmol/L Blood Urea Nitrogen 6 mg/dl 5 mg/dl Creatinine 0.48 mg/dl 0.38 mg/dl Est Creatinine Clear Calc Drug Dose 140.0 ml/min 176.8 ml/min Estimated GFR () 140.2 > 150.0 Estimated GFR (Non- 121.0 130.7 BUN/Creatinine Ratio 13.3 13.4 Random Glucose 191 mg/dl 170 mg/dl Calcium Level 8.9 mg/dl 8.6 mg/dl Bedside Glucose 203 mg/dl 194 mg/dl White Blood Count 6.75 K/uL Red Blood Count 3.30 M/uL Hemoglobin 10.1 g/dL Hematocrit 29.5 % Mean Corpuscular Volume 89.4 fL Mean Corpuscular Hemoglobin 30.6 pg Mean Corpuscular Hemoglobin Concent 34.2 g/dl Platelet Count 275 K/uL Mean Platelet Volume 9.5 fL Neutrophils (%) (Auto) 42.2 % Lymphocytes (%) (Auto) 47.1 % Monocytes (%) (Auto) 8.6 % Eosinophils (%) (Auto) 1.6 % Basophils (%) (Auto) 0.4 % Neutrophils # (Auto) 2.84 K/uL Lymphocytes # (Auto) 3.18 K/uL Monocytes # (Auto) 0.58 K/uL Eosinophils # (Auto) 0.11 K/uL Basophils # (Auto) 0.03 K/uL RDW Standard Deviation 49.7 fL RDW Coefficient of Variation 15.0 % Immature Granulocyte % (Auto) 0.1 % Immature Granulocyte # (Auto) 0.01 K/uL Hypersegmented Polys 1+ Smudge Cells PRESENT Giant Platelets 1+ Phosphorus Level 2.8 mg/dl Magnesium Level 1.6 mg/dl Lipase 690 U/L Test 05/23/16 09:10 05/23/16 11:15 Bedside Glucose 180 mg/dl (Tia Gordillo, PANilsonC) Assessment and Plan 41 y/o F w/Hx T2DM IDDM, HTN, tobacco abuse - recent hernia repair 5 days prior and recent admission for angioedema related to lisinopril use. Pt presents with abdominal pain which started 3 days prior. It is described as right/ central, persistent and severe. She is nauseous but denies vomiting. She has not had fevers/rigors or diarrhea. She had phoned her primary MD 3 days ago and was prescribed Zofran and Oxycodone which have not lead to significant improvement. Anion Gap Acidosis with Hyperglycemia/T2DM: RESOLVED - Anion gap closed and clinically improving - will transfer to Med/Surg - Lantus 20 units SC daily and SSI with goal 120-160; CF 30; ratio 12 Acute Pancreatitis: IMPROVING - Trend lipase - improving - Triglycerides 872 will trend after resolution of pancreatitis -- Lipid panel - pending - Attempted pain control with Ketamine but got nauseous - Roxicodone 10 mg Q6H PRN and Tylenol PRN for pain control - Simvastatin 20 mg daily - Consult GI - appreciated recommendations - likely 2/2 hypercholesterolemia Hypomagnesemia: - Replete as necessary and trend H/O HTN: Recent D/C Lisinopril 2/2 Angioedema: - BP remain stable - continue to monitor DVT Prophylaxis: - Heparin 5000 units SC Q8H Code Status: FULL RESUSCITATION Disposition: - Move to Med/Surg - probable D/C in AM (Tia Gordillo, CALEB) ATTENDING ATTESTATION I have seen and examined patient this am. I have discussed plan of care in detail with CALEB and agree with plan as stated above. Patient states abdominal pain is improved Vitals-reviewed GEN- NAD CVS-RRR RESP-CTA ABD-+BS EXT- no edema Labs-reviewed DKA Pancreatitis HLD - DKA resolved - start simvastatin - cont lantus - appreciate GI input - transfer to medical floors (Tia Oates MD)
[2016-05-23] MEDS: OXYCODONE HCL IR 5 MG TAB (IMMEDIATE RELEASE) PO PRN (18:57)
--- NOTE | 2016-05-23 20:11 | GASTROINTESTINAL CONSULTATION ---
DATE OF CONSULTATION: 05/22/2016 DATE OF CONSULTATION: 05/22/2016. CHIEF COMPLAINT: Acute pancreatitis. HISTORY OF PRESENT ILLNESS: Mrs. Wild is a 41-year-old white female who recently underwent ventral wall hernia repair. The patient has a history of insulin-dependent diabetes mellitus, hypertension, tobacco use. The patient denies alcohol use however. The patient had a hernia repair 5 days prior to admission and approximately 2 days after the surgery developed epigastric pain that radiated to her back. The patient had been on lisinopril, but actually discontinued this because of her history of angioedema and subsequently changed to Lopressor. The patient denied any vomiting but had mild nausea. The pain was on scale of 7-8/10, although at the present time with medications she is down to 4-5/10. The patient has no prior history of pancreatitis. There is no prior history of hyperlipidemia according to the patient. PAST MEDICAL HISTORY: Significant for diabetes and prior history of DKA, reflux disease, supraglottic edema associated with the angioedema from her lisinopril, tubal ligation, cholecystectomy. SOCIAL HISTORY: The patient smokes cigarettes. Denies alcohol use. , lives with her family. ALLERGIES: SHE HAS ALLERGIES TO LISINOPRIL, MORPHINE, AND IV CONTRAST MATERIALS. HOME MEDICATIONS: Include Bentyl, insulin Glargine, insulin glulisine. The patient also takes oral inhalers and a p.r.n. dose of omeprazole. REVIEW OF SYSTEMS: Otherwise noncontributory based on 14-point exam. The patient denies odynophagia, dysphagia, melena, bright red blood per rectum. She has a prior cholecystectomy. The patient denies dysuria or hematuria. PHYSICAL EXAMINATION: VITAL SIGNS ON ADMISSION: The patient was afebrile 36.3, blood pressure 130/78. Room air oxygen 97%, pulse 124, respirations 22. GENERAL: The patient at this time is awake, alert and oriented x3. Actually had just finished eating a diet which had been advanced today to a regular diet. HEAD, EYES, EARS, NOSE, AND THROAT: The patient's sclerae are anicteric. Oral mucosa is moist. HEART: Normal S1, S2. LUNGS: Clear to auscultation. ABDOMEN: Soft, mild to moderately tender with moderate palpation. There is no rebound or guarding. I do not appreciate hepatosplenomegaly. EXTREMITIES: Without clubbing, cyanosis or edema. RECTAL EXAMINATION: Deferred at this time. LABORATORY STUDIES: On admission showed a white count of 21.7, hemoglobin 16.4, platelets of 357,000. BUN and creatinine are 11 and 0.8, potassium 4.0. LFTs on admission, bilirubin 0.5, AST 18, ALT 39, alkaline phosphatase 221, lipase of 5,822. HCG negative. The patient had imaging which revealed mild edema in the region of the pancreatic head and duodenum, duodenitis and pancreatitis could not be excluded. There is no evidence of acute appendicitis. There has been an interval ventral hernia mesh identified. IMPRESSION: The patient with no prior history of acute pancreatitis who developed evidence of pancreatitis by labs clinically and by imaging. The patient is status post cholecystectomy and LFTs are normal and therefore the passage of common bile duct stone is less likely. At this point, the patient's diet has been advanced and would favor a low fat diet at most. If pain were to persist, then I would resume an n.p.o. status with IV fluids with continued pain control. At some point if these numbers persist or if LFTs are bothersome then consider an MRCP to exclude a retained bile duct stone or sludge. Liver ultrasound from 05/22/2016 earlier today revealed fatty appearance to the liver with common bile duct prominence likely due to post cholecystectomy. This is 8-9 mm in size and unchanged from prior study. No evidence of intrahepatic ductal dilation. Will follow with you. Would await the results of the patient's lipid panel. In addition, would correct any lytes including magnesium, calcium and phosphorus if found to be abnormal. All questions answered for the patient.If symptoms return, would consider upper endoscopy to exclude DU. Thank you for allowing me to participate in this patient's care. SUBHASH
[2016-05-23] MEDS ORDERED: SIMVASTATIN 20 MG TAB PO SCH (21:00)
[2016-05-24] MEDS: OXYCODONE HCL IR 5 MG TAB (IMMEDIATE RELEASE) PO PRN ×3 (01:33→14:42)
[2016-05-24 05:53] LABS: HEMATOCRIT 29.6 % (37-47); MEAN CELL VOLUME 90.2 fL (80-100); MEAN CORPUSCULAR HEMOGLOBIN 31.4 pg (25-34); MEAN CORPUSCULAR HGB CONC 34.8 g/dl (32-36); MEAN PLATELET VOLUME 9.2 fL (7.4-10.4); PLATELET COUNT 288 K/uL (130-400); RED BLOOD COUNT 3.28 M/uL (4.2-5.4); WHITE BLOOD COUNT 5.48 K/uL (4.8-10.8)
[2016-05-24] MEDS: HEPARIN SOD 5000 UNIT/0.5 ML CARP SQ SCH ×2 (06:18→14:00)
[2016-05-24 06:26] LABS: ALB/GLOB RATIO 0.8 (0.9-2); BUN/CREATININE RATIO 16.6 (10-20); CALCIUM 8.6 mg/dl (8.5-10.1); CHOLESTEROL/HDL RATIO 6.6; CREATININE 0.41 mg/dl (0.60-1.20); POTASSIUM 3.3 mmol/L (3.5-5.1)
[2016-05-24 07:05] LABS: BASO % 0.5 %; BASO ABS # 0.03 K/uL (0-0.2); COMPLETE YES; EOS % 1.8 %; HYPERSEGMENTED POLYS 1+; LARGE PLATELETS 1+; LYMPH % 52.4 %; LYMPH ABS # 2.87 K/uL (1.2-3.4); MONO % 7.7 %; NEUT % 37.6 %
[2016-05-24 07:59] VITALS: BP 162/106; PULSE 95; TEMP 36.6; O2SAT 97
[2016-05-24] MEDS ORDERED: INSULIN GLARGINE SOLOSTAR 100 UNITS/ML 3 ML PEN SC SCH (09:30)
[2016-05-24] MEDS: INSULIN ASPART 100 UNITS/ML 3 ML PEN SC SCH ×2 (09:36→13:24)
[2016-05-24 11:50] VITALS: BP 168/112; PULSE 87; O2SAT 98
[2016-05-24] MEDS ORDERED: ZCR20 PO (13:28)
--- NOTE | 2016-05-24 13:29 | Discharge Instructions ---
Discharge Instructions Admission Admission Date: May 20, 2016 at 19:51 Admission Diagnosis: Pancreatitis, Acute. Discharge Care Plan - Problem: Medical Problems: (1) DKA (2) Pancreatitis Care Plan - Goal(s): Decrease discomfort, Improve function Care Plan - Instructions: Activity Recommendations: no limitations Recommended Home Diet: Diabetic, Low Fat Provider Instructions: Please follow up with PCP in 1 week VTE Core Measure Inpt VTE Proph given/why not?: Unfractionated heparin SQ Laboratory Results Test Results: Hemoglobin A1c Test 04/08/16 06:35 Range/Units Estimated Average Glucose 203 mg/dl Hemoglobin A1c 8.7 H 4.5-5.6 % Lipid Panel Test 05/24/16 05:10 Range/Units Triglycerides Level 348 H 0-150 mg/dl Cholesterol Level 113 0-200 mg/dl HDL Cholesterol 17 mg/dl Cholesterol/HDL Ratio 6.6 LDL Cholesterol, Calculated 26 mg/dl Antonieta Xavier Recommendations: Call your doctor if: * Temperature above 101 degrees * Pain not relieved by pain medicine ordered * There is increased drainage or redness from any incision * You have any unanswered questions or concerns. Your Doctors Instructions noted above were prepared by provider Tia Oates.
--- NOTE | 2016-05-24 14:29 | Pharmacy Progress Note ---
Glycemic: Assessment & Plan Date of Service May 24, 2016. Assessment & Plan The patient is currently receiving ~40 units of insulin per day. BSGs ranging 116 - 287 mg/dl over the past 24hrs. Insulin needs are distributed equally among prandial and basal therapies. However, FBG and prandial BSGs remain elevated above goal range. Therefore, increase Lantus by 20% and tighten Novolog parameters for improved glycemic control. PLAN FOR INPATIENT GLYCEMIC REGIMEN: * Basal insulin: Increase - Lantus 25 units every 24 hours; give 1/ 2 dose for BSG below 110 mg/dl * Correctional Insulin: Novolog Correction per scale ACHS Goal Range: Low 120 mg/dL - High 160 mg/dL Tighten - Correction Factor: 25 mg/dL/unit * Prandial insulin: Tighten - Per carb ratio of 1 unit per 10 grams CHO consumed Pharmacy will continue to monitor patient daily and write orders per [facility] inpatient glycemic control protocol. Thanks. * Please note that the plan above was derived based on current level of insulin resistance and hospital stress. These recommendations are appropriate for inpatient admission only. Plan of care upon discharge will need to be reassessed to avoid potential outpatient hypo/hyperglycemia.
[2016-05-24 15:15] VITALS: BP_SYST 155; BP_SYST 164; BP_DIAS 100; BP_DIAS 104; PULSE 97
[2016-05-24 15:28] VITALS: BP 155/100; PULSE 97; TEMP 36.6; O2SAT 98
--- NOTE | 2016-05-24 17:05 | Discharge Summary ---
Discharge Summary Date of Service May 24, 2016. Discharge Summary Admission Date: May 20, 2016 at 19:51 Discharge Date: May 24, 2016 Discharge Disposition: Home Principal Diagnosis: Pancreatitis/DKA/HLD Consultations: GI Critical Care Medication Reconciliation New Medications: Simvastatin (Simvastatin) 20 Mg Tab 20 MG PO PM for 30 Days, #30 TAB Continued Medications: Acetaminophen (Tylenol) 325 Mg Tab 650 MG PO Q4H PRN for Pain Dicyclomine Hcl (Dicyclomine Hcl) 10 Mg Cap 10 MG PO TID Fluticasone Propionate (Flovent Hfa) 120 Puffs/12320 Mcg Aero 1 PUFF INH BID PRN for Shortness of Breath Insulin Glargine (Lantus) 100 Unit/Ml Inj 20 SC QAM, VIAL Insulin Glulisine (Apidra Solostar) 100 Units/Ml Inj 1 DOSE SQ UD SLIDING SCALE WITH MEALS Ipratropium-Albuterol (Combivent Respimat) 1 Aer Aer 1 PUFF INH QID PRN for Cough or Wheeze, INH Omeprazole (Prilosec) 20 Mg Capcr 20 MG PO DAILY PRN for Acid Reflux Oxycodone Ir (Roxicodone Ir) 5 Mg Tab 10 MG PO Q6H PRN for Pain, #40 TAB Discharge Exam Review of Systems: Constitutional: No chills Eyes: No worsening of vision ENT: No unusual epistaxis Respiratory: No cough Cardiovascular: No chest pain Abdomen: No pain Musculoskeletal: No joint pain Genitourinary - Female: No dysuria Neurologic: No memory loss Psychiatric: No depression symptoms Endocrine: No fatigue Hematologic / Lymphatic: No abnormal bleeding/bruising Integumentary: No rash Physical Exam: General Appearance: WD/WN, no apparent distress Eyes: normal inspection ENT: normal ENT inspection Neck: supple Respiratory/Chest: chest non-tender, lungs clear Cardiovascular: regular rate, rhythm, no edema Abdomen / GI: normal bowel sounds, non tender, soft Extremities: normal inspection 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 Pt presents with abdominal pain which started 3 days prior. It is described as right/ central, persistent and severe. She is nauseous but denies vomiting. She has not had fevers/rigors or diarrhea. She had phoned her primary MD 3 days ago and was prescribed Zofran and Oxycodone which have not lead to significant improvement. On presentation patient was found to have an elevated lipase. She was found ot ave DKA as well. Patient started on insulin drip and transferred to ICU, critical care was consulted. GI was consulted as for etiology of pancreatitis. Patient had HLD which was thought to be etiology of pancreatitis. Patient was started on simvastatin and counseled on diet and exercise. Patient was eventually titrated off of insulin and switched to lantus. Patients symptoms of nausea and vomiting improved and she was tolerating a regular diet at time of discharge. DKA RESOLVED - Lantus 20 units SC daily and SSI with goal 120-160; CF 30; ratio 12 Acute Pancreatitis: IMPROVING - Trend lipase - improving - Triglycerides 872 will trend after resolution of pancreatitis -- Lipid panel - pending - Attempted pain control with Ketamine but got nauseous - Roxicodone 10 mg Q6H PRN and Tylenol PRN for pain control - Simvastatin 20 mg daily - Consulted GI - appreciated recommendations - likely 2/2 hypercholesterolemia Hypomagnesemia: - Replete as necessary and trend H/O HTN: Recent D/C Lisinopril 2/2 Angioedema: - BP remain stable - continue to monitor DVT Prophylaxis: - Heparin 5000 units SC Q8H Code Status: FULL RESUSCITATION Disposition: - discharged home and instructed to f/u with PCP Total Time Spent: Greater than 30 minutes This includes examination of the patient, discharge planning, medication reconciliation, and communication with other providers. Discharge Instructions Please refer to the electronic Patient Visit Report (Discharge Instructions) for additional information.
== END 2016-05-24 16:05 | disposition home or self-care (01) | DRG 438 ==
LOC: ENRESERVDT → ENRESERV → ENRESERVTM → C.EDB 16:15 → C.MS4W 19:51 → C.MSICU 05-21 11:01 → C.4E 05-23 16:33
PROVIDERS: ADMIT Internal Medicine; ATTEND Internal Medicine
DX: K85.90 Acute pancreatitis without necrosis or infection, unspecified (principal); E13.10 Other specified diabetes mellitus with ketoacidosis without coma; E83.42 Hypomagnesemia; E83.39 Other disorders of phosphorus metabolism; R00.0 Tachycardia, unspecified; E78.1 Pure hyperglyceridemia; E78.00 Pure hypercholesterolemia, unspecified; E78.5 Hyperlipidemia, unspecified; K76.0 Fatty (change of) liver, not elsewhere classified; I10 Essential (primary) hypertension; K21.9 Gastro-esophageal reflux disease without esophagitis; F17.210 Nicotine dependence, cigarettes, uncomplicated; Z98.890 Other specified postprocedural states; Z71.6 Tobacco abuse counseling; Z79.4 Long term (current) use of insulin; Z79.51 Long term (current) use of inhaled steroids; Z79.891 Long term (current) use of opiate analgesic; Z79.899 Other long term (current) drug therapy

== ENCOUNTER 2016-06-06 08:18 | Emergency (ER) | payer OTHER ==
[~2016-06-06] VITALS: Ht 157.5 cm; Wt 69.6 kg
[~2016-06-06 08:18] MED LIST changes: +ZCR20 PO
[2016-06-06 08:21] VITALS: Ht 157.5 cm; Wt 69.6 kg
[2016-06-06] MEDS ORDERED: CLINDAMYCIN HCL 150 MG CAP PO ONE (09:15)
[2016-06-06] MEDS ORDERED: ONDANSETRON 4MG OD TAB PO ONE (09:15)
[2016-06-06] MEDS ORDERED: OXYC1TAB3 PO (09:24)
[2016-06-06] MEDS ORDERED: CLC/300 PO (09:24)
[2016-06-06] MEDS ORDERED: ONDA4TAB10 SL (09:24)
[2016-06-06 09:37] VITALS: BP 147/91; PULSE 88; O2SAT 97
--- NOTE | 2016-06-06 09:42 | EMERGENCY ROOM VISIT NOTE ---
ED Visit Note First contact with patient: 08:29 CHIEF COMPLAINT: Right upper and lower dental pain 1 week HISTORY OF PRESENT ILLNESS: Patient is a 41-year-old white female who presents to the emergency department for evaluation of right upper and lower dental pain 1 week. She reports she was intubated at our medical facility in March and a "cracked a tooth. Patient was treated with 2 courses of Augmentin for an unrelated illness around that same time. She had noticed some right-sided dental pain but it improved with the Augmentin and cold just about a week ago. She notes increasing pain in the teeth with swelling into her right cheek over the last 1-2 days. She tried taking Tylenol and rinsing with salt water gargles. She notes a metallic taste in her mouth on occasion. She denies any fevers. She has not contacted a dentist. REVIEW OF SYSTEMS: Review of systems as per HPI. All other systems reviewed were negative. At least 6 systems reviewed. PMH: Electronic medical records are reviewed and summarized as above/below. See Problem List. SOCIAL HISTORY: Patient lives at home. Smoker PHYSICAL EXAM: Vital Signs: Reviewed Nurse's notes. CONSTITUTIONAL: Patient is a well-appearing 41-year-old white female who is awake and alert and in no acute distress. Vital signs are stable. EARS: Tympanic membranes intact, not inflamed, have normal contour. External canals clear. MOUTH: Overall the patient has fair dentition. The right upper and lower rear molars in question are grossly carious and decayed to the gumline. They are tender to percussion. There is slight swelling along the gumline although no focal abscess. Mucous membranes moist, no lesions, tongue and gums appear normal. THROAT: No pharyngeal injection, exudates, or tonsillar hypertrophy. Airway is patent. No trismus noted. FACE: Slight right facial swelling is appreciated. No cellulitic changes. NECK: No lymphadenopathy. ED course: The patient was seen and evaluated as above. Her old records were reviewed, including her recent hospitalizations for angioedema and pancreatitis. She has gross dental decay of the right upper and lower molars with associated facial swelling which is consistent with apical infection. She will likely require extraction. She was treated recently with 2 courses of Augmentin I have elected to place her on clindamycin. She is given her first doses here in the emergency department. Patient was medicated with Zofran 4 mg ODT and clindamycin 300 mg orally. She was given a small prescription for oxycodone to use for severe pain. She does not have any evidence for facial cellulitis, Agustín's angina or drainable abscess at this time. Patient was reviewed in the [facility] Prescription Drug Monitoring Program, which demonstrated regular oxycodone prescriptions, last was in the end of April. These were prescribed for chronic pain and recent diagnosis of pancreatitis. No worrisome red flags were noted. Problem List Medical Problems: (1) Abdominal muscle strain Status: Resolved (2) Abdominal pain Status: Resolved (3) Abdominal pain Status: Resolved (4) Abdominal wall hernia Status: Resolved (5) Acute respiratory failure Status: Resolved (6) Angioedema Status: Resolved (7) Back pain Status: Resolved (8) Back strain Status: Resolved (9) Bronchitis Status: Resolved (10) Central abdominal pain Status: Resolved (11) Central abdominal pain Status: Resolved (12) Cervical cancer Status: Resolved (13) Contusion of rib on right side Status: Resolved (14) Diabetes Status: Chronic (15) DKA (diabetic ketoacidoses) Status: Resolved (16) Dysphagia Status: Resolved (17) Encounter for medication refill Status: Resolved (18) Essential (Primary) Hypertension Status: Chronic (19) Flank pain Status: Resolved (20) Gardnerella vaginitis Status: Resolved (21) Generalized abdominal pain Status: Resolved (22) GERD (gastroesophageal reflux disease) Status: Chronic (23) Hyperglycemia Status: Resolved (24) Hypokalemia Status: Resolved (25) Left leg pain Status: Resolved (26) Pancreatitis Status: Resolved (27) Pancreatitis, acute Status: Resolved (28) PID (pelvic inflammatory disease) Status: Resolved (29) PID (pelvic inflammatory disease) Status: Resolved (30) Postoperative pain Status: Resolved (31) Right lower quadrant abdominal abscess Status: Resolved (32) RUQ pain Status: Resolved (33) Shortness of breath Status: Resolved (34) Sinusitis Status: Resolved (35) Sore throat Status: Resolved (36) Supraglottic edema Status: Resolved (37) UTI (urinary tract infection) Status: Resolved (38) Vomiting Status: Resolved (39) Yeast dermatitis of penis Status: Resolved Surgical Problems: (1) H/O tubal ligation Status: Resolved (2) History of cholecystectomy Status: Resolved (3) Hx of cholecystectomy Status: Resolved (4) Tubal ligation status Status: Resolved Current/Historical Medications Scheduled Clindamycin HCl (Clindamycin HCl), 1 CAP PO TID Dicyclomine Hcl (Dicyclomine Hcl), 10 MG PO TID Insulin Glargine (Lantus), 20 SC QAM Insulin Glulisine (Apidra Solostar), 1 DOSE SQ UD Simvastatin (Simvastatin), 20 MG PO PM Scheduled PRN Acetaminophen (Tylenol), 650 MG PO Q4H PRN for Pain Fluticasone Propionate (Flovent Hfa), 1 PUFF INH BID PRN for Shortness of Breath Ipratropium-Albuterol (Combivent Respimat), 1 PUFF INH QID PRN for Cough or Wheeze Omeprazole (Prilosec), 20 MG PO DAILY PRN for Acid Reflux Ondasetron Odt (Zofran Odt), 4 MG SL Q6H PRN for Nausea or Vomiting Oxycodone Immediate Rel Tab (Roxicodone Ir), 1-2 TAB PO Q4H PRN for Severe Pain Allergies Coded Allergies: Lisinopril (Verified Allergy, Severe, ANAPHYLAXIS, 05/20/16) ANGIOEDEMA Morphine (Verified Allergy, Mild, VOMIT/ITCHY, 05/20/16) Iodinated Diagnostic Agents (Verified Adverse Reaction, Mild, VOMITING, ) Vital Signs Date Time Temp Pulse Resp B/P Pulse Ox O2 Delivery O2 Flow Rate FiO2 06/06/16 09:37 88 20 147/91 97 06/06/16 08:21 36.6 91 20 153/102 96 Room Air Medications Administered Medications (Trade) Dose Ordered Sig/Jimbo Route Start Time Stop Time Status Last Admin Dose Admin Clindamycin HCl (Cleocin Cap) 300 mg ONE ONCE PO 06/06/16 09:15 06/06/16 09:16 DC 06/06/16 09:22 300 MG Ondansetron HCl (Zofran Odt) 4 mg ONE ONCE PO 06/06/16 09:15 06/06/16 09:16 DC 06/06/16 09:22 4 MG Departure Information Impression Primary Impression: Dental abscess Prescriptions Oxycodone Immediate Rel Tab (ROXICODONE IR) 5 Mg Tab 1-2 TAB PO Q4H Y for Severe Pain, #20 TAB For Initial Treatment Prov: Lynn Hardwick PA 06/06/16 Clindamycin HCl (Clindamycin HCl) 300 Mg Cap 1 CAP PO TID for 10 Days, #30 CAP Prov: Lynn Hardwick PA 06/06/16 Ondasetron Odt (ZOFRAN ODT) 4 Mg Tab 4 MG SL Q6H Y for Nausea or Vomiting, #15 TAB Prov: Lynn Hardwick PA 06/06/16 Referrals Victoriano Goins M.D. (PCP) Patient Instructions [facility] Additional Instructions DO NOT drive, drink alcohol, operate machinery, or perform dangerous activities today. You were given medications in the ER that can affect your ability to safely function or operate a vehicle. Oxycodone (OxyIR) 5mg: Take 1-2 pills every four hours for breakthrough pain. Avoid alcohol, operating machinery or dangerous equipment, working on ladders or roofs, DRIVING, or situations where being under the influence may be dangerous. It is recommended to use an ulro-iig-ubneaam stool softener such as Colace, 100mg twice daily while taking this medication to avoid constipation. Zofran(odansetron) tablets 4mg: Take one and allow it to dissolve in your mouth every four to six hours as needed for nausea or vomiting. Clindamycin 300: Take one pill 3 times daily for 10 days for your dental infection. All antibiotics can cause diarrhea. If this occurs and you feel worse or it does not resolve in 1-2 days follow up with your doctor or return to the Emergency Department as this could be signs of serious underlying problems. Any medication can cause an allergic reaction, stop the pills immediately and return to the ER for rash, hives, breathing difficulties, or swelling. Ibuprofen(Motrin, Advil) may be used for fever or pain. Use 600mg every six hours as needed. Take with food. Avoid using more than 2400mg in a 24 hour period. Do not use 2400mg per day for more than three consecutive days without physician direction. Prolonged inappropriate use can lead to stomach upset or ulcers. (AND/OR) Acetaminophen(Tylenol) may be used for fever or pain. Use 1000mg every six hours as needed. Avoid using more than 4000mg in a 24 hour period. Saltwater gargles after meals and before bedtime. Soft foods. Orajel/Anbesol/clove oil as needed for discomfort. Followup with your oral surgeon for definitive management. You may also follow up with your primary care physician for pain/care management until you can be seen by your dentist.
== END 2016-06-06 09:38 | disposition home or self-care (01) ==
LOC: C.EDB 08:19
DX: K04.7 Periapical abscess without sinus (principal); E11.9 Type 2 diabetes mellitus without complications; I10 Essential (primary) hypertension; K21.9 Gastro-esophageal reflux disease without esophagitis; Z79.4 Long term (current) use of insulin; Z79.899 Other long term (current) drug therapy; F17.210 Nicotine dependence, cigarettes, uncomplicated

== ENCOUNTER 2016-07-09 10:08 | Emergency (ER) | payer OTHER ==
[~2016-07-09] VITALS: Ht 160 cm; Wt 69.1 kg
[~2016-07-09 10:08] MED LIST changes: -APDI SQ; -DICY10CA12 PO; -INSDGI SC; +ONDA4TAB10 SL; -PRLSR20 PO
[2016-07-09 10:12] VITALS: TEMP 36.5; Ht 160 cm; Wt 69.1 kg
[2016-07-09] MEDS ORDERED: HYDROmorphone INJ 1 MG/ML SYR IV STA (10:42)
[2016-07-09] MEDS ORDERED: SODIUM CHLORIDE 0.9% 1000ML 1,000 ML IV ONE (10:42)
[2016-07-09] MEDS ORDERED: SODIUM CHLORIDE 0.9% 1000ML 1,000 ML IV STA (10:42)
[2016-07-09] MEDS ORDERED: ONDANSETRON 8 MG/54 ML D5W IV ONE (10:45)
--- NOTE | 2016-07-09 10:49 | EMERGENCY ROOM VISIT NOTE ---
History Report prepared by Adam: Anna Hoffman Under the Supervision of: Dr. Miguel Angel Hackett M.D. First contact with patient: 10:32 Chief Complaint: ABDOMINAL PAIN Stated Complaint: STOMACH PAIN Nursing Triage Summary: Recent hernia surgery (7 weeks ago) and also was told that her pancreas stopped working. C/o abd pain, loose stool History of Present Illness The patient is a 41 year old female who presents to the Emergency Room with complaints of persistent right lower quadrant abdominal pain that began . She currently rates her discomfort as a 10/10 in severity. The patient notes a surgical history of a double hernia repair 7 weeks ago. She notes that she developed pancreatitis after the surgery. The patient states that with her pancreatitis her pain was higher up. The patient states that her pain today worsens with ambulation. She describes her pain as a sharp pain. The patient additionally notes that she was intubated after developing angioedema from her Lisinopril. She additionally notes that she has a history of a hysterectomy. The patient denies any headache, chest pain, shortness of breath, urinary symptoms, leg swelling, or chance of . Source of History: patient, family Onset: Position: abdomen (RLQ) Symptom Intensity: 10/10 Quality: sharp Timing: other (persistent) Modifying Factors (Worsening): other (ambulation) Associated Symptoms: No SOB, No chest pain, No headache, No urinary symptoms Review of Systems See HPI for pertinent positives & negatives. A total of 10 systems reviewed and were otherwise negative. Past Medical & Surgical Medical Problems: (1) Abdominal muscle strain (2) Abdominal pain (3) Abdominal pain (4) Abdominal wall hernia (5) Acute respiratory failure (6) Angioedema (7) Back pain (8) Back strain (9) Bronchitis (10) Central abdominal pain (11) Central abdominal pain (12) Cervical cancer (13) Contusion of rib on right side (14) Diabetes (15) DKA (diabetic ketoacidoses) (16) Dysphagia (17) Encounter for medication refill (18) Essential (Primary) Hypertension (19) Flank pain (20) Gardnerella vaginitis (21) Generalized abdominal pain (22) GERD (gastroesophageal reflux disease) (23) Hyperglycemia (24) Hypokalemia (25) Left leg pain (26) Pancreatitis (27) Pancreatitis, acute (28) PID (pelvic inflammatory disease) (29) PID (pelvic inflammatory disease) (30) Postoperative pain (31) Right lower quadrant abdominal abscess (32) RUQ pain (33) Shortness of breath (34) Sinusitis (35) Sore throat (36) Supraglottic edema (37) UTI (urinary tract infection) (38) Vomiting (39) Yeast dermatitis of penis Surgical Problems: (1) H/O tubal ligation (2) History of cholecystectomy (3) Hx of cholecystectomy (4) Tubal ligation status Old medical records were reviewed. Nurse's notes were reviewed and I agree with. Family History Hypertension Social History Smoking Status: Current Every Day Smoker Alcohol Use: none Drug Use: none Marital Status: Housing Status: lives with family Occupation Status: employed Current/Historical Medications Scheduled Dicyclomine Hcl (Dicyclomine Hcl), 10 MG PO TID Insulin Glargine (Lantus), 20 SC QAM Insulin Glulisine (Apidra Solostar), 1 DOSE SQ UD Simvastatin (Simvastatin), 20 MG PO PM Scheduled PRN Acetaminophen (Tylenol), 650 MG PO Q4H PRN for Pain Fluticasone Propionate (Flovent Hfa), 1 PUFF INH BID PRN for Shortness of Breath Ipratropium-Albuterol (Combivent Respimat), 1 PUFF INH QID PRN for Cough or Wheeze Omeprazole (Prilosec), 20 MG PO DAILY PRN for Acid Reflux Oxycodone Immediate Rel Tab (Roxicodone Ir), 1-2 TAB PO Q4H PRN for Severe Pain Allergies Coded Allergies: Lisinopril (Verified Allergy, Severe, ANAPHYLAXIS, 05/20/16) ANGIOEDEMA Morphine (Verified Allergy, Mild, VOMIT/ITCHY, 05/20/16) Iodinated Diagnostic Agents (Verified Adverse Reaction, Mild, VOMITING, ) Physical Exam Vital Signs Date Time Temp Pulse Resp B/P Pulse Ox O2 Delivery O2 Flow Rate FiO2 07/09/16 15:18 88 20 191/124 98 07/09/16 13:46 98 16 145/105 99 Room Air 07/09/16 12:12 68 16 190/100 98 Room Air 07/09/16 10:12 36.5 91 18 188/140 99 Room Air Physical Exam General: Well developed well nourished, non-ill appearing middle aged female in no acute distress, breathing comfortably on room air. Normal speech HEENT: Normal cephalic atraumatic. Pupils are equal round and reactive to light. Extraocular movements are intact. Oropharynx is pink with moist mucous membranes. No swelling of the mouth lips or tongue. Sclerae anicteric. Were Neck: Supple with a midline trachea. No meningeal signs or stiffness, no JVD or bruits. No Stridor. Chest: Clear to auscultation bilaterally. No wheezes or rhonchi. No increased work of breathing. Heart: regular rate and rhythm. Abdomen: Soft mildly tender in the right lower quadrant, well healing incisions from hernia repair, no redness or warmth, nondistended without rebound guarding or rigidity. Extremities: No cyanosis clubbing or edema. No calf tenderness or assymetry Spine/Back. Non tender to palpation. No CVA tenderness Skin: Good turgor without rashes. Neurologic exam: Cranial nerves two through 12 are intact. Motor and sensation are intact and symmetrical throughout. Medical Decision & Procedures ER Provider Diagnostic Interpretation: CT results as stated below per my review and radiologist interpretation: CT SCAN OF THE ABDOMEN AND PELVIS WITHOUT CONTRAST CLINICAL HISTORY: Generalized abdominal pain COMPARISON STUDY: 05/20/2016 TECHNIQUE: CT scan of the abdomen and pelvis was performed from the lung bases to the proximal femurs. Images are reviewed in the axial, sagittal, and coronal planes. IV contrast was not administered for this examination. CT DOSE: 370.24 mGy.cm FINDINGS: Lower chest: The heart is normal in size and configuration, without pericardial effusion. The lung bases and pleural spaces are clear. Liver: The unenhanced liver is normal in size, contour, and attenuation. There is no intrahepatic biliary ductal dilatation. Gallbladder: Surgically absent Spleen: Normal in size and attenuation. Pancreas: Unremarkable. Adrenal glands: Unremarkable. Kidneys: No renal, ureteral, or bladder calculi are visualized. Bowel: There are no transition zones indicate bowel obstruction. There is no evidence of acute diverticulitis. The appendix is not visualized. There are no findings to indicate acute appendicitis. There is evidence of a ventral hernia repair. There is a fat-containing umbilical hernia with induration of the fat. Peritoneum: There is no intraperitoneal free air or abdominal ascites. Vasculature: The abdominal aorta is normal in course and caliber. Adenopathy: There are shotty para-aortic lymph nodes which are not pathologically enlarged by size criteria umbilical Pelvic viscera: The uterus appears surgically absent. Skeletal structures: No destructive osseous lesions are seen. IMPRESSION: 1. No renal, ureteral, or bladder calculi identified 2. No evidence of bowel obstruction. No evidence of free air 3. Nonvisualization the appendix. No secondary findings to indicate acute appendicitis 4. Ventral hernia mesh. Slight decreased size of the fat containing umbilical hernia which continues to demonstrate induration of the fat Electronically signed by: Jesse Somers M.D. 07/09/2016 12:18 PM Dictated Date/Time: 07/09/2016 12:12 PM Laboratory Results 07/09/16 10:52 Red Blood Count 4.71, Mean Corpuscular Volume 92.8, Mean Corpuscular Hemoglobin 31.0, Mean Corpuscular Hemoglobin Concent 33.4, Mean Platelet Volume 10.0, Neutrophils (%) (Auto) 73.1, Lymphocytes (%) (Auto) 22.2, Monocytes (%) (Auto) 4.2, Eosinophils (%) (Auto) 0.3, Basophils (%) (Auto) 0.1, Neutrophils # (Auto) 10.01, Lymphocytes # (Auto) 3.05, Monocytes # (Auto) 0.58, Eosinophils # (Auto) 0.04, Basophils # (Auto) 0.01 07/09/16 10:52 Test 07/09/16 10:25 07/09/16 10:52 Urine Color YELLOW Urine Appearance CLEAR (CLEAR) Urine pH 6.0 (4.5-7.5) Urine Specific [place] 1.032 (1.000-1.030) Urine Protein TRACE (NEG) Urine Glucose (UA) NEG (NEG) Urine Ketones NEG (NEG) Urine Occult Blood NEG (NEG) Urine Nitrite NEG (NEG) Urine Bilirubin NEG (NEG) Urine Urobilinogen NEG (NEG) Urine Leukocyte Esterase NEG (NEG) Urine WBC (Auto) 1-5 /hpf (0-5) Urine RBC (Auto) 0-4 /hpf (0-4) Urine Hyaline Casts (Auto) 1-5 /lpf (0-5) Urine Epithelial Cells (Auto) >30 /lpf (0-5) Urine Bacteria (Auto) NEG (NEG) White Blood Count 13.71 K/uL (4.8-10.8) Red Blood Count 4.71 M/uL (4.2-5.4) Hemoglobin 14.6 g/dL (12.0-16.0) Hematocrit 43.7 % (37-47) Mean Corpuscular Volume 92.8 fL (80-100) Mean Corpuscular Hemoglobin 31.0 pg (25-34) Mean Corpuscular Hemoglobin Concent 33.4 g/dl (32-36) Platelet Count 315 K/uL (130-400) Mean Platelet Volume 10.0 fL (7.4-10.4) Neutrophils (%) (Auto) 73.1 % Lymphocytes (%) (Auto) 22.2 % Monocytes (%) (Auto) 4.2 % Eosinophils (%) (Auto) 0.3 % Basophils (%) (Auto) 0.1 % Neutrophils # (Auto) 10.01 K/uL (1.4-6.5) Lymphocytes # (Auto) 3.05 K/uL (1.2-3.4) Monocytes # (Auto) 0.58 K/uL (0.11-0.59) Eosinophils # (Auto) 0.04 K/uL (0-0.5) Basophils # (Auto) 0.01 K/uL (0-0.2) RDW Standard Deviation 51.1 fL (36.4-46.3) RDW Coefficient of Variation 15.0 % (11.5-14.5) Immature Granulocyte % (Auto) 0.1 % Immature Granulocyte # (Auto) 0.02 K/uL (0.00-0.02) Anion Gap 10.0 mmol/L (3-11) Est Creatinine Clear Calc Drug Dose 105.1 ml/min Estimated GFR () 126.9 Estimated GFR (Non- 109.5 BUN/Creatinine Ratio 14.3 (10-20) Calcium Level 9.5 mg/dl (8.5-10.1) Total Bilirubin 0.2 mg/dl (0.2-1) Direct Bilirubin < 0.1 mg/dl (0-0.2) Aspartate Amino Transf (AST/SGOT) 19 U/L (15-37) Alanine Aminotransferase (ALT/SGPT) 27 U/L (12-78) Alkaline Phosphatase 152 U/L (45-117) Total Protein 7.9 gm/dl (6.4-8.2) Albumin 4.2 gm/dl (3.4-5.0) Lipase 190 U/L (73-393) Laboratory studies as stated above per my review. Medications Administered Medications (Trade) Dose Ordered Sig/Jimbo Route Start Time Stop Time Status Last Admin Dose Admin Sodium Chloride 1,000 ml @ 999 mls/hr Q1H1M STAT IV 07/09/16 10:42 07/09/16 11:42 DC 07/09/16 11:05 999 MLS/HR Sodium Chloride (Nss 1000ml) 1,000 ml @ 150 mls/hr Q6H40M ONCE IV 07/09/16 10:42 07/09/16 16:28 DC 07/09/16 11:05 150 MLS/HR Hydromorphone HCl (Dilaudid Inj) 1 mg NOW STAT IV 07/09/16 10:42 07/09/16 10:44 DC 07/09/16 11:04 1 MG Ondansetron HCl (Zofran 8mg Iv) 8 mg NOW ONCE IV 07/09/16 10:45 07/09/16 10:46 DC 07/09/16 11:05 8 MG ED Course 1033: Past medical records reviewed. The patient was evaluated in room C8, and a complete history and physical examination were performed. 1042: Ordered Dilaudid Inj 1 mg IV, Sodium Chloride 1000 ml @ 150 mls/hr IV, Sodium Chloride 1000 ml @ 999 mls/hr IV. 1045: Ordered Zofran 8 mg IV. 1434: I reevaluated the patient and she is resting comfortably. I discussed the exam findings and I discussed the treatment plan. She verbalized complete understanding and agreement. She is ready to go home. Medical Decision Differentials include, but are not limited to; appendicitis, hernia, infection, bowel obstruction, electrolyte or metabolic abnormality. This patient comes in as described above. she's having right lower quadrant abdominal pain. This has been going on chronically.. She did have hernia surgery done about 2 months ago. Her incisions are well healing. She has minimal tenderness and no peritonitis. She's no fever or chills. No dysuria. IV access established and she was given IV morphine and IV Zofran and seemed much more comfortable. white count is minimally elevated. she has no anemia. she 's had no acute electrolyte or metabolic abnormalities. She's had nothing to suggest UTI. CAT scans shows no acute findings. She does have a small residual fat containing hernia. She was asking for pain medication. I told her she needs to get these from her regular doctor. I did give her a small prescription for just 10 OxyIR that she can use. She was warned that this could make her drowsy. Do not take before drinking, driving, working. She should return if : increasing pain, fever chills, worsening of symptoms, any new problems or concerns. Impression Primary Impression: Right lower quadrant abdominal pain Scribe Attestation The scribe's documentation has been prepared under my direction and personally reviewed by me in its entirety. I confirm that the note above accurately reflects all work, treatment, procedures, and medical decision making performed by me. Departure Information Dispostion Home / Self-Care Prescriptions Oxycodone Immediate Rel Tab (ROXICODONE IR) 5 Mg Tab 1-2 TAB PO Q4H Y for Severe Pain, #10 TAB Prov: Miguel Angel Hackett M.D. 07/09/16 Referrals Victoriano Goins M.D. (PCP) Forms Call Back Authorization, HOME CARE DOCUMENTATION FORM, IMPORTANT VISIT INFORMATION Patient Instructions My [facility] Additional Instructions Rest. Drink plenty of fluids. Return if: Increasing pain, fever chills, worsening symptoms, any new problems or concerns. For pain may use OxyIR 5 mg, one or 2 pills every 4-6 hours as needed. Follow-up with your doctor next 1-2 days recheck.
[2016-07-09 11:22] LABS: BASO % 0.1 %; BASO ABS # 0.01 K/uL (0-0.2); COMPLETE YES; EOS % 0.3 %; HEMATOCRIT 43.7 % (37-47); IG% 0.1 %; LYMPH % 22.2 %; LYMPH ABS # 3.05 K/uL (1.2-3.4); MEAN CELL VOLUME 92.8 fL (80-100); MEAN CORPUSCULAR HGB CONC 33.4 g/dl (32-36); MONO % 4.2 %; NEUT % 73.1 %; PLATELET COUNT 315 K/uL (130-400); RED BLOOD COUNT 4.71 M/uL (4.2-5.4); WHITE BLOOD COUNT 13.71 K/uL (4.8-10.8)
[2016-07-09 11:41] LABS: URINE APPEARANCE CLEAR (CLEAR); URINE BILIRUBIN NEG (NEG); URINE COLOR YELLOW; URINE EPITHELIAL CELL AUTO >30 /lpf (0-5); URINE NITRITE NEG (NEG); URINE SPECIFIC GRAVITY 1.032 (1.000-1.030); UROBILINOGEN NEG (NEG)
[2016-07-09 11:42] LABS: MANUAL MICROSCOPIC REQUIRED? NO; REVIEW REQ? NO
[2016-07-09 11:51] LABS: ALT/SGPT 27 U/L (12-78); AST/SGOT 19 U/L (15-37); BLOOD UREA NITROGEN 9 mg/dl (7-18); BUN/CREATININE RATIO 14.3 (10-20); CALCIUM 9.5 mg/dl (8.5-10.1); CARBON DIOXIDE 19 mmol/L (21-32); CHLORIDE 113 mmol/L (98-107); CREATININE 0.65 mg/dl (0.60-1.20); GLUCOSE 196 mg/dl (70-99); POTASSIUM 3.4 mmol/L (3.5-5.1); SODIUM 142 mmol/L (136-145)
[2016-07-09 11:54] LABS: ALKALINE PHOSPHATASE 152 U/L (45-117)
--- NOTE | 2016-07-09 12:20 | DIAGNOSTIC IMAGING REPORT ---
CT SCAN OF THE ABDOMEN AND PELVIS WITHOUT CONTRAST CLINICAL HISTORY: Generalized abdominal pain COMPARISON STUDY: 05/20/2016 TECHNIQUE: CT scan of the abdomen and pelvis was performed from the lung bases to the proximal femurs. Images are reviewed in the axial, sagittal, and coronal planes. IV contrast was not administered for this examination. CT DOSE: 370.24 mGy.cm FINDINGS: Lower chest: The heart is normal in size and configuration, without pericardial effusion. The lung bases and pleural spaces are clear. Liver: The unenhanced liver is normal in size, contour, and attenuation. There is no intrahepatic biliary ductal dilatation. Gallbladder: Surgically absent Spleen: Normal in size and attenuation. Pancreas: Unremarkable. Adrenal glands: Unremarkable. Kidneys: No renal, ureteral, or bladder calculi are visualized. Bowel: There are no transition zones indicate bowel obstruction. There is no evidence of acute diverticulitis. The appendix is not visualized. There are no findings to indicate acute appendicitis. There is evidence of a ventral hernia repair. There is a fat-containing umbilical hernia with induration of the fat. Peritoneum: There is no intraperitoneal free air or abdominal ascites. Vasculature: The abdominal aorta is normal in course and caliber. Adenopathy: There are shotty para-aortic lymph nodes which are not pathologically enlarged by size criteria umbilical Pelvic viscera: The uterus appears surgically absent. Skeletal structures: No destructive osseous lesions are seen. IMPRESSION: 1. No renal, ureteral, or bladder calculi identified 2. No evidence of bowel obstruction. No evidence of free air 3. Nonvisualization the appendix. No secondary findings to indicate acute appendicitis 4. Ventral hernia mesh. Slight decreased size of the fat containing umbilical hernia which continues to demonstrate induration of the fat Electronically signed by: Jesse Somers M.D. 07/09/2016 12:18 PM Dictated Date/Time: 07/09/2016 12:12 PM
[2016-07-09] MEDS ORDERED: OXYC1TAB3 PO (14:49)
[2016-07-09 15:18] VITALS: BP 191/124; PULSE 88; O2SAT 98
[2016-12-26] MEDS ORDERED: OXYC1TAB3 PO (12:55)
[2016-12-26] MEDS ORDERED: IPRA1AER2 INH (12:55)
[2017-02-20] MEDS ORDERED: PRLSR20 PO (08:42)
[2017-02-20] MEDS ORDERED: MISCCAP80 PO (12:56)
[2017-02-20] MEDS ORDERED: ACET325T96 PO (15:17)
[2017-02-20] MEDS ORDERED: ONDA4TAB46 PO (15:17)
[2017-02-20] MEDS ORDERED: IBUP-103 PO (15:17)
[2017-02-20] MEDS ORDERED: METO-596 PO (15:17)
[2017-02-20] MEDS ORDERED: APDI SQ (16:57)
[2017-02-20] MEDS ORDERED: INSDGI SC (16:57)
[2017-02-20] MEDS ORDERED: DICY10CA12 PO (18:44)
[2017-02-20] MEDS ORDERED: SIMV20TA2 PO (20:22)
[2017-02-20] MEDS ORDERED: AMLO-110 PO (20:22)
[2017-02-20] MEDS ORDERED: METR-163 PO (21:05)
== END 2016-07-09 15:18 | disposition home or self-care (01) ==
LOC: C.EDB 10:10 → C.EDC 15:18
DX: R10.31 Right lower quadrant pain (principal); E11.9 Type 2 diabetes mellitus without complications; I10 Essential (primary) hypertension; K21.9 Gastro-esophageal reflux disease without esophagitis; E78.5 Hyperlipidemia, unspecified; Z79.4 Long term (current) use of insulin; Z79.899 Other long term (current) drug therapy; Z85.41 Personal history of malignant neoplasm of cervix uteri; Z87.19 Personal history of other diseases of the digestive system; Z98.890 Other specified postprocedural states; Z82.49 Family history of ischemic heart disease and other diseases of the circulatory system; F17.200 Nicotine dependence, unspecified, uncomplicated

== ENCOUNTER 2016-09-25 11:52 | Emergency (ER) | payer OTHER ==
[~2016-09-25] VITALS: Ht 157.5 cm; Wt 71.0 kg
[~2016-09-25 11:52] MED LIST changes: +APDI SQ; +DICY10CA12 PO; +INSDGI SC; -ONDA4TAB10 SL; +PRLSR20 PO
[2016-09-25 11:54] VITALS: TEMP 36.8; Ht 157.5 cm; Wt 71.0 kg
[2016-09-25] MEDS ORDERED: SODIUM CHLORIDE 0.9% 1000ML 1,000 ML IV STA (12:12)
[2016-09-25] MEDS ORDERED: ONDANSETRON INJ 2 MG/ML 2 ML VIAL IV STA (12:12)
[2016-09-25] MEDS ORDERED: OPTIRAY 320 IV PRN (12:30)
[2016-09-25 12:48] LABS: BASO % 0.4 %; BASO ABS # 0.03 K/uL (0-0.2); COMPLETE YES; EOS % 0.7 %; HEMATOCRIT 43.5 % (37-47); IG% 0.2 %; LYMPH % 39.9 %; LYMPH ABS # 3.22 K/uL (1.2-3.4); MEAN CELL VOLUME 84.3 fL (80-100); MEAN CORPUSCULAR HEMOGLOBIN 28.7 pg (25-34); MEAN PLATELET VOLUME 9.6 fL (7.4-10.4); MONO % 7.6 %; NEUT % 51.2 %; PLATELET COUNT 255 K/uL (130-400); RED BLOOD COUNT 5.16 M/uL (4.2-5.4); WHITE BLOOD COUNT 8.07 K/uL (4.8-10.8)
[2016-09-25] MEDS: FENTANYL CITRATE INJ 50 MCG/1 ML 2 ML VIAL IV PRN ×2 (12:48→13:52)
[2016-09-25 12:51] LABS: ISTAT CREATININE 0.6 mg/dl (0.6-1.3); ISTAT IONIZED CALCIUM 1.18 mmol/l (1.12-1.32)
[2016-09-25 12:53] LABS: URINE APPEARANCE CLEAR (CLEAR); URINE BILIRUBIN NEG (NEG); URINE COLOR YELLOW; URINE NITRITE NEG (NEG); URINE PH 6.5 (4.5-7.5); URINE SPECIFIC GRAVITY 1.023 (1.000-1.030); UROBILINOGEN NEG (NEG)
[2016-09-25 12:55] LABS: MANUAL MICROSCOPIC REQUIRED? NO; REVIEW REQ? NO
[2016-09-25 13:07] LABS: PROTHROMBIN TIME (PATIENT) 10.5 SECONDS (9.0-12.0)
[2016-09-25 13:13] LABS: PREG INTERNAL NEGATIVE QC NEG CLEAR BACKGROUND; PREG INTERNAL POSITIVE QC POS CONTROL LINE
[2016-09-25 13:14] LABS: ALT/SGPT 57 U/L (12-78); AST/SGOT 41 U/L (15-37); BLOOD UREA NITROGEN 11 mg/dl (7-18); BUN/CREATININE RATIO 15.3 (10-20); CALCIUM 9.4 mg/dl (8.5-10.1); CARBON DIOXIDE 25 mmol/L (21-32); CHLORIDE 104 mmol/L (98-107); CREATININE 0.74 mg/dl (0.60-1.20); GLUCOSE 305 mg/dl (70-99); POTASSIUM 3.9 mmol/L (3.5-5.1); SODIUM 137 mmol/L (136-145)
[2016-09-25 13:19] LABS: ALKALINE PHOSPHATASE 246 U/L (45-117)
[2016-09-25 13:27] LABS: BENZODIAZEPINE, URINE NEG (NEG); BETA-HYDROXYBUTYRATE 1.28 mg/dL (0.2-2.81); COCAINE,URINE NEG (NEG); PHENCYCLIDINE, URINE NEG (NEG)
--- NOTE | 2016-09-25 13:29 | DIAGNOSTIC IMAGING REPORT ---
CT SCAN OF THE ABDOMEN AND PELVIS WITH IV CONTRAST CLINICAL HISTORY: Fall. Right-sided abdominal pain. COMPARISON STUDY: Abdominal CT dated 07/09/2016. TECHNIQUE: Following the IV administration of 119 cc of Optiray 320, CT scan of the abdomen and pelvis is performed from the lung bases to the proximal femora. Images are reviewed in the axial, sagittal, and coronal planes. IV contrast was administered without complication. Automated dose control exposure was utilized. CT DOSE: 864.45 mGycm FINDINGS: Lung bases: The heart is normal in size and without pericardial effusion. The lung bases are clear. Liver: The contrast-enhanced liver is enlarged, measuring 21 cm in length. The liver demonstrates diffusely diminished attenuation consistent with hepatic steatosis. There is mild intrahepatic biliary ductal dilatation. The hepatic veins and portal veins are patent. Gallbladder: Surgically absent noting clips in the gallbladder fossa. Spleen: Normal in size and attenuation. Pancreas: Unremarkable. Adrenal glands: Unremarkable. Kidneys: The contrast enhanced kidneys are normal in size and without hydronephrosis. The kidneys enhance symmetrically. A 1.1 cm cyst is noted in the interpolar left kidney. There is a retroaortic left renal vein. Abdominal vasculature: The abdominal aorta is normal in course and caliber noting mild but age advanced atherosclerotic calcification. Bowel: The small bowel and colon are normal in course and caliber. The appendix is well-visualized and normal. Peritoneum: There is no intraperitoneal free air or abdominal ascites. There is a fat-containing umbilical hernia with evidence of previous ventral hernia repair. Lymphadenopathy: Prominent retroperitoneal lymph nodes measure up to 10 mm in short axis. Pelvic viscera: The bladder is normal in appearance. The uterus is surgically absent. No adnexal lesion is seen. A 2.9 cm follicle is noted in the right ovary. Skeletal structures: No lytic or blastic lesions are seen. IMPRESSION: 1. There is no evidence of solid organ injury in the abdomen or pelvis. 2. No acute infectious or inflammatory findings are seen in the abdomen or pelvis. 3. Hepatomegaly and hepatic steatosis. 4. Prominent nonspecific retroperitoneal lymph nodes are similar to previous. 5. Additional findings as above. Electronically signed by: Bo Peralta M.D. 09/25/2016 1:28 PM Dictated Date/Time: 09/25/2016 1:17 PM
--- NOTE | 2016-09-25 13:46 | DIAGNOSTIC IMAGING REPORT ---
CHEST 2 VIEWS ROUTINE CLINICAL HISTORY: fall trauma COMPARISON STUDY: 04/06/2016 FINDINGS: The bones soft tissues and hemidiaphragms are normal. The cardiomediastinal silhouette is normal. The lungs are clear. The pulmonary vasculature is normal. IMPRESSION: Negative chest. Electronically signed by: Stefan Harris M.D. 09/25/2016 1:45 PM Dictated Date/Time: 09/25/2016 1:44 PM
--- NOTE | 2016-09-25 13:48 | DIAGNOSTIC IMAGING REPORT ---
LUMBAR SPINE 5 VIEWS HISTORY: Trauma fall COMPARISON: None. FINDINGS: There is no fracture. No subluxation. Disc spaces are preserved. IMPRESSION: No fracture or subluxation within the lumbar spine. Electronically signed by: Stefan Harris M.D. 09/25/2016 1:46 PM Dictated Date/Time: 09/25/2016 1:45 PM
--- NOTE | 2016-09-25 13:55 | DIAGNOSTIC IMAGING REPORT ---
RIGHT FEMUR 2 VIEWS ROUTINE CLINICAL HISTORY: Right femur pain status post fall. COMPARISON: CT of the abdomen and pelvis May 20, 2016. FINDINGS: Contrast within the bladder is from recent contrast-enhanced CT. Alignment of the right hip and right knee is anatomic. There is no acute fracture of the right femur. There is no right knee joint effusion. IMPRESSION: No acute fracture of the right femur. Electronically signed by: Darci Domínguez M.D. 09/25/2016 1:53 PM Dictated Date/Time: 09/25/2016 1:44 PM
[2016-09-25] MEDS ORDERED: OXYC1TAB3 PO (14:03)
[2016-09-25 14:17] VITALS: BP 176/108; PULSE 79; O2SAT 95
--- NOTE | 2016-09-25 15:17 | EMERGENCY ROOM VISIT NOTE ---
History Report prepared by Adam: Xiomara Recinos Under the Supervision of: Dr. Wiliam Mendez D.O. First contact with patient: 11:57 Chief Complaint: LEG PAIN,LEG INJURY Stated Complaint: LEG INJURY, PULLED STOMACH MUSCLE History of Present Illness The patient is a 41 year old female who presents to the Emergency Room with complaints of constant right leg pain starting last night. The patient states that she was at a campfire when a dog leash wrapped around her chair and flipped her chair. She reports that when her chair flipped, she landed hard and continued to roll down the hill. The patient states that the pain is also in her lower back, right buttock, and across the lower part of her abdomen. She states that the abdominal pain feels like it is tight and pulling. The patient states that the pain is worse when she lies down. She notes that she did take Tylenol with no relief last night. The patient currently rates her pain as a 7/ 10 in severity. The patient complains of her feet swelling. The patient denies chest pain, arm pain, shortness of breath, loss of consciousness, hitting her head, neck pain, and hematuria. She notes that she has not seen anyone else for her pain. Source of History: patient Onset: last night Position: leg (right) Symptom Intensity: 7/10 Timing: constant Modifying Factors (Worsening): other (lying down) Associated Symptoms: + abdominal pain, + back pain, No LOC, No neck pain, No chest pain, No SOB Note: The patient complains of right buttock pain and her feet swelling. The patient denies arm pain and hematuria. Review of Systems See HPI for pertinent positives & negatives. A total of 10 systems reviewed and were otherwise negative. Past Medical & Surgical Medical Problems: (1) Abdominal muscle strain (2) Abdominal pain (3) Abdominal pain (4) Abdominal wall hernia (5) Acute respiratory failure (6) Angioedema (7) Back pain (8) Back strain (9) Bronchitis (10) Central abdominal pain (11) Central abdominal pain (12) Cervical cancer (13) Cervical cancer (14) Contusion of rib on right side (15) Diabetes (16) Diabetes (17) DKA (diabetic ketoacidoses) (18) Dysphagia (19) Encounter for medication refill (20) Essential (Primary) Hypertension (21) Flank pain (22) Gardnerella vaginitis (23) Generalized abdominal pain (24) GERD (gastroesophageal reflux disease) (25) Hyperglycemia (26) Hypertension (27) Hypokalemia (28) IBS (irritable bowel syndrome) (29) Kidney stones (30) Left leg pain (31) Pancreatitis (32) Pancreatitis, acute (33) PID (pelvic inflammatory disease) (34) PID (pelvic inflammatory disease) (35) Postoperative pain (36) Rheumatoid arthritis (37) Right lower quadrant abdominal abscess (38) RUQ pain (39) Shortness of breath (40) Sinusitis (41) Sore throat (42) Supraglottic edema (43) UTI (urinary tract infection) (44) Vomiting (45) Yeast dermatitis of penis Surgical Problems: (1) H/O hernia repair (2) H/O tubal ligation (3) History of cholecystectomy (4) Hx of cholecystectomy (5) Tubal ligation status Family History FHx: diabetes mellitus Hypertension Social History Smoking Status: Current Every Day Smoker Alcohol Use: none Drug Use: none Marital Status: Housing Status: lives with family Occupation Status: unemployed Current/Historical Medications Scheduled Dicyclomine Hcl (Dicyclomine Hcl), 10 MG PO TID Insulin Glargine (Lantus), 24 UNITS SC QAM Insulin Glulisine (Apidra Solostar), 1 DOSE SQ UD Simvastatin (Simvastatin), 20 MG PO PM Scheduled PRN Acetaminophen (Tylenol), 650 MG PO Q4H PRN for Pain Fluticasone Propionate (Flovent Hfa), 1 PUFF INH BID PRN for Shortness of Breath Ipratropium-Albuterol (Combivent Respimat), 1 PUFF INH QID PRN for Cough or Wheeze Omeprazole (Prilosec), 20 MG PO DAILY PRN for Acid Reflux Oxycodone Immediate Rel Tab (Roxicodone Ir), 1-2 TAB PO Q4H PRN for Severe Pain Allergies Coded Allergies: Lisinopril (Verified Allergy, Severe, ANAPHYLAXIS, 09/25/16) ANGIOEDEMA Morphine (Verified Allergy, Mild, VOMIT/ITCHY, 09/25/16) Iodinated Diagnostic Agents (Verified Adverse Reaction, Mild, VOMITING, 09/25/16) Physical Exam Vital Signs Date Time Temp Pulse Resp B/P (MAP) Pulse Ox O2 Delivery O2 Flow Rate FiO2 09/25/16 14:17 79 16 176/108 95 09/25/16 13:50 91 16 186/112 96 Room Air 09/25/16 12:36 95 09/25/16 11:54 36.8 102 16 216/121 94 Room Air Physical Exam GENERAL: Patient is awake, alert, and somewhat anxious appearing. Patient appears uncomfortable in appearance and appears to have some pain with ambulation. EYES: The conjunctivae are clear. The pupils are round and reactive. EARS, NOSE, MOUTH AND THROAT: The nose is without any evidence of any deformity. Mucous membranes are moist tongue is midline NECK: The neck is nontender and supple. Cervical spine was clinically cleared in ED with full ROM and no tenderness. RESPIRATORY: Normal respiratory effort is noted there is no evidence of wheezing rhonchi or rales CARDIOVASCULAR: Tachycardic rate and regular rhythm noted. There no murmurs, rubs, or gallops with auscultation. Normal S1 normal S2 GASTROINTESTINAL: The abdomen is moderately distended and is diffusely tender. No guarding or rigidity appreciated. No hernia was appreciated. Bowel sounds are present in all quadrants. BACK: Midline tenderness in low lumbar, but no step-off noted. Tenderness over right SI joint. Range of motion is limited secondary to pain. No signs of muscle spasm noted MUSCULOSKELETAL/EXTREMITIES: There is no evidence of gross deformity or decreased range of motion in upper and lower extremities. Tenderness on right lateral aspect of the thigh. SKIN: There is no obvious evidence of any rash. There are no petechiae, pallor or cyanosis noted. NEUROLOGIC: Patient is awake alert and oriented x3 strength is symmetric patellar reflexes are 2+ bilaterally. GCS of 15. Medical Decision & Procedures ER Provider Diagnostic Interpretation: Radiology results as stated below per my review and radiologist interpretation: LUMBAR SPINE 5 VIEWS HISTORY: Trauma fall COMPARISON: None. FINDINGS: There is no fracture. No subluxation. Disc spaces are preserved. IMPRESSION: No fracture or subluxation within the lumbar spine. Electronically signed by: Stefan Harris M.D. 09/25/2016 1:46 PM Dictated Date/Time: 09/25/2016 1:45 PM RIGHT FEMUR 2 VIEWS ROUTINE CLINICAL HISTORY: Right femur pain status post fall. COMPARISON: CT of the abdomen and pelvis May 20, 2016. FINDINGS: Contrast within the bladder is from recent contrast-enhanced CT. Alignment of the right hip and right knee is anatomic. There is no acute fracture of the right femur. There is no right knee joint effusion. IMPRESSION: No acute fracture of the right femur. Electronically signed by: Darci Domínguez M.D. 09/25/2016 1:53 PM Dictated Date/Time: 09/25/2016 1:44 PM CHEST 2 VIEWS ROUTINE CLINICAL HISTORY: fall trauma COMPARISON STUDY: 04/06/2016 FINDINGS: The bones soft tissues and hemidiaphragms are normal. The cardiomediastinal silhouette is normal. The lungs are clear. The pulmonary vasculature is normal. IMPRESSION: Negative chest. Electronically signed by: Stefan Harris M.D. 09/25/2016 1:45 PM Dictated Date/Time: 09/25/2016 1:[address] SCAN OF THE ABDOMEN AND PELVIS WITH IV CONTRAST CLINICAL HISTORY: Fall. Right-sided abdominal pain. COMPARISON STUDY: Abdominal CT dated 07/09/2016. TECHNIQUE: Following the IV administration of 119 cc of Optiray 320, CT scan of the abdomen and pelvis is performed from the lung bases to the proximal femora. Images are reviewed in the axial, sagittal, and coronal planes. IV contrast was administered without complication. Automated dose control exposure was utilized. CT DOSE: 864.45 mGycm FINDINGS: Lung bases: The heart is normal in size and without pericardial effusion. The lung bases are clear. Liver: The contrast-enhanced liver is enlarged, measuring 21 cm in length. The liver demonstrates diffusely diminished attenuation consistent with hepatic steatosis. There is mild intrahepatic biliary ductal dilatation. The hepatic veins and portal veins are patent. Gallbladder: Surgically absent noting clips in the gallbladder fossa. Spleen: Normal in size and attenuation. Pancreas: Unremarkable. Adrenal glands: Unremarkable. Kidneys: The contrast enhanced kidneys are normal in size and without hydronephrosis. The kidneys enhance symmetrically. A 1.1 cm cyst is noted in the interpolar left kidney. There is a retroaortic left renal vein. Abdominal vasculature: The abdominal aorta is normal in course and caliber noting mild but age advanced atherosclerotic calcification. Bowel: The small bowel and colon are normal in course and caliber. The appendix is well-visualized and normal. Peritoneum: There is no intraperitoneal free air or abdominal ascites. There is a fat-containing umbilical hernia with evidence of previous ventral hernia repair. Lymphadenopathy: Prominent retroperitoneal lymph nodes measure up to 10 mm in short axis. Pelvic viscera: The bladder is normal in appearance. The uterus is surgically absent. No adnexal lesion is seen. A 2.9 cm follicle is noted in the right ovary. Skeletal structures: No lytic or blastic lesions are seen. IMPRESSION: 1. There is no evidence of solid organ injury in the abdomen or pelvis. 2. No acute infectious or inflammatory findings are seen in the abdomen or pelvis. 3. Hepatomegaly and hepatic steatosis. 4. Prominent nonspecific retroperitoneal lymph nodes are similar to previous. 5. Additional findings as above. Electronically signed by: Bo Peralta M.D. 09/25/2016 1:28 PM Dictated Date/Time: 09/25/2016 1:17 PM Laboratory Results 09/25/16 12:25 Red Blood Count 5.16, Mean Corpuscular Volume 84.3, Mean Corpuscular Hemoglobin 28.7, Mean Corpuscular Hemoglobin Concent 34.0, Mean Platelet Volume 9.6, Neutrophils (%) (Auto) 51.2, Lymphocytes (%) (Auto) 39.9, Monocytes (%) (Auto) 7.6, Eosinophils (%) (Auto) 0.7, Basophils (%) (Auto) 0.4, Neutrophils # (Auto) 4.13, Lymphocytes # (Auto) 3.22, Monocytes # (Auto) 0.61, Eosinophils # (Auto) 0.06, Basophils # (Auto) 0.03 09/25/16 12:25 Test 09/25/16 12:25 09/25/16 12:38 White Blood Count 8.07 K/uL (4.8-10.8) Red Blood Count 5.16 M/uL (4.2-5.4) Hemoglobin 14.8 g/dL (12.0-16.0) Hematocrit 43.5 % (37-47) Mean Corpuscular Volume 84.3 fL (80-100) Mean Corpuscular Hemoglobin 28.7 pg (25-34) Mean Corpuscular Hemoglobin Concent 34.0 g/dl (32-36) Platelet Count 255 K/uL (130-400) Mean Platelet Volume 9.6 fL (7.4-10.4) Neutrophils (%) (Auto) 51.2 % Lymphocytes (%) (Auto) 39.9 % Monocytes (%) (Auto) 7.6 % Eosinophils (%) (Auto) 0.7 % Basophils (%) (Auto) 0.4 % Neutrophils # (Auto) 4.13 K/uL (1.4-6.5) Lymphocytes # (Auto) 3.22 K/uL (1.2-3.4) Monocytes # (Auto) 0.61 K/uL (0.11-0.59) Eosinophils # (Auto) 0.06 K/uL (0-0.5) Basophils # (Auto) 0.03 K/uL (0-0.2) RDW Standard Deviation 42.0 fL (36.4-46.3) RDW Coefficient of Variation 13.7 % (11.5-14.5) Immature Granulocyte % (Auto) 0.2 % Immature Granulocyte # (Auto) 0.02 K/uL (0.00-0.02) Prothrombin Time 10.5 SECONDS (9.0-12.0) Prothromb Time International Ratio 1.0 (0.9-1.1) Activated Partial Thromboplast Time 27.1 SECONDS (21.0-31.0) Partial Thromboplastin Ratio 1.0 Urine Color YELLOW Urine Appearance CLEAR (CLEAR) Urine pH 6.5 (4.5-7.5) Urine Specific [place] 1.023 (1.000-1.030) Urine Protein 1+ (NEG) Urine Glucose (UA) 3+ (NEG) Urine Ketones NEG (NEG) Urine Occult Blood NEG (NEG) Urine Nitrite NEG (NEG) Urine Bilirubin NEG (NEG) Urine Urobilinogen NEG (NEG) Urine Leukocyte Esterase NEG (NEG) Urine WBC (Auto) 0 /hpf (0-5) Urine RBC (Auto) 0-4 /hpf (0-4) Urine Hyaline Casts (Auto) 0 /lpf (0-5) Urine Epithelial Cells (Auto) 5-10 /lpf (0-5) Urine Bacteria (Auto) NEG (NEG) Est Creatinine Clear Calc Drug Dose 91.4 ml/min Estimated GFR () 115.8 Estimated GFR (Non- 99.9 BUN/Creatinine Ratio 15.3 (10-20) Calcium Level 9.4 mg/dl (8.5-10.1) Total Bilirubin 0.2 mg/dl (0.2-1) Direct Bilirubin < 0.1 mg/dl (0-0.2) Aspartate Amino Transf (AST/SGOT) 41 U/L (15-37) Alanine Aminotransferase (ALT/SGPT) 57 U/L (12-78) Alkaline Phosphatase 246 U/L (45-117) Total Protein 7.8 gm/dl (6.4-8.2) Albumin 4.0 gm/dl (3.4-5.0) Lipase 272 U/L (73-393) Beta-Hydroxybutyric Acid 1.28 mg/dL (0.2-2.81) Human Chorionic Gonadotropin, Qual NEG (NEG) Urine Opiates Screen NEG (NEG) Urine Methadone, Qualitative NEG (NEG) Urine Barbiturates NEG (NEG) Urine Phencyclidine (PCP) Level NEG (NEG) Ur Amphetamine/Methamphetamine NEG (NEG) MDMA (Ecstasy) Screen NEG (NEG) Urine Benzodiazepines Screen NEG (NEG) Urine Cocaine Metabolite NEG (NEG) Urine Marijuana (THC) POS (NEG) Bedside Hemoglobin 15.0 g/dl (12.0-16.0) Bedside Hematocrit 44 % (37-47) Bedside Sodium 138 mEq/L (135-144) Bedside Potassium 4.0 mEq/L (3.3-5.0) Bedside Chloride 101 mEq/L (101-112) Bedside Total CO2 24 mEq/l (24-31) Anion Gap 18.0 mmol/L (16-25) Bedside Blood Urea Nitrogen 11 mg/dl (7-18) Bedside Creatinine 0.6 mg/dl (0.6-1.3) Bedside Glucose (other) 324 mg/dl (70-99) Bedside Ionized Calcium (Dana) 1.18 mmol/l (1.12-1.32) Laboratory results per my review. Medications Administered Medications (Trade) Dose Ordered Sig/Jimbo Route Start Time Stop Time Status Last Admin Dose Admin Fentanyl Citrate (Fentanyl Inj) 50 mcg Q20M PRN IV 09/25/16 12:15 09/25/16 14:31 DC 09/25/16 13:52 50 MCG Sodium Chloride 1,000 ml @ 999 mls/hr Q1H1M STAT IV 09/25/16 12:12 09/25/16 13:12 DC 09/25/16 12:12 999 MLS/HR Ondansetron HCl (Zofran Inj) 4 mg NOW STAT IV 09/25/16 12:12 09/25/16 12:15 DC 09/25/16 12:47 4 MG ED Course 1205: The patient was evaluated in room A2. A complete history and physical examination were performed. 1212: Ordered Zofran Inj 4 mg IV, NSS 1000 ml @ 999 mls/hr IV. 1215: Ordered Fentanyl Inj 50 mcg PRN IV pain. 1404: Upon reevaluation, the patient is resting comfortably. I discussed her high blood pressure with her and she stated that she missed her medications this morning. I told her to make sure she takes them. I discussed the results and treatment plan with her. The patient verbalized agreement of the treatment plan. The patient was discharged home. Medical Decision Medication Reconciliation: I attest that I have personally reviewed the patient' s current medications list. Patient was found to have a slightly elevated blood pressure due to circumstances. I do not believe that the patient requires hypertension monitoring. Differential diagnosis: Etiologies such as fracture, dislocation, intra-abdominal, pneumothorax, intrathoracic , intracranial, neurologic, as well as other traumatic pathologies were entertained. The patient is a 41-year-old female who presented to the emergency department after a fall. The patient had a fall yesterday from a table. She landed on her right side injuring her right abdomen her right back and her right thigh. She was concerned about her abdomen because she had a history of surgery and was concerned about the mesh tearing and reoccurrence of a hernia. She had significant lower abdominal tenderness to palpation. She was found to be tachycardic initially. She was treated with IV fluids IV pain medicine and IV antiemetics. I discussed the patient's laboratory and radiographic studies with her. On subsequent reevaluation she was feeling much better. She was encouraged to rest and avoid any strenuous activity. She was encouraged to continue all medications as prescribed. She was also encouraged to have her blood pressure recheck with her family as well as her blood sugar. She was also encouraged return to emergency department immediately if symptoms change worsen or the need arises. [place] Drug Monitoring Program Search Results: no issues identified Impression Primary Impression: Fall Additional Impressions: Blunt trauma to abdomen Lumbar strain Contusion of right thigh Hyperglycemia Scribe Attestation The scribe's documentation has been prepared under my direction and personally reviewed by me in its entirety. I confirm that the note above accurately reflects all work, treatment, procedures, and medical decision making performed by me. Departure Information Dispostion Home / Self-Care Prescriptions Oxycodone Immediate Rel Tab (ROXICODONE IR) 5 Mg Tab 1-2 TAB PO Q4H Y for Severe Pain, #20 TAB Prov: Wiliam Mendez, DO 09/25/16 Referrals Victoriano Gonis M.D. (PCP) Forms HOME CARE DOCUMENTATION FORM, IMPORTANT VISIT INFORMATION Patient Instructions My [facility] Additional Instructions Call your family to schedule a follow-up appointment. Avoid any strenuous activity. Continue taking Tylenol for mild pain. Problem Qualifiers Primary Impression: Fall Encounter type: initial encounter Qualified Codes: W19.XXXA - Unspecified fall, initial encounter Additional Impressions: Blunt trauma to abdomen Encounter type: initial encounter Qualified Codes: S39.81XA - Other specified injuries of abdomen, initial encounter Lumbar strain Encounter type: initial encounter Qualified Codes: S39.012A - Strain of muscle, fascia and tendon of lower back, initial encounter Contusion of right thigh Encounter type: initial encounter Qualified Codes: S70.11XA - Contusion of right thigh, initial encounter
[2016-12-26] MEDS ORDERED: OXYC1TAB3 PO (12:55)
[2016-12-26] MEDS ORDERED: IPRA1AER2 INH (12:55)
[2016-12-26] MEDS ORDERED: MISCCAP80 PO (12:56)
== END 2016-09-25 14:19 | disposition home or self-care (01) ==
LOC: C.EDB 11:54 → C.EDA 14:19
DX: S70.11XA Contusion of right thigh, initial encounter (principal); S39.012A Strain of muscle, fascia and tendon of lower back, initial encounter; S30.1XXA Contusion of abdominal wall, initial encounter; W07.XXXA Fall from chair, initial encounter; Y92.833 Campsite as the place of occurrence of the external cause; I10 Essential (primary) hypertension; E11.9 Type 2 diabetes mellitus without complications; K21.9 Gastro-esophageal reflux disease without esophagitis; K86.1 Other chronic pancreatitis; K58.9 Irritable bowel syndrome, unspecified; M06.9 Rheumatoid arthritis, unspecified; F17.200 Nicotine dependence, unspecified, uncomplicated; Z85.41 Personal history of malignant neoplasm of cervix uteri; Z87.440 Personal history of urinary (tract) infections; Z87.442 Personal history of urinary calculi; Z86.19 Personal history of other infectious and parasitic diseases; Z87.828 Personal history of other (healed) physical injury and trauma; Z98.51 Tubal ligation status; Z90.49 Acquired absence of other specified parts of digestive tract; Z98.890 Other specified postprocedural states; Z79.4 Long term (current) use of insulin; Z79.899 Other long term (current) drug therapy; Z88.5 Allergy status to narcotic agent; Z88.8 Allergy status to other drugs, medicaments and biological substances; Z91.041 Radiographic dye allergy status; Z83.3 Family history of diabetes mellitus; Z82.49 Family history of ischemic heart disease and other diseases of the circulatory system

== ENCOUNTER 2016-12-14 07:39 | Emergency (ER) | payer OTHER ==
[~2016-12-14] VITALS: Ht 157.5 cm; Wt 66.7 kg
[2016-12-14 07:43] VITALS: TEMP 36.7; Ht 157.5 cm; Wt 66.7 kg
[2016-12-14] MEDS ORDERED: KETOROLAC TROMETHAMINE 30 MG/ML VIAL IV STA (07:57)
[2016-12-14] MEDS ORDERED: SODIUM CHLORIDE 0.9% 1000ML 1,000 ML IV STA ×2 (07:57→09:07)
[2016-12-14] MEDS ORDERED: METO25TA3 PO (08:18)
[2016-12-14] MEDS ORDERED: AMLO2.5T PO (08:18)
[2016-12-14 08:28] LABS: BASO % 0.2 %; BASO ABS # 0.03 K/uL (0-0.2); COMPLETE YES; EOS % 0.6 %; HEMATOCRIT 46.3 % (37-47); IG% 0.2 %; LYMPH % 33.4 %; LYMPH ABS # 4.16 K/uL (1.2-3.4); MEAN CELL VOLUME 85.9 fL (80-100); MEAN CORPUSCULAR HEMOGLOBIN 30.4 pg (25-34); MEAN CORPUSCULAR HGB CONC 35.4 g/dl (32-36); MEAN PLATELET VOLUME 9.6 fL (7.4-10.4); MONO % 8.6 %; PLATELET COUNT 313 K/uL (130-400); RED BLOOD COUNT 5.39 M/uL (4.2-5.4); WHITE BLOOD COUNT 12.47 K/uL (4.8-10.8)
--- NOTE | 2016-12-14 08:36 | DIAGNOSTIC IMAGING REPORT ---
ABDOMEN 2VIEW W/PA CHEST RTN CLINICAL HISTORY: abd pain COMPARISON STUDY: 09/25/2016 FINDINGS: The soft tissues, psoas shadows, renal outlines and intestinal gas pattern appear normal. There is no evidence for bowel obstruction. There is no evidence for free intraperitoneal air. No abnormal abdominal calcifications are seen. A frontal view of the chest was performed and is unremarkable. Findings of a ventral hernia repair and cholecystectomy. Nonobstructive bowel pattern. IMPRESSION: No acute process of the chest or abdomen The above report was generated using voice recognition software. It may contain grammatical, syntax or spelling errors. Electronically signed by: Stefan Harris M.D. 12/14/2016 8:35 AM Dictated Date/Time: 12/14/2016 8:34 AM
[2016-12-14 08:53] LABS: ALT/SGPT 20 U/L (12-78); AST/SGOT 11 U/L (15-37); BLOOD UREA NITROGEN 6 mg/dl (7-18); BUN/CREATININE RATIO 10.7 (10-20); CALCIUM 9.5 mg/dl (8.5-10.1); CARBON DIOXIDE 18 mmol/L (21-32); CHLORIDE 112 mmol/L (98-107); CREATININE 0.55 mg/dl (0.60-1.20); GLUCOSE 184 mg/dl (70-99); POTASSIUM 3.1 mmol/L (3.5-5.1); SODIUM 140 mmol/L (136-145)
[2016-12-14 08:55] LABS: ALKALINE PHOSPHATASE 133 U/L (45-117)
[2016-12-14] MEDS ORDERED: POTASSIUM CHLORIDE 10 MEQ TABCR PO STA (09:08)
[2016-12-14] MEDS ORDERED: HYDROmorphone INJ 0.5 MG/0.5 ML SYR IV STA (09:20)
[2016-12-14 09:34] LABS: URINE APPEARANCE CLOUDY (CLEAR); URINE BILIRUBIN NEG (NEG); URINE COLOR YELLOW; URINE EPITHELIAL CELL AUTO >30 /lpf (0-5); URINE NITRITE NEG (NEG); URINE SPECIFIC GRAVITY 1.028 (1.000-1.030); UROBILINOGEN NEG (NEG)
[2016-12-14 09:39] LABS: MANUAL MICROSCOPIC REQUIRED? NO; REVIEW REQ? YES
--- NOTE | 2016-12-14 09:48 | DIAGNOSTIC IMAGING REPORT ---
ABD/PELVIS NO IV OR ORAL CONT CT DOSE: 375.94 mGy.cm HISTORY: Pain lower abd pain TECHNIQUE: Multiaxial CT images of the abdomen and pelvis were performed without contrast. A dose lowering technique was utilized adhering to the principles of ALARA. COMPARISON STUDY: 09/25/2016 FINDINGS: The lung bases are clear. The unenhanced liver, spleen, gallbladder, pancreas, kidneys, and adrenal glands are within normal limits. No bowel wall thickening or obstruction. The pelvic organs are unremarkable. No suspicious lytic or blastic osseous lesions. Mild stable hepatomegaly. Prior cholecystectomy. Mild thickening of the wall of the transverse colon. Be artifactual due to absence of contrast enhancement. IMPRESSION: No significant abnormality identified within the abdomen or pelvis. No change from the prior study. The above report was generated using voice recognition software. It may contain grammatical, syntax or spelling errors. Electronically signed by: Stefan aHrris M.D. 12/14/2016 9:47 AM Dictated Date/Time: 12/14/2016 9:44 AM
[2016-12-14 09:52] LABS: URINE MUCUS PRESENT (NONE PRSENT)
[2016-12-14 09:53] LABS: ZZUR CULT IF INDIC CLEAN CATCH YES
[2016-12-14 11:30] LABS: VEN BLD GAS O2 SATURATION 76.7 %; VEN BLOOD GAS BASE EXCESS -6.9 mEq/L
[2016-12-14 11:49] LABS: BUN/CREATININE RATIO 12.5 (10-20); CREATININE 0.4 mg/dl (0.60-1.20); POTASSIUM 3.4 mmol/L (3.5-5.1)
[2016-12-14 12:47] VITALS: BP 181/68; PULSE 84; O2SAT 98
--- NOTE | 2016-12-14 14:36 | EMERGENCY ROOM VISIT NOTE ---
History Report prepared by Delioibkasia: Elvira Venegas Under the Supervision of: Dr. Louie Mejia D.O. First contact with patient: 07:47 Chief Complaint: ABDOMINAL PAIN Stated Complaint: LOWER STOMACH PAIN Nursing Triage Summary: triage note: pt reports lower abd pain since 1999 last night. pt reports she has had this pain before and when asked what was wrong pt states "the muscles." History of Present Illness The patient is a 41 year old female who presents to the Emergency Room with complaints of persistent abdominal pain since 1999 last night. She rates her pain as an 8/10 in severity. Tylenol and warm compresses have provided minimal relief. Laying flat worsens her discomfort. She states "I think I pulled some muscles in my lower abdomen" and reports that as she was getting out of a truck yesterday, she stretched to reach the step in order to get down, but there was no step there, and she pulled her muscles trying to get down. She did not fall or sustain any other injuries. The patient notes she has experienced similar pain in the past, and it was muscular in nature. She has a history of several hernia surgeries and is concerned the surgical mesh may have been disrupted. She is still having normal bowel movements and passing gas. Pt denies headache, change in vision, fevers, chest pain, shortness of breath, nausea, vomiting, diarrhea, pain with urination, and melena. Source of History: patient Onset: 1999 yesterday Position: abdomen Symptom Intensity: 8/10 Timing: other (persistent) Modifying Factors (Relieving): tylenol, heat Associated Symptoms: No fevers, No headache, No chest pain, No SOB, No nausea, No vomiting, No melena, No diarrhea, No urinary symptoms Review of Systems See HPI for pertinent positives & negatives. A total of 10 systems reviewed and were otherwise negative. Past Medical & Surgical Medical Problems: (1) Abdominal muscle strain (2) Abdominal pain (3) Abdominal pain (4) Abdominal wall hernia (5) Acute respiratory failure (6) Angioedema (7) Back pain (8) Back strain (9) Bronchitis (10) Central abdominal pain (11) Central abdominal pain (12) Cervical cancer (13) Cervical cancer (14) Contusion of rib on right side (15) Diabetes (16) Diabetes (17) DKA (diabetic ketoacidoses) (18) Dysphagia (19) Encounter for medication refill (20) Essential (Primary) Hypertension (21) Flank pain (22) Gardnerella vaginitis (23) Generalized abdominal pain (24) GERD (gastroesophageal reflux disease) (25) Hyperglycemia (26) Hypertension (27) Hypokalemia (28) IBS (irritable bowel syndrome) (29) Kidney stones (30) Left leg pain (31) Pancreatitis (32) Pancreatitis, acute (33) PID (pelvic inflammatory disease) (34) PID (pelvic inflammatory disease) (35) Postoperative pain (36) Rheumatoid arthritis (37) Right lower quadrant abdominal abscess (38) RUQ pain (39) Shortness of breath (40) Sinusitis (41) Sore throat (42) Supraglottic edema (43) UTI (urinary tract infection) (44) Vomiting (45) Yeast dermatitis of penis Surgical Problems: (1) H/O hernia repair (2) H/O tubal ligation (3) History of cholecystectomy (4) Hx of cholecystectomy (5) Tubal ligation status Family History FHx: diabetes mellitus Hypertension Social History Smoking Status: Current Every Day Smoker Alcohol Use: none Drug Use: none Marital Status: Housing Status: lives with family Occupation Status: unemployed Current/Historical Medications Scheduled Amlodipine (Norvasc), Unknown Dose PO DAILY Dicyclomine Hcl (Dicyclomine Hcl), 10 MG PO TID Insulin Glargine (Lantus), 24 UNITS SC QAM Insulin Glulisine (Apidra Solostar), 1 DOSE SQ UD Metoprolol Succ (Toprol Xl) (Toprol-Xl), Unknown Dose PO DAILY Simvastatin (Simvastatin), 20 MG PO PM Scheduled PRN Omeprazole (Prilosec), 20 MG PO DAILY PRN for Acid Reflux Allergies Coded Allergies: Lisinopril (Verified Allergy, Severe, ANAPHYLAXIS, 12/14/16) ANGIOEDEMA Morphine (Verified Allergy, Mild, VOMIT/ITCHY, 12/14/16) Iodinated Diagnostic Agents (Verified Adverse Reaction, Mild, VOMITING, ) Physical Exam Vital Signs Date Time Temp Pulse Resp B/P (MAP) Pulse Ox O2 Delivery O2 Flow Rate FiO2 12/14/16 12:47 84 20 181/68 98 12/14/16 12:05 80 16 173/108 96 Room Air 12/14/16 10:08 78 20 166/86 96 Room Air 12/14/16 09:21 78 20 163/113 96 Room Air 12/14/16 07:43 36.7 101 18 165/101 97 Room Air Physical Exam GENERAL: Patient is alert, disheveled, chronically ill-appearing, in minimal distress and non-toxic EYE EXAM: normal conjunctiva OROPHARYNX: no exudate, no erythema, lips, buccal mucosa, and tongue normal and mucous membranes are moist NECK: supple, no nuchal rigidity, no adenopathy, non-tender LUNGS: Clear to auscultation. Normal chest wall mechanics HEART: no murmurs, S1 normal and S2 normal ABDOMEN: abdomen soft, minimal tenderness in lower abdomen, normo-active bowel sounds, no masses, no rebound or guarding. BACK: Back is symmetrical on inspection and there is no deformity, no midline tenderness, no CVA tenderness. SKIN: no rashes and no bruising UPPER EXTREMITIES: upper extremities are grossly normal. LOWER EXTREMITIES: No pitting edema. NEURO EXAM: Normal sensorium, cranial nerves II-XII grossly intact, normal speech, no gross weakness of arms, no gross weakness of legs. Gross sensation intact. Medical Decision & Procedures ER Provider Diagnostic Interpretation: Radiology results as stated below per my review and the radiologist's interpretation: ABD/PELVIS NO IV OR ORAL CONT CT DOSE: 375.94 mGy.cm HISTORY: Pain lower abd pain TECHNIQUE: Multiaxial CT images of the abdomen and pelvis were performed without contrast. A dose lowering technique was utilized adhering to the principles of ALARA. COMPARISON STUDY: 09/25/2016 FINDINGS: The lung bases are clear. The unenhanced liver, spleen, gallbladder, pancreas, kidneys, and adrenal glands are within normal limits. No bowel wall thickening or obstruction. The pelvic organs are unremarkable. No suspicious lytic or blastic osseous lesions. Mild stable hepatomegaly. Prior cholecystectomy. Mild thickening of the wall of the transverse colon. Be artifactual due to absence of contrast enhancement. IMPRESSION: No significant abnormality identified within the abdomen or pelvis. No change from the prior study. The above report was generated using voice recognition software. It may contain grammatical, syntax or spelling errors. Electronically signed by: Stefan Harris M.D. 12/14/2016 9:47 AM ABDOMEN 2VIEW W/PA CHEST RTN CLINICAL HISTORY: abd pain COMPARISON STUDY: 09/25/2016 FINDINGS: The soft tissues, psoas shadows, renal outlines and intestinal gas pattern appear normal. There is no evidence for bowel obstruction. There is no evidence for free intraperitoneal air. No abnormal abdominal calcifications are seen. A frontal view of the chest was performed and is unremarkable. Findings of a ventral hernia repair and cholecystectomy. Nonobstructive bowel pattern. IMPRESSION: No acute process of the chest or abdomen The above report was generated using voice recognition software. It may contain grammatical, syntax or spelling errors. Electronically signed by: Stefan Harris M.D. 12/14/2016 8:35 AM Laboratory Results 12/14/16 08:20 Red Blood Count 5.39, Mean Corpuscular Volume 85.9, Mean Corpuscular Hemoglobin 30.4, Mean Corpuscular Hemoglobin Concent 35.4, Mean Platelet Volume 9.6, Neutrophils (%) (Auto) 57.0, Lymphocytes (%) (Auto) 33.4, Monocytes (%) (Auto) 8.6, Eosinophils (%) (Auto) 0.6, Basophils (%) (Auto) 0.2, Neutrophils # (Auto) 7.11, Lymphocytes # (Auto) 4.16, Monocytes # (Auto) 1.07, Eosinophils # (Auto) 0.07, Basophils # (Auto) 0.03 12/14/16 11:13 Test 12/14/16 08:20 12/14/16 09:10 12/14/16 09:15 12/14/16 11:13 White Blood Count 12.47 K/uL (4.8-10.8) Red Blood Count 5.39 M/uL (4.2-5.4) Hemoglobin 16.4 g/dL (12.0-16.0) Hematocrit 46.3 % (37-47) Mean Corpuscular Volume 85.9 fL (80-100) Mean Corpuscular Hemoglobin 30.4 pg (25-34) Mean Corpuscular Hemoglobin Concent 35.4 g/dl (32-36) Platelet Count 313 K/uL (130-400) Mean Platelet Volume 9.6 fL (7.4-10.4) Neutrophils (%) (Auto) 57.0 % Lymphocytes (%) (Auto) 33.4 % Monocytes (%) (Auto) 8.6 % Eosinophils (%) (Auto) 0.6 % Basophils (%) (Auto) 0.2 % Neutrophils # (Auto) 7.11 K/uL (1.4-6.5) Lymphocytes # (Auto) 4.16 K/uL (1.2-3.4) Monocytes # (Auto) 1.07 K/uL (0.11-0.59) Eosinophils # (Auto) 0.07 K/uL (0-0.5) Basophils # (Auto) 0.03 K/uL (0-0.2) RDW Standard Deviation 48.3 fL (36.4-46.3) RDW Coefficient of Variation 15.3 % (11.5-14.5) Immature Granulocyte % (Auto) 0.2 % Immature Granulocyte # (Auto) 0.03 K/uL (0.00-0.02) Total Bilirubin 0.6 mg/dl (0.2-1) Direct Bilirubin < 0.1 mg/dl (0-0.2) Aspartate Amino Transf (AST/SGOT) 11 U/L (15-37) Alanine Aminotransferase (ALT/SGPT) 20 U/L (12-78) Alkaline Phosphatase 133 U/L (45-117) Total Protein 8.1 gm/dl (6.4-8.2) Albumin 4.5 gm/dl (3.4-5.0) Lipase 120 U/L (73-393) Urine Color YELLOW Urine Appearance CLOUDY (CLEAR) Urine pH 6.0 (4.5-7.5) Urine Specific [place] 1.028 (1.000-1.030) Urine Protein 1+ (NEG) Urine Glucose (UA) NEG (NEG) Urine Ketones NEG (NEG) Urine Occult Blood NEG (NEG) Urine Nitrite NEG (NEG) Urine Bilirubin NEG (NEG) Urine Urobilinogen NEG (NEG) Urine Leukocyte Esterase NEG (NEG) Urine WBC (Auto) 1-5 /hpf (0-5) Urine RBC (Auto) 0-4 /hpf (0-4) Urine Hyaline Casts (Auto) 1-5 /lpf (0-5) Urine Epithelial Cells (Auto) >30 /lpf (0-5) Urine Bacteria (Auto) 1+ (NEG) Urine Renal Epithelial Cells /lpf (0-5) Urine Pathogenic Casts /lpf (0) Urine Mucus PRESENT (NONE PRSENT) Urine Test NEG (NEG) Bedside Glucose 157 mg/dl (70-90) Venous Blood pH 7.37 (7.36-7.41) Venous Blood Partial Pressure CO2 31 mmHg (38.0-50.0) Venous Blood Partial Pressure O2 43 mmHg Venous Blood HCO3 17 mmol/L Venous Blood Oxygen Saturation 76.7 % Venous Blood Base Excess -6.9 mEq/L Anion Gap 10.0 mmol/L (3-11) Est Creatinine Clear Calc Drug Dose 164.1 ml/min Estimated GFR () 148.9 Estimated GFR (Non- 128.5 BUN/Creatinine Ratio 12.5 (10-20) Calcium Level 8.0 mg/dl (8.5-10.1) Laboratory results per my review. Medications Administered Medications (Trade) Dose Ordered Sig/Jimbo Route Start Time Stop Time Status Last Admin Dose Admin Ketorolac Tromethamine (Toradol Inj) 30 mg NOW STAT IV 12/14/16 07:57 12/14/16 07:58 DC 12/14/16 08:17 30 MG Sodium Chloride 1,000 ml @ 999 mls/hr Q1H1M STAT IV 12/14/16 07:57 12/14/16 08:57 DC 12/14/16 08:16 999 MLS/HR Sodium Chloride 1,000 ml @ 999 mls/hr Q1H1M STAT IV 12/14/16 09:07 12/14/16 10:07 DC 12/14/16 09:20 999 MLS/HR Potassium Chloride (Klor-Con M10) 40 meq NOW STAT PO 12/14/16 09:08 12/14/16 09:09 DC 12/14/16 09:28 40 MEQ Hydromorphone HCl (Dilaudid Inj) 0.5 mg NOW STAT IV 12/14/16 09:20 12/14/16 09:22 DC 12/14/16 09:29 0.5 MG ED Course ED COURSE: Vital signs were reviewed and showed the patient is hypertensive and tachycardic. The patients medical record was reviewed The above diagnostic studies were performed and reviewed. ED treatments and interventions as stated above. 0751: The patient was evaluated in room A3. A complete history and physical examination was performed. 0757: NSS 1000 ml @ 999 mls/hr IV, Toradol 30 mg IV. 0907: NSS 1000 ml @ 999 mls/hr IV. 0908: Potassium Chloride 40 meq PO. 0920: Dilaudid 0.5 mg IV. 1000: I updated the patient on her results so far. She is also agreeable to getting labs redrawn for a BMP. 1210: Upon reevaluation, the patient is feeling much better. I discussed my findings with the patient and she understands and agrees with the treatment plan. Based on the patients age, coexisting illnesses, exam and lab findings the decision to treat as an outpatient was made. The patient remained stable while under my care. The patient appeared well at the time of discharge. Medical Decision Differential diagnoses includes but is not limited to gastritis, peptic ulcer disease, GERD, gallbladder disease, pancreatitis, small bowel obstruction, acute coronary syndrome, pericarditis, ischemic bowel, irritable bowel disease, irritable bowel syndrome, appendicitis, diverticulitis, malignancy, hernia, urinary tract infection, torsion, /ectopic , perforation, trauma, infectious. Patient is a 41-year-old female that presents to ER for abdominal pain which started yesterday while she was getting out of a truck. She notes that she had to slide down and following this she had lower abdominal pain. Her abdominal exam is benign. Mild leukocytosis of 12,000. BMP showed a CO2 of 18 and a potassium of 3.1. Potassium was repleted orally. No anion gap. No ketones in urine. She is a diabetic. Creatinine was normal. Bilirubin along with LFTs and lipase is normal. UA shows no signs of infection. Negative . CT abdomen and pelvis was negative. IV fluids, Toradol and Dilaudid was given. She had improvement of her symptoms. She felt safe better. She is concerned only about the mesh in her abdomen. VBG was obtained as to the bicarbonate of 18. VBG shows normal pH. Upon review of her previous labs. Bicarbonate is normally slightly low. There is no acidosis. Patient was updated at bedside and discharged follow-up with PCP. Discussed with Pt concerning signs and symptoms to watch out for. Pt was instructed to follow up with their PCP and discussed with the patient their option to return to the ED at anytime for persistent or worsening symptoms. The appropriate anticipatory guidance and out- patient management, including indications for return to the emergency department , were explained at length to the patient and understood. Medication Reconcilliation Current Medication List: was personally reviewed by me Blood Pressure Screening Patient's blood pressure: Elevated blood pressure Blood pressure disposition: Elevated BP felt to be situational Impression Primary Impression: Abdominal pain Additional Impression: Hypokalemia Scribe Attestation The scribe's documentation has been prepared under my direction and personally reviewed by me in its entirety. I confirm that the note above accurately reflects all work, treatment, procedures, and medical decision making performed by me. Departure Information Dispostion Home / Self-Care Referrals Victroiano Goins M.D. (PCP) Patient Instructions Abdominal Pain - [facility], My [facility] Additional Instructions Please follow up with your primary care doctor or if you are a student, [facility] with in the next 24 hours. Any worsening of your symptoms, please return to the ED immediately. This includes any fevers greater than 100.4, worsening pain, chest pain, shortness breath, persistent nausea, vomiting, unable to eat or drink, or any other concerning signs or symptoms from your standpoint. You were given medications during this visit that will inhibit your ability to drive, operate machinery and work. Please do NOT drive, operate machinery, drink alcohol or work for the next 12hrs. Problem Qualifiers Primary Impression: Abdominal pain Abdominal location: unspecified location Qualified Codes: R10.9 - Unspecified abdominal pain
[2016-12-26] MEDS ORDERED: IPRA1AER2 INH (12:55)
[2016-12-26] MEDS ORDERED: OXYC1TAB3 PO (12:55)
[2016-12-26] MEDS ORDERED: MISCCAP80 PO (12:56)
== END 2016-12-14 12:48 | disposition home or self-care (01) ==
LOC: C.EDB 07:41 → C.EDA 12:48
DX: R10.9 Unspecified abdominal pain (principal); E87.6 Hypokalemia; Z85.41 Personal history of malignant neoplasm of cervix uteri; E11.9 Type 2 diabetes mellitus without complications; K21.9 Gastro-esophageal reflux disease without esophagitis; I10 Essential (primary) hypertension; K58.9 Irritable bowel syndrome, unspecified; M06.9 Rheumatoid arthritis, unspecified; Z87.440 Personal history of urinary (tract) infections; Z98.51 Tubal ligation status; Z90.49 Acquired absence of other specified parts of digestive tract; Z83.3 Family history of diabetes mellitus; Z82.49 Family history of ischemic heart disease and other diseases of the circulatory system; F17.210 Nicotine dependence, cigarettes, uncomplicated; Z79.4 Long term (current) use of insulin; Z79.899 Other long term (current) drug therapy

== ENCOUNTER 2016-12-19 17:50 | Emergency (ER) | payer OTHER ==
[~2016-12-19] VITALS: Ht 157.5 cm; Wt 67.8 kg
[~2016-12-19 17:50] MED LIST changes: -ACET-1311 PO; +AMLO2.5T PO; -FLVHFA110 INH; -IPRA1AER2 INH; +METO25TA3 PO; -OXYC1TAB3 PO
[2016-12-19 18:00] VITALS: TEMP 36.8; Ht 157.5 cm; Wt 67.8 kg
[2016-12-19] MEDS ORDERED: KETOROLAC TROMETHAMINE 60 MG/2 ML VIAL IM STA (19:14)
[2016-12-19] MEDS ORDERED: ONDANSETRON 4MG OD TAB PO STA (19:14)
[2016-12-19] MEDS ORDERED: DICYCLOMINE HCL 10 MG/ML 2 ML AMP IM ONE (19:15)
--- NOTE | 2016-12-19 19:27 | EMERGENCY ROOM VISIT NOTE ---
History Report prepared by Adam: Lane Neil Under the Supervision of: Dr. Wiliam Mendez D.O. First contact with patient: 19:07 Chief Complaint: ABDOMINAL PAIN Stated Complaint: PAIN IN STOMACH History of Present Illness The patient is a 41 year old female who presents to the Emergency Room with complaints of constant lower abdominal pain that started a week ago. She rates her pain as an 8/10 in severity. She admits that she has upper abdominal pain intermittently that began a while ago. The patient also admits that she has experienced nausea and two episodes of emesis. She states that she has taken Hydrocodone and intermittent Tylenol for her symptoms, but denies any relief. The patient admits that she called her PCP yesterday and got an appointment. She admits that she had received 5 mg of Hydrocodone last night and was sent home. The patient states that she was supposed to call her surgeon next week if the pain persisted but had called her today due to the severity. She states that her surgeon, Dr. Vazquez, told her to report to the ED due to her pain. The patient reports that she has had multiple CT done in the past year, but is unsure why she has been experiencing abdominal pain. She states that she has a history of cervical cancer, oophorectomy, and two hernia repairs six months ago with Dr. Vazquez. The patient denies hematuria. Source of History: patient Onset: a week ago Position: abdomen Symptom Intensity: 8/10 Timing: constant Modifying Factors (Relieving): tylenol, other (Hydrocodone) Associated Symptoms: + nausea, + vomiting, + abdominal pain Review of Systems See HPI for pertinent positives & negatives. A total of 10 systems reviewed and were otherwise negative. Past Medical & Surgical Medical Problems: (1) Abdominal muscle strain (2) Abdominal pain (3) Abdominal pain (4) Abdominal wall hernia (5) Acute respiratory failure (6) Angioedema (7) Back pain (8) Back strain (9) Bronchitis (10) Central abdominal pain (11) Central abdominal pain (12) Cervical cancer (13) Cervical cancer (14) Contusion of rib on right side (15) Diabetes (16) Diabetes (17) DKA (diabetic ketoacidoses) (18) Dysphagia (19) Encounter for medication refill (20) Essential (Primary) Hypertension (21) Flank pain (22) Gardnerella vaginitis (23) Generalized abdominal pain (24) GERD (gastroesophageal reflux disease) (25) Hyperglycemia (26) Hypertension (27) Hypokalemia (28) IBS (irritable bowel syndrome) (29) Kidney stones (30) Left leg pain (31) Pancreatitis (32) Pancreatitis, acute (33) PID (pelvic inflammatory disease) (34) PID (pelvic inflammatory disease) (35) Postoperative pain (36) Rheumatoid arthritis (37) Right lower quadrant abdominal abscess (38) RUQ pain (39) Shortness of breath (40) Sinusitis (41) Sore throat (42) Supraglottic edema (43) UTI (urinary tract infection) (44) Vomiting (45) Yeast dermatitis of penis Surgical Problems: (1) H/O hernia repair (2) H/O tubal ligation (3) History of cholecystectomy (4) Hx of cholecystectomy (5) Tubal ligation status Family History FHx: diabetes mellitus Hypertension Social History Smoking Status: Current Every Day Smoker Alcohol Use: none Drug Use: none Marital Status: Housing Status: lives with family Occupation Status: unemployed Current/Historical Medications Scheduled Amlodipine (Norvasc), 5 MG PO DAILY Dicyclomine Hcl (Dicyclomine Hcl), 10 MG PO TID Hydrocodone/Acetaminophen 5MG/325MG ([place] 5MG/325MG), 1 TAB PO TID Insulin Glargine (Lantus), 24 UNITS SC QAM Insulin Glulisine (Apidra Solostar), 1 DOSE SQ UD Metoprolol Succ (Toprol Xl) (Toprol-Xl), 50 MG PO DAILY Simvastatin (Zocor), 1 TAB PO HS Scheduled PRN Omeprazole (Prilosec), 20 MG PO DAILY PRN for Acid Reflux Allergies Coded Allergies: Lisinopril (Verified Allergy, Severe, ANAPHYLAXIS, 12/19/16) ANGIOEDEMA Morphine (Verified Allergy, Mild, VOMIT/ITCHY, 12/19/16) Iodinated Diagnostic Agents (Verified Adverse Reaction, Mild, VOMITING, ) Physical Exam Vital Signs Date Time Temp Pulse Resp B/P (MAP) Pulse Ox O2 Delivery O2 Flow Rate FiO2 12/19/16 22:03 186/105 12/19/16 21:50 92 18 97 12/19/16 21:35 94 21 98 9/29/17 21:32 12/19/16 21:20 91 16 99 12/19/16 21:12 184/113 12/19/16 21:11 80 20 184/113 98 Room Air 12/19/16 21:05 95 28 99 12/19/16 21:01 172/103 12/19/16 20:50 83 15 99 12/19/16 20:40 81 12/19/16 20:31 177/111 12/19/16 18:00 36.8 90 20 214/120 97 Room Air Physical Exam GENERAL: Patient is awake, alert, and in no acute distress. Patient is resting comfortably and very anxious appearing. EYES: The conjunctivae are clear. The pupils are round and reactive. EARS, NOSE, MOUTH AND THROAT: The nose is without any evidence of any deformity. Mucous membranes are moist tongue is midline NECK: The neck is nontender and supple. RESPIRATORY: Normal respiratory effort is noted there is no evidence of wheezing rhonchi or rales CARDIOVASCULAR: Regular rate and rhythm noted there no murmurs rubs or gallops normal S1 normal S2 GASTROINTESTINAL: The abdomen is soft. Bowel sounds are present in all quadrants. Abdomen is mildly distended and tender to palpation. No rigidity or guarding. BACK: No midline tenderness or or step-off noted range of motion in flexion extension as well as rotation no signs of muscle spasm noted MUSCULOSKELETAL/EXTREMITIES: There is no evidence of gross deformity full range of motion is noted in the hips and shoulders SKIN: There is no obvious evidence of any rash. There are no petechiae, pallor or cyanosis noted. NEUROLOGIC: Patient is awake alert and oriented x3 strength is symmetric patellar reflexes are 2+ bilaterally Medical Decision & Procedures ER Provider Diagnostic Interpretation: X-ray results as stated below per interpretation by me and the radiologist. ABDOMEN 2VIEW W/PA CHEST RTN HISTORY: 41 years-old Female lower pain acute right lower quadrant abdominal pain COMPARISON: CT 12/14/2016, acute abdominal series radiographs 12/14/2016 TECHNIQUE: Frontal view of the chest with erect and supine views of the abdomen FINDINGS: Cardiomediastinal and hilar silhouettes are within normal limits. No pneumothorax, pleural effusion or focal airspace consolidation. No pneumoperitoneum. Cholecystectomy clips noted. Prior herniorrhaphy. Bowel gas pattern is nonobstructive. No urolith identified. There are phleboliths of the left hemipelvis. No fracture. IMPRESSION: 1. No acute cardiopulmonary process. 2. Nonobstructive bowel gas pattern without pneumoperitoneum. The above report was generated using voice recognition software. It may contain grammatical, syntax or spelling errors. Electronically signed by: Cullen Solares M.D. 12/19/2016 8:47 PM Dictated Date/Time: 12/19/2016 8:45 PM Medications Administered Medications (Trade) Dose Ordered Sig/Jimbo Route Start Time Stop Time Status Last Admin Dose Admin Ketorolac Tromethamine (Toradol Inj) 60 mg NOW STAT IM 12/19/16 19:14 12/19/16 19:16 DC 12/19/16 19:36 60 MG Dicyclomine HCl (Bentyl Inj) 20 mg NOW ONCE IM 12/19/16 19:15 12/19/16 19:16 DC 12/19/16 19:32 20 MG Ondansetron HCl (Zofran Odt) 4 mg NOW STAT PO 12/19/16 19:14 12/19/16 19:16 DC 12/19/16 19:31 4 MG Oxycodone HCl (Roxicodone Immediate Rel 5MG Home Pack) 1 homepack UD ONCE PO 12/19/16 21:45 12/19/16 21:46 DC 12/19/16 22:04 1 HOMEPACK Ondansetron HCl (ZOFRAN ODT 4MG Home Pack) 1 homepack UD ONCE PO 12/19/16 21:45 12/19/16 21:46 DC 12/19/16 22:04 1 HOMEPACK ED Course 1911: The patient was evaluated in room C07. A complete history and physical examination were performed. 1913: Ordered Zofran Odt 4 mg PO, Toradol Injection 60 mg IM. 1914: Ordered Bentyl Injection 20 mg IM. 2139: Upon reevaluation, the patient is resting comfortably. I discussed the results and treatment plan with the patient. She verbalized agreement of the treatment plan. The patient was discharged home. 2144: Ordered Ondansetron HCl 1 homepack PO, Oxycodone HCl 1 homepack PO. Medical Decision Differential diagnosis: Etiologies such as appendicitis, diverticulitis, PUD, biliary pathology, UTI, pancreatitis, obstruction, mesenteric ischemia, aortic pathology, infections, inflammatory bowel disease, renal colic, as well as others were entertained. Nursing notes reviewed. The patient is a 41-year-old female who presented to emergency department for an evaluation of abdominal pain. On physical exam the patient did not have an acute surgical abdomen. The patient was treated with pain medication as well as antispasmodics in the emergency department. I discussed the patient's radiographic studies with her. I did review the patient's visit history and her radiographic studies over the last year. She has had 7 CAT scans of the abdomen and pelvis over the last 12 months. At this time I do not feel that this pain is a new finding and I do not feel that her exam is consistent with an acute surgical abdomen. This reason radiographic studies were obtained including plain x-rays. The patient was reevaluated multiple times. The patient was evaluated by the emergency department charge nurse. She is very unhappy because she did not receive stronger pain medication while she was in the ER. She was given home packs to go home with and encouraged to call her primary surgeon in the morning to schedule a follow-up appointment. She was also encouraged to rest and avoid any strenuous activity. She was also encouraged to return to the emergency Department immediately if symptoms change worsen or the need arises. [place] Drug Monitoring Program Search Results: patient reviewed within database, see additional documentation Drug Monitoring Findings: Multiple prescriptions from multiple providers Medication Reconcilliation Current Medication List: was personally reviewed by me Blood Pressure Screening Patient's blood pressure: Elevated blood pressure Blood pressure disposition: Referred to PCP Impression Primary Impression: Abdominal pain Scribe Attestation The scribe's documentation has been prepared under my direction and personally reviewed by me in its entirety. I confirm that the note above accurately reflects all work, treatment, procedures, and medical decision making performed by me. Departure Information Dispostion Home / Self-Care Referrals Victoriano Goins M.D. (PCP) Forms Call Back Authorization, HOME CARE DOCUMENTATION FORM, IMPORTANT VISIT INFORMATION Patient Instructions Abdominal Pain, Hypertension Control, My [facility] Additional Instructions Call your family to schedule a follow-up appointment. Schedule a follow-up appointment with your primary surgeon as well. Continue all medications as prescribed including her blood pressure medication.
[2016-12-19] MEDS ORDERED: AMLO-110 PO (20:22)
[2016-12-19] MEDS ORDERED: HYDR-5688 PO (20:22)
[2016-12-19] MEDS ORDERED: SIMV20TA2 PO (20:22)
[2016-12-19] MEDS ORDERED: METO50TA7 PO (20:22)
--- NOTE | 2016-12-19 20:48 | DIAGNOSTIC IMAGING REPORT ---
ABDOMEN 2VIEW W/PA CHEST RTN HISTORY: 41 years-old Female lower pain acute right lower quadrant abdominal pain COMPARISON: CT 12/14/2016, acute abdominal series radiographs 12/14/2016 TECHNIQUE: Frontal view of the chest with erect and supine views of the abdomen FINDINGS: Cardiomediastinal and hilar silhouettes are within normal limits. No pneumothorax, pleural effusion or focal airspace consolidation. No pneumoperitoneum. Cholecystectomy clips noted. Prior herniorrhaphy. Bowel gas pattern is nonobstructive. No urolith identified. There are phleboliths of the left hemipelvis. No fracture. IMPRESSION: 1. No acute cardiopulmonary process. 2. Nonobstructive bowel gas pattern without pneumoperitoneum. The above report was generated using voice recognition software. It may contain grammatical, syntax or spelling errors. Electronically signed by: Cullen Solares M.D. 12/19/2016 8:47 PM Dictated Date/Time: 12/19/2016 8:45 PM
[2016-12-19] MEDS ORDERED: ONDANSETRON HOME PACK 4MG OD TAB PO ONE (21:45)
[2016-12-19] MEDS ORDERED: OXYCODONE IR HOME PACK PO ONE (21:45)
[2016-12-19 21:50] VITALS: PULSE 92; O2SAT 97
[2016-12-19 22:03] VITALS: BP 186/105
== END 2016-12-19 22:06 | disposition home or self-care (01) ==
LOC: C.EDB 17:51 → C.EDC 22:06
DX: R10.30 Lower abdominal pain, unspecified (principal); E11.9 Type 2 diabetes mellitus without complications; I10 Essential (primary) hypertension; K21.9 Gastro-esophageal reflux disease without esophagitis; K58.9 Irritable bowel syndrome, unspecified; N73.9 Female pelvic inflammatory disease, unspecified; M06.9 Rheumatoid arthritis, unspecified; F17.200 Nicotine dependence, unspecified, uncomplicated; Z85.41 Personal history of malignant neoplasm of cervix uteri; Z87.442 Personal history of urinary calculi; Z90.722 Acquired absence of ovaries, bilateral; Z98.51 Tubal ligation status; Z79.4 Long term (current) use of insulin

== ENCOUNTER → 2017-01-02 | Day surgery (SDC) | payer OTHER ==
[2016-12-26 12:57] VITALS: Ht 158.8 cm; Wt 67.6 kg
[~2017-01-02] VITALS: Ht 158.8 cm; Wt 67.6 kg
[~2017-01-02] MED LIST changes: +AMLO-110 PO; -AMLO2.5T PO; +IPRA1AER2 INH; +LIDOCAINE HCL 2% 2 ML VIAL (20MG/ML) ONE; -METO25TA3 PO; +METO50TA7 PO; +MIDAZOLAM HCL 1 MG/ML 2ML VIAL ONE; +MISCCAP80 PO; +ONDANSETRON INJ 2 MG/ML 2 ML VIAL ONE; +OXYC1TAB3 PO; +PROPOFOL IV EMULSION 10 MG/ML 20 ML VIAL IV ONE; +SIMV20TA2 PO; +SODIUM CHLORIDE 0.9% 500ML 500 ML IV ONE; -ZCR20 PO
--- NOTE | 2017-01-02 08:50 | Endo History and Physical ---
History & Physical Date of Service: Jan 02, 2017. Chief Complaint: ABD Pain,Diarrhea Referring Physician: Dr Goins History of Present Illness 41 yo CF who presents for colonoscopy secondary to abdominal pain and diarrhea. Past Medical History Cancer, Hypertension Past Surgical History Hx Cardiac Surgery: No Hx Internal Defibrillator: No Hx Pacemaker: No Hx Abdominal Surgery: Yes (TUBAL LIGATION, ABDOMINAL HERNIA X 2, FLORENCIO) Hx of Implantable Prosthesis: No Hx Post-Op Nausea and Vomiting: No Hx Cancer Surgery: Yes (ROGER AND OOPHERECTOMY) Hx Thoracic Surgery: No Hx Orthopedic: No Hx Urinary Tract Surgery: No Family History Polyp, IBD Social History Smoking Status: Current Every Day Smoker Hx Substance Use: Yes (SEE MED REC) Hx Alcohol Use: Yes (RARELY) Allergies Coded Allergies: Lisinopril (Verified Allergy, Severe, ANAPHYLAXIS, 01/02/17) ANGIOEDEMA Morphine (Verified Allergy, Mild, VOMIT/ITCHY, 01/02/17) Penicillins (Verified Allergy, Unknown, A CHILD, 01/02/17) Iodinated Diagnostic Agents (Verified Adverse Reaction, Mild, VOMITING, ) Current Medications Reported Home Medications Medications Dose Route/Sig Max Daily Dose Days Date Category Dose Instructions Probiotic (Probiotic Product) 1 Cap Cap 1 Cap PO QAM 12/26/16 Reported Combivent Respimat (Ipratropium-Albuterol) 1 Aer Aer 1 Puffs INH QID PRN 12/26/16 Reported Roxicodone Ir (Oxycodone HCl) 5 Mg Tab 1-2 Tab PO Q6H PRN 12/26/16 Reported Zocor (Simvastatin) 20 Mg Tab 1 Tab PO HS 12/19/16 Reported Toprol-Xl (Metoprolol Succinate) 50 Mg Tabcr 50 Mg PO HS 12/19/16 Reported Norvasc (Amlodipine Besylate) 5 Mg Tab 5 Mg PO HS 12/19/16 Reported Apidra Solostar (Insulin Glulisine) 100 Units/Ml Inj 1 Dose SQ UD 05/07/16 Reported SLIDING SCALE WITH MEALS Lantus (Insulin Glargine) 100 Unit/Ml Inj 24 Units SC QAM 05/07/16 Reported Dicyclomine Hcl 10 Mg Cap 10 Mg PO TID 03/10/16 Reported Prilosec (Omeprazole) 20 Mg Capcr 20 Mg PO DAILY PRN 01/29/15 Reported Vital Signs Weight (Kilograms): 67.64 Height (Feet): 5 Height (Inches): 2.5 Date Time Temp Pulse Resp B/P (MAP) Pulse Ox O2 Delivery O2 Flow Rate FiO2 01/02/17 08:31 36 85 20 223/129 (160) 98 Room Air Physical Exam General Appearance: WD/WN, no apparent distress Respiratory/Chest: Auscultation: breath sounds normal Cardiovascular: Heart Auscultation: RRR Abdomen: Bowel Sounds: normal Inspection & Palpation: soft, non-distended, no tenderness, guarding & rebound Assessment and Plan Assessment: 41 yo CF who presents for colonoscopy secondary to abdominal pain and diarrhea. Plan: Proceed with colonoscopy.
--- NOTE | 2017-01-02 09:45 | Discharge Instructions ---
Endoscopy Patient Instructions Date / Procedure(s) Performed Jan 02, 2017. Colonoscopy Allergy Information Coded Allergies: Lisinopril (Verified Allergy, Severe, ANAPHYLAXIS, 01/02/17) ANGIOEDEMA Morphine (Verified Allergy, Mild, VOMIT/ITCHY, 01/02/17) Penicillins (Verified Allergy, Unknown, A CHILD, 01/02/17) Iodinated Diagnostic Agents (Verified Adverse Reaction, Mild, VOMITING, ) Discharge Date / Findings Jan 02, 2017. Random colon biopsies Stool aspirate collected Internal hemorrhoids Medication Instructions Stopped Medication(s): Insulin 1/2 dose OK to resume all medications today as prescribed Reported Home Medications Medications Dose Route/Sig Max Daily Dose Days Date Category Dose Instructions Probiotic (Probiotic Product) 1 Cap Cap 1 Cap PO QAM 12/26/16 Reported Combivent Respimat (Ipratropium-Albuterol) 1 Aer Aer 1 Puffs INH QID PRN 12/26/16 Reported Roxicodone Ir (Oxycodone HCl) 5 Mg Tab 1-2 Tab PO Q6H PRN 12/26/16 Reported Zocor (Simvastatin) 20 Mg Tab 1 Tab PO HS 12/19/16 Reported Toprol-Xl (Metoprolol Succinate) 50 Mg Tabcr 50 Mg PO HS 12/19/16 Reported Norvasc (Amlodipine Besylate) 5 Mg Tab 5 Mg PO HS 12/19/16 Reported Apidra Solostar (Insulin Glulisine) 100 Units/Ml Inj 1 Dose SQ UD 05/07/16 Reported SLIDING SCALE WITH MEALS Lantus (Insulin Glargine) 100 Unit/Ml Inj 24 Units SC QAM 05/07/16 Reported Dicyclomine Hcl 10 Mg Cap 10 Mg PO TID 03/10/16 Reported Prilosec (Omeprazole) 20 Mg Capcr 20 Mg PO DAILY PRN 01/29/15 Reported Provider Instructions Activity Restrictions - No exercising or heavy lifting for 24 hours. - Do not drink alcohol the day of the procedure. - Do not drive a car or operate machinery until the day after the procedure. - Do not make any important decisions or sign important papers in 24 hours after the procedure. Following Day: - Return to full activity which may include returning to work/school. Diet Start your diet with liquids and light foods (jello, soup, juice, toast). Then eat your usual diet if not nauseated. Treatment For Common After Affects For mild abdominal pain, bloating, or excessive gas: - Rest - Eat lightly - Lie on right side Follow-Up Information Follow-up with Dr Goins as scheduled Anesthesia Information What You Should Know You have had a procedure that required some medicine to reduce anxiety and discomfort. This treatment is called moderate sedation. After receiving the treatment, you may be sleepy, but you will be able to breathe on your own. The effects of the treatment may last for several hours. Follow these instructions along with Activity/Diet recommendations noted above: * Do NOT do anything where dizziness or clumsiness would be dangerous. * Rest quietly at home today, then you can be up and about tomorrow. * Have a responsible person stay with you the rest of today. * You may have had an I.V. today. If so, you may take the dressing off later today. Recommendations Call your doctor if: * Trouble breathing * Continuous vomiting for more than 24 hours * Temperature above 101 degrees * Severe abdominal pain or bloating * Pain not relieved by pain medicine ordered * There is increased drainage or redness from any incision * A large amount of rectal bleeding greater than 2-3 tablespoons. (If you had a polyp/s removed or have hemorrhoids, a small amount of blood - from the rectum is to be expected.) * You have any unanswered questions or concerns. IN THE EVENT OF A SERIOUS EMERGENCY, GO TO THE NEAREST EMERGENCY ROOM Your discharge instructions were prepared by provider Pastor Oneal. Patient Instructions Signature Page Iman Wild Patient (or Guardian) Signature/Date: I have read and understand the instructions given to me by my caregivers. Caregiver/RN/Doctor Signature/Date: The above-named patient and/or guardian has received patient instructions on this date. + Original Patient Signature Page (only) stays with chart. Please make copy for patient.
--- NOTE | 2017-01-02 10:00 | GI REPORT ---
Procedure Date: 01/02/2017 9:08 AM Procedure: Colonoscopy Indications: Abdominal pain in the right lower quadrant, Chronic diarrhea Medicines: Monitored Anesthesia Care Complications: No immediate complications. Estimated Blood Loss: Estimated blood loss: none. Procedure: Pre-Anesthesia Assessment: - Prior to the procedure, a History and Physical was performed, and patient medications and allergies were reviewed. The patient's tolerance of previous anesthesia was also reviewed. The risks and benefits of the procedure and the sedation options and risks were discussed with the patient. All questions were answered, and informed consent was obtained. Prior Anticoagulants: The patient has taken no previous anticoagulant or antiplatelet agents. ASA Grade Assessment: II - A patient with mild systemic disease. After reviewing the risks and benefits, the patient was deemed in satisfactory condition to undergo the procedure. After I obtained informed consent, the scope was passed under direct vision. Throughout the procedure, the patient's blood pressure, pulse, and oxygen saturations were monitored continuously. The scope was introduced through the anus and advanced to the terminal ileum. The colonoscopy was performed without difficulty. The patient tolerated the procedure well. The quality of the bowel preparation was good. The terminal ileum, ileocecal valve, appendiceal orifice, and rectum were photographed. Findings: A 5 mm polyp was found in the rectum. The polyp was sessile. The polyp was removed with a hot snare. Resection and retrieval were complete. Non-bleeding internal hemorrhoids were found during retroflexion. The hemorrhoids were small. Several random biopsies were obtained with cold forceps for histology in the entire colon. Fluid aspiration for cytology was performed in the entire colon. Impression: - One 5 mm polyp in the rectum, removed with a hot snare. Resected and retrieved. - Non-bleeding internal hemorrhoids. - Several random biopsies were obtained in the entire colon. - Fluid aspiration was performed. Recommendation: - Resume previous diet. - Continue present medications. - Repeat colonoscopy for surveillance based on pathology results. - Return to primary care physician as previously scheduled. Pastor Oneal DO 01/02/2017 9:59:29 AM This report has been signed electronically. Note Initiated On: 01/02/2017 9:08 AM I attest to the content of the Intraoperative Record and orders documented therein, exceptions below
--- NOTE | 2017-01-02 10:04 | Anesthesiology Progress Note ---
Anesthesia Post Op Note Date & Time Jan 02, 2017 at 10:04 Vital Signs Pain Intensity: 5 Vital Signs Past 12 Hours Date Time Temp Pulse Resp B/P (MAP) Pulse Ox O2 Delivery O2 Flow Rate FiO2 01/02/17 09:41 88 16 151/87 (108) 97 Room Air 01/02/17 08:31 36 85 20 223/129 (160) 98 Room Air Notes Mental Status: alert / awake / arousable, participated in evaluation Pt Amnestic to Procedure: Yes Nausea / Vomiting: adequately controlled Pain: adequately controlled Airway Patency, RR, SpO2: stable & adequate BP & HR: stable & adequate Hydration State: stable & adequate Anesthetic Complications: no major complications apparent
[2017-01-02 10:10] VITALS: BP 188/116; PULSE 77; O2SAT 99
== END | disposition home or self-care (01) ==
LOC: C.GI 07:56
PROVIDERS: ATTEND Internal Medicine
DX: R10.9 Unspecified abdominal pain (principal); R19.7 Diarrhea, unspecified; K62.1 Rectal polyp; K64.8 Other hemorrhoids; I10 Essential (primary) hypertension; Z98.51 Tubal ligation status; Z90.49 Acquired absence of other specified parts of digestive tract; Z90.710 Acquired absence of both cervix and uterus; Z83.71 Family history of colonic polyps; F17.200 Nicotine dependence, unspecified, uncomplicated; E10.9 Type 1 diabetes mellitus without complications; E78.5 Hyperlipidemia, unspecified; K21.9 Gastro-esophageal reflux disease without esophagitis; K85.90 Acute pancreatitis without necrosis or infection, unspecified

== ENCOUNTER → 2017-01-06 | Outpatient (CLI) | payer OTHER ==
[~2017-01-06] MED LIST changes: -LIDOCAINE HCL 2% 2 ML VIAL (20MG/ML) ONE; -MIDAZOLAM HCL 1 MG/ML 2ML VIAL ONE; -ONDANSETRON INJ 2 MG/ML 2 ML VIAL ONE; -PROPOFOL IV EMULSION 10 MG/ML 20 ML VIAL IV ONE; -SODIUM CHLORIDE 0.9% 500ML 500 ML IV ONE
[2017-01-06 18:00] LABS: ALT/SGPT 27 U/L (12-78); BLOOD UREA NITROGEN 3 mg/dl (7-18); BUN/CREATININE RATIO 5.8 (10-20); CALCIUM 8.6 mg/dl (8.5-10.1); CARBON DIOXIDE 20 mmol/L (21-32); CHLORIDE 110 mmol/L (98-107); CREATININE 0.48 mg/dl (0.60-1.20); GLUCOSE 165 mg/dl (70-99); POTASSIUM 3.1 mmol/L (3.5-5.1); SODIUM 140 mmol/L (136-145)
[2017-01-06 18:15] LABS: ALB/GLOB RATIO 1.2 (0.9-2); ALKALINE PHOSPHATASE 172 U/L (45-117); AST/SGOT 18 U/L (15-37); THYROID STIMULATING HORMONE 0.527 uIu/ml (0.300-4.500)
[2017-01-07 07:50] LABS: ESTIMATED AVERAGE GLUCOSE 157 mg/dl; HA1C FLAG Normal (Normal)
== END | disposition home or self-care (01) ==
LOC: C.LABBFT 12:34
PROVIDERS: ATTEND Physician Assistant Medical
DX: I10 Essential (primary) hypertension (principal)

== ENCOUNTER → 2017-01-28 | Outpatient (CLI) | payer OTHER ==
--- NOTE | 2017-01-28 13:05 | DIAGNOSTIC IMAGING REPORT ---
DUPLEX RENAL ARTERY HISTORY: I10 Essential hypertension [id number] COMPARISON STUDY: Abdomen and pelvis CT 12/14/2016. FINDINGS: Right kidney measures 11.8 cm and the left kidney measures 13.8 cm. No hydronephrosis. There is a 1.1 cm exophytic cyst within the lower pole of the left kidney. Peak systolic velocity within the distal right renal artery was 204 cm/s and within the proximal left renal artery is 172 cm/s. However, the bilateral renal aortic ratios remain less than 3. Therefore, there is no hemodynamically significant stenosis within the renal arteries. Resistive indices of the bilateral renal arteries are less than 0.7. Bilateral renal veins are patent. IMPRESSION: 1. No hemodynamically significant stenosis within the bilateral renal arteries. 2. A 1.1 cm left renal cyst. Electronically signed by: Sunny Saez M.D. 01/28/2017 1:03 PM Dictated Date/Time: 01/28/2017 12:50 PM
== END | disposition home or self-care (01) ==
LOC: C.ULTR 11:39
PROVIDERS: ATTEND Physician Assistant Medical
DX: I10 Essential (primary) hypertension (principal); N28.1 Cyst of kidney, acquired

== ENCOUNTER → 2017-01-29 | Outpatient (CLI) | payer OTHER ==
[2017-01-29 17:43] LABS: URINE APPEARANCE CLEAR (CLEAR); URINE BILIRUBIN NEG (NEG); URINE COLOR YELLOW; URINE EPITHELIAL CELL AUTO >30 /lpf (0-5); URINE NITRITE NEG (NEG); URINE SPECIFIC GRAVITY 1.022 (1.000-1.030); UROBILINOGEN NEG (NEG)
[2017-01-29 17:46] LABS: MANUAL MICROSCOPIC REQUIRED? NO; REVIEW REQ? YES
[2017-01-29 17:51] LABS: BASO % 0.4 %; BASO ABS # 0.04 K/uL (0-0.2); BLOOD UREA NITROGEN 6 mg/dl (7-18); BUN/CREATININE RATIO 8.7 (10-20); CALCIUM 9.9 mg/dl (8.5-10.1); CARBON DIOXIDE 13 mmol/L (21-32); CHLORIDE 113 mmol/L (98-107); COMPLETE YES; CREATININE 0.68 mg/dl (0.60-1.20); EOS % 0.4 %; GLUCOSE 190 mg/dl (70-99); HEMATOCRIT 46.8 % (37-47); IG% 0.3 %; LYMPH % 30.9 %; LYMPH ABS # 3.43 K/uL (1.2-3.4); MEAN CELL VOLUME 90.7 fL (80-100); MEAN CORPUSCULAR HGB CONC 34.2 g/dl (32-36); MEAN PLATELET VOLUME 10.1 fL (7.4-10.4); PLATELET COUNT 326 K/uL (130-400); POTASSIUM 4.1 mmol/L (3.5-5.1); RED BLOOD COUNT 5.16 M/uL (4.2-5.4); SODIUM 138 mmol/L (136-145); URIC ACID 2.7 mg/dl (2.6-7.2)
[2017-01-29 18:06] LABS: URINE PROTIEN/CREAT RATIO 0.8 (0-0.2); URINE TOTAL PROTEIN 49.5 mg/dl (0-11.9)
== END | disposition home or self-care (01) ==
LOC: C.LABBFT 13:34
PROVIDERS: ATTEND Internal Medicine Nephrology
DX: I10 Essential (primary) hypertension (principal); E87.6 Hypokalemia

== ENCOUNTER → 2017-02-11 | Outpatient (CLI) | payer OTHER ==
[2017-02-11 16:45] LABS: BASO % 0.3 %; BASO ABS # 0.03 K/uL (0-0.2); COMPLETE YES; EOS % 0.6 %; HEMATOCRIT 35.8 % (37-47); IG% 0.7 %; LYMPH % 44.7 %; LYMPH ABS # 4.68 K/uL (1.2-3.4); MEAN CELL VOLUME 89.5 fL (80-100); MEAN CORPUSCULAR HEMOGLOBIN 30.8 pg (25-34); MEAN CORPUSCULAR HGB CONC 34.4 g/dl (32-36); MONO % 6.9 %; NEUT % 46.8 %; PLATELET COUNT 330 K/uL (130-400); WHITE BLOOD COUNT 10.48 K/uL (4.8-10.8)
[2017-02-11 17:06] LABS: BLOOD UREA NITROGEN 4 mg/dl (7-18); BUN/CREATININE RATIO 7.1 (10-20); CARBON DIOXIDE 21 mmol/L (21-32); CHLORIDE 112 mmol/L (98-107); CREATININE 0.62 mg/dl (0.60-1.20); GLUCOSE 181 mg/dl (70-99); POTASSIUM 3.4 mmol/L (3.5-5.1); SODIUM 141 mmol/L (136-145)
[2017-02-11 17:07] LABS: PHOSPHORUS 2.4 mg/dl (2.5-4.9)
== END | disposition home or self-care (01) ==
LOC: C.LABBFT 12:50
PROVIDERS: ATTEND Internal Medicine Nephrology
DX: E87.2 Acidosis (principal); I10 Essential (primary) hypertension

== ENCOUNTER → 2017-03-09 | Outpatient (CLI) | payer OTHER ==
[~2017-03-09] MED LIST changes: +ACET325T96 PO; +IBUP-103 PO; -IPRA1AER2 INH; +METO-596 PO; -METO50TA7 PO; +ONDA4TAB46 PO; -OXYC1TAB3 PO
[2017-03-09 14:16] LABS: URINE APPEARANCE CLEAR (CLEAR); URINE BILIRUBIN NEG (NEG); URINE COLOR YELLOW; URINE NITRITE NEG (NEG); URINE PH 6.5 (4.5-7.5); URINE SPECIFIC GRAVITY 1.023 (1.000-1.030); UROBILINOGEN NEG (NEG); ZZUR CULT IF INDIC CLEAN CATCH NO
[2017-03-09 14:19] LABS: MANUAL MICROSCOPIC REQUIRED? NO; REVIEW REQ? NO
== END | disposition home or self-care (01) ==
LOC: C.LABSPEC 13:58
PROVIDERS: ATTEND Obstetrics & Gynecology
DX: R30.0 Dysuria (principal)

== ENCOUNTER 2017-04-04 16:29 | Emergency (ER) | payer OTHER | END 2017-04-04 16:46 | disposition left against medical advice (07) | LOC: C.EDB 16:31 | DX: R73.9 Hyperglycemia, unspecified (principal) ==

== ENCOUNTER 2017-04-06 21:54 | Emergency (ER) | payer OTHER ==
[~2017-04-06] VITALS: Ht 157.5 cm; Wt 68.4 kg
[2017-04-06 22:01] VITALS: TEMP 37; Ht 157.5 cm; Wt 68.4 kg
[2017-04-06] MEDS ORDERED: SODIUM CHLORIDE 0.9% 1000ML 1,000 ML IV STA (22:14)
[2017-04-06] MEDS ORDERED: ONDANSETRON INJ 2 MG/ML 2 ML VIAL IV STA (22:14)
--- NOTE | 2017-04-06 22:20 | EMERGENCY ROOM VISIT NOTE ---
History Report prepared by Adam: Onur Kraus Under the Supervision of: Dr. Wiliam Mendez D.O. First contact with patient: 22:05 Chief Complaint: HYPERGLYCEMIA Stated Complaint: HIGH BLOOD SUGAR, ENLARGED LIVER, PAIN History of Present Illness The patient is a 41 year old female who presents to the Emergency Room with complaints of uncontrolled blood sugar levels that the patient has been noticing for the past two days. She states that her sugars have been going from 110-600 and she cannot keep them under control. The patient also complains of right sided back pain and pain from her right breast to her central abdomen. She notes that this pain is like a "pressure" in her abdomen. Her OB called her recently and informed her that her she has an enlarged liver. Source of History: patient Onset: Two days [employer]INE [employer]PER[employer] Position: other (Blood Sugar) Quality: other (Hypoglycemia ) Associated Symptoms: + abdominal pain, + back pain Review of Systems See HPI for pertinent positives & negatives. A total of 10 systems reviewed and were otherwise negative. Past Medical & Surgical Medical Problems: (1) Abdominal muscle strain (2) Abdominal pain (3) Abdominal pain (4) Abdominal wall hernia (5) Acute respiratory failure (6) Angioedema (7) Back pain (8) Back strain (9) Bronchitis (10) Central abdominal pain (11) Central abdominal pain (12) Cervical cancer (13) Cervical cancer (14) Contusion of rib on right side (15) Diabetes (16) Diabetes (17) DKA (diabetic ketoacidoses) (18) Dysphagia (19) Encounter for medication refill (20) Essential (Primary) Hypertension (21) Flank pain (22) Gardnerella vaginitis (23) Generalized abdominal pain (24) GERD (gastroesophageal reflux disease) (25) Hyperglycemia (26) Hypertension (27) Hypokalemia (28) IBS (irritable bowel syndrome) (29) Kidney stones (30) Left leg pain (31) Pancreatitis (32) Pancreatitis, acute (33) PID (pelvic inflammatory disease) (34) PID (pelvic inflammatory disease) (35) Postoperative pain (36) Rheumatoid arthritis (37) Right lower quadrant abdominal abscess (38) RUQ pain (39) Shortness of breath (40) Sinusitis (41) Sore throat (42) Supraglottic edema (43) UTI (urinary tract infection) (44) Vomiting (45) Yeast dermatitis of penis Surgical Problems: (1) H/O hernia repair (2) H/O tubal ligation (3) History of cholecystectomy (4) Hx of cholecystectomy (5) Tubal ligation status Family History FHx: diabetes mellitus Hypertension Social History Smoking Status: Current Every Day Smoker Alcohol Use: none Drug Use: none Marital Status: Housing Status: lives with family Occupation Status: unemployed Current/Historical Medications Scheduled Amlodipine (Norvasc), 5 MG PO HS Dicyclomine Hcl (Dicyclomine Hcl), 10 MG PO TID Insulin Glargine (Lantus), 24 UNITS SC QAM Insulin Glulisine (Apidra Solostar), 1 DOSE SQ TIDM Metoprolol Tartrate (Lopressor), 25 MG PO BID Probiotic Product (Probiotic), 1 CAP PO QAM Simvastatin (Zocor), 20 MG PO HS Scheduled PRN Acetaminophen Tab (Tylenol), 325 MG PO UD PRN for Pain Ibuprofen Tab (Advil), 400 MG PO Q6H PRN for Pain Omeprazole (Prilosec), 20 MG PO DAILY PRN for Acid Reflux Ondansetron Hcl (Zofran), 4 MG PO Q6H PRN for Nausea Allergies Coded Allergies: Lisinopril (Verified Allergy, Severe, ANAPHYLAXIS, 02/11/17) ANGIOEDEMA Morphine (Verified Allergy, Mild, VOMIT/ITCHY, 02/11/17) Penicillins (Verified Allergy, Unknown, A CHILD, 02/11/17) Iodinated Diagnostic Agents (Verified Adverse Reaction, Mild, VOMITING, ) Physical Exam Vital Signs Date Time Temp Pulse Resp B/P (MAP) Pulse Ox O2 Delivery O2 Flow Rate FiO2 04/07/17 00:15 82 19 164/102 97 04/06/17 23:28 95 20 176/107 97 Room Air 04/06/17 22:01 37.0 108 20 151/99 97 Room Air Physical Exam GENERAL: Patient is awake, alert, and in no acute distress. Patient is resting comfortably and showing no signs of anxiety EYES: The conjunctivae are clear. The pupils are round and reactive. EARS, NOSE, MOUTH AND THROAT: The nose is without any evidence of any deformity. Mucous membranes are moist tongue is midline NECK: The neck is nontender and supple. RESPIRATORY: Normal respiratory effort is noted there is no evidence of wheezing rhonchi or rales CARDIOVASCULAR: Regular rate and rhythm noted there no murmurs rubs or gallops normal S1 normal S2 GASTROINTESTINAL: The abdomen is soft. Bowel sounds are present in all quadrants. Abdomen is mildly distended. There is RUQ tenderness to palpation. No guarding. BACK: No midline tenderness or or step-off noted range of motion in flexion extension as well as rotation no signs of muscle spasm noted MUSCULOSKELETAL/EXTREMITIES: There is no evidence of gross deformity full range of motion is noted in the hips and shoulders SKIN: There is no obvious evidence of any rash. There are no petechiae, pallor or cyanosis noted. NEUROLOGIC: Patient is awake alert and oriented x3 strength is symmetric patellar reflexes are 2+ bilaterally Medical Decision & Procedures ER Provider Diagnostic Interpretation: Radiology results as stated below per my review and radiologist interpretation: CHEST ONE VIEW PORTABLE CLINICAL HISTORY: Pain, radiating to the abdomen. COMPARISON STUDY: 02/20/2017 FINDINGS: The cardiac and mediastinal contours are normal. There is no evidence of focal pulmonary consolidation. There is no evidence of failure. No pleural effusions are visualized.[ No free intraperitoneal air is visualized. IMPRESSION: No active disease in the chest. Electronically signed by: Jesse Somers M.D. 04/06/2017 10:30 PM Dictated Date/Time: 04/06/2017 10:[address] SCAN OF THE ABDOMEN AND PELVIS WITHOUT CONTRAST CLINICAL HISTORY: right flank pain COMPARISON STUDY: 02/20/2017 TECHNIQUE: CT scan of the abdomen and pelvis was performed from the lung bases to the proximal femurs. Images are reviewed in the axial, sagittal, and coronal planes. IV contrast was not administered for this examination. A dose lowering technique was utilized adhering to the principles of ALARA. CT DOSE: 396.65 mGy.cm FINDINGS: Lower chest: The heart is normal in size and configuration, without pericardial effusion. The lung bases and pleural spaces are clear. Liver: No focal hepatic masses are visualized this noncontrast study. There is mild hepatomegaly. Gallbladder: Surgically absent Spleen: Top normal in size. No focal masses identified Pancreas: Unremarkable. Adrenal glands: Unremarkable. Kidneys: No renal, ureteral, or bladder calculi are visualized. There is 11 mm left renal cyst. There is a retroaortic left renal vein. Bowel: There are no transition zones indicate bowel obstruction. There is no acute diverticulitis. The appendix appears normal. Peritoneum: There is no intraperitoneal free air or abdominal ascites. There is a fat-containing umbilical hernia. There are postsurgical changes are prior ventral hernia repair Vasculature: The abdominal aorta is normal in course and caliber. Adenopathy: Borderline enlarged aortocaval lymph nodes remain stable. Pelvic viscera: The uterus appears surgically absent Skeletal structures: No destructive osseous lesions are seen. IMPRESSION: 1. No evidence of bowel obstruction. No evidence of free air 2. Surgically absent gallbladder and uterus 3. No renal, ureteral, or bladder calculi identified 4. Stable mild hepatomegaly 5. Stable borderline enlarged aortocaval lymph nodes. 6. Normal appendix. No evidence of acute diverticulitis. Electronically signed by: Jesse Somers M.D. 04/06/2017 10:59 PM Dictated Date/Time: 04/06/2017 10:53 PM Laboratory Results 04/06/17 22:32 Red Blood Count 3.94, Mean Corpuscular Volume 95.7, Mean Corpuscular Hemoglobin 33.8, Mean Corpuscular Hemoglobin Concent 35.3, Mean Platelet Volume 9.5, Neutrophils (%) (Auto) 60.0, Lymphocytes (%) (Auto) 31.1, Monocytes (%) (Auto) 7.3, Eosinophils (%) (Auto) 1.0, Basophils (%) (Auto) 0.2, Neutrophils # (Auto) 7.26, Lymphocytes # (Auto) 3.77, Monocytes # (Auto) 0.89, Eosinophils # (Auto) 0.12, Basophils # (Auto) 0.03 04/06/17 22:32 Test 04/06/17 22:19 04/06/17 22:32 04/06/17 23:19 04/06/17 23:37 Bedside Glucose 221 mg/dl (70-90) White Blood Count 12.12 K/uL (4.8-10.8) Red Blood Count 3.94 M/uL (4.2-5.4) Hemoglobin 13.3 g/dL (12.0-16.0) Hematocrit 37.7 % (37-47) Mean Corpuscular Volume 95.7 fL (80-100) Mean Corpuscular Hemoglobin 33.8 pg (25-34) Mean Corpuscular Hemoglobin Concent 35.3 g/dl (32-36) Platelet Count 278 K/uL (130-400) Mean Platelet Volume 9.5 fL (7.4-10.4) Neutrophils (%) (Auto) 60.0 % Lymphocytes (%) (Auto) 31.1 % Monocytes (%) (Auto) 7.3 % Eosinophils (%) (Auto) 1.0 % Basophils (%) (Auto) 0.2 % Neutrophils # (Auto) 7.26 K/uL (1.4-6.5) Lymphocytes # (Auto) 3.77 K/uL (1.2-3.4) Monocytes # (Auto) 0.89 K/uL (0.11-0.59) Eosinophils # (Auto) 0.12 K/uL (0-0.5) Basophils # (Auto) 0.03 K/uL (0-0.2) RDW Standard Deviation 51.3 fL (36.4-46.3) RDW Coefficient of Variation 14.7 % (11.5-14.5) Immature Granulocyte % (Auto) 0.4 % Immature Granulocyte # (Auto) 0.05 K/uL (0.00-0.02) Urine Color YELLOW Urine Appearance CLEAR (CLEAR) Urine pH 6.0 (4.5-7.5) Urine Specific [place] 1.022 (1.000-1.030) Urine Protein NEG (NEG) Urine Glucose (UA) TRACE (NEG) Urine Ketones NEG (NEG) Urine Occult Blood NEG (NEG) Urine Nitrite NEG (NEG) Urine Bilirubin NEG (NEG) Urine Urobilinogen NEG (NEG) Urine Leukocyte Esterase NEG (NEG) Urine Test NEG (NEG) Anion Gap 10.0 mmol/L (3-11) Est Creatinine Clear Calc Drug Dose 138.4 ml/min Estimated GFR () 140.2 Estimated GFR (Non- 121.0 BUN/Creatinine Ratio 13.6 (10-20) Calcium Level 8.9 mg/dl (8.5-10.1) Total Bilirubin 0.1 mg/dl (0.2-1) Direct Bilirubin < 0.1 mg/dl (0-0.2) Aspartate Amino Transf (AST/SGOT) 19 U/L (15-37) Alanine Aminotransferase (ALT/SGPT) 26 U/L (12-78) Alkaline Phosphatase 142 U/L (45-117) Total Creatine Kinase 38 U/L (26-192) Creatine Kinase MB 0.6 ng/ml (0.5-3.6) Creatine Kinase MB Ratio 1.6 (0-3.0) Troponin I < 0.015 ng/ml (0-0.045) Total Protein 7.3 gm/dl (6.4-8.2) Albumin 3.8 gm/dl (3.4-5.0) Lipase 230 U/L (73-393) Beta-Hydroxybutyric Acid 0.90 mg/dL (0.2-2.81) Venous Blood pH 7.36 (7.36-7.41) Venous Blood Partial Pressure CO2 34 mmHg (38.0-50.0) Venous Blood Partial Pressure O2 58 mmHg Venous Blood HCO3 19 mmol/L Venous Blood Oxygen Saturation 88.0 % Venous Blood Base Excess -6.1 mEq/L Prothrombin Time 10.6 SECONDS (9.0-12.0) Prothromb Time International Ratio 1.0 (0.9-1.1) Activated Partial Thromboplast Time 26.9 SECONDS (21.0-31.0) Partial Thromboplastin Ratio 1.0 Laboratory results per my review. Medications Administered Medications (Trade) Dose Ordered Sig/Jimbo Route Start Time Stop Time Status Last Admin Dose Admin Sodium Chloride 1,000 ml @ 999 mls/hr Q1H1M STAT IV 04/06/17 22:14 04/06/17 23:14 DC 04/06/17 22:43 999 MLS/HR Ondansetron HCl (Zofran Inj) 4 mg NOW STAT IV 04/06/17 22:14 04/06/17 22:17 DC 04/06/17 22:43 4 MG Oxycodone HCl (Roxicodone Immediate Rel Tab) 5 mg NOW STAT PO 04/06/17 23:14 04/06/17 23:15 DC 04/06/17 23:22 5 MG ECG Indication: abdominal pain Rate (beats per minute): 93 Rhythm: normal sinus Findings: no acute ischemic change, no ectopy Comparison ECG Date: 05/21/2016 Change: no significant change ED Course 2209: The patient was evaluated in room C4. A complete history and physical examination were performed. 2214: Ordered Zofran 4 mg IV, Sodium Chloride 1000 mL @ 999 mL/hr IV. 2314: Ordered Oxycodone HCl 5 mg PO. 2345: Ordered Zofran 1 homepack PO, Oxycodone HCl 1 homepack PO. 0005: Upon reevaluation, the patient is resting in bed. I discussed the results and treatment plan with her. She verbalized agreement of the treatment plan. The patient was discharged home. Medical Decision Differential diagnosis: Etiologies such as appendicitis, diverticulitis, PUD, biliary pathology, UTI, pancreatitis, obstruction, mesenteric ischemia, aortic pathology, infections, inflammatory bowel disease, renal colic, as well as others were entertained. Nursing notes reviewed. The patient's previous electronic medical records reviewed. The patient is a 41-year-old female who presented to the emergency department for an evaluation of abdominal pain and elevated blood sugar. The patient was treated with IV fluids and pain medication in the emergency department. I discussed the patient's laboratory and radiographic studies with her. Her exam was not consistent with an acute surgical abdomen. She was encouraged to rest and avoid any strenuous activity. She was also encouraged to call her family doctor in the morning to schedule a follow-up appointment. Otherwise she was encouraged to return to the emergency apartment immediately if symptoms change worsen or the need arises. Blood Pressure Screening Patient's blood pressure: Elevated blood pressure Blood pressure disposition: Elevated BP felt to be situational Impression Primary Impression: Chronic abdominal pain Additional Impression: Hyperglycemia Scribe Attestation The scribe's documentation has been prepared under my direction and personally reviewed by me in its entirety. I confirm that the note above accurately reflects all work, treatment, procedures, and medical decision making performed by me. Departure Information Dispostion Home / Self-Care Referrals Victoriano Goins M.D. (PCP) Forms HOME CARE DOCUMENTATION FORM, IMPORTANT VISIT INFORMATION, WORK / SCHOOL INSTRUCTIONS Patient Instructions My [facility] Additional Instructions Continue all medications as prescribed. Drink plenty clear liquids. Follow-up with your family doctor tomorrow for reevaluation. Problem Qualifiers
--- NOTE | 2017-04-06 22:31 | DIAGNOSTIC IMAGING REPORT ---
CHEST ONE VIEW PORTABLE CLINICAL HISTORY: Pain, radiating to the abdomen. COMPARISON STUDY: 02/20/2017 FINDINGS: The cardiac and mediastinal contours are normal. There is no evidence of focal pulmonary consolidation. There is no evidence of failure. No pleural effusions are visualized.[ No free intraperitoneal air is visualized. IMPRESSION: No active disease in the chest. Electronically signed by: Jesse Somers M.D. 04/06/2017 10:30 PM Dictated Date/Time: 04/06/2017 10:29 PM
[2017-04-06 22:47] LABS: BASO % 0.2 %; BASO ABS # 0.03 K/uL (0-0.2); EOS ABS # 0.12 K/uL (0-0.5); HEMATOCRIT 37.7 % (37-47); HEMOGLOBIN 13.3 g/dL (12.0-16.0); IG# 0.05 K/uL (0.00-0.02); LYMPH % 31.1 %; LYMPH ABS # 3.77 K/uL (1.2-3.4); MEAN CELL VOLUME 95.7 fL (80-100); MEAN CORPUSCULAR HEMOGLOBIN 33.8 pg (25-34); MEAN CORPUSCULAR HGB CONC 35.3 g/dl (32-36); MEAN PLATELET VOLUME 9.5 fL (7.4-10.4); MONO % 7.3 %; MONO ABS # 0.89 K/uL (0.11-0.59); NEUT ABS # 7.26 K/uL (1.4-6.5); PLATELET COUNT 278 K/uL (130-400); RED CELL DISTRIBUTION WIDTH CV 14.7 % (11.5-14.5); RED CELL DISTRIBUTION WIDTH SD 51.3 fL (36.4-46.3); WHITE BLOOD COUNT 12.12 K/uL (4.8-10.8)
--- NOTE | 2017-04-06 23:00 | DIAGNOSTIC IMAGING REPORT ---
CT SCAN OF THE ABDOMEN AND PELVIS WITHOUT CONTRAST CLINICAL HISTORY: right flank pain COMPARISON STUDY: 02/20/2017 TECHNIQUE: CT scan of the abdomen and pelvis was performed from the lung bases to the proximal femurs. Images are reviewed in the axial, sagittal, and coronal planes. IV contrast was not administered for this examination. A dose lowering technique was utilized adhering to the principles of ALARA. CT DOSE: 396.65 mGy.cm FINDINGS: Lower chest: The heart is normal in size and configuration, without pericardial effusion. The lung bases and pleural spaces are clear. Liver: No focal hepatic masses are visualized this noncontrast study. There is mild hepatomegaly. Gallbladder: Surgically absent Spleen: Top normal in size. No focal masses identified Pancreas: Unremarkable. Adrenal glands: Unremarkable. Kidneys: No renal, ureteral, or bladder calculi are visualized. There is 11 mm left renal cyst. There is a retroaortic left renal vein. Bowel: There are no transition zones indicate bowel obstruction. There is no acute diverticulitis. The appendix appears normal. Peritoneum: There is no intraperitoneal free air or abdominal ascites. There is a fat-containing umbilical hernia. There are postsurgical changes are prior ventral hernia repair Vasculature: The abdominal aorta is normal in course and caliber. Adenopathy: Borderline enlarged aortocaval lymph nodes remain stable. Pelvic viscera: The uterus appears surgically absent Skeletal structures: No destructive osseous lesions are seen. IMPRESSION: 1. No evidence of bowel obstruction. No evidence of free air 2. Surgically absent gallbladder and uterus 3. No renal, ureteral, or bladder calculi identified 4. Stable mild hepatomegaly 5. Stable borderline enlarged aortocaval lymph nodes. 6. Normal appendix. No evidence of acute diverticulitis. Electronically signed by: Jesse Somers M.D. 04/06/2017 10:59 PM Dictated Date/Time: 04/06/2017 10:53 PM
[2017-04-06 23:06] LABS: ALBUMIN 3.8 gm/dl (3.4-5.0); ALT/SGPT 26 U/L (12-78); AST/SGOT 19 U/L (15-37); BLOOD UREA NITROGEN 7 mg/dl (7-18); CALCIUM 8.9 mg/dl (8.5-10.1); CARBON DIOXIDE 18 mmol/L (21-32); CREATININE 0.48 mg/dl (0.60-1.20); GLUCOSE 212 mg/dl (70-99); LIPASE 230 U/L (73-393); POTASSIUM 3.7 mmol/L (3.5-5.1); SODIUM 139 mmol/L (136-145)
[2017-04-06 23:10] LABS: ALKALINE PHOSPHATASE 142 U/L (45-117); CKMB 0.6 ng/ml (0.5-3.6); TOTAL PROTEIN 7.3 gm/dl (6.4-8.2)
[2017-04-06] MEDS ORDERED: OXYCODONE HCL IR 5 MG TAB (IMMEDIATE RELEASE) PO STA (23:14)
[2017-04-06] MEDS ORDERED: ONDANSETRON HOME PACK 4MG OD TAB PO ONE (23:45)
[2017-04-06] MEDS ORDERED: OXYCODONE IR HOME PACK PO ONE (23:45)
[2017-04-06 23:59] LABS: PTT PATIENT 26.9 SECONDS (21.0-31.0)
[2017-04-07 00:15] VITALS: BP 164/102; PULSE 82; O2SAT 97
== END 2017-04-07 00:19 | disposition home or self-care (01) ==
LOC: C.EDB 21:55 → C.EDC 04-07 00:19
DX: E11.65 Type 2 diabetes mellitus with hyperglycemia (principal); I10 Essential (primary) hypertension; K86.1 Other chronic pancreatitis; K21.9 Gastro-esophageal reflux disease without esophagitis; K58.9 Irritable bowel syndrome, unspecified; M06.9 Rheumatoid arthritis, unspecified; F17.200 Nicotine dependence, unspecified, uncomplicated; Z85.41 Personal history of malignant neoplasm of cervix uteri; Z86.19 Personal history of other infectious and parasitic diseases; Z87.440 Personal history of urinary (tract) infections; Z87.828 Personal history of other (healed) physical injury and trauma; Z79.4 Long term (current) use of insulin; Z79.899 Other long term (current) drug therapy; Z88.0 Allergy status to penicillin; Z88.5 Allergy status to narcotic agent; Z88.8 Allergy status to other drugs, medicaments and biological substances; Z91.041 Radiographic dye allergy status; Z83.3 Family history of diabetes mellitus; Z82.49 Family history of ischemic heart disease and other diseases of the circulatory system

== ENCOUNTER 2022-11-12 14:33 | Observation (INO) ==
[2022-11-12] MEDS ORDERED: ONDANSETRON INJ 2 MG/ML 2 ML VIAL IV STA (15:07)
--- NOTE | 2022-11-12 15:07 | ED Triage Note ---
Date of Service November 12, 2022 History of Present Illness This patient was briefly evaluated while in triage. An abbreviated physical exam was performed. This patient is a 47-year-old Female who presents to the ED for evaluation of nausea, vomiting, and elevated BSG. Is a diabetic and sugar has been ranging from 60 to 400+. Is on long and short acting insulin. No abd pain. Serveral abd surgeries in past. Has cramping off and on the past few days. Increased stressors in home life as her is ill. Physical Exam Limited Triage Exam: VITALS: Vitals are noted on the nurse's note and reviewed by myself. Vital signs stable. GENERAL: Well-developed, well-nourished, white female, who is in no acute distress and resting comfortably. Patient is cooperative with the examination. HEART: Regular rate and rhythm without murmurs gallops or rubs. LUNGS: Clear to auscultation bilaterally without wheezes, rales or rhonchi. No retractions or accessory muscle use. NEURO: Patient was alert and oriented to person place and time. CN II through XII grossly intact. Initial orders for labs and / or imaging were placed and patient was placed in the waiting area until a bed is available. Please see further documentation for the full ED course. MDM / Impression Impression Impression: DKA (diabetic ketoacidosis), LUCI (acute kidney injury), Acute dehydration Impression: DKA (diabetic ketoacidosis) Qualifiers: Diabetes mellitus type: type 1 Diabetes mellitus complication detail: without coma Qualified Code(s): E10.10 - Type 1 diabetes mellitus with ketoacidosis without coma
[2022-11-12] MEDS ORDERED: SODIUM CHLORIDE 0.9% 1000ML 1,000 ML IV SCH (15:15)
[2022-11-12 16:09] LABS: Base Excess VBG -13.3 mEq/L; HCO3 VBG 12 mmol/L; Oxygen Saturation VBG 86.6 %; PCO2 VBG 26 mmHg (38-50); PO2 VBG 56 mmHg; pH VBG 7.27 (7.36-7.41)
[2022-11-12 16:14] LABS: Hematocrit (blood only) 48.9 % (37.0-47.0); Hemoglobin 17.6 g/dl (12.0-16.0); Mean Corpuscular Hemoglobin 31.1 pg (25.0-34.0); Mean Corpuscular Volume 86.4 fL (80.0-100.0); Mean Platelet Volume 9.8 fL (9.4-12.4); Platelet Count 351 K/uL (130-400); RDW Coefficient of Variation 13.2 % (11.5-14.5); RDW Standard Deviation 40.3 fL (36.4-46.3); Red Blood Count 5.66 M/uL (4.20-5.40); White Blood Count 11.32 K/ul (4.8-10.8)
[2022-11-12 16:41] LABS: Albumin Level 5.6 gm/dl (3.4-5.0); Anion Gap 15 (3-11); Bilirubin,Total 0.5 mg/dl (0.2-1.0); Calcium 10.7 mg/dl (8.6-10.3); Carbon Dioxide 14 mmol/L (21-32); Chloride 106 mmol/L (98-107); Magnesium 1.8 mg/dl (1.7-2.4); Potassium 4.2 mmol/L (3.5-5.1); Sodium 135 mmol/L (136-145)
[2022-11-12 16:42] LABS: Basophils # (auto) 0.05 K/uL (0.00-0.20); Basophils % (auto) 0.4 %; Eosinophils # (auto) 0.03 K/uL (0.00-0.50); Eosinophils % (auto) 0.3 %; Immature Granulocytes # (auto) 0.02 K/uL (0.01-0.20); Immature Granulocytes % (auto) 0.2 %; Lymphocytes # (auto) 4.74 K/uL (1.20-3.40); Lymphocytes % (auto) 41.9 %; Monocytes # (auto) 0.81 K/uL (0.11-0.59); Monocytes % (auto) 7.2 %; Neutrophils # (auto) 5.67 K/uL (1.40-6.50)
[2022-11-12 16:47] LABS: Alanine Aminotransferase 17 U/L (7-52); Albumin Globulin Ratio 1.8 (0.9-2); Alkaline Phosphatase 85 U/L (34-104); Aspartate Aminotransferase 15 U/L (13-39); BUN Creatinine Ratio 22.1 (10-20); Blood Urea Nitrogen 40 mg/dl (6-23); Est GFR (African American) 37.7 ml/min; Est GFR (Non-African American) 32.5 ml/min; Globulin 3.2 gm/dl (2.5-4.0); Glucose 244 mg/dl (70-99(Fasting)); Lipase 31 U/L (11-82); Total Protein 8.8 gm/dl (6.0-8.3)
[2022-11-12 16:51] LABS: Troponin I High Sensitivity 21.5 pg/ml (0-14)
--- NOTE | 2022-11-12 17:06 | Emergency Department Note ---
Impression & Plan DKA (diabetic ketoacidosis), LUCI (acute kidney injury), Acute dehydration ED Provider Note NAME: RUFINO BEARD AGE: 47 SEX: F : 1975 ARRIVES VIA: Walk-In INFORMANT: Patient, ED PROVIDER(S): Raimundo Chamberlain MD CHIEF COMPLAINT: Abdominal cramping, nausea MEDICAL DECISION MAKING: Patient presents due to concern for abdominal cramping nausea and vomiting the setting of variable blood sugars. IV was established and blood work is obtained. Patient was noted to be in DKA as the patient's VBG shows acidosis with elevated blood sugar low bicarb and an associated elevated anion gap. The patient was ordered 2 L of IV fluids. Patient already did receive IV Zofran. I did inform the patient the findings and she is comfortable with plan of care I did speak with the on-call hospitalist service Dr. Weber and the patient was admitted to the medicine service. Critical Care: I have personally spent 35 minutes of critical care time in direct management of this patient. This includes bedside care, interpretation of diagnostic studies, and testing, discussion with consultants, patient, and family members, and other require inpatient management activities. This 35 minutes is in excess of all separately billable procedures. Prior /Outside records reviewed: I reviewed a primary care visit from Dr. Amezquita from October 2022. The patient did have a history of eustachian tube dysfunction and was recommended steroid nasal spray and OTC antihistamine Differential diagnosis: Dehydration, electrolyte abnormality, LUCI, DKA, enteritis among others were considered. Diagnostics, as interpreted by me: ECG: Sinus with PVCs, rate of 92, normal intervals, normal axis no ST elevations. Cardiac monitoring: An order was placed for continuous cardiac monitoring. The monitor shows a rate of 112 with tachycardic and regular rhythm. Patient was placed on pulse oximetry Medical decision rules: None Imaging studies: See below HPI: Patient presents due to concern for abdominal cramping associated nausea vomiting beginning yesterday. The patient was working at the [employer] when she developed symptoms. The patient states that she has not been able to tolerate anything by mouth today. The patient states that she does do some short acting insulin on occasion which is somewhat changed that she has had weight loss and her blood sugars have improved. The patient denies any chest pains or shortness of breath. These symptoms do not feel similar to when she had a prior VT or CVA. Patient does use tobacco but denies any alcohol or drug use. Patient does not take anything for symptoms today. The patient was complaining of some associated abdominal cramping and "charley horses" in the abdomen or rib area. No cough. Patient denies any known sick contacts or recent travel. Patient denies any diarrhea PAST MEDICAL HISTORY: See Below PAST SURGICAL HISTORY: See Below SOCIAL HISTORY: See Below HOME MEDICATIONS: See Below ALLERGIES: See Below VITALS: See Below PHYSICAL EXAMINATION: GENERAL: NAD, non-toxic. EYE EXAM: Normal conjunctiva. PERRL, no anisocoria and EOM's grossly intact w/o pain. OROPHARYNX: Dry mucous membranes NECK: Supple, no nuchal rigidity, no adenopathy, non-tender. No signs of meningismus. FROM of the neck with good chin to chest and neck extension. No st ridor. LUNGS: Clear to auscultation. Normal chest wall mechanics. HEART: Tachycardic and regular, no MRG. ABDOMEN: Abdomen soft, non-tender, no masses, no rebound or guarding. BACK: No CVA TTP. SKIN: No rashes and no bruising. UPPER EXTREMITIES: Upper extremities are grossly normal. LOWER EXTREMITIES: Grossly normal, no edema. NEURO EXAM: A&O x3, cranial nerves II-XII grossly intact, normal speech, moves all 4 extremities. Past Med/Surg History Medical History Acid reflux Asthma allergy induced--uses inhaler daily and prn Back pain Dental abscess Depression Diabetes mellitus type 2, uncontrolled, with complications IDDM--has Lybria [address] right arm History of pancreatitis Hypercholesteremia Hyperplastic polyp of intestine Hypertension IBS (irritable bowel syndrome) Memory impairment Migraine Myocardial Infarction hx of 2019--states she had a stroke at the same time--follows with [facility] Dr. Figueroa Rheumatoid arthritis Stroke hx 2019--states happened at same time as VT--no deficits, follows with Dr. Lan Vitamin B12 deficiency Vitamin D deficiency Surgical History H/O: hysterectomy History of colonoscopy History of dilatation and curettage History of surgery on arm right upper arm Hx of cholecystectomy Hx of oral surgery (04/10/22) Extraction of teeth x 32 and Alveoplastyx 4 (Bilateral) - Schuyler Ordonez, DMD S/P hernia surgery x2 Family History Grandmother (Maternal) Coronary heart disease Other Diabetes Facial abscess Heart disease Denies family history of Ovarian cancer Prostate cancer Breast cancer Colorectal cancer Social History Smoking Status: Current every day smoker Tobacco Type: Cigarettes packs per day: 0.5; Cigarettes Per Day: 6 a day (advised on policy); Second Hand Exposure: No; Do You Dip or Chew Tobacco: No; Hx Alcohol Use: Yes Alcohol type: wine Alcohol Intake Frequency: Monthly or Less Hx Substance Use: Yes (medical marijuana (advised on policy)) Prescribed Medications: Marijuana Preferred Language: Uzbek Communication Ability: Effective Visual Impairment: No Limitations Hearing Ability: Normal Juice Scaleman Required: No Beliefs That Will Affect Care: None marital status: Legally Current Living Situation: Spouse current occupational status: unemployed How many Children do You have: 2 Feels Safe at Home: Yes Childhood Exposure to Second-Hand Smoke: No caffeine: Yes during the past year weight has: decreased > 10 lbs Physical Activity Frequency: 1-2 Times per Week Seatbelt Use: always Sunscreen Use: Yes Assistive Devices: Glasses Allergies Allergies Allergy/AdvReac Type Severity Reaction Status Date / Time lisinopril Allergy Severe ANAPHYLAXIS Verified 10/15/22 15:46 morphine Allergy Mild VOMIT/ITCHY Verified 10/15/22 15:46 Penicillins Allergy Unknown A CHILD Verified 10/15/22 15:46 mold AdvReac Severe skin Verified 10/15/22 15:46 lesions perflutren [From Definity] AdvReac Severe Back Pain Verified 10/15/22 15:46 Iodinated Contrast Media AdvReac Mild VOMITING Verified 10/15/22 15:46 Home Meds Home Medications Medication Instructions Recorded Confirmed aspirin 81 mg tablet,delayed 81 mg PO QAM 12/27/19 11/12/22 release cyanocobalamin (vitamin B-12) 1,000 mcg PO QDL 05/24/21 11/12/22 1,000 mcg tablet cholecalciferol (vitamin D3) 125 5,000 unit PO QAM 04/03/22 11/12/22 mcg (5,000 unit) capsule glucagon 3 mg/actuation nasal 3 mg intranasal ONCE PRN 04/03/22 11/12/22 spray (Baqsimi) Hypoglycemia multivitamin 1 tab PO QAM 04/03/22 11/12/22 insulin aspart U-100 100 unit/mL 5 unit subcut TIDM 09/09/22 11/12/22 (3 mL) subcutaneous pen (Novolog FlexPen U-100 Insulin aspart) insulin glargine 100 unit/mL (3 27 unit subcut HS 09/09/22 11/12/22 mL) subcutaneous pen (Lantus Solostar U-100 Insulin) albuterol sulfate 90 mcg/actuation 1 inh inhalation QID 10/15/22 11/12/22 aerosol inhaler dicyclomine 10 mg capsule 10 mg PO TID 11/12/22 11/12/22 metoprolol succinate 50 mg 50 mg PO QAM 11/12/22 11/12/22 tablet,extended release 24 hr Previous Rx's Medication Instructions Recorded blood-glucose meter (OneTouch #1 ea 03/21/21 Verio Flex Meter) blood-glucose meter (OneTouch #1 ea 03/21/21 Verio Reflect Meter) lancets (OneTouch UltraSoft #100 ea 03/21/21 Lancets) safety needles 25 gauge x 1" (BD #50 ea 05/30/21 SafetyGlide Needle) flash glucose scanning reader #1 ea 09/13/21 (FreeStyle Janeen 2 [place]) glucose 4 gram chewable tablet 4 g PO Q15M PRN hypoglycemia #30 01/20/22 (Dex4 Glucose) tabs flash glucose sensor (FreeStyle #2 ea 03/10/22 Janeen 2 Sensor kit) Flovent HFA 110 mcg/actuation 1 puff inhalation BID PRN 05/15/22 aerosol inhaler (fluticasone Shortness Of Breath Or Wheezing propionate) #12 grams duloxetine 60 mg capsule,delayed 60 mg PO QAM #30 caps 09/10/22 release fenofibrate 160 mg tablet 160 mg PO QAM #90 tabs 09/16/22 omeprazole 20 mg capsule,delayed 40 mg PO QAM #90 caps 09/25/22 release simvastatin 40 mg tablet 40 mg PO QAM #90 tabs 09/25/22 clonidine HCl 0.1 mg tablet 0.1 mg PO QAM #180 tabs 10/08/22 blood sugar diagnostic (OneTouch #100 strips 11/04/22 Verio test strips) Results & Data (ED) Vital Signs Vital Signs - 24 hr 11/12/22 15:05 Temperature 36.6 C Temperature Source Temporal Artery Scan Pulse Rate 122 H Respiratory Rate 16 Blood Pressure 145/86 H Blood Pressure Mean 105 Pulse Oximetry 96 Oxygen Delivery Method Room Air Sepsis Recent Fever Within 48 Hours No Sepsis New/Unexplained Change in Mental Status No Sepsis Action Taken by Nursing No Action Required Home Medications Current Medication List: was personally reviewed by me Laboratory Data Attestation: I reviewed the patient's lab results. 11/12/22 15:58 11/12/22 15:58 Lab Results 11/12/22 11/12/22 11/12/22 Range/Units 15:58 15:58 15:58 WBC 11.32 H (4.8-10.8) K/ul RBC 5.66 H (4.20-5.40) M/uL Hgb 17.6 H (12.0-16.0) g/dl Hct 48.9 H (37.0-47.0) % MCV 86.4 (80.0-100.0) fL MCH 31.1 (25.0-34.0) pg MCHC 36.0 (32.0-36.0) g/dL RDW Std Deviation 40.3 (36.4-46.3) fL RDW Coeff of Aria 13.2 (11.5-14.5) % Plt Count 351 (130-400) K/uL MPV 9.8 (9.4-12.4) fL Immature Gran % (Auto) 0.2 % Neut % (Auto) 50.0 % Lymph % (Auto) 41.9 % Franklin % (Auto) 7.2 % Eos % (Auto) 0.3 % Baso % (Auto) 0.4 % Neut # (Auto) 5.67 (1.40-6.50) K/uL Lymph # (Auto) 4.74 H (1.20-3.40) K/uL Franklin # (Auto) 0.81 H (0.11-0.59) K/uL Eos # (Auto) 0.03 (0.00-0.50) K/uL Baso # (Auto) 0.05 (0.00-0.20) K/uL Immature Gran # (Auto) 0.02 (0.01-0.20) K/uL VBG pH 7.27 L (7.36-7.41) VBG pCO2 26 L (38-50) mmHg VBG pO2 56 mmHg VBG HCO3 12 mmol/L VBG O2 Saturation 86.6 % VBG Base Excess -13.3 mEq/L Sodium 135 L (136-145) mmol/L Potassium 4.2 (3.5-5.1) mmol/L Chloride 106 (98-107) mmol/L Carbon Dioxide 14 L (21-32) mmol/L Anion Gap 15 H (3-11) BUN 40 H (6-23) mg/dl Creatinine 1.81 H (0.6-1.2) mg/dl Est Cr Clr Drug Dosing Not Reportable Est GFR ( Amer) 37.7 ml/min Est GFR (Non-Af Amer) 32.5 ml/min BUN/Creatinine Ratio 22.1 H (10-20) Glucose 244 H (70-99(Fasting)) mg/dl Calcium 10.7 H (8.6-10.3) mg/dl Magnesium 1.8 (1.7-2.4) mg/dl Total Bilirubin 0.5 (0.2-1.0) mg/dl AST 15 (13-39) U/L ALT 17 (7-52) U/L Alkaline Phosphatase 85 (34-104) U/L Troponin I High Sens 21.5 H (0-14) pg/ml Total Protein 8.8 H (6.0-8.3) gm/dl Albumin 5.6 H (3.4-5.0) gm/dl Globulin 3.2 (2.5-4.0) gm/dl Albumin/Globulin Ratio 1.8 (0.9-2) Lipase 31 (11-82) U/L TSH (0.300-4.500) uIu/ml 11/12/22 Range/Units 15:58 WBC (4.8-10.8) K/ul RBC (4.20-5.40) M/uL Hgb (12.0-16.0) g/dl Hct (37.0-47.0) % MCV (80.0-100.0) fL MCH (25.0-34.0) pg MCHC (32.0-36.0) g/dL RDW Std Deviation (36.4-46.3) fL RDW Coeff of Aria (11.5-14.5) % Plt Count (130-400) K/uL MPV (9.4-12.4) fL Immature Gran % (Auto) % Neut % (Auto) % Lymph % (Auto) % Franklin % (Auto) % Eos % (Auto) % Baso % (Auto) % Neut # (Auto) (1.40-6.50) K/uL Lymph # (Auto) (1.20-3.40) K/uL Franklin # (Auto) (0.11-0.59) K/uL Eos # (Auto) (0.00-0.50) K/uL Baso # (Auto) (0.00-0.20) K/uL Immature Gran # (Auto) (0.01-0.20) K/uL VBG pH (7.36-7.41) VBG pCO2 (38-50) mmHg VBG pO2 mmHg VBG HCO3 mmol/L VBG O2 Saturation % VBG Base Excess mEq/L Sodium (136-145) mmol/L Potassium (3.5-5.1) mmol/L Chloride (98-107) mmol/L Carbon Dioxide (21-32) mmol/L Anion Gap (3-11) BUN (6-23) mg/dl Creatinine (0.6-1.2) mg/dl Est Cr Clr Drug Dosing Est GFR ( Amer) ml/min Est GFR (Non-Af Amer) ml/min BUN/Creatinine Ratio (10-20) Glucose (70-99(Fasting)) mg/dl Calcium (8.6-10.3) mg/dl Magnesium (1.7-2.4) mg/dl Total Bilirubin (0.2-1.0) mg/dl AST (13-39) U/L ALT (7-52) U/L Alkaline Phosphatase (34-104) U/L Troponin I High Sens (0-14) pg/ml Total Protein (6.0-8.3) gm/dl Albumin (3.4-5.0) gm/dl Globulin (2.5-4.0) gm/dl Albumin/Globulin Ratio (0.9-2) Lipase (11-82) U/L TSH 0.578 (0.300-4.500) uIu/ml Administered Medications Dicyclomine HCl (Dicyclomine Hcl 10 Mg Cap) 10 mg PO TID MICHAEL Stop: 12/12/22 21:17 Last Admin: 11/12/22 22:13 Dose: 10 mg Documented By: GILDARDO Heparin Sodium (Porcine) (Heparin Sod 5,000 Unit/0.5 Ml Vial) 5,000 units SQ Q8 MICHAEL Stop: 12/12/22 21:59 Last Admin: 11/12/22 22:14 Dose: 5,000 units Documented By: GILDARDO Insulin Human Regular 250 (units/ Sodium Chloride) 250 mls @ 2 mls/hr IV .Q24H MICHAEL; Protocol Stop: 12/12/22 18:29 Last Titration: 11/12/22 22:57 Dose: 2 units/hr, 2 mls/hr Documented By: DAXA Co-signed By: GILDARDO Titration: 11/12/22 22:16 Dose: 2 units/hr, 2 mls/hr Documented By: GILDARDO Co-signed By: DAXA Titration: 11/12/22 21:57 Dose: 5.1 units/hr, 5.1 mls/hr Documented By: GILDARDO Co-signed By: DAXA Titration: 11/12/22 21:46 Dose: 0 units/hr, 0 mls/hr Documented By: GILDARDO Co-signed By: DAXA Titration: 11/12/22 20:41 Dose: 6.4 units/hr, 6.4 mls/hr Documented By: DU Co-signed By: MEMO Admin: 11/12/22 19:40 Dose: 6.4 units/hr, 6.4 mls/hr Documented By: DU Co-signed By: MEMO Potassium Chloride/Dextrose/Sod Cl (D5w And 1/2nss + 20meq Kcl) 20 meq in 1,000 mls @ 200 mls/hr IV .Q5H MICHAEL; Protocol Stop: 12/12/22 19:00 Last Admin: 11/12/22 19:41 Dose: 200 mls/hr Documented By: DU Magnesium Sulfate/Dextrose (Magnesium Sulfate / D5w) 1 gm in 100 mls @ 50 mls/hr IV Q2H MICHAEL Stop: 11/13/22 00:59 Last Admin: 11/12/22 21:35 Dose: 50 mls/hr Documented By: GILDARDO Insulin Aspart (Insulin Aspart Per Unit Charge) 0 units SC ACHS MICHAEL Stop: 12/12/22 20:59 Last Admin: 11/12/22 22:05 Dose: Not Given Documented By: DAXA Ondansetron HCl (Ondansetron Inj 2 Mg/Ml 2 Ml Vial) 4 mg IV Q6H PRN PRN Reason: nausea and vomiting Stop: 12/12/22 18:14 Last Admin: 11/12/22 22:10 Dose: 4 mg Documented By: GILDARDO Discontinued Medications Clonidine HCl (Clonidine Hcl 0.1 Mg Tab) 0.1 mg PO NOW ONE Stop: 11/12/22 18:37 Last Admin: 11/12/22 19:41 Dose: Not Given Documented By: AN Sodium Chloride (Nss 1000ml) 1,000 mls @ 999 mls/hr IV .Q1H1M MICHAEL Stop: 11/12/22 16:15 Last Infusion: 11/12/22 19:09 Dose: 0 mls/hr Documented By: Admin: 11/12/22 16:05 Dose: 999 mls/hr Documented By: PATRIC Sodium Chloride (Nss 1000ml) 2,000 mls @ 999 mls/hr IV .Q2H1M ONE Stop: 11/12/22 19:12 Last Infusion: 11/12/22 19:09 Dose: 0 mls/hr Documented By: Admin: 11/12/22 17:50 Dose: 999 mls/hr Documented By: AMS Potassium Chloride/Dextrose/Sod Cl (D5w And 1/2nss + 20meq Kcl) 20 meq in 1,000 mls @ 200 mls/hr IV .Q5H MICHAEL; Protocol Stop: 11/13/22 12:00 Last Admin: 11/12/22 19:50 Dose: Not Given Documented By: DU Ondansetron HCl (Ondansetron Inj 2 Mg/Ml 2 Ml Vial) 4 mg IV NOW STA Stop: 11/12/22 15:08 Last Admin: 11/12/22 16:07 Dose: 4 mg Documented By: PATRIC Discharge Plan Visit Data Chief Complaint: Vomiting Stated Complaint: VOMIT ED Provider: Raimundo Chamberlain Discharge Problem: DKA (diabetic ketoacidosis), LUCI (acute kidney injury), Acute dehydration Patient Disposition: Admitted As Inpatient Discharge Instructions Interventions: ED Discharge Assessment Last Done: 11/12/22 20:49
[2022-11-12] MEDS ORDERED: SODIUM CHLORIDE 0.9% 1000ML 2,000 ML IV ONE (17:12)
[2022-11-12] MEDS ORDERED: DKA GOAL RANGE 150-250 mg/dl ONE (17:56)
[2022-11-12] MEDS ORDERED: PHARMACY GLYCEMIC MGMT CONSULT PRN (17:56)
[2022-11-12] MEDS ORDERED: STAT IV Infusion **Titration per Protocol STA (17:56)
[2022-11-12] MEDS ORDERED: ONDANSETRON INJ 2 MG/ML 2 ML VIAL IV PRN (18:04)
[2022-11-12] MEDS ORDERED: D5W AND 1/2NSS + 20MEQ KCL 20 MEQ/1,000 ML BAG IV SCH ×2 (18:15→20:00)
--- NOTE | 2022-11-12 18:27 | History & Physical Report ---
Date of Service November 12, 2022 Assessment & Plan (1) DKA (diabetic ketoacidoses): Plan: -Admit to the PCU on tele -Currently stable and comfortable -Patient had been holding her basal insulin (15 units HS) for the past 48 hours due to hypoglycemia with increased activity and hypoglycemic events -Started to developed nausea, vomiting, and abdominal cramping after holding her basal insulin -Noted to be acidotic in the ED with VBG pH of 7.27, AG of 15, and bicarb of 14, UA yet to be collected to monitor for ketones -At this time it appears that holding her basal insulin caused her to become hyperglycemic, leading to her nausea and vomiting -S/P 1L NSS and 4 mg IV zofran in the ED -Will give her the 2L NSS ordered prior to admission now -Will start insulin drip with DKA protocol on admission -When her 2L NSS bolus is complete will transition her to D5W-1/2 NSS with 20 meq KCL at 200 ml/hr overnight with an end time of noon tomorrow -Labs q4h per DKA protocol -PRN zofran for nausea/vomiting -Will start a clear liquid diet for now, advance as tolerated -SQ heparin for DVT PPX (2) LUCI (acute kidney injury): Plan: -Cr noted to be 1.8 today, baseline Cr is near 0.8 -Likely due to dehydration, patient was also taking multiple doses of Ibuprofen over the past 24 hours -Monitor renal function after fluid resuscitation moving forward -Avoid nephrotoxic agents (3) Elevated troponin: Plan: -Initial high sen trop elevated at 21 -No acute ST segment or T-wave changes on ECG -Patient has been without chest pain/pressure/discomfort -Likely due to demand -Will repeat a 2 hour trop on admission -Continue to monitor on tele (4) CAD (coronary artery disease): Plan: -Stable -No recent anginal symptoms or chest discomfort -Continue aspirin, statin, and metoprolol (5) Cerebrovascular disease: Plan: -Continue aspirin (6) Hypertension: Plan: -Stable -Will give her am dose of clonidine now as she did not take any meds today (7) IBS (irritable bowel syndrome): Plan: -Continue Bentyl (8) Anxiety: Plan: -Continue Cymbalta (9) Hypercholesteremia: Plan: -Continue statin Plan The patient was discussed with Dr. 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 In the ED the patient was noted to be tachycardic at 122 but otherwise stable. Labs were significant for a WBC of 11, VBG showing pH of 7.27, pCO2 of 26, and pO2 of 56, cr of 1.81 (baseline is approximately 0.9), AG of 15 with bicarb of 14, glucose of 244, calcium of 10.7, initial high sen trop of 21. Prior to admission the patient was given 1L NSS and 4 mg IV zofran, she was ordered an additional 2L NSS prior to admission. At the time of the exam the patient was sitting in bed in no acute distress. 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 She states that she had been very dehydrated over this time due to the head and hours worked. She was trying to keep hydrated by drinking 4+ bottles of water daily. Approximately 48 hours ago her glucose fell between 30-50, because of this she had been holding her basal insulin and was trying to just use short- acting to control her glucose. She has had multiple episodes of non-bloody emesis over the past 2 days. Yesterday she started to develop cramping in her upper abdomen and lower extremities. She denies any fever, chills, chest pain, SOB, dysuria, hematuria, melena, diarrhea, LE swelling, and recent trauma. Please refer to Dr. Weber's attestation for any changes to the treatment plan Allergies Allergy/AdvReac Type Severity Reaction Status Date / Time lisinopril Allergy Severe ANAPHYLAXIS Verified 10/15/22 15:46 morphine Allergy Mild VOMIT/ITCHY Verified 10/15/22 15:46 Penicillins Allergy Unknown A CHILD Verified 10/15/22 15:46 mold AdvReac Severe skin Verified 10/15/22 15:46 lesions perflutren [From [employer]] AdvReac Severe Back Pain Verified 10/15/22 15:46 Iodinated Contrast Media AdvReac Mild VOMITING Verified 10/15/22 15:46 Home Medications Medication Instructions Recorded Confirmed Type aspirin 81 mg tablet,delayed 81 mg PO QAM 12/27/19 11/12/22 History release blood-glucose meter (OneTouch #1 ea 03/21/21 11/12/22 Rx Verio Flex Meter) blood-glucose meter (OneTouch #1 ea 03/21/21 11/12/22 Rx Verio Reflect Meter) lancets (OneTouch UltraSoft #100 ea 03/21/21 11/12/22 Rx Lancets) cyanocobalamin (vitamin B-12) 1,000 mcg PO QDL 05/24/21 11/12/22 History 1,000 mcg tablet safety needles 25 gauge x 1" (BD #50 ea 05/30/21 11/12/22 Rx SafetyGlide Needle) flash glucose scanning reader #1 ea 09/13/21 11/12/22 Rx (FreeStyle Janeen 2 [place]) glucose 4 gram chewable tablet 4 g PO Q15M PRN hypoglycemia #30 01/20/22 11/12/22 Rx (Dex4 Glucose) tabs flash glucose sensor (FreeStyle #2 ea 03/10/22 11/12/22 Rx Janeen 2 Sensor kit) cholecalciferol (vitamin D3) 125 5,000 unit PO QAM 04/03/22 11/12/22 History mcg (5,000 unit) capsule glucagon 3 mg/actuation nasal 3 mg intranasal ONCE PRN 04/03/22 11/12/22 History spray (Baqsimi) Hypoglycemia multivitamin 1 tab PO QAM 04/03/22 11/12/22 History Flovent HFA 110 mcg/actuation 1 puff inhalation BID PRN 05/15/22 11/12/22 Rx aerosol inhaler (fluticasone Shortness Of Breath Or Wheezing propionate) #12 grams insulin aspart U-100 100 unit/mL 5 unit subcut TIDM 09/09/22 11/12/22 History (3 mL) subcutaneous pen (Novolog FlexPen U-100 Insulin aspart) insulin glargine 100 unit/mL (3 27 unit subcut HS 09/09/22 11/12/22 History mL) subcutaneous pen (Lantus Solostar U-100 Insulin) duloxetine 60 mg capsule,delayed 60 mg PO QAM #30 caps 09/10/22 11/12/22 Rx release fenofibrate 160 mg tablet 160 mg PO QAM #90 tabs 09/16/22 11/12/22 Rx omeprazole 20 mg capsule,delayed 40 mg PO QAM #90 caps 09/25/22 11/12/22 Rx release simvastatin 40 mg tablet 40 mg PO QAM #90 tabs 09/25/22 11/12/22 Rx clonidine HCl 0.1 mg tablet 0.1 mg PO QAM #180 tabs 10/08/22 11/12/22 Rx albuterol sulfate 90 mcg/actuation 1 inh inhalation QID 10/15/22 11/12/22 History aerosol inhaler blood sugar diagnostic (OneTouch #100 strips 11/04/22 11/12/22 Rx Verio test strips) dicyclomine 10 mg capsule 10 mg PO TID 11/12/22 11/12/22 History metoprolol succinate 50 mg 50 mg PO QAM 11/12/22 11/12/22 History tablet,extended release 24 hr Past Med/Surg History Medical History Acid reflux Asthma allergy induced--uses inhaler daily and prn Back pain Dental abscess Depression Diabetes mellitus type 2, uncontrolled, with complications IDDM--has Lybria [address] right arm History of pancreatitis Hypercholesteremia Hyperplastic polyp of intestine Hypertension IBS (irritable bowel syndrome) Memory impairment Migraine Myocardial Infarction hx of 2019--states she had a stroke at the same time--follows with [facility] Dr. Figueroa Rheumatoid arthritis Stroke hx 2019--states happened at same time as SD--no deficits, follows with Dr. Lan Vitamin B12 deficiency Vitamin D deficiency Surgical History H/O: hysterectomy History of colonoscopy History of dilatation and curettage History of surgery on arm right upper arm Hx of cholecystectomy Hx of oral surgery (04/10/22) Extraction of teeth x 32 and Alveoplastyx 4 (Bilateral) - Schuyler Ordonez, DMD S/P hernia surgery x2 Family History Grandmother (Maternal) Coronary heart disease Other Diabetes Facial abscess Heart disease Denies family history of Ovarian cancer Prostate cancer Breast cancer Colorectal cancer Social History Smoking Status: Current every day smoker Tobacco Type: Cigarettes packs per day: 0.5; Cigarettes Per Day: 6 a day (advised on policy); Second Hand Exposure: Yes; Do You Dip or Chew Tobacco: No; Hx Alcohol Use: Yes Alcohol type: hard liquor Alcohol Intake Frequency: Monthly or Less Hx Substance Use: Yes (Medical Card) Prescribed Medications: Marijuana Preferred Language: Mongolian Communication Ability: Effective Visual Impairment: No Limitations Hearing Ability: Normal Medical Front Desk Specialist Required: No Beliefs That Will Affect Care: None marital status: Legally Current Living Situation: Spouse current occupational status: unemployed How many Children do You have: 2 Feels Safe at Home: Yes Childhood Exposure to Second-Hand Smoke: No caffeine: Yes during the past year weight has: decreased > 10 lbs Physical Activity Frequency: 1-2 Times per Week Seatbelt Use: always Sunscreen Use: Yes Assistive Devices: None Physical Exam Physical Exam: Physical Exam: General: In no acute distress, stated age, well-nourished, non-toxic appearing HEENT: Normocephalic, atraumatic, no scleral icterus, pupils around round, symmetrical, and reactive to light, dry mucus membranes, trachea midline, no thyromegaly Chest/Pulm: No respiratory distress, symmetrical chest expansion, clear breath sounds throughout Cardiac: RRR, no murmurs noted Abdomen: Negative for ascites and bruising, normoactive bowel sounds, soft, non-tender to palpation throughout Musculoskeletal: Symmetrical and without signs of acute trauma, upper and lower extremities with full ROM, no atrophy, spasticity, or flaccidity Extremities: Radial, dorsalis pedis, and posterior tibial pulses are intact and symmetrical, no edema noted in the BL LE's Skin: Warm, dry, no rashes , lesions, or scars noted Neuro: Alert and oriented to person, place, month, year, and president, no focal defects, no tremors noted Psych: No acute distress, calm and cooperative during the exam Results & Data Results & Data Vital Signs (Past 12 Hours) Vital Signs Temp Pulse Resp BP Pulse Ox O2 Del Method 11/12/22 15:05 36.6 C 122 H 16 145/86 H 96 Room Air Laboratory Results Abnormal lab results 11/12/22 11/12/22 11/12/22 Range/Units 15:58 15:58 15:58 WBC 11.32 H (4.8-10.8) K/ul RBC 5.66 H (4.20-5.40) M/uL Hgb 17.6 H (12.0-16.0) g/dl Hct 48.9 H (37.0-47.0) % Lymph # (Auto) 4.74 H (1.20-3.40) K/uL [place] # (Auto) 0.81 H (0.11-0.59) K/uL VBG pH 7.27 L (7.36-7.41) VBG pCO2 26 L (38-50) mmHg Sodium 135 L (136-145) mmol/L Carbon Dioxide 14 L (21-32) mmol/L Anion Gap 15 H (3-11) BUN 40 H (6-23) mg/dl Creatinine 1.81 H (0.6-1.2) mg/dl BUN/Creatinine Ratio 22.1 H (10-20) Glucose 244 H (70-99(Fasting)) mg/dl Calcium 10.7 H (8.6-10.3) mg/dl Troponin I High Sens 21.5 H (0-14) pg/ml Total Protein 8.8 H (6.0-8.3) gm/dl Albumin 5.6 H (3.4-5.0) gm/dl ECG Additional Comments: Sinus rhythm with occasional Premature ventricular complexes Cannot rule out Anterior infarct , age undetermined Abnormal ECG When compared with ECG of 26-DEC-2021 08:02, Premature ventricular complexes are now Present Code Status & VTE Plan Code Status Full code VTE Prophylaxis Plan VTE Prophylaxis will be ordered: Yes Supervising Physician Co-Signing Physician Notes I personally saw and examined the patient. I verified all gaytan points and agree with Nino Overton PA-C with the following exceptions and/or additions: 47 year old female presents to the ER with abdominal pain, nausea and vomiting. Similar to previous occurrences of DKA. Some confusion regarding her insulin as she stopped her lantus due to hypoglycemia and appears to be over treating with Novolog causing hypoglycemia even without her Lantus. O/E HS RRR, systolic murmur 2/6, Chest CTAB, Abdo SNT A/P DKA - start insulin drip with DKA protocol, [id number] + 20 meq KCl @ 200ml/hr, q4h BMP/VBG/PO/Mg. Discussed extensively regarding basal bolus dosing and need to always have some basal dosing PG Care Time/CCT Total # of Minutes Spent Total Time Spent with Patient: Total time spent is greater than 50% in coordination of care (as documented) at patient's floor/unit and/or counseling patient: C[place] [address] INT INP/OBS CARE 3MIN Patient Type Established Medical Decision Making High Complexity Diagnoses DKA (diabetic ketoacidoses) E13.10 LUCI (acute kidney injury) N17.9 Elevated troponin R77.8 CAD (coronary artery disease) I25.10 Cerebrovascular disease I67.9 Hypertension I10 Hypertension type: primary hypertension IBS (irritable bowel syndrome) K58.9 Anxiety F41.9 Hypercholesteremia E78.00 (6) Hypertension Hypertension type: primary hypertension Qualified Code(s): I10 - Essential (primary) hypertension
[2022-11-12] MEDS ORDERED: NovoLIN-R BOLUS FROM BAG IV ONE (18:30)
[2022-11-12] MEDS ORDERED: INSULIN REGULAR 250 UNITS in SODIUM CHLORIDE 0.9% 247.5 ML IV SCH (18:30)
[2022-11-12] MEDS ORDERED: cloNIDine HCL 0.1 MG TAB PO ONE (18:36)
[2022-11-12] MEDS ORDERED: GLUCAGON FOR INJ 1 MG VIAL IM PRN (19:00)
[2022-11-12] MEDS ORDERED: DEXTROSE 50% 50 ML SYRINGE IV PRN (19:00)
[2022-11-12] MEDS ORDERED: GLUCOSE 10 TAB/TUBE PO PRN (19:00)
[2022-11-12] MEDS ORDERED: GLUCOSE 40% GEL 15 GM TUBE PO PRN (19:00)
[2022-11-12] MEDS ORDERED: CARBOHYDRATES FOR HYPOGLYCEMIA PO PRN (19:00)
[2022-11-12] MEDS: D5W AND 1/2NSS + 20MEQ KCL 20 MEQ/1,000 ML BAG IV SCH (19:41)
[2022-11-12 19:54] LABS: Appearance Urine Clear (Clear); Bacteria Urine Automated Negative (Negative); Bilirubin Urine Negative (Negative); Blood Urine Negative (Negative); Color Urine Yellow; Epithelial Cell Urine Auto >30 /lpf (0-5); Glucose Urine UA Trace (Negative); Ketones Urine Trace (Negative); Leukocyte Esterase Urine Negative (Negative); Nitrite Urine Negative (Negative); Protein Urine Trace (Negative); RBC Urine Automated 0-4 /hpf (0-4); Specific Gravity Urine 1.015 (1.000-1.030); Urobilinogen Urine Negative (Negative); pH Urine 5.5 (4.5-7.5)
[2022-11-12 20:18] LABS: Calcium 7.9 mg/dl (8.6-10.3)
[2022-11-12 20:19] LABS: Anion Gap 10 (3-11); BUN Creatinine Ratio 27.8 (10-20); Blood Urea Nitrogen 35 mg/dl (6-23); Carbon Dioxide 12 mmol/L (21-32); Chloride 116 mmol/L (98-107); Est GFR (African American) 58.3 ml/min; Est GFR (Non-African American) 50.3 ml/min; Glucose 178 mg/dl (70-99(Fasting)); Magnesium 1.5 mg/dl (1.7-2.4); Phosphorus 3.3 mg/dl (2.5-4.9); Potassium 3.6 mmol/L (3.5-5.1); Sodium 138 mmol/L (136-145)
[2022-11-12] MEDS ORDERED: FLUTICASONE FUROATE 100MCG 14 PUFFS/INHALER INH PRN (21:26)
[2022-11-12] MEDS: MAGNESIUM SULFATE / D5W 1 GM/100 ML BAG IV SCH (21:35)
[2022-11-12] MEDS: INSULIN ASPART PER UNIT CHARGE SC SCH (22:05)
[2022-11-12] MEDS: DICYCLOMINE HCL 10 MG CAP PO SCH (22:13)
[2022-11-12] MEDS: HEPARIN SOD 5,000 UNIT/0.5 ML VIAL SQ SCH (22:14)
[2022-11-12 23:54] LABS: BUN Creatinine Ratio 24.5 (10-20); Calcium 8.8 mg/dl (8.6-10.3); Creatinine Clr Calc Pharmacy 54.8 ml/min; Est GFR (African American) 68.8 ml/min; Est GFR (Non-African American) 59.3 ml/min; Magnesium 1.9 mg/dl (1.7-2.4); Phosphorus 1.8 mg/dl (2.5-4.9); Potassium 3.6 mmol/L (3.5-5.1)
[2022-11-13] MEDS: MAGNESIUM SULFATE / D5W 1 GM/100 ML BAG IV SCH (00:05)
[2022-11-13] MEDS: ACETAMINOPHEN 325 MG TAB PO PRN ×2 (00:07→10:06)
[2022-11-13] MEDS: D5W AND 1/2NSS + 20MEQ KCL 20 MEQ/1,000 ML BAG IV SCH ×2 (00:19→04:52)
[2022-11-13 02:56] LABS: Calcium 8.4 mg/dl (8.6-10.3); Creatinine Clr Calc Pharmacy 62.7 ml/min; Est GFR (African American) 81.1 ml/min; Est GFR (Non-African American) 69.9 ml/min; Magnesium 2.3 mg/dl (1.7-2.4); Phosphorus 2.1 mg/dl (2.5-4.9); Potassium 3.6 mmol/L (3.5-5.1)
[2022-11-13] MEDS: HEPARIN SOD 5,000 UNIT/0.5 ML VIAL SQ SCH (04:55)
[2022-11-13 06:38] LABS: Hematocrit (blood only) 37.5 % (37.0-47.0); Hemoglobin 13.1 g/dl (12.0-16.0); Mean Corpuscular Hemoglobin 30.8 pg (25.0-34.0); Mean Corpuscular Hgb Conc 34.9 g/dL (32.0-36.0); Mean Corpuscular Volume 88.2 fL (80.0-100.0); Mean Platelet Volume 9.8 fL (9.4-12.4); Platelet Count 217 K/uL (130-400); RDW Coefficient of Variation 13.3 % (11.5-14.5); RDW Standard Deviation 42.4 fL (36.4-46.3); Red Blood Count 4.25 M/uL (4.20-5.40); White Blood Count 6.21 K/ul (4.8-10.8)
[2022-11-13 06:57] LABS: BUN Creatinine Ratio 20.7 (10-20); Calcium 8.5 mg/dl (8.6-10.3); Creatinine Clr Calc Pharmacy 69.2 ml/min; Est GFR (African American) 91.3 ml/min; Est GFR (Non-African American) 78.8 ml/min; Magnesium 2.1 mg/dl (1.7-2.4); Phosphorus 2.1 mg/dl (2.5-4.9); Potassium 4.2 mmol/L (3.5-5.1)
[2022-11-13 06:58] LABS: Basophils # (auto) 0.03 K/uL (0.00-0.20); Basophils % (auto) 0.5 %; Eosinophils # (auto) 0.07 K/uL (0.00-0.50); Eosinophils % (auto) 1.1 %; Immature Granulocytes # (auto) 0.01 K/uL (0.01-0.20); Immature Granulocytes % (auto) 0.2 %; Lymphocytes # (auto) 3.73 K/uL (1.20-3.40); Lymphocytes % (auto) 60.1 %; Monocytes # (auto) 0.51 K/uL (0.11-0.59); Monocytes % (auto) 8.2 %; Neutrophils # (auto) 1.86 K/uL (1.40-6.50); Neutrophils % (auto) 29.9 %
[2022-11-13] MEDS ORDERED: LANTUS PER UNIT CHARGE SC STA (08:01)
[2022-11-13] MEDS: INSULIN ASPART PER UNIT CHARGE SC SCH ×3 (08:04→11:39)
[2022-11-13] MEDS: DICYCLOMINE HCL 10 MG CAP PO SCH (08:12)
[2022-11-13] MEDS ORDERED: ASPIRIN 81 MG ECTAB PO SCH (09:00)
[2022-11-13] MEDS ORDERED: METOPROLOL SUCC 50MG EXT REL TAB PO SCH (09:00)
[2022-11-13] MEDS ORDERED: DULoxetine HCL 60 MG CAP PO SCH (09:00)
[2022-11-13] MEDS ORDERED: cloNIDine HCL 0.1 MG TAB PO SCH (09:00)
[2022-11-13] MEDS ORDERED: PANTOprazole 40 MG TAB PO SCH (09:00)
[2022-11-13] MEDS ORDERED: SIMVASTATIN 40 MG TAB PO SCH (09:00)
--- NOTE | 2022-11-13 11:16 | Pharmacy Report ---
Pharmacy Glycemic Short Note 2 - Date of Service November 13, 2022 - Glycemic Short BSG Results (Last 24 hours): 11/12/22 11/12/22 11/12/22 15:58 18:37 18:38 Glucose 244 H 178 H POC Glucose 170 H 11/12/22 11/12/22 11/12/22 19:12 20:38 21:38 Glucose POC Glucose 155 H 177 H 122 H 11/12/22 11/12/22 11/12/22 21:54 22:39 22:55 Glucose 124 H POC Glucose 120 H 141 H 11/12/22 11/13/22 11/13/22 23:54 00:54 02:15 Glucose 199 H POC Glucose 164 H 172 H 11/13/22 11/13/22 11/13/22 02:53 04:52 06:06 Glucose 164 H POC Glucose 184 H 178 H 11/13/22 11/13/22 11/13/22 06:57 07:50 09:00 Glucose POC Glucose 144 H 136 H 251 H OUTPATIENT ANTIDIABETIC REGIMEN: * Lantus 27 units SC HS * Novolog 5 units SC AC * HbA1c: 7.7% (09/11/22) ASSESSMENT: * 47 yo F admitted on 11/12/22 secondary to DKA. Pharmacy has been consulted to assist with inpatient glycemic management. Patient is a Type 2 diabetic as an outpatient. Please refer to outpatient regimen and most recent HbA1c above. * Had been more active recently and very dehydrated. Was experiencing some hypoglycemia so was holding basal insulin for a few days. * Upon arrival: BSG 244 mg/dL, AG 15, CO2 14, SCr 1.81, trace ketones in urine, VBG pH 7.27. * In ED: patient received 3 L NS and was started on an insulin drip at 6.4 units/hr with a bolus of 6.4 units. * BSGs trended down nicely. Patient was started on D5 1/2 NS + 20 KCl at 200 cc/hr. * Labs today show DKA is resolved with: BSG 164 mg/dL, AG 3, CO2 17, SCr 0.87, VBG pH 7.31. Insulin drip was running at 1.3 units/hr. D5 fluids were still running. * Gave a small dose of Lantus this AM to help transition off the drip which occurred around 10 AM. Novolog ordered based on weight/stress of 3. * Will consider a small PM basal scale this evening depending on how BSGs look throughout the day. Fluids have been discontinued. PLAN FOR INPATIENT GLYCEMIC CONTROL: * Basal insulin * Lantus 14 units SC x 1 * Bolus insulin * NovoLog per scale ACHS or Q6hrs while NPO * Goal Range: Low 110 mg/dL - High 140 mg/dL * Correction Factor: 30 mg/dL/unit * Nutritional / Prandial insulin per carb ratio of 1 unit per 10 grams CHO consumed
--- NOTE | 2022-11-13 12:18 | Discharge Summary ---
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 In the ED the patient was noted to be tachycardic at 122 but otherwise stable. Labs were significant for a WBC of 11, VBG showing pH of 7.27, pCO2 of 26, and pO2 of 56, cr of 1.81 (baseline is approximately 0.9), AG of 15 with bicarb of 14, glucose of 244, calcium of 10.7, initial high sen trop of 21. Prior to admission the patient was given 1L NSS and 4 mg IV zofran, she was ordered an additional 2L NSS prior to admission. At the time of the exam the patient was sitting in bed in no acute distress. 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 She states that she had been very dehydrated over this time due to the head and hours worked. She was trying to keep hydrated by drinking 4+ bottles of water daily. Approximately 48 hours ago her glucose fell between 30-50, because of this she had been holding her basal insulin and was trying to just use short- acting to control her glucose. She has had multiple episodes of non-bloody emesis over the past 2 days. Yesterday she started to develop cramping in her upper abdomen and lower extremities. She denies any fever, chills, chest pain, SOB, dysuria, hematuria, melena, diarrhea, LE swelling, and recent trauma. Please refer to Dr. Weber's attestation for any changes to the treatment plan Principal Diagnosis Diabetic ketoacidosis, acute kidney injury, elevated troponin without acute coronary syndrome Discharge Exam General-alert and oriented x3, no fevers, no chills HEENT-head atraumatic and normocephalic, equal and reactive to light, extraocular muscles intact Neck-no lymphadenopathy or thyromegaly, trachea midline Chest-clear to auscultation percussion. No rales wheezing or rhonchi Cardiac-regular rate and rhythm, normal S1 and S2 Abdomen-normal bowel sounds, nontender, no hepatosplenomegaly Extremities-no cyanosis, clubbing, or edema Neuro-cranial nerves II through XII intact, motor and sensory function within normal limits, strength symmetrical , no focal deficits Psych-normal affect, normal mood Discharge Data Allergies Allergy/AdvReac Type Severity Reaction Status Date / Time lisinopril Allergy Severe ANAPHYLAXIS Verified 10/15/22 15:46 morphine Allergy Mild VOMIT/ITCHY Verified 10/15/22 15:46 Penicillins Allergy Unknown A CHILD Verified 10/15/22 15:46 mold AdvReac Severe skin Verified 10/15/22 15:46 lesions perflutren [From [employer]] AdvReac Severe Back Pain Verified 10/15/22 15:46 Iodinated Contrast Media AdvReac Mild VOMITING Verified 10/15/22 15:46 Consultations 11/12/22 17:13 ED Decision to Admit Stat Hospital Course (1) DKA (diabetic ketoacidoses): Resolved. She is adamant about going home today, November 13. She will resume her previous diabetic management and follow-up with her PCP. (2) LUCI (acute kidney injury): Resolved with IV fluids. Creatinine is now down to 0.8. (3) Elevated troponin: No chest pain. No acute EKG changes. Probably supply/demand mismatch (4) CAD (coronary artery disease): Stable. No chest pain. Continue current medical management (5) Cerebrovascular disease: Stable. Continue aspirin therapy and statin therapy (6) Hypertension: Stable. Continue current medical management (7) Hypercholesteremia: Stable. Continue statin Plan Home today, November 13, per patient wishes Total Time Total Time Spent Total Time Spent (In Minutes): 40 minutes Discharge Plan Discharge Items Patient Disposition: Home - Self-Care Reason For Visit: DKA, LUCI Discharge Diagnosis: DKA, LUCI, elevated troponin without acute coronary syndrome Activity: Resume your previous activity Non-emergency contact: Primary Care Provider Call non-emergency contact if: your symptoms worsen Follow-up/Referrals: Doron Rebolledo DO [Primary Care Provider] - Diet: Carb Consistent or DM2 and Heart Healthy Addtl Attending Provider Instructions: No new medications Pending Studies at Discharge: No Stand-Alone Forms: My [employer], Smoking Cessation Medications and DC Order Prescriptions: Continued (DME) blood-glucose meter [OneTouch Verio Flex meter] Misc See Rx Instructions .Route Qty: 1 0RF Rx Instructions: As directed (DME) lancets [OneTouch UltraSoft Lancets] [facility] See Rx Instructions .Route Qty: 100 0RF Rx Instructions: As directed (DME) blood-glucose meter [OneTouch Verio Reflect Meter] [facility] See Rx Instructions .Route Qty: 1 0RF Rx Instructions: As directed cyanocobalamin (vitamin B-12) 1,000 mcg tablet 1,000 mcg PO QDL (DME) BD SafetyGlide Needle 25 gauge x 1" needle See Rx Instructions .ROUTE .MEDSUPPLY Qty: 50 0RF Rx Instructions: As directed (DME) FreeStyle Janeen 2 [place] Misc See Rx Instructions .Route Qty: 1 0RF Rx Instructions: As directed (DME) FreeStyle Janeen 2 Sensor Kit See Rx Instructions .Route Qty: 2 11RF Rx Instructions: As directed fluticasone propionate [Flovent HFA] 110 mcg/actuation HFA aerosol inhaler 1 puff inhalation BID PRN (Reason: Shortness Of Breath Or Wheezing) Qty: 12 3RF duloxetine 60 mg capsule,delayed release(DR/EC) 60 mg PO QAM Qty: 30 4RF fenofibrate 160 mg tablet 160 mg PO QAM Qty: 90 2RF omeprazole 20 mg capsule,delayed release(DR/EC) 40 mg PO QAM Qty: 90 1RF simvastatin 40 mg tablet 40 mg PO QAM Qty: 90 3RF clonidine HCl 0.1 mg tablet 0.1 mg PO QAM Qty: 180 0RF (DME) OneTouch Verio test strips Strip See Rx Instructions .ROUTE .COMPLEX Qty: 100 2RF Dose Instruction: TEST SUGAR THREE TIMES DAILY AND NEEDED Rx Instructions: TEST SUGAR THREE TIMES DAILY AND NEEDED aspirin 81 mg tablet,delayed release (DR/EC) 81 mg PO QAM insulin aspart U-100 [Novolog FlexPen U-100 Insulin] 100 unit/mL (3 mL) insulin pen 5 unit SQ TIDM Patient Comments: pt states she only takes this PRN now, she eats much better she said Rx Instructions: sliding scale insulin glargine [Lantus Solostar U-100 Insulin] 100 unit/mL (3 mL) insulin pen 27 unit SQ HS glucose [Dex4 Glucose] 4 gram tablet,chewable 4 g PO Q15M PRN (Reason: hypoglycemia) Qty: 30 3RF Rx Instructions: until symptoms of low blood sugar are controlled albuterol sulfate 90 mcg/actuation HFA aerosol inhaler 1 inh inhalation QID multivitamin Tablet 1 tab PO QAM cholecalciferol (vitamin D3) 125 mcg (5,000 unit) capsule 5,000 unit PO QAM Baqsimi 3 mg/actuation spray,non-aerosol 3 mg intranasal ONCE PRN (Reason: Hypoglycemia) dicyclomine 10 mg capsule 10 mg PO TID Rx Instructions: TAKE 1 CAPSULE BY MOUTH THREE TIMES A DAY metoprolol succinate 50 mg tablet extended release 24 hr 50 mg PO QAM Discharge Orders: Discharge Order (Routine); Ordered 11/13/22 Ordered By: Giuseppe Le Admission Data Admit Date/Time: 11/12/22 17:29 Attending Provider: Giuseppe Le Admit Provider: Wilfred Weber Primary Care Provider: Doron Rebolledo Other Providers: Wilfred Weber Coding Level of Care Code 72502 INP/OBS DISCH >30 MIN Diagnoses DKA (diabetic ketoacidoses) E13.10 LUCI (acute kidney injury) N17.9 Elevated troponin R77.8 CAD (coronary artery disease) I25.10 Cerebrovascular disease I67.9 Hypertension I10 Hypertension type: primary hypertension Hypercholesteremia E78.00
--- NOTE | 2022-11-13 16:42 | Electrocardiogram Report ---
Test Reason : Blood Pressure : / mmHG Vent. Rate : 092 BPM Atrial Rate : 092 BPM P-R Int : 130 ms QRS Dur : 084 ms QT Int : 348 ms P-R-T Axes : 074 049 069 degrees QTc Int : 430 ms Sinus rhythm with occasional Premature ventricular complexes Nondiagnostic inferior Q waves Abnormal ECG When compared with ECG of 26-DEC-2021 08:02, Premature ventricular complexes are now Present Confirmed by Jony Best ([id number]) on 11/13/2022 4:41:47 PM Referred By: REFERRED SELF Confirmed By:Jony Best
== END 2022-11-13 12:50 | disposition home or self-care (01) ==
LOC: ED 14:33 → EDINP 14:33 → SUATTDRO 17:29 → 2S 20:49
DX: Z91.041 Radiographic dye allergy status; I25.10 Atherosclerotic heart disease of native coronary artery without angina pectoris; I10 Essential (primary) hypertension; Z79.899 Other long term (current) drug therapy; Z88.8 Allergy status to other drugs, medicaments and biological substances; F17.210 Nicotine dependence, cigarettes, uncomplicated; E10.10 Type 1 diabetes mellitus with ketoacidosis without coma; Z88.5 Allergy status to narcotic agent; Z79.82 Long term (current) use of aspirin; N17.9 Acute kidney failure, unspecified; K58.9 Irritable bowel syndrome, unspecified; E86.0 Dehydration; I25.2 Old myocardial infarction; E78.00 Pure hypercholesterolemia, unspecified; Z88.0 Allergy status to penicillin; Z79.4 Long term (current) use of insulin; R77.8 Other specified abnormalities of plasma proteins; F41.9 Anxiety disorder, unspecified; Z86.73 Personal history of transient ischemic attack (TIA), and cerebral infarction without residual deficits